=== PATIENT | female | born 1985 | race African-American/Black ===

== ENCOUNTER 2016-05-08 01:37 | Emergency (ER) | payer MEDICAID ==
[~2016-05-08] VITALS: Ht 162.6 cm; Wt 99.8 kg
[~2016-05-08 01:37] MED LIST: HYDR-2652 PO; LABE100T19 PO; LORA1TAB12 PO; NIFE90TA30 PO; OXYC10TA44 PO
[2016-05-08 01:45] VITALS: BP 210/110
[2016-05-08 03:07] LABS: Basophils # (auto) 0 uL; Basophils % (auto) 0.1 % (0.0-2.0); DEFINITIVE VIEW TRANSMISSION; Eosinophils # (auto) 0.1 uL; Eosinophils % (auto) 0.8 % (0.0-7.0); Hematocrit 35.4 % (36.0-46.0); Lymphocytes % (auto) 24.8 % (10.0-50.0); Mean Corpuscular Hgb Conc. 31.1 g/dL (32.0-36.0); Mean Corpuscular Volume 73.8 fL (80.0-100.0); Mean Platelet Volume 9.1 fL (7.4-10.4); Monocytes # (auto) 0.7 uL; Monocytes % (auto) 6.2 % (0.0-12.0); Neutrophils # (auto) 8.1 uL; Neutrophils % (auto) 68.1 % (37.0-80.0); Platelet Count (auto) 363 10^3/uL (140-450); Red Cell Distribution Width 16.8 % (11.6-16.0); White Blood Cell 11.9 10^3/uL (4.4-10.8)
[2016-05-08 03:17] LABS: Reticulocyte Count 2.24 % (0.5-1.5)
[2016-05-08 03:21] LABS: Albumin 3.7 g/dL (3.4-5.0); Calcium 8.8 mg/dL (8.5-10.1); Potassium 3.6 mmol/L (3.5-5.1)
[2016-05-08 03:23] LABS: Bilirubin, Total 0.2 mg/dL (0.2-1.0); Total Protein 7.8 g/dL (6.4-8.2)
== END 2016-05-08 09:38 | disposition left against medical advice (07) ==
LOC: ER 01:45
DX: D57.1 Sickle-cell disease without crisis (principal); Z53.21 Procedure and treatment not carried out due to patient leaving prior to being seen by health care provider
CPT/HCPCS: 36415; 80053; 85025; 85045

== ENCOUNTER 2016-05-19 13:57 | Emergency (ER) | payer MEDICAID ==
[~2016-05-19] VITALS: Ht 162.6 cm; Wt 98.0 kg
[2016-05-19] MEDS ORDERED: HYDROmorphone HCL 2 MG/ML VL IV ONE (14:15)
[2016-05-19] MEDS ORDERED: cloNIDine HCL 0.1 MG TAB PO ONE (14:15)
[2016-05-19] MEDS ORDERED: ONDANSETRON HCL 4 MG/2 ML VIAL IV ONE (14:15)
[2016-05-19 14:34] LABS: Basophils # (auto) 0 uL; DEFINITIVE VIEW TRANSMISSION; Eosinophils # (auto) 0.1 uL; Eosinophils % (auto) 0.8 % (0.0-7.0); Hemoglobin 11.2 g/dL (12.2-16.2); Lymphocytes # (auto) 2.8 uL; Lymphocytes % (auto) 24.5 % (10.0-50.0); Mean Corpuscular Hgb Conc. 31.2 g/dL (32.0-36.0); Mean Corpuscular Volume 73.7 fL (80.0-100.0); Mean Platelet Volume 8.4 fL (7.4-10.4); Monocytes # (auto) 0.7 uL; Monocytes % (auto) 5.8 % (0.0-12.0); Neutrophils # (auto) 7.9 uL; Neutrophils % (auto) 68.9 % (37.0-80.0); Platelet Count (auto) 315 10^3/uL (140-450); Red Cell Distribution Width 16.7 % (11.6-16.0); White Blood Cell 11.5 10^3/uL (4.4-10.8)
[2016-05-19 14:54] LABS: Albumin 3.5 g/dL (3.4-5.0); BUN/Creatinine Ratio 12.5; Calcium 8.9 mg/dL (8.5-10.1); Potassium 4.2 mmol/L (3.5-5.1)
[2016-05-19 14:58] LABS: Bilirubin, Total 0.3 mg/dL (0.2-1.0); Total Protein 7.8 g/dL (6.4-8.2)
[2016-05-19 15:46] VITALS: BP 179/73
== END 2016-05-19 16:20 | disposition home or self-care (01) ==
LOC: EDBD 13:57 → ER 14:04
DX: I16.0 Hypertensive urgency (principal); G89.29 Other chronic pain; I48.91 Unspecified atrial fibrillation; E11.22 Type 2 diabetes mellitus with diabetic chronic kidney disease; I12.9 Hypertensive chronic kidney disease with stage 1 through stage 4 chronic kidney disease, or unspecified chronic kidney disease; N18.9 Chronic kidney disease, unspecified; Z86.73 Personal history of transient ischemic attack (TIA), and cerebral infarction without residual deficits; Z88.6 Allergy status to analgesic agent; Z91.013 Allergy to seafood; Z79.899 Other long term (current) drug therapy
CPT/HCPCS: 36415; 80053; 85025; 85049; 94761; 96374; 96375; 99284; J1170; J2405

== ENCOUNTER 2016-06-05 08:54 | Emergency (ER) | payer MEDICAID ==
[~2016-06-05] VITALS: Ht 162.6 cm; Wt 99.8 kg
[2016-06-05 10:33] LABS: Basophils # (auto) 0 uL; Basophils % (auto) 0.4 % (0.0-2.0); DEFINITIVE VIEW TRANSMISSION; Eosinophils # (auto) 0.1 uL; Eosinophils % (auto) 1.4 % (0.0-7.0); Hematocrit 30.9 % (36.0-46.0); Hemoglobin 9.7 g/dL (12.2-16.2); Lymphocytes # (auto) 3.1 uL; Lymphocytes % (auto) 29.8 % (10.0-50.0); Mean Corpuscular Hemoglobin 22.6 pg (28.0-32.0); Mean Corpuscular Hgb Conc. 31.3 g/dL (32.0-36.0); Mean Corpuscular Volume 72.1 fL (80.0-100.0); Mean Platelet Volume 8.6 fL (7.4-10.4); Monocytes # (auto) 0.7 uL; Monocytes % (auto) 6.8 % (0.0-12.0); Neutrophils # (auto) 6.4 uL; Neutrophils % (auto) 61.6 % (37.0-80.0); Platelet Count (auto) 319 10^3/uL (140-450); Red Cell Distribution Width 17.2 % (11.6-16.0); White Blood Cell 10.4 10^3/uL (4.4-10.8)
[2016-06-05] MEDS ORDERED: SODIUM CHLORIDE 0.9% 1,000 ML IV ONE (10:48)
[2016-06-05 10:54] LABS: Albumin 3.4 g/dL (3.4-5.0); BUN/Creatinine Ratio 15.6; Bilirubin, Total 0.2 mg/dL (0.2-1.0); Calcium 8.8 mg/dL (8.5-10.1); Potassium 3.6 mmol/L (3.5-5.1); Total Protein 7.3 g/dL (6.4-8.2)
[2016-06-05] MEDS ORDERED: LABETALOL HCL 5 MG/ML 4ML SYRINGE IV ONE (11:00)
[2016-06-05 11:19] VITALS: BP 205/123
== END 2016-06-05 14:17 | disposition home or self-care (01) ==
LOC: ER 08:54
DX: E11.65 Type 2 diabetes mellitus with hyperglycemia (principal); E66.01 Morbid (severe) obesity due to excess calories; I10 Essential (primary) hypertension; I48.91 Unspecified atrial fibrillation; R11.2 Nausea with vomiting, unspecified; G89.4 Chronic pain syndrome; D57.1 Sickle-cell disease without crisis; E11.22 Type 2 diabetes mellitus with diabetic chronic kidney disease; I12.9 Hypertensive chronic kidney disease with stage 1 through stage 4 chronic kidney disease, or unspecified chronic kidney disease; N18.9 Chronic kidney disease, unspecified; Z86.73 Personal history of transient ischemic attack (TIA), and cerebral infarction without residual deficits; Z68.37 Body mass index [BMI] 37.0-37.9, adult; Z88.6 Allergy status to analgesic agent; Z91.013 Allergy to seafood; Z79.899 Other long term (current) drug therapy
CPT/HCPCS: 36415; 71010; 80053; 81025; 83735; 84443; 84484; 85025; 85045; 93005; 94761; 96361; 96374; 99285; J3490

== ENCOUNTER 2016-06-10 05:33 | Emergency (ER) | payer MEDICAID ==
[~2016-06-10] VITALS: Ht 162.6 cm; Wt 98.0 kg
[2016-06-10 06:10] VITALS: BP 174/126
[2016-06-10 07:12] LABS: Urine Bilirubin Negative (Negative); Urine Blood TRACE /uL (Negative); Urine Color Yellow (Yellow); Urine Hyaline Cast FEW /lpf (0 - 2); Urine Ketone Negative (Negative); Urine Mucus FEW (None Seen); Urine Nitrite Negative (Negative); Urine RBC 5 /hpf (0 - 4); Urine Squamous Epithelial Cell FEW /hpf (<5); Urine Urobilinogen Normal (Negative); Urine pH 5.5 (5.0-8.0)
[2016-06-10 07:23] LABS: Urine Glucose 2+ mg/dL (Normal)
== END 2016-06-10 08:52 | disposition left against medical advice (07) ==
LOC: ER 05:36
DX: D57.00 Hb-SS disease with crisis, unspecified (principal); Z53.21 Procedure and treatment not carried out due to patient leaving prior to being seen by health care provider
CPT/HCPCS: 81001; 81025; 93005

== ENCOUNTER 2016-06-18 13:30 | Emergency (ER) | payer MEDICAID ==
[~2016-06-18] VITALS: Ht 170.2 cm; Wt 117.9 kg
[2016-06-18 14:35] LABS: Basophils # (auto) 0 uL; Basophils % (auto) 0.1 % (0.0-2.0); DEFINITIVE VIEW TRANSMISSION; Eosinophils # (auto) 0.2 uL; White Blood Cell 8.5 10^3/uL (4.4-10.8)
[2016-06-18 14:39] LABS: Eosinophils % (auto) 1.8 % (0.0-7.0); Hematocrit 35.3 % (36.0-46.0); Hemoglobin 10.7 g/dL (12.2-16.2); Lymphocytes # (auto) 2.7 uL; Lymphocytes % (auto) 31.7 % (10.0-50.0); Mean Corpuscular Hemoglobin 22.2 pg (28.0-32.0); Mean Corpuscular Hgb Conc. 30.4 g/dL (32.0-36.0); Mean Corpuscular Volume 73.1 fL (80.0-100.0); Mean Platelet Volume 8.8 fL (7.4-10.4); Monocytes # (auto) 0.5 uL; Monocytes % (auto) 6.1 % (0.0-12.0); Neutrophils # (auto) 5.1 uL; Neutrophils % (auto) 60.3 % (37.0-80.0); Platelet Count (auto) 366 10^3/uL (140-450); Red Cell Distribution Width 17.6 % (11.6-16.0)
[2016-06-18 14:48] LABS: INR 0.91 (0.9-1.15); Partial Thromboplastin Time 24.7 sec (22.64-33.71); Prothrombin Time 9.4 sec (9.37-12.3)
[2016-06-18 14:54] LABS: Albumin 3.4 g/dL (3.4-5.0); Calcium 8.8 mg/dL (8.5-10.1)
[2016-06-18 14:56] LABS: Bilirubin, Total 0.2 mg/dL (0.2-1.0); Total Protein 7.5 g/dL (6.4-8.2)
[2016-06-18] MEDS ORDERED: NALBUPHINE HCL 10 MG/1ml INJECTION IV ONE (16:30)
[2016-06-18] MEDS ORDERED: SODIUM CHLORIDE 0.9% 1,000 ML IV ONE (16:30)
[2016-06-18] MEDS ORDERED: PROMETHAZINE HCL 25 MG/ML 1ML IV ONE (16:30)
[2016-06-18 16:32] VITALS: BP 221/133
[2016-06-18] MEDS ORDERED: diphenhdrAMINE HCL 50 MG/1 ML VL ONE (17:26)
[2016-06-18 17:29] LABS: Urine Bilirubin Negative (Negative); Urine Color Yellow (Yellow); Urine Ketone Negative (Negative); Urine Nitrite Negative (Negative); Urine RBC 5 /hpf (0 - 4); Urine Squamous Epithelial Cell FEW /hpf (<5); Urine Urobilinogen Normal (Negative); Urine pH 7.5 (5.0-8.0)
[2016-06-18 17:33] LABS: Urine Blood 1+ /uL (Negative); Urine Glucose 3+ mg/dL (Normal)
[2016-06-18] MEDS ORDERED: hydrALAZINE HCL 20 MG/ML VL IV ONE (17:45)
[2016-06-18] MEDS ORDERED: diphenhdrAMINE HCL 50 MG/1 ML VL IV ONE (17:45)
[2016-06-18] MEDS ORDERED: LABETALOL HCL 5 MG/ML 4ML SYRINGE IV ONE (17:45)
== END 2016-06-18 16:26 | disposition left against medical advice (07) ==
LOC: EDBD 13:30 → ER 13:30 → EDUNIT# 13:30 → ER 16:26
DX: D57.1 Sickle-cell disease without crisis (principal); G89.4 Chronic pain syndrome; I48.91 Unspecified atrial fibrillation; I12.9 Hypertensive chronic kidney disease with stage 1 through stage 4 chronic kidney disease, or unspecified chronic kidney disease; N18.9 Chronic kidney disease, unspecified; E11.9 Type 2 diabetes mellitus without complications; Z86.73 Personal history of transient ischemic attack (TIA), and cerebral infarction without residual deficits; Z98.890 Other specified postprocedural states; Z53.29 Procedure and treatment not carried out because of patient's decision for other reasons
CPT/HCPCS: 36415; 80053; 81001; 83735; 84443; 84702; 85025; 85045; 85610; 85730; 93005; 94761; 96361; 96374; 96375; 99285; J0360; J1200; J2300; J2550; J3490; J7030

== ENCOUNTER 2016-08-16 22:10 | Inpatient (IN) | payer MEDICAID ==
[~2016-08-16] VITALS: Ht 162.6 cm; Wt 98.0 kg
[2016-08-16] MEDS ORDERED: SODIUM CHLORIDE 0.9% 1,000 ML IV ONE (23:00)
[2016-08-16 23:11] LABS: Neutrophils % (auto) 62.5 % (37.0-80.0); White Blood Cell 12.4 10^3/uL (4.4-10.8)
[2016-08-16 23:12] LABS: Basophils % (auto) 0.1 % (0.0-2.0); Eosinophils % (auto) 1.2 % (0.0-7.0); Lymphocytes % (auto) 29.4 % (10.0-50.0); Monocytes % (auto) 6.8 % (0.0-12.0); Neutrophils # (auto) 7.8 uL
[2016-08-16 23:13] LABS: Basophils # (auto) 0 uL; Eosinophils # (auto) 0.1 uL; Hematocrit 37.3 % (36.0-46.0); Hemoglobin 11.8 g/dL (12.2-16.2); Lymphocytes # (auto) 3.6 uL; Mean Corpuscular Hemoglobin 23.4 pg (28.0-32.0); Mean Corpuscular Hgb Conc. 31.6 g/dL (32.0-36.0); Monocytes # (auto) 0.83 uL; Platelet Count (auto) 328 10^3/uL (140-450)
[2016-08-16 23:14] LABS: Mean Platelet Volume 8.7 fL (7.4-10.4)
[2016-08-16] MEDS ORDERED: HYDROmorphone HCL 2 MG/ML VL IV ONE ×2 (23:15→23:45)
[2016-08-16] MEDS ORDERED: ONDANSETRON HCL 4 MG/2 ML VIAL IV ONE ×2 (23:15→23:45)
[2016-08-16] MEDS ORDERED: DILTIAZEM HCL 25 MG/5 ML VIAL IV ONE (23:15)
[2016-08-16 23:23] LABS: Albumin 3.5 g/dL (3.4-5.0); BUN/Creatinine Ratio 8.5; Calcium 8.7 mg/dL (8.5-10.1); Potassium 3.6 mmol/L (3.5-5.1)
[2016-08-16 23:26] LABS: Bilirubin, Total 0.2 mg/dL (0.2-1.0); Total Protein 7.5 g/dL (6.4-8.2)
[2016-08-16] MEDS ORDERED: cloNIDine HCL 0.1 MG TAB PO ONE (23:45)
[2016-08-17 00:10] LABS: Urine Bilirubin Negative (Negative); Urine Color Yellow (Yellow); Urine Ketone Negative (Negative); Urine Nitrite Negative (Negative); Urine RBC 13 /hpf (0 - 4); Urine Squamous Epithelial Cell FEW /hpf (<5); Urine Urobilinogen Normal (Negative)
[2016-08-17 00:11] LABS: Urine Blood 1+ /uL (Negative); Urine Glucose 4+ mg/dL (Normal)
[2016-08-17] MEDS ORDERED: diphenhdrAMINE HCL 50 MG/1 ML VL ONE (00:40)
[2016-08-17] MEDS ORDERED: diphenhdrAMINE HCL 50 MG/1 ML VL IV ONE ×4 (00:45→04:30)
[2016-08-17] MEDS ORDERED: NITROGLYCERIN 50MG/250ML 250 ML IV SCH (01:57)
[2016-08-17] MEDS ORDERED: DILTIAZEM HCL 25 MG/5 ML VIAL IV ONE (02:00)
[2016-08-17] MEDS ORDERED: NIFEdipine ER 30 MG TAB PO ONE (02:00)
[2016-08-17] MEDS ORDERED: LABETALOL HCL 5 MG/ML 4ML SYRINGE IV ONE (02:00)
[2016-08-17] MEDS ORDERED: ONDANSETRON HCL 4 MG/2 ML VIAL IV ONE (04:00)
[2016-08-17] MEDS ORDERED: HYDROmorphone HCL 2 MG/ML VL IV ONE (04:00)
[2016-08-17 05:15] VITALS: BP 154/105
[2016-08-17] MEDS ORDERED: MORPHINE SULF INJ 2 MG/ML SYRINGE 1ML IV PRN ×2 (05:30→06:00)
[2016-08-17] MEDS ORDERED: OXYCODONE W/ ACETAMINOPHEN 5/325MG TABLET PO PRN ×2 (05:30→06:00)
[2016-08-17] MEDS ORDERED: NITROGLYCERIN 0.4 MG SL TAB SL PRN ×2 (05:30→06:00)
[2016-08-17] MEDS ORDERED: ACETAMINOPHEN 325 MG TAB PO PRN ×2 (05:30→06:00)
[2016-08-17] MEDS ORDERED: TEMAZEPAM 15 MG CAP PO PRN ×2 (05:30→06:00)
[2016-08-17] MEDS ORDERED: ONDANSETRON HCL 4 MG/2 ML VIAL IV PRN ×2 (05:30→06:00)
[2016-08-17] MEDS ORDERED: hydrALAZINE HCL 25 MG TAB PO PRN ×2 (05:30→06:00)
[2016-08-17] MEDS ORDERED: DEXTROSE (50%) 50ML SYRG IV PRN ×2 (05:30→06:00)
[2016-08-17] MEDS ORDERED: InsuLIN REG 1unit/0.01ml Soln (100units/ml) SC SCH ×2 (06:00→06:15)
[2016-08-17] MEDS ORDERED: ACCU-CHEK COMFORT CURVE STRIP VI SCH ×2 (06:00→06:15)
[2016-08-17] MEDS ORDERED: LABETALOL HCL 200 MG TAB PO SCH ×2 (06:00→06:15)
[2016-08-17] MEDS ORDERED: cefTRIAXone 1GM/50ML D5W 50 ML IV SCH ×2 (09:00)
[2016-08-17] MEDS ORDERED: FAMOTIDINE 20 MG TAB PO SCH ×2 (10:00)
[2016-08-17] MEDS ORDERED: NIFEdipine ER 30 MG TAB PO SCH ×2 (10:00)
== END 2016-08-17 05:51 | disposition left against medical advice (07) | DRG 463 ==
LOC: ER 22:14 → TELE 22:15 → ER 08-17 05:57
PROVIDERS: ADMIT Nurse Practitioner; ATTEND Internal Medicine
DX: N30.01 Acute cystitis with hematuria (principal); E11.22 Type 2 diabetes mellitus with diabetic chronic kidney disease; I16.1 Hypertensive emergency; E11.65 Type 2 diabetes mellitus with hyperglycemia; D57.1 Sickle-cell disease without crisis; I12.9 Hypertensive chronic kidney disease with stage 1 through stage 4 chronic kidney disease, or unspecified chronic kidney disease; I48.91 Unspecified atrial fibrillation; Z53.21 Procedure and treatment not carried out due to patient leaving prior to being seen by health care provider; N18.9 Chronic kidney disease, unspecified; Z82.49 Family history of ischemic heart disease and other diseases of the circulatory system; Z83.3 Family history of diabetes mellitus; Z86.73 Personal history of transient ischemic attack (TIA), and cerebral infarction without residual deficits; Z87.442 Personal history of urinary calculi; Z88.6 Allergy status to analgesic agent; Z91.013 Allergy to seafood; Z79.899 Other long term (current) drug therapy; Z84.89 Family history of other specified conditions; Z80.8 Family history of malignant neoplasm of other organs or systems
CPT/HCPCS: 36415; 74176; 80053; 81001; 83036; 84702; 85025; 87086; 93005; 94761; 96374; 96375; 96376; J2405; J3490

== ENCOUNTER 2016-08-25 02:48 | Inpatient (IN) | payer MEDICAID ==
[~2016-08-25] VITALS: Ht 162.6 cm; Wt 100.0 kg
[2016-08-25] MEDS ORDERED: SODIUM CHLORIDE 0.9% 1,000 ML IV ONE (03:04)
[2016-08-25] MEDS ORDERED: cloNIDine HCL 0.1 MG TAB PO ONE (03:15)
[2016-08-25] MEDS ORDERED: SODIUM CHLORIDE 0.9% 2,000 ML IV ONE (03:15)
[2016-08-25] MEDS ORDERED: ONDANSETRON HCL 4 MG/2 ML VIAL IV ONE ×2 (03:30→06:45)
[2016-08-25 03:44] LABS: Basophils # (auto) 0 uL; Basophils % (auto) 0.1 % (0.0-2.0); DEFINITIVE VIEW TRANSMISSION; Eosinophils # (auto) 0.2 uL; Eosinophils % (auto) 1.7 % (0.0-7.0); Hematocrit 35.3 % (36.0-46.0); Hemoglobin 11.4 g/dL (12.2-16.2); Lymphocytes # (auto) 3.1 uL; Lymphocytes % (auto) 32.3 % (10.0-50.0); Mean Corpuscular Hemoglobin 23.8 pg (28.0-32.0); Mean Corpuscular Hgb Conc. 32.4 g/dL (32.0-36.0); Mean Corpuscular Volume 73.6 fL (80.0-100.0); Mean Platelet Volume 9.3 fL (7.4-10.4); Monocytes # (auto) 0.7 uL; Monocytes % (auto) 7.3 % (0.0-12.0); Neutrophils # (auto) 5.7 uL; Neutrophils % (auto) 58.6 % (37.0-80.0); Platelet Count (auto) 380 10^3/uL (140-450); Red Cell Distribution Width 17.5 % (11.6-16.0); Reticulocyte Count 2.46 % (0.5-1.5); White Blood Cell 9.7 10^3/uL (4.4-10.8)
[2016-08-25 03:45] LABS: Urine Bilirubin Negative (Negative); Urine Blood 2+ /uL (Negative); Urine Color Colorless (Yellow); Urine Glucose 4+ mg/dL (Normal); Urine Ketone Negative (Negative); Urine Nitrite Negative (Negative); Urine RBC 16 /hpf (0 - 4); Urine Squamous Epithelial Cell FEW /hpf (<5); Urine Urobilinogen Normal (Negative)
[2016-08-25 03:52] LABS: Partial Thromboplastin Time 23.2 sec (22.64-33.71); Prothrombin Time 9.4 sec (9.37-12.3)
[2016-08-25 03:54] LABS: Albumin 3.1 g/dL (3.4-5.0); Alkaline Phosphatase 147 U/L (45-117); Anion Gap 9 (5-15); Aspartate Aminotransferase 13 U/L (15-37); BUN/Creatinine Ratio 9.1; Bilirubin, Total 0.1 mg/dL (0.2-1.0); Blood Urea Nitrogen 10 mg/dL (7-18); Calcium 8.5 mg/dL (8.5-10.1); Carbon Dioxide 30 mmol/L (21-32); Chloride 102 mmol/L (98-107); GFR African American 74 mL/min; GFR Non-African American 61 mL/min; Glucose 307 mg/dL (74-106); Potassium 3.5 mmol/L (3.5-5.1); Sodium 141 mmol/L (136-145); Total Protein 7.3 g/dL (6.4-8.2)
[2016-08-25 03:55] LABS: INR 0.87 (0.9-1.15)
[2016-08-25] MEDS ORDERED: hydrALAZINE HCL 20 MG/ML VL IV ONE (04:00)
[2016-08-25 04:13] LABS: B-Type Natriuretic Peptide 67.45 pg/mL (0-100)
[2016-08-25] MEDS ORDERED: HYDROmorphone HCL 2 MG/ML VL IV ONE ×2 (05:00→06:45)
[2016-08-25] MEDS ORDERED: LORazepam 0.5 MG TAB PO PRN ×2 (08:00→09:00)
[2016-08-25] MEDS ORDERED: DEXTROSE (50%) 50ML SYRG IV PRN (08:00)
[2016-08-25] MEDS ORDERED: HYDROcodone-ACET 5/325MG TAB PO PRN (08:00)
[2016-08-25] MEDS ORDERED: TEMAZEPAM 15 MG CAP PO PRN (08:00)
[2016-08-25] MEDS ORDERED: ACETAMINOPHEN 500 MG TAB PO PRN (08:00)
[2016-08-25] MEDS ORDERED: HYDROmorphone HCL 2 MG/ML VL IV PRN (08:00)
[2016-08-25] MEDS ORDERED: NITROGLYCERIN 0.4 MG SL TAB SL PRN (08:00)
[2016-08-25] MEDS: SODIUM CHLORIDE 0.9% 1,000 ML IV SCH ×2 (08:36→18:09)
[2016-08-25] MEDS: InsuLIN REG 1unit/0.01ml Soln (100units/ml) SC SCH ×4 (08:39→20:04)
[2016-08-25] MEDS: ACCU-CHEK COMFORT CURVE STRIP VI SCH ×5 (08:39→23:48)
[2016-08-25] MEDS: PANTOPRAZOLE 40 MG TAB PO SCH (08:44)
[2016-08-25] MEDS ORDERED: LABETALOL HCL 5 MG/ML 4ML SYRINGE IV PRN ×3 (09:00)
[2016-08-25] MEDS ORDERED: hydrALAZINE HCL 25 MG TAB PO ONE (09:00)
[2016-08-25] MEDS ORDERED: hydrALAZINE HCL 20 MG/ML VL IV PRN ×2 (09:00)
[2016-08-25] MEDS ORDERED: LABETALOL HCL 5 MG/ML 4ML SYRINGE IV ONE (09:00)
[2016-08-25] MEDS ORDERED: OXYCODONE W/ ACETAMINOPHEN 5/325MG TABLET PO PRN (09:15)
[2016-08-25] MEDS: NIFEdipine ER 30 MG TAB PO SCH (09:37)
[2016-08-25] MEDS: PROCHLORPERAZINE EDISYLATE 5 MG/ML 2ML VIAL IV PRN ×2 (09:37→19:36)
[2016-08-25] MEDS: HYDROmorphone HCL 2 MG/ML VL IV PRN ×4 (10:58→23:48)
[2016-08-25] MEDS: diphenhdrAMINE HCL 50 MG/1 ML VL IV PRN ×4 (10:58→23:48)
[2016-08-25] MEDS ORDERED: INSLANTI SC (13:18)
[2016-08-25] MEDS ORDERED: DIPH25CA66 IV (13:18)
[2016-08-25] MEDS ORDERED: CLON0.2T PO (13:18)
[2016-08-25] MEDS ORDERED: LABE100T PO (13:18)
[2016-08-25 14:18] VITALS: BP 156/89
[2016-08-25 14:21] LABS: Hematocrit 32.1 % (36.0-46.0); Hemoglobin 10.3 g/dL (12.2-16.2)
[2016-08-25] MEDS: LABETALOL HCL 200 MG TAB PO SCH ×2 (14:41→22:06)
[2016-08-25] MEDS: hydrALAZINE HCL 25 MG TAB PO SCH ×2 (14:41→22:06)
[2016-08-25 15:57] VITALS: BP 182/101
[2016-08-25 19:32] LABS: Hematocrit 33.6 % (36.0-46.0); Hemoglobin 10.7 g/dL (12.2-16.2)
[2016-08-25 20:00] VITALS: BP 152/93
[2016-08-25 20:48] VITALS: BP 152/93
[2016-08-26] MEDS: InsuLIN REG 1unit/0.01ml Soln (100units/ml) SC SCH ×5 (00:26→17:28)
[2016-08-26 01:19] LABS: Hematocrit 30.2 % (36.0-46.0); Hemoglobin 9.6 g/dL (12.2-16.2)
[2016-08-26] MEDS: SODIUM CHLORIDE 0.9% 1,000 ML IV SCH ×2 (04:01→14:09)
[2016-08-26] MEDS: ACCU-CHEK COMFORT CURVE STRIP VI SCH ×4 (04:01→17:28)
[2016-08-26 04:41] VITALS: BP 148/93
[2016-08-26] MEDS: diphenhdrAMINE HCL 50 MG/1 ML VL IV PRN ×3 (06:10→14:24)
[2016-08-26] MEDS: HYDROmorphone HCL 2 MG/ML VL IV PRN ×3 (06:10→14:24)
[2016-08-26] MEDS: hydrALAZINE HCL 25 MG TAB PO SCH ×2 (06:11→14:09)
[2016-08-26] MEDS: LABETALOL HCL 200 MG TAB PO SCH ×2 (06:11→14:10)
[2016-08-26 06:20] LABS: Basophils # (auto) 0 uL; Basophils % (auto) 0.1 % (0.0-2.0); DEFINITIVE VIEW TRANSMISSION; Eosinophils # (auto) 0.2 uL; Eosinophils % (auto) 1.7 % (0.0-7.0); Hematocrit 27.8 % (36.0-46.0); Hemoglobin 9.1 g/dL (12.2-16.2); Lymphocytes # (auto) 4.1 uL; Lymphocytes % (auto) 35.7 % (10.0-50.0); Mean Corpuscular Hemoglobin 24.2 pg (28.0-32.0); Mean Corpuscular Hgb Conc. 32.5 g/dL (32.0-36.0); Mean Corpuscular Volume 74.3 fL (80.0-100.0); Mean Platelet Volume 8.7 fL (7.4-10.4); Monocytes # (auto) 0.8 uL; Monocytes % (auto) 6.9 % (0.0-12.0); Neutrophils # (auto) 6.3 uL; Neutrophils % (auto) 55.6 % (37.0-80.0); Platelet Count (auto) 333 10^3/uL (140-450); Red Cell Distribution Width 17.9 % (11.6-16.0); White Blood Cell 11.4 10^3/uL (4.4-10.8)
[2016-08-26 06:25] LABS: Calcium 8.4 mg/dL (8.5-10.1); Potassium 3.2 mmol/L (3.5-5.1)
[2016-08-26 06:37] LABS: Albumin 2.5 g/dL (3.4-5.0); BUN/Creatinine Ratio 9.3; Bilirubin, Total 0.1 mg/dL (0.2-1.0); Total Protein 5.6 g/dL (6.4-8.2)
[2016-08-26 07:27] VITALS: BP 166/91
[2016-08-26] MEDS: PANTOPRAZOLE 40 MG TAB PO SCH (09:20)
[2016-08-26] MEDS: NIFEdipine ER 30 MG TAB PO SCH (09:20)
[2016-08-26 12:01] VITALS: BP 163/98
[2016-08-26] MEDS ORDERED: PERCOT PO (14:50)
[2016-08-26 16:11] VITALS: BP 198/100
[2016-08-26 16:31] VITALS: BP 198/100
[2016-08-26] MEDS ORDERED: HYDROmorphone HCL 2 MG/ML VL IV ONE (17:00)
== END 2016-08-26 18:00 | disposition home or self-care (01) | DRG 662 ==
LOC: ER 02:49 → TELE 02:50 → TELE-E-ADS 11:38 → TELE-CENTR 13:47
PROVIDERS: ADMIT Internal Medicine; ATTEND Hospitalist
DX: D57.00 Hb-SS disease with crisis, unspecified (principal); Z99.11 Dependence on respirator [ventilator] status; E11.22 Type 2 diabetes mellitus with diabetic chronic kidney disease; E11.65 Type 2 diabetes mellitus with hyperglycemia; G89.4 Chronic pain syndrome; I48.91 Unspecified atrial fibrillation; N18.9 Chronic kidney disease, unspecified; I12.9 Hypertensive chronic kidney disease with stage 1 through stage 4 chronic kidney disease, or unspecified chronic kidney disease; D63.8 Anemia in other chronic diseases classified elsewhere; E66.01 Morbid (severe) obesity due to excess calories; Z82.49 Family history of ischemic heart disease and other diseases of the circulatory system; Z83.3 Family history of diabetes mellitus; Z87.442 Personal history of urinary calculi; Z86.73 Personal history of transient ischemic attack (TIA), and cerebral infarction without residual deficits; Z79.899 Other long term (current) drug therapy; Z68.37 Body mass index [BMI] 37.0-37.9, adult; Z88.6 Allergy status to analgesic agent; Z91.013 Allergy to seafood
CPT/HCPCS: 36415; 71010; 80053; 81001; 82962; 83036; 83880; 84484; 85014; 85018; 85025; 85045; 85610; 85730; 93005; 94761; 96361; 96374; 96375; J1815; J2405; J3490

== ENCOUNTER 2016-09-02 01:07 | Inpatient (IN) | payer MEDICAID ==
[~2016-09-02] VITALS: Ht 162.6 cm; Wt 99.4 kg
[~2016-09-02 01:07] MED LIST changes: +CLON0.2T PO; +INSLANTI SC; +LABE100T PO; -LABE100T19 PO
[2016-09-02] MEDS ORDERED: cloNIDine HCL 0.1 MG TAB PO ONE (01:45)
[2016-09-02 02:06] LABS: Basophils # (auto) 0 uL; Basophils % (auto) 0.1 % (0.0-2.0); DEFINITIVE VIEW TRANSMISSION; Eosinophils # (auto) 0.1 uL; Eosinophils % (auto) 1.2 % (0.0-7.0); Hematocrit 35.9 % (36.0-46.0); Hemoglobin 11.5 g/dL (12.2-16.2); Lymphocytes # (auto) 2.9 uL; Lymphocytes % (auto) 24.3 % (10.0-50.0); Mean Corpuscular Hemoglobin 23.7 pg (28.0-32.0); Mean Corpuscular Hgb Conc. 32.1 g/dL (32.0-36.0); Mean Corpuscular Volume 73.9 fL (80.0-100.0); Mean Platelet Volume 8.8 fL (7.4-10.4); Monocytes # (auto) 0.8 uL; Monocytes % (auto) 6.5 % (0.0-12.0); Neutrophils # (auto) 8.1 uL; Neutrophils % (auto) 67.9 % (37.0-80.0); Platelet Count (auto) 405 10^3/uL (140-450); Red Cell Distribution Width 17.1 % (11.6-16.0); White Blood Cell 11.9 10^3/uL (4.4-10.8)
[2016-09-02 02:24] LABS: Albumin 3.2 g/dL (3.4-5.0); BUN/Creatinine Ratio 8.6; Potassium 3.5 mmol/L (3.5-5.1)
[2016-09-02 02:27] LABS: Bilirubin, Total 0.2 mg/dL (0.2-1.0); Total Protein 7.4 g/dL (6.4-8.2)
[2016-09-02] MEDS ORDERED: InsuLIN REG 1unit/0.01ml Soln (100units/ml) IV ONE (04:00)
[2016-09-02] MEDS ORDERED: HYDROmorphone HCL 2 MG/ML VL IV ONE ×2 (04:00→07:00)
[2016-09-02] MEDS ORDERED: SODIUM CHLORIDE 0.9% 500 ML IV ONE (04:00)
[2016-09-02] MEDS ORDERED: ONDANSETRON HCL 4 MG/2 ML VIAL IV ONE (04:00)
[2016-09-02] MEDS ORDERED: hydrALAZINE HCL 20 MG/ML VL IV ONE (04:00)
[2016-09-02] MEDS ORDERED: LABETALOL HCL 5 MG/ML 4ML SYRINGE IV ONE ×3 (07:00→12:00)
[2016-09-02] MEDS ORDERED: cloNIDine HCL 0.1 MG TAB PO PRN (07:30)
[2016-09-02] MEDS ORDERED: ONDANSETRON HCL 4 MG/2 ML VIAL IV PRN (07:30)
[2016-09-02] MEDS ORDERED: NITROGLYCERIN 0.4 MG SL TAB SL PRN (07:30)
[2016-09-02] MEDS ORDERED: ACETAMINOPHEN 325 MG TAB PO PRN (07:30)
[2016-09-02] MEDS ORDERED: DEXTROSE (50%) 50ML SYRG IV PRN (07:30)
[2016-09-02] MEDS: SODIUM CHLORIDE 0.9% 1,000 ML IV SCH ×2 (09:24→22:20)
[2016-09-02] MEDS: FAMOTIDINE 20 MG TAB PO SCH ×2 (09:37→22:22)
[2016-09-02] MEDS: NIFEdipine ER 30 MG TAB PO SCH (09:38)
[2016-09-02] MEDS: ENOXAPARIN SOD 40 MG/0.4 ML SYRINGE SC SCH (09:38)
[2016-09-02] MEDS ORDERED: LABETALOL HCL 200 MG TAB PO SCH (10:00)
[2016-09-02] MEDS: diphenhdrAMINE HCL 50 MG/1 ML VL IV PRN ×2 (10:35→16:50)
[2016-09-02] MEDS ORDERED: LORazepam 0.5 MG TAB PO ONE (11:15)
[2016-09-02] MEDS: InsuLIN REG 1unit/0.01ml Soln (100units/ml) SC SCH ×2 (11:26→16:59)
[2016-09-02] MEDS: ACCU-CHEK COMFORT CURVE STRIP VI SCH ×2 (11:27→16:58)
[2016-09-02] MEDS: HYDROmorphone HCL 2 MG/ML VL IV PRN ×2 (13:23→19:34)
[2016-09-02] MEDS: hydrALAZINE HCL 25 MG TAB PO SCH ×2 (13:24→22:20)
[2016-09-02 13:32] VITALS: BP 154/100
[2016-09-02 17:00] VITALS: BP 155/97
[2016-09-02] MEDS ORDERED: methylPREDNISolone SOD SUCC 40 MG/ML VL IV ONE (19:00)
[2016-09-02] MEDS ORDERED: methylPREDNISolone SOD SUCC 125 MG/2 ML VL IM ONE (19:00)
[2016-09-02] MEDS ORDERED: diphenhdrAMINE HCL 50 MG/1 ML VL IV ONE (19:00)
[2016-09-02] MEDS ORDERED: methylPREDNISolone SOD SUCC 125 MG/2 ML VL IV ONE (19:15)
[2016-09-02 22:00] VITALS: BP 193/101
[2016-09-02] MEDS: cloNIDine HCL 0.1 MG TAB PO SCH (22:21)
[2016-09-02] MEDS: LABETALOL HCL 200 MG TAB PO SCH (22:22)
[2016-09-02] MEDS: LABETALOL HCL 5 MG/ML 4ML SYRINGE IV PRN (23:23)
[2016-09-03] MEDS ORDERED: methylPREDNISolone SOD SUCC 40 MG/ML VL IV SCH
[2016-09-03] MEDS: ACCU-CHEK COMFORT CURVE STRIP VI SCH ×5 (00:29→23:24)
[2016-09-03] MEDS: methylPREDNISolone SOD SUCC 40 MG/ML VL IV SCH ×3 (00:29→12:00)
[2016-09-03] MEDS: InsuLIN REG 1unit/0.01ml Soln (100units/ml) SC SCH ×5 (00:30→23:24)
[2016-09-03] MEDS ORDERED: hydrALAZINE HCL 20 MG/ML VL IV ONE (01:00)
[2016-09-03] MEDS: diphenhdrAMINE HCL 50 MG/1 ML VL IV PRN ×4 (01:06→21:51)
[2016-09-03] MEDS: HYDROmorphone HCL 2 MG/ML VL IV PRN ×5 (01:35→22:29)
[2016-09-03 05:00] VITALS: BP 195/114
[2016-09-03] MEDS: LABETALOL HCL 5 MG/ML 4ML SYRINGE IV PRN ×2 (05:26→13:32)
[2016-09-03] MEDS: hydrALAZINE HCL 25 MG TAB PO SCH ×3 (06:22→23:24)
[2016-09-03 06:43] LABS: Basophils # (auto) 0 uL; DEFINITIVE VIEW TRANSMISSION; Eosinophils # (auto) 0 uL; Eosinophils % (auto) 0.3 % (0.0-7.0); Hematocrit 33.8 % (36.0-46.0); Hemoglobin 10.8 g/dL (12.2-16.2); Lymphocytes # (auto) 1.3 uL; Lymphocytes % (auto) 9.5 % (10.0-50.0); Mean Corpuscular Hemoglobin 23.5 pg (28.0-32.0); Mean Corpuscular Hgb Conc. 31.8 g/dL (32.0-36.0); Mean Corpuscular Volume 73.8 fL (80.0-100.0); Mean Platelet Volume 8.9 fL (7.4-10.4); Monocytes # (auto) 0 uL; Monocytes % (auto) 0.3 % (0.0-12.0); Neutrophils # (auto) 12.6 uL; Neutrophils % (auto) 89.9 % (37.0-80.0); Platelet Count (auto) 383 10^3/uL (140-450)
[2016-09-03 07:21] LABS: BUN/Creatinine Ratio 11.7; Bilirubin, Total 0.2 mg/dL (0.2-1.0); Calcium 9.3 mg/dL (8.5-10.1); Magnesium 2.1 mg/dL (1.6-2.6); Potassium 3.8 mmol/L (3.5-5.1); Total Protein 7.2 g/dL (6.4-8.2)
[2016-09-03] MEDS ORDERED: ENALAPRILAT 1.25 MG/ML-1ML VIAL IV ONE (08:45)
[2016-09-03 09:00] VITALS: BP 165/97
[2016-09-03] MEDS: FAMOTIDINE 20 MG TAB PO SCH ×2 (11:36→21:54)
[2016-09-03] MEDS: ENOXAPARIN SOD 40 MG/0.4 ML SYRINGE SC SCH (11:36)
[2016-09-03] MEDS: NIFEdipine ER 30 MG TAB PO SCH (11:39)
[2016-09-03] MEDS: cloNIDine HCL 0.1 MG TAB PO SCH ×2 (11:39→21:53)
[2016-09-03] MEDS: LABETALOL HCL 200 MG TAB PO SCH ×2 (11:40→21:53)
[2016-09-03] MEDS: SODIUM CHLORIDE 0.9% 1,000 ML IV SCH (11:53)
[2016-09-03 13:00] VITALS: BP 148/85
[2016-09-03] MEDS ORDERED: LISINOPRIL 20 MG TAB PO ONE (13:00)
[2016-09-03 17:00] VITALS: BP 192/109
[2016-09-03] MEDS: ATORVASTATIN 20 MG TAB PO SCH (21:53)
[2016-09-03 22:09] VITALS: BP 164/99
[2016-09-04] MEDS: HYDROmorphone HCL 2 MG/ML VL IV PRN ×6 (02:20→22:50)
[2016-09-04] MEDS: diphenhdrAMINE HCL 50 MG/1 ML VL IV PRN ×3 (04:20→21:05)
[2016-09-04 05:30] VITALS: BP 161/97
[2016-09-04 06:13] LABS: Calcium 8.5 mg/dL (8.5-10.1); Potassium 3.9 mmol/L (3.5-5.1)
[2016-09-04] MEDS: hydrALAZINE HCL 25 MG TAB PO SCH ×4 (06:30→23:34)
[2016-09-04] MEDS: ACCU-CHEK COMFORT CURVE STRIP VI SCH ×4 (06:30→23:34)
[2016-09-04] MEDS: InsuLIN REG 1unit/0.01ml Soln (100units/ml) SC SCH ×4 (06:55→23:34)
[2016-09-04] MEDS: SODIUM CHLORIDE 0.9% 1,000 ML IV SCH ×2 (07:17→23:34)
[2016-09-04 09:00] VITALS: BP 150/86
[2016-09-04] MEDS: ENOXAPARIN SOD 40 MG/0.4 ML SYRINGE SC SCH (10:00)
[2016-09-04] MEDS: FAMOTIDINE 20 MG TAB PO SCH ×2 (10:32→21:47)
[2016-09-04] MEDS: NIFEdipine ER 30 MG TAB PO SCH (10:33)
[2016-09-04] MEDS: LISINOPRIL 20 MG TAB PO SCH (10:33)
[2016-09-04] MEDS: cloNIDine HCL 0.1 MG TAB PO SCH ×3 (10:34→21:46)
[2016-09-04] MEDS: LABETALOL HCL 200 MG TAB PO SCH ×2 (10:34→21:47)
[2016-09-04 12:51] VITALS: BP 160/102
[2016-09-04] MEDS ORDERED: HYDROXYUREA 500 MG CAP PO ONE (13:45)
[2016-09-04 17:00] VITALS: BP 170/99
[2016-09-04] MEDS: ATORVASTATIN 20 MG TAB PO SCH (21:46)
[2016-09-04 22:00] VITALS: BP 194/117
[2016-09-05] MEDS: LABETALOL HCL 5 MG/ML 4ML SYRINGE IV PRN (00:24)
[2016-09-05] MEDS: HYDROmorphone HCL 2 MG/ML VL IV PRN ×3 (02:53→11:13)
[2016-09-05] MEDS: diphenhdrAMINE HCL 50 MG/1 ML VL IV PRN ×2 (03:15→11:12)
[2016-09-05 05:00] VITALS: BP 170/94
[2016-09-05] MEDS: cloNIDine HCL 0.1 MG TAB PO SCH (06:26)
[2016-09-05] MEDS: hydrALAZINE HCL 25 MG TAB PO SCH ×2 (06:26→11:12)
[2016-09-05] MEDS: ACCU-CHEK COMFORT CURVE STRIP VI SCH ×2 (06:28→11:19)
[2016-09-05] MEDS: InsuLIN REG 1unit/0.01ml Soln (100units/ml) SC SCH ×2 (06:28→11:19)
[2016-09-05 07:21] LABS: Basophils # (auto) 0 uL; DEFINITIVE VIEW TRANSMISSION; Eosinophils # (auto) 0.2 uL; Eosinophils % (auto) 1.7 % (0.0-7.0); Hematocrit 30.8 % (36.0-46.0); Hemoglobin 9.9 g/dL (12.2-16.2); Lymphocytes # (auto) 4.2 uL; Mean Corpuscular Hemoglobin 23.9 pg (28.0-32.0); Mean Corpuscular Hgb Conc. 32.2 g/dL (32.0-36.0); Mean Corpuscular Volume 74.4 fL (80.0-100.0); Mean Platelet Volume 8.7 fL (7.4-10.4); Monocytes # (auto) 1.1 uL; Neutrophils # (auto) 6.5 uL; Neutrophils % (auto) 54.3 % (37.0-80.0); Platelet Count (auto) 360 10^3/uL (140-450); Red Cell Distribution Width 17.4 % (11.6-16.0)
[2016-09-05 07:56] LABS: BUN/Creatinine Ratio 16.2; Calcium 8.8 mg/dL (8.5-10.1)
[2016-09-05 08:00] VITALS: BP 160/92
[2016-09-05 09:00] VITALS: BP 160/92
[2016-09-05] MEDS ORDERED: HYDROXYUREA 500 MG CAP PO SCH (10:00)
[2016-09-05] MEDS: ENOXAPARIN SOD 40 MG/0.4 ML SYRINGE SC SCH (10:00)
[2016-09-05 11:06] LABS: Urine Bilirubin Negative (Negative); Urine Blood Negative /uL (Negative); Urine Color Yellow (Yellow); Urine Glucose Normal (Normal); Urine Ketone Negative (Negative); Urine Nitrite Negative (Negative); Urine RBC <1 /hpf (0 - 4); Urine Squamous Epithelial Cell FEW /hpf (<5); Urine Urobilinogen Normal (Negative); Urine pH 5.5 (5.0-8.0)
[2016-09-05] MEDS: LISINOPRIL 20 MG TAB PO SCH (11:10)
[2016-09-05] MEDS: LABETALOL HCL 200 MG TAB PO SCH (11:11)
[2016-09-05] MEDS: FAMOTIDINE 20 MG TAB PO SCH (11:11)
[2016-09-05] MEDS: NIFEdipine ER 30 MG TAB PO SCH (11:11)
[2016-09-05] MEDS ORDERED: ATOR20TA50 PO (11:42)
[2016-09-05] MEDS ORDERED: CLO01T PO (11:42)
[2016-09-05] MEDS ORDERED: HYD500C PO (11:42)
[2016-09-05] MEDS ORDERED: HYDR-2651 PO (11:42)
[2016-09-05] MEDS ORDERED: HCTZ25T PO (11:47)
[2016-09-05] MEDS ORDERED: LABE300T PO (11:47)
[2016-09-05] MEDS ORDERED: NIC21P TOP (11:53)
[2016-09-05] MEDS ORDERED: NOR5T PO (11:54)
[2016-09-05 12:36] VITALS: BP 188/112
[2016-09-05] MEDS ORDERED: NICOTINE 21MG/24 HR TOPICAL PATCH TD ONE (14:45)
[2016-09-05] MEDS ORDERED: HCTZ 25 MG TAB PO ONE (14:45)
[2016-09-05] MEDS ORDERED: LABETALOL HCL 200 MG TAB PO SCH (22:00)
[2016-09-06] MEDS ORDERED: HCTZ 25 MG TAB PO SCH (10:00)
[2016-09-06] MEDS ORDERED: NICOTINE 21MG/24 HR TOPICAL PATCH TD SCH (10:00)
== END 2016-09-05 13:00 | disposition home or self-care (01) | DRG 662 ==
LOC: ER 01:07 → TELE 01:08 → TELE-CENTR 14:02
PROVIDERS: ADMIT Nurse Practitioner; ATTEND Internal Medicine
DX: D57.00 Hb-SS disease with crisis, unspecified (principal); N17.0 Acute kidney failure with tubular necrosis; E11.65 Type 2 diabetes mellitus with hyperglycemia; F11.20 Opioid dependence, uncomplicated; E11.21 Type 2 diabetes mellitus with diabetic nephropathy; I48.91 Unspecified atrial fibrillation; E66.9 Obesity, unspecified; G89.29 Other chronic pain; E78.5 Hyperlipidemia, unspecified; I12.9 Hypertensive chronic kidney disease with stage 1 through stage 4 chronic kidney disease, or unspecified chronic kidney disease; N18.2 Chronic kidney disease, stage 2 (mild); D63.8 Anemia in other chronic diseases classified elsewhere; F17.200 Nicotine dependence, unspecified, uncomplicated; Z82.49 Family history of ischemic heart disease and other diseases of the circulatory system; Z83.3 Family history of diabetes mellitus; Z86.73 Personal history of transient ischemic attack (TIA), and cerebral infarction without residual deficits; Z87.442 Personal history of urinary calculi; Z80.9 Family history of malignant neoplasm, unspecified; Z88.5 Allergy status to narcotic agent; Z91.013 Allergy to seafood; Z68.37 Body mass index [BMI] 37.0-37.9, adult
CPT/HCPCS: 36415; 71010; 80048; 80053; 80061; 81001; 82962; 83036; 83735; 85025; 85045; 87081; 93005; 94761; 96374; 96375; 96376; J1815; J2405; J3490

== ENCOUNTER 2016-09-14 21:32 | Emergency (ER) | payer MEDICAID ==
[~2016-09-14] VITALS: Ht 162.6 cm; Wt 95.3 kg
[~2016-09-14 21:32] MED LIST changes: +ATOR20TA50 PO; +CLO01T PO; -CLON0.2T PO; +HCTZ25T PO; +HYD500C PO; +HYDR-2651 PO; -HYDR-2652 PO; -LABE100T PO; +LABE300T PO; -LORA1TAB12 PO; +NIC21P TOP; +NOR5T PO; -OXYC10TA44 PO
[2016-09-14 22:24] LABS: Basophils # (auto) 0.1 uL; Basophils % (auto) 0.7 % (0.0-2.0); DEFINITIVE VIEW TRANSMISSION; Eosinophils # (auto) 0.2 uL; Eosinophils % (auto) 1.1 % (0.0-7.0); Hematocrit 34.7 % (36.0-46.0); Hemoglobin 11.3 g/dL (12.2-16.2); Lymphocytes # (auto) 3.4 uL; Lymphocytes % (auto) 23.4 % (10.0-50.0); Mean Corpuscular Hgb Conc. 32.7 g/dL (32.0-36.0); Mean Corpuscular Volume 73.4 fL (80.0-100.0); Mean Platelet Volume 9.4 fL (7.4-10.4); Monocytes % (auto) 6.7 % (0.0-12.0); Neutrophils # (auto) 9.7 uL; Neutrophils % (auto) 68.1 % (37.0-80.0); Platelet Count (auto) 344 10^3/uL (140-450); Red Cell Distribution Width 16.5 % (11.6-16.0); White Blood Cell 14.3 10^3/uL (4.4-10.8)
[2016-09-14 22:43] LABS: Albumin 3.4 g/dL (3.4-5.0); Anion Gap 7 (5-15); Aspartate Aminotransferase 16 U/L (15-37); BUN/Creatinine Ratio 11.9; Blood Urea Nitrogen 16 mg/dL (7-18); Carbon Dioxide 28 mmol/L (21-32); Chloride 103 mmol/L (98-107); GFR African American 58 mL/min; GFR Non-African American 48 mL/min; Glucose 328 mg/dL (74-106); Potassium 3.7 mmol/L (3.5-5.1); Sodium 138 mmol/L (136-145)
[2016-09-14 22:48] LABS: Alkaline Phosphatase 139 U/L (45-117); Bilirubin, Total 0.1 mg/dL (0.2-1.0); Total Protein 7.4 g/dL (6.4-8.2)
[2016-09-15] MEDS ORDERED: hydrALAZINE HCL 20 MG/ML VL IV ONE
[2016-09-15 01:41] LABS: Urine Bilirubin Negative (Negative); Urine Color Yellow (Yellow); Urine Ketone Negative (Negative); Urine Nitrite Negative (Negative); Urine RBC 15 /hpf (0 - 4); Urine Squamous Epithelial Cell FEW /hpf (<5); Urine Urobilinogen Normal (Negative); Urine pH 6.5 (5.0-8.0)
[2016-09-15 01:43] LABS: Urine Blood 2+ /uL (Negative); Urine Glucose 4+ mg/dL (Normal)
[2016-09-15] MEDS ORDERED: cloNIDine HCL 0.1 MG TAB PO ONE (01:45)
[2016-09-15] MEDS ORDERED: cloNIDine HCL 0.1 MG TAB ONE (01:45)
[2016-09-15] MEDS ORDERED: IOHEXOL 300 MG/ML 100ML BOTTLE IJ ONE (01:54)
[2016-09-15] MEDS ORDERED: diphenhdrAMINE HCL 50 MG/1 ML VL ONE (01:57)
[2016-09-15] MEDS ORDERED: SODIUM CHLORIDE 0.9% 2,000 ML IV ONE (02:00)
[2016-09-15] MEDS ORDERED: KETOROLAC TROMETH 30 MG/ML 1ML VIAL IV ONE (02:00)
[2016-09-15] MEDS ORDERED: ONDANSETRON HCL 4 MG/2 ML VIAL IV ONE (02:00)
[2016-09-15] MEDS ORDERED: MORPHINE SULFATE 4 MG/ML SYRG IV ONE (02:00)
[2016-09-15 04:46] VITALS: BP 186/90
== END 2016-09-15 04:47 | disposition left against medical advice (07) ==
LOC: ER 21:32
DX: R10.30 Lower abdominal pain, unspecified (principal); N18.9 Chronic kidney disease, unspecified; E11.22 Type 2 diabetes mellitus with diabetic chronic kidney disease; I12.9 Hypertensive chronic kidney disease with stage 1 through stage 4 chronic kidney disease, or unspecified chronic kidney disease; Z88.6 Allergy status to analgesic agent; Z91.013 Allergy to seafood; I48.91 Unspecified atrial fibrillation; Z79.4 Long term (current) use of insulin; Z87.442 Personal history of urinary calculi; M54.9 Dorsalgia, unspecified; G89.29 Other chronic pain
CPT/HCPCS: 36415; 74176; 80053; 81001; 81025; 83735; 84484; 85025; 93005; 96361; 96374; 96375; 99285; J0360; J1200; J1885; J2270; J2405; J7030

== ENCOUNTER 2016-11-27 15:20 | Emergency (ER) | payer MEDICAID ==
[~2016-11-27 15:20] MED LIST changes: +HYDR-4663 PO; -NOR5T PO
== END 2016-11-27 16:04 | disposition left against medical advice (07) ==
LOC: ER 15:24
DX: D57.219 Sickle-cell/Hb-C disease with crisis, unspecified (principal); Z53.21 Procedure and treatment not carried out due to patient leaving prior to being seen by health care provider

== ENCOUNTER 2016-12-01 07:11 | Inpatient (IN) | payer MEDICAID ==
[~2016-12-01] VITALS: Ht 162.6 cm; Wt 103.0 kg
[2016-12-01] MEDS ORDERED: SODIUM CHLORIDE 0.9% 1,000 ML IV ONE (07:37)
[2016-12-01] MEDS ORDERED: NITROGLYCERIN 50MG/250ML 250 ML IV ONE (07:37)
[2016-12-01] MEDS ORDERED: ONDANSETRON HCL 4 MG/2 ML VIAL IV ONE (07:45)
[2016-12-01] MEDS ORDERED: HYDROmorphone HCL 2 MG/ML VL IV ONE (07:45)
[2016-12-01 08:10] LABS: CONDITION Y; DEFINITIVE SEE PRINTOUT; Eosinophils # (auto) 0.1 uL; Hemoglobin 10.8 g/dL (12.2-16.2); Monocytes # (auto) 0.7 uL; Monocytes % (auto) 7.3 % (0.0-12.0)
[2016-12-01 08:13] LABS: Basophils # (auto) 0.1 uL; Basophils % (auto) 0.6 % (0.0-2.0); Hematocrit 33.1 % (36.0-46.0); Lymphocytes # (auto) 2.9 uL; Lymphocytes % (auto) 30.3 % (10.0-50.0); Mean Corpuscular Hgb Conc. 32.6 g/dL (32.0-36.0); Mean Corpuscular Volume 73.6 fL (80.0-100.0); Mean Platelet Volume 8.9 fL (7.4-10.4); Neutrophils # (auto) 5.8 uL; Neutrophils % (auto) 60.8 % (37.0-80.0); Platelet Count (auto) 367 10^3/uL (140-450); Red Cell Distribution Width 16.7 % (11.6-16.0); White Blood Cell 9.5 10^3/uL (4.4-10.8)
[2016-12-01] MEDS ORDERED: diphenhdrAMINE HCL 50 MG/1 ML VL ONE (08:22)
[2016-12-01 08:24] LABS: INR 0.87 (0.9-1.15); Partial Thromboplastin Time 24.4 sec (22.64-33.71); Prothrombin Time 9.5 sec (9.37-12.3)
[2016-12-01 08:32] LABS: Albumin 3.3 g/dL (3.4-5.0); Anion Gap 8 (5-15); Aspartate Aminotransferase 13 U/L (15-37); BUN/Creatinine Ratio 10.6; Blood Urea Nitrogen 13 mg/dL (7-18); Calcium 8.5 mg/dL (8.5-10.1); Carbon Dioxide 28 mmol/L (21-32); Chloride 106 mmol/L (98-107); GFR African American 65 mL/min; GFR Non-African American 53 mL/min; Glucose 187 mg/dL (74-106); Potassium 3.6 mmol/L (3.5-5.1); Sodium 142 mmol/L (136-145)
[2016-12-01 08:38] LABS: Alkaline Phosphatase 96 U/L (45-117); Bilirubin, Total 0.2 mg/dL (0.2-1.0); Total Protein 7.6 g/dL (6.4-8.2)
[2016-12-01 08:40] LABS: B-Type Natriuretic Peptide 86.05 pg/mL (0-100)
[2016-12-01 08:44] LABS: Temperature: 21.5 C (20.0-25.0)
[2016-12-01] MEDS ORDERED: diphenhdrAMINE HCL 50 MG/1 ML VL IV ONE (08:45)
[2016-12-01] MEDS ORDERED: TEMAZEPAM 15 MG CAP PO PRN (10:00)
[2016-12-01] MEDS ORDERED: LORazepam 0.5 MG TAB PO PRN (10:00)
[2016-12-01] MEDS ORDERED: ACETAMINOPHEN 500 MG TAB PO PRN (10:00)
[2016-12-01] MEDS ORDERED: ONDANSETRON HCL 4 MG/2 ML VIAL IV PRN (10:00)
[2016-12-01] MEDS ORDERED: NITROGLYCERIN 0.4 MG SL TAB SL PRN (10:00)
[2016-12-01] MEDS ORDERED: LABETALOL HCL 5 MG/ML 4ML SYRINGE IV ONE (10:15)
[2016-12-01] MEDS ORDERED: D5W/SOD CHL 0.45% 1,000 ML IV SCH (10:15)
[2016-12-01] MEDS ORDERED: DEXTROSE (50%) 50ML SYRG IV PRN ×2 (10:15→10:45)
[2016-12-01] MEDS ORDERED: LABETALOL HCL 5 MG/ML 4ML SYRINGE IV PRN (10:15)
[2016-12-01] MEDS ORDERED: LABETALOL HCL 200 MG TAB PO ONE (10:15)
[2016-12-01] MEDS ORDERED: SODIUM CHLORIDE 0.9% 1,000 ML IV SCH (10:15)
[2016-12-01] MEDS ORDERED: hydrALAZINE HCL 20 MG/ML VL IV ONE (10:15)
[2016-12-01] MEDS ORDERED: cloNIDine HCL 0.1 MG TAB PO ONE (10:15)
[2016-12-01] MEDS ORDERED: LABETALOL HCL 5 MG/ML ML 20ML VIAL IV ONE (10:15)
[2016-12-01] MEDS: HYDROmorphone HCL 2 MG/ML VL IV PRN ×3 (10:17→18:27)
[2016-12-01] MEDS: NIFEdipine ER 30 MG TAB PO SCH (10:39)
[2016-12-01] MEDS ORDERED: PROMETHAZINE HCL 25 MG/ML 1ML ONE (10:39)
[2016-12-01] MEDS: PROMETHAZINE HCL 25 MG/ML 1ML IV PRN ×2 (10:57→14:39)
[2016-12-01] MEDS: HYDROcodone-ACET 5/325MG TAB PO PRN ×2 (10:57→21:50)
[2016-12-01] MEDS ORDERED: InsuLIN REG 1unit/0.01ml Soln (100units/ml) SC SCH ×2 (11:30→14:00)
[2016-12-01] MEDS ORDERED: ACCU-CHEK COMFORT CURVE STRIP VI SCH ×2 (11:30→12:00)
[2016-12-01] MEDS: hydrALAZINE HCL 25 MG TAB PO SCH ×2 (11:56→18:00)
[2016-12-01] MEDS: InsuLIN REG 1unit/0.01ml Soln (100units/ml) SC SCH ×5 (12:00→21:55)
[2016-12-01] MEDS: cloNIDine HCL 0.1 MG TAB PO SCH ×2 (14:00→21:49)
[2016-12-01] MEDS: SODIUM CHLORIDE 0.9% 1,000 ML IV SCH ×2 (14:29→21:51)
[2016-12-01] MEDS: ACCU-CHEK COMFORT CURVE STRIP VI SCH ×3 (14:40→21:50)
[2016-12-01 20:21] VITALS: BP 141/80
[2016-12-01] MEDS: ATORVASTATIN 20 MG TAB PO SCH (21:49)
[2016-12-01] MEDS: LABETALOL HCL 200 MG TAB PO SCH (21:49)
[2016-12-01] MEDS: diphenhdrAMINE HCL 50 MG/1 ML VL IV PRN (21:50)
[2016-12-01] MEDS ORDERED: LABETALOL HCL 400 MG PO SCH (22:00)
[2016-12-01 23:50] VITALS: BP 141/80
[2016-12-02] MEDS: ACCU-CHEK COMFORT CURVE STRIP VI SCH ×6 (00:49→22:54)
[2016-12-02] MEDS: hydrALAZINE HCL 25 MG TAB PO SCH ×5 (00:49→17:47)
[2016-12-02] MEDS: InsuLIN REG 1unit/0.01ml Soln (100units/ml) SC SCH ×6 (00:51→17:33)
[2016-12-02] MEDS: PROMETHAZINE HCL 25 MG/ML 1ML IV PRN ×4 (01:01→22:44)
[2016-12-02] MEDS: HYDROmorphone HCL 2 MG/ML VL IV PRN ×4 (01:01→14:10)
[2016-12-02 05:00] VITALS: BP 131/76
[2016-12-02] MEDS: diphenhdrAMINE HCL 50 MG/1 ML VL IV PRN ×3 (06:24→18:29)
[2016-12-02] MEDS: cloNIDine HCL 0.1 MG TAB PO SCH ×3 (06:24→22:53)
[2016-12-02 06:47] LABS: Basophils # (auto) 0.1 uL; Basophils % (auto) 0.5 % (0.0-2.0); CONDITION Y; DEFINITIVE SEE PRINTOUT; Eosinophils # (auto) 0.2 uL; Eosinophils % (auto) 1.7 % (0.0-7.0); Hematocrit 28.7 % (36.0-46.0); Hemoglobin 9.4 g/dL (12.2-16.2); Lymphocytes # (auto) 4.4 uL; Lymphocytes % (auto) 41.2 % (10.0-50.0); Mean Corpuscular Hemoglobin 24.2 pg (28.0-32.0); Mean Corpuscular Hgb Conc. 32.6 g/dL (32.0-36.0); Mean Corpuscular Volume 74.3 fL (80.0-100.0); Mean Platelet Volume 9.3 fL (7.4-10.4); Monocytes # (auto) 0.9 uL; Monocytes % (auto) 8.1 % (0.0-12.0); Neutrophils # (auto) 5.1 uL; Neutrophils % (auto) 48.5 % (37.0-80.0); Platelet Count (auto) 317 10^3/uL (140-450); Red Cell Distribution Width 16.8 % (11.6-16.0); White Blood Cell 10.6 10^3/uL (4.4-10.8)
[2016-12-02 07:03] LABS: BUN/Creatinine Ratio 12.7; Calcium 8.6 mg/dL (8.5-10.1); Potassium 3.7 mmol/L (3.5-5.1)
[2016-12-02] MEDS: SODIUM CHLORIDE 0.9% 1,000 ML IV SCH (08:18)
[2016-12-02 09:00] VITALS: BP 135/77
[2016-12-02] MEDS: HYDROXYUREA 500 MG CAP PO SCH (09:29)
[2016-12-02] MEDS: NIFEdipine ER 30 MG TAB PO SCH (09:30)
[2016-12-02] MEDS: LABETALOL HCL 200 MG TAB PO SCH ×2 (09:31→22:52)
[2016-12-02] MEDS ORDERED: PATIENTS OWN MEDICATION (Nifedipine (Nifedipine Er) 1 TAB) PO SCH ×2 (10:00)
[2016-12-02 13:00] VITALS: BP 92/133
[2016-12-02] MEDS ORDERED: HYDROmorphone HCL 2 MG/ML VL IV ONE (15:00)
[2016-12-02] MEDS: SOD CHL 0.45% 1,000 ML IV SCH (15:48)
[2016-12-02] MEDS: LABETALOL HCL 5 MG/ML 4ML SYRINGE IV PRN (16:15)
[2016-12-02 16:30] VITALS: BP 189/114
[2016-12-02] MEDS: HYDROmorphone HCL 2 MG/ML VL IV SCH ×2 (17:47→22:45)
[2016-12-02 22:00] VITALS: BP 201/111
[2016-12-02] MEDS: ATORVASTATIN 20 MG TAB PO SCH (22:53)
[2016-12-03] MEDS: InsuLIN REG 1unit/0.01ml Soln (100units/ml) SC SCH ×6 (00:17→20:22)
[2016-12-03] MEDS: hydrALAZINE HCL 25 MG TAB PO SCH ×4 (00:21→17:56)
[2016-12-03] MEDS: INSULIN DETEMIR(LEVEMIR) 1unit/0.01ml Soln (100units/ml) SC SCH ×3 (00:21→22:00)
[2016-12-03] MEDS: LABETALOL HCL 5 MG/ML 4ML SYRINGE IV PRN (00:25)
[2016-12-03] MEDS: SOD CHL 0.45% 1,000 ML IV SCH ×3 (01:10→22:16)
[2016-12-03] MEDS: HYDROmorphone HCL 2 MG/ML VL IV SCH ×6 (02:55→23:14)
[2016-12-03] MEDS: diphenhdrAMINE HCL 50 MG/1 ML VL IV PRN ×4 (02:55→22:19)
[2016-12-03] MEDS: ACCU-CHEK COMFORT CURVE STRIP VI SCH ×6 (04:28→20:22)
[2016-12-03 05:00] VITALS: BP 158/90
[2016-12-03 06:20] LABS: BUN/Creatinine Ratio 15.1; Calcium 8.1 mg/dL (8.5-10.1); Potassium 4.2 mmol/L (3.5-5.1)
[2016-12-03] MEDS: cloNIDine HCL 0.1 MG TAB PO SCH ×3 (06:40→22:17)
[2016-12-03 08:00] VITALS: BP 158/90
[2016-12-03 08:30] VITALS: BP 101/61
[2016-12-03] MEDS: PROMETHAZINE HCL 25 MG/ML 1ML IV PRN ×3 (08:44→23:13)
[2016-12-03] MEDS: NIFEdipine ER 30 MG TAB PO SCH (10:00)
[2016-12-03] MEDS: HYDROXYUREA 500 MG CAP PO SCH (10:43)
[2016-12-03] MEDS: LABETALOL HCL 200 MG TAB PO SCH ×2 (10:44→22:18)
[2016-12-03] MEDS: Boost Glucose Control 8 Ounces PO SCH ×3 (12:00→22:16)
[2016-12-03 12:30] VITALS: BP 185/103
[2016-12-03 17:14] VITALS: BP 161/112
[2016-12-03] MEDS ORDERED: LABETALOL HCL 5 MG/ML ML 20ML VIAL IV ONE (17:26)
[2016-12-03 22:00] VITALS: BP 191/96
[2016-12-03] MEDS: ATORVASTATIN 20 MG TAB PO SCH (22:18)
[2016-12-04] VITALS (7 sets, daily range): BP systolic 139–193; BP diastolic 77–115
[2016-12-04] MEDS: LABETALOL HCL 5 MG/ML 4ML SYRINGE IV PRN ×2 (00:05→03:26)
[2016-12-04] MEDS: ACCU-CHEK COMFORT CURVE STRIP VI SCH ×6 (00:14→20:14)
[2016-12-04] MEDS: hydrALAZINE HCL 25 MG TAB PO SCH ×4 (00:15→18:06)
[2016-12-04] MEDS: InsuLIN REG 1unit/0.01ml Soln (100units/ml) SC SCH ×6 (00:15→20:25)
[2016-12-04] MEDS: PROMETHAZINE HCL 25 MG/ML 1ML IV PRN ×4 (02:53→20:13)
[2016-12-04] MEDS: HYDROmorphone HCL 2 MG/ML VL IV SCH ×5 (02:53→20:14)
[2016-12-04] MEDS: cloNIDine HCL 0.1 MG TAB PO SCH ×3 (05:23→21:59)
[2016-12-04 05:31] LABS: Basophils # (auto) 0.1 uL; Basophils % (auto) 0.7 % (0.0-2.0); CONDITION Y; DEFINITIVE SEE PRINTOUT; Eosinophils # (auto) 0.3 uL; Eosinophils % (auto) 2.9 % (0.0-7.0); Hematocrit 27.9 % (36.0-46.0); Hemoglobin 9.1 g/dL (12.2-16.2); Lymphocytes # (auto) 3.5 uL; Mean Corpuscular Hemoglobin 24.3 pg (28.0-32.0); Mean Corpuscular Hgb Conc. 32.8 g/dL (32.0-36.0); Mean Corpuscular Volume 74.2 fL (80.0-100.0); Mean Platelet Volume 8.6 fL (7.4-10.4); Monocytes # (auto) 0.9 uL; Monocytes % (auto) 9.7 % (0.0-12.0); Neutrophils # (auto) 4.2 uL; Neutrophils % (auto) 47.7 % (37.0-80.0); Platelet Count (auto) 342 10^3/uL (140-450); Red Cell Distribution Width 17.2 % (11.6-16.0); White Blood Cell 8.9 10^3/uL (4.4-10.8)
[2016-12-04 05:47] LABS: Albumin 2.8 g/dL (3.4-5.0); BUN/Creatinine Ratio 17.6; Calcium 8.7 mg/dL (8.5-10.1); Potassium 4.2 mmol/L (3.5-5.1)
[2016-12-04 05:50] LABS: Bilirubin, Total 0.1 mg/dL (0.2-1.0); Total Protein 6.6 g/dL (6.4-8.2)
[2016-12-04] MEDS: Boost Glucose Control 8 Ounces PO SCH ×4 (06:00→22:34)
[2016-12-04] MEDS: INSULIN DETEMIR(LEVEMIR) 1unit/0.01ml Soln (100units/ml) SC SCH ×2 (07:25→22:32)
[2016-12-04] MEDS: SOD CHL 0.45% 1,000 ML IV SCH ×3 (07:28→20:25)
[2016-12-04] MEDS: NIFEdipine ER 30 MG TAB PO SCH (09:19)
[2016-12-04] MEDS: HYDROXYUREA 500 MG CAP PO SCH (09:19)
[2016-12-04] MEDS: LABETALOL HCL 200 MG TAB PO SCH ×2 (09:19→22:00)
[2016-12-04] MEDS: diphenhdrAMINE HCL 50 MG/1 ML VL IV PRN ×2 (16:14→22:14)
[2016-12-04] MEDS: ATORVASTATIN 20 MG TAB PO SCH (21:59)
[2016-12-05] MEDS: ACCU-CHEK COMFORT CURVE STRIP VI SCH ×4 (00:14→12:00)
[2016-12-05] MEDS: hydrALAZINE HCL 25 MG TAB PO SCH ×3 (00:16→12:31)
[2016-12-05] MEDS: HYDROmorphone HCL 2 MG/ML VL IV SCH ×4 (00:17→10:45)
[2016-12-05] MEDS: PROMETHAZINE HCL 25 MG/ML 1ML IV PRN ×3 (00:31→10:09)
[2016-12-05] MEDS: InsuLIN REG 1unit/0.01ml Soln (100units/ml) SC SCH ×4 (00:32→12:00)
[2016-12-05] MEDS: diphenhdrAMINE HCL 50 MG/1 ML VL IV PRN ×2 (04:40→12:31)
[2016-12-05 05:28] VITALS: BP 153/94
[2016-12-05 06:22] LABS: Basophils # (auto) 0 uL; Basophils % (auto) 0.4 % (0.0-2.0); CONDITION Y; DEFINITIVE SEE PRINTOUT; Eosinophils # (auto) 0.4 uL; Eosinophils % (auto) 3.2 % (0.0-7.0); Hematocrit 27.4 % (36.0-46.0); Hemoglobin 8.9 g/dL (12.2-16.2); Lymphocytes # (auto) 4.2 uL; Lymphocytes % (auto) 38.6 % (10.0-50.0); Mean Corpuscular Hgb Conc. 32.5 g/dL (32.0-36.0); Mean Corpuscular Volume 73.9 fL (80.0-100.0); Mean Platelet Volume 8.7 fL (7.4-10.4); Monocytes % (auto) 9.4 % (0.0-12.0); Neutrophils # (auto) 5.2 uL; Neutrophils % (auto) 48.4 % (37.0-80.0); Platelet Count (auto) 321 10^3/uL (140-450); Red Cell Distribution Width 16.8 % (11.6-16.0); White Blood Cell 10.8 10^3/uL (4.4-10.8)
[2016-12-05] MEDS: cloNIDine HCL 0.1 MG TAB PO SCH (06:35)
[2016-12-05] MEDS: Boost Glucose Control 8 Ounces PO SCH ×2 (06:35→12:00)
[2016-12-05 06:38] LABS: Calcium 8.7 mg/dL (8.5-10.1); Potassium 3.8 mmol/L (3.5-5.1)
[2016-12-05 06:41] LABS: BUN/Creatinine Ratio 20.6
[2016-12-05] MEDS: INSULIN DETEMIR(LEVEMIR) 1unit/0.01ml Soln (100units/ml) SC SCH (06:43)
[2016-12-05 09:00] VITALS: BP 160/100
[2016-12-05] MEDS: HYDROXYUREA 500 MG CAP PO SCH (10:09)
[2016-12-05] MEDS: NIFEdipine ER 30 MG TAB PO SCH (10:09)
[2016-12-05] MEDS: LABETALOL HCL 200 MG TAB PO SCH (10:10)
[2016-12-05 11:31] VITALS: BP 160/100
[2016-12-05 13:00] VITALS: BP 168/102
[2016-12-05] MEDS ORDERED: FERROUS SULFATE 325 MG TAB PO SCH (18:00)
== END 2016-12-05 14:50 | disposition home or self-care (01) | DRG 662 ==
LOC: ER 07:11 → TELE 07:12 → TELE-CENTR 23:28
PROVIDERS: ADMIT Nurse Practitioner Family; ATTEND Internal Medicine Pulmonary Disease
DX: D57.00 Hb-SS disease with crisis, unspecified (principal); N17.9 Acute kidney failure, unspecified; E44.0 Moderate protein-calorie malnutrition; E10.40 Type 1 diabetes mellitus with diabetic neuropathy, unspecified; E10.21 Type 1 diabetes mellitus with diabetic nephropathy; I16.1 Hypertensive emergency; I48.91 Unspecified atrial fibrillation; E66.9 Obesity, unspecified; I12.9 Hypertensive chronic kidney disease with stage 1 through stage 4 chronic kidney disease, or unspecified chronic kidney disease; N18.2 Chronic kidney disease, stage 2 (mild); D50.9 Iron deficiency anemia, unspecified; E10.22 Type 1 diabetes mellitus with diabetic chronic kidney disease; E10.65 Type 1 diabetes mellitus with hyperglycemia; I16.0 Hypertensive urgency; I70.0 Atherosclerosis of aorta; N20.0 Calculus of kidney; Z80.0 Family history of malignant neoplasm of digestive organs; Z87.442 Personal history of urinary calculi; Z86.73 Personal history of transient ischemic attack (TIA), and cerebral infarction without residual deficits; Z79.4 Long term (current) use of insulin; Z83.2 Family history of diseases of the blood and blood-forming organs and certain disorders involving the immune mechanism; Z82.49 Family history of ischemic heart disease and other diseases of the circulatory system; Z83.3 Family history of diabetes mellitus; Z91.041 Radiographic dye allergy status; Z88.5 Allergy status to narcotic agent; Z91.013 Allergy to seafood
CPT/HCPCS: 36415; 71010; 80048; 80053; 82962; 83036; 83880; 84484; 85025; 85610; 85730; 87081; 96361; 96365; 96375; J1815; J2405; J3490

== ENCOUNTER 2016-12-10 22:43 | Emergency (ER) | payer MEDICAID ==
[~2016-12-10] VITALS: Ht 162.6 cm; Wt 93.0 kg
[~2016-12-10 22:43] MED LIST changes: -HCTZ25T PO; -HYDR-4663 PO; -NIC21P TOP
[2016-12-10 23:33] VITALS: BP 227/151
[2016-12-10] MEDS ORDERED: ONDANSETRON HCL 4 MG/2 ML VIAL IV ONE (23:45)
[2016-12-10] MEDS ORDERED: SODIUM CHLORIDE 0.9% 1,000 ML IV ONE (23:45)
[2016-12-10] MEDS ORDERED: HYDROmorphone HCL 2 MG/ML VL IV ONE (23:45)
[2016-12-11 00:12] LABS: Basophils # (auto) 0.1 uL; Basophils % (auto) 0.7 % (0.0-2.0); DEFINITIVE SEE PRINTOUT; Eosinophils # (auto) 0.2 uL; Eosinophils % (auto) 1.4 % (0.0-7.0); Hematocrit 31.8 % (36.0-46.0); Hemoglobin 10.4 g/dL (12.2-16.2); Lymphocytes # (auto) 5.1 uL; Lymphocytes % (auto) 38.3 % (10.0-50.0); Mean Corpuscular Hemoglobin 24.1 pg (28.0-32.0); Mean Corpuscular Hgb Conc. 32.8 g/dL (32.0-36.0); Mean Corpuscular Volume 73.4 fL (80.0-100.0); Mean Platelet Volume 9.1 fL (7.4-10.4); Monocytes # (auto) 1.2 uL; Monocytes % (auto) 9.3 % (0.0-12.0); Neutrophils # (auto) 6.7 uL; Neutrophils % (auto) 50.3 % (37.0-80.0); Platelet Count (auto) 384 10^3/uL (140-450); Red Cell Distribution Width 15.1 % (11.6-16.0); SUSPECT SEE PRINTOUT; White Blood Cell 13.3 10^3/uL (4.4-10.8)
[2016-12-11 00:32] LABS: Calcium 8.2 mg/dL (8.5-10.1); Potassium 3.9 mmol/L (3.5-5.1)
[2016-12-11 00:35] LABS: Albumin 3.2 g/dL (3.4-5.0); BUN/Creatinine Ratio 10.7
[2016-12-11 00:38] LABS: Bilirubin, Total 0.1 mg/dL (0.2-1.0); Total Protein 7.5 g/dL (6.4-8.2)
[2016-12-11 01:09] LABS: Reticulocyte Count 1.92 % (0.5-1.5)
== END 2016-12-11 01:12 | disposition left against medical advice (07) ==
LOC: ER 22:44
DX: D57.1 Sickle-cell disease without crisis (principal); Z76.0 Encounter for issue of repeat prescription; I48.91 Unspecified atrial fibrillation; N18.9 Chronic kidney disease, unspecified; E11.22 Type 2 diabetes mellitus with diabetic chronic kidney disease; I12.9 Hypertensive chronic kidney disease with stage 1 through stage 4 chronic kidney disease, or unspecified chronic kidney disease; Z87.891 Personal history of nicotine dependence; Z88.6 Allergy status to analgesic agent; Z91.013 Allergy to seafood; Z91.041 Radiographic dye allergy status; Z79.4 Long term (current) use of insulin
CPT/HCPCS: 36415; 80053; 85025; 85045; 96361; 96374; 96375; 99284; J1170; J2405; J7030

== ENCOUNTER 2016-12-29 18:35 | Emergency (ER) | payer MEDICAID ==
[~2016-12-29] VITALS: Ht 162.6 cm; Wt 93.9 kg
[2016-12-29] MEDS ORDERED: hydrALAZINE HCL 10 MG TAB PO ONE (19:15)
[2016-12-29 19:51] LABS: Basophils # (auto) 0 uL; Basophils % (auto) 0.1 % (0.0-2.0); CONDITION Y; DEFINITIVE SEE PRINTOUT; Eosinophils # (auto) 0.1 uL; Eosinophils % (auto) 1.1 % (0.0-7.0); Hematocrit 38.6 % (36.0-46.0); Hemoglobin 12.5 g/dL (12.2-16.2); Lymphocytes # (auto) 3.5 uL; Lymphocytes % (auto) 31.8 % (10.0-50.0); Mean Corpuscular Hemoglobin 23.8 pg (28.0-32.0); Mean Corpuscular Hgb Conc. 32.4 g/dL (32.0-36.0); Mean Corpuscular Volume 73.5 fL (80.0-100.0); Mean Platelet Volume 9.3 fL (7.4-10.4); Monocytes # (auto) 0.7 uL; Monocytes % (auto) 6.1 % (0.0-12.0); Neutrophils # (auto) 6.6 uL; Neutrophils % (auto) 60.9 % (37.0-80.0); Platelet Count (auto) 405 10^3/uL (140-450); Red Cell Distribution Width 16.9 % (11.6-16.0); White Blood Cell 10.9 10^3/uL (4.4-10.8)
[2016-12-29 20:10] LABS: Albumin 3.7 g/dL (3.4-5.0); BUN/Creatinine Ratio 12.5; Calcium 9.7 mg/dL (8.5-10.1); Potassium 3.8 mmol/L (3.5-5.1)
[2016-12-29 20:13] LABS: Bilirubin, Total 0.2 mg/dL (0.2-1.0); Total Protein 8.7 g/dL (6.4-8.2)
[2016-12-29] MEDS ORDERED: SODIUM CHLORIDE 0.9% 1,000 ML IV ONE (20:35)
[2016-12-29] MEDS: SODIUM CHLORIDE 0.9% 1,000 ML IVB ONE ×2 (20:35→20:58)
[2016-12-29] MEDS ORDERED: MORPHINE SULFATE 4 MG/ML SYRG IV ONE (20:45)
[2016-12-29] MEDS ORDERED: ONDANSETRON HCL 4 MG/2 ML VIAL IV ONE (20:45)
[2016-12-29] MEDS ORDERED: HYDROmorphone HCL 2 MG/ML VL IV ONE (21:15)
[2016-12-29 21:34] LABS: Magnesium 2.7 mg/dL (1.6-2.6)
[2016-12-29 21:39] LABS: INR 0.86 (0.9-1.15); Partial Thromboplastin Time 22.9 sec (22.64-33.71); Prothrombin Time 9.4 sec (9.37-12.3)
[2016-12-29] MEDS ORDERED: HYDROmorphone HCL 2 MG/ML VL IM ONE (22:00)
[2016-12-29] MEDS ORDERED: LABETALOL HCL 5 MG/ML ML 20ML VIAL IV ONE (22:30)
[2016-12-29] MEDS ORDERED: diphenhdrAMINE HCL 25 MG CAP PO ONE (22:30)
[2016-12-29] MEDS ORDERED: hydrALAZINE HCL 20 MG/ML VL IV ONE (22:30)
[2016-12-30 00:06] LABS: Urine Bilirubin Negative (Negative); Urine Blood 2+ /uL (Negative); Urine Color Yellow (Yellow); Urine Glucose 4+ mg/dL (Normal); Urine Hyaline Cast FEW /lpf (0 - 2); Urine Ketone Negative (Negative); Urine Nitrite Negative (Negative); Urine RBC 15 /hpf (0 - 4); Urine Squamous Epithelial Cell FEW /hpf (<5); Urine Urobilinogen Normal (Negative)
[2016-12-30 01:22] VITALS: BP 191/101
== END 2016-12-30 01:08 | disposition left against medical advice (07) ==
LOC: ER 18:40
DX: R10.9 Unspecified abdominal pain (principal); I12.9 Hypertensive chronic kidney disease with stage 1 through stage 4 chronic kidney disease, or unspecified chronic kidney disease; I48.91 Unspecified atrial fibrillation; E11.22 Type 2 diabetes mellitus with diabetic chronic kidney disease; N18.9 Chronic kidney disease, unspecified; Z79.4 Long term (current) use of insulin; Z88.6 Allergy status to analgesic agent; Z91.013 Allergy to seafood; Z91.041 Radiographic dye allergy status; Z87.442 Personal history of urinary calculi; Z91.018 Allergy to other foods; Z53.29 Procedure and treatment not carried out because of patient's decision for other reasons
CPT/HCPCS: 36415; 71010; 74176; 80053; 81001; 81025; 82150; 82962; 83605; 83690; 83735; 84484; 84702; 85025; 85610; 85730; 87040; 93005; 96372; 96374; 96375; 99285; J0360; J1170; J2405

== ENCOUNTER 2017-01-02 21:41 | Emergency (ER) | payer MEDICAID ==
[~2017-01-02] VITALS: Ht 162.6 cm; Wt 93.0 kg
[2017-01-02 23:00] LABS: Basophils # (auto) 0 uL; Basophils % (auto) 0.4 % (0.0-2.0); CONDITION Y; DEFINITIVE SEE PRINTOUT; Eosinophils # (auto) 0.2 uL; Eosinophils % (auto) 1.9 % (0.0-7.0); Hematocrit 30.2 % (36.0-46.0); Hemoglobin 9.7 g/dL (12.2-16.2); Lymphocytes # (auto) 3.8 uL; Lymphocytes % (auto) 31.5 % (10.0-50.0); Mean Corpuscular Hemoglobin 23.9 pg (28.0-32.0); Mean Corpuscular Volume 74.6 fL (80.0-100.0); Mean Platelet Volume 8.6 fL (7.4-10.4); Monocytes # (auto) 0.8 uL; Neutrophils # (auto) 7.1 uL; Neutrophils % (auto) 59.2 % (37.0-80.0); Platelet Count (auto) 379 10^3/uL (140-450); Red Cell Distribution Width 17.4 % (11.6-16.0)
[2017-01-02 23:03] LABS: INR 0.87 (0.9-1.15); Partial Thromboplastin Time 23.9 sec (22.64-33.71); Prothrombin Time 9.5 sec (9.37-12.3)
[2017-01-02 23:18] LABS: Albumin 3.1 g/dL (3.4-5.0); BUN/Creatinine Ratio 11.4; Calcium 9.2 mg/dL (8.5-10.1)
[2017-01-02 23:21] LABS: Bilirubin, Total 0.2 mg/dL (0.2-1.0); Total Protein 7.2 g/dL (6.4-8.2)
[2017-01-03 04:06] LABS: Urine Bilirubin Negative (Negative); Urine Blood TRACE /uL (Negative); Urine Color Yellow (Yellow); Urine Glucose 3+ mg/dL (Normal); Urine Ketone Negative (Negative); Urine Nitrite Negative (Negative); Urine RBC <1 /hpf (0 - 4); Urine Squamous Epithelial Cell FEW /hpf (<5); Urine Urobilinogen Normal (Negative); Urine pH 5.5 (5.0-8.0)
[2017-01-03] MEDS ORDERED: LABETALOL HCL 5 MG/ML ML 20ML VIAL IV ONE (07:15)
[2017-01-03] MEDS ORDERED: KETOROLAC TROMETH 30 MG/ML 1ML VIAL IV ONE (07:15)
[2017-01-03] MEDS ORDERED: SODIUM CHLORIDE 0.9% 1,000 ML IV ONE (07:15)
[2017-01-03] MEDS ORDERED: diphenhdrAMINE HCL 50 MG/1 ML VL IV ONE (07:45)
[2017-01-03] MEDS ORDERED: HYDROmorphone HCL 2 MG/ML VL IV ONE (08:00)
[2017-01-03] MEDS ORDERED: ONDANSETRON HCL 4 MG/2 ML VIAL IV ONE (08:00)
[2017-01-03] MEDS ORDERED: hydrALAZINE HCL 20 MG/ML VL IV ONE (08:00)
[2017-01-03 08:57] VITALS: BP 150/89
== END 2017-01-03 08:31 | disposition home or self-care (01) ==
LOC: ER 21:46
DX: I10 Essential (primary) hypertension (principal); I48.91 Unspecified atrial fibrillation; I12.9 Hypertensive chronic kidney disease with stage 1 through stage 4 chronic kidney disease, or unspecified chronic kidney disease; E11.22 Type 2 diabetes mellitus with diabetic chronic kidney disease; Z79.01 Long term (current) use of anticoagulants; Z68.35 Body mass index [BMI] 35.0-35.9, adult; Z88.6 Allergy status to analgesic agent; Z91.013 Allergy to seafood; Z91.018 Allergy to other foods; N18.9 Chronic kidney disease, unspecified; Z79.4 Long term (current) use of insulin; Z87.442 Personal history of urinary calculi; Z86.73 Personal history of transient ischemic attack (TIA), and cerebral infarction without residual deficits
CPT/HCPCS: 36415; 80053; 81001; 82150; 83690; 85025; 85610; 85730; 96361; 96374; 96375; 99284; J0360; J1170; J1200; J1885; J2405; J7030

== ENCOUNTER 2017-01-04 18:44 | Inpatient (IN) | payer MEDICAID ==
[~2017-01-04] VITALS: Ht 162.6 cm; Wt 102.2 kg
[2017-01-04] MEDS ORDERED: cloNIDine HCL 0.1 MG TAB PO ONE (19:15)
[2017-01-04 20:33] LABS: Urine Bilirubin Negative (Negative); Urine Blood TRACE /uL (Negative); Urine Color Yellow (Yellow); Urine Glucose 2+ mg/dL (Normal); Urine Ketone Negative (Negative); Urine Mucus FEW (None Seen); Urine Nitrite Negative (Negative); Urine RBC 5 /hpf (0 - 4); Urine Squamous Epithelial Cell FEW /hpf (<5); Urine Urobilinogen Normal (Negative); Urine pH 5.5 (5.0-8.0)
[2017-01-04] MEDS ORDERED: FOLIC ACID 1 MG TAB PO ONE (20:45)
[2017-01-04] MEDS ORDERED: LABETALOL HCL 200 MG TAB PO ONE (20:45)
[2017-01-04] MEDS ORDERED: SOD CHL 0.45% 1,000 ML IV ONE (20:45)
[2017-01-04] MEDS ORDERED: PROMETHAZINE HCL 25 MG/ML 1ML IV ONE (20:45)
[2017-01-04] MEDS ORDERED: HYDROmorphone HCL 2 MG/ML VL IV ONE (20:45)
[2017-01-04 21:33] LABS: Basophils # (auto) 0 uL; Basophils % (auto) 0.4 % (0.0-2.0); CONDITION Y; DEFINITIVE SEE PRINTOUT; Eosinophils # (auto) 0.2 uL; Eosinophils % (auto) 2.3 % (0.0-7.0); Hematocrit 29.1 % (36.0-46.0); Hemoglobin 9.6 g/dL (12.2-16.2); Lymphocytes # (auto) 3.9 uL; Mean Corpuscular Hemoglobin 24.2 pg (28.0-32.0); Mean Corpuscular Hgb Conc. 32.8 g/dL (32.0-36.0); Mean Corpuscular Volume 73.8 fL (80.0-100.0); Monocytes # (auto) 0.9 uL; Monocytes % (auto) 8.8 % (0.0-12.0); Neutrophils # (auto) 5.5 uL; Neutrophils % (auto) 51.5 % (37.0-80.0); Platelet Count (auto) 360 10^3/uL (140-450); Red Cell Distribution Width 16.8 % (11.6-16.0); White Blood Cell 10.6 10^3/uL (4.4-10.8)
[2017-01-04 21:51] LABS: Albumin 3.2 g/dL (3.4-5.0); BUN/Creatinine Ratio 13.8; Calcium 8.7 mg/dL (8.5-10.1)
[2017-01-04 21:54] LABS: Bilirubin, Total 0.1 mg/dL (0.2-1.0); Total Protein 6.8 g/dL (6.4-8.2)
[2017-01-04] MEDS ORDERED: diphenhdrAMINE HCL 50 MG/1 ML VL ONE (22:02)
[2017-01-04] MEDS ORDERED: diphenhdrAMINE HCL 50 MG/1 ML VL IV ONE (22:15)
[2017-01-05] VITALS (34 sets, daily range): BP systolic 138–191; BP diastolic 79–109
[2017-01-05] MEDS ORDERED: HYDROcodone-ACET 10/325MG TAB PO ONE (00:30)
[2017-01-05] MEDS: NICARDIPINE 25MG/250ML BAG KIT 250 ML IV SCH ×5 (00:51→20:35)
[2017-01-05] MEDS ORDERED: HYDROmorphone HCL 2 MG/ML VL IM ONE (03:15)
[2017-01-05] MEDS ORDERED: DEXTROSE (50%) 50ML SYRG IV PRN (07:00)
[2017-01-05] MEDS ORDERED: ONDANSETRON HCL 4 MG/2 ML VIAL IV PRN (07:00)
[2017-01-05] MEDS ORDERED: MORPHINE SULF INJ 2 MG/ML SYRINGE 1ML IV PRN (07:00)
[2017-01-05] MEDS ORDERED: NITROGLYCERIN 0.4 MG SL TAB SL PRN (07:00)
[2017-01-05] MEDS ORDERED: LACTULOSE 20Gm/30ML SOLN PO PRN (07:00)
[2017-01-05] MEDS ORDERED: SOD CHL 0.45% 1,000 ML IV ONE (07:15)
[2017-01-05] MEDS ORDERED: PROMETHAZINE HCL 25 MG/ML 1ML ONE (08:00)
[2017-01-05] MEDS: FAMOTIDINE (10MG/ML) 2ML VL IV SCH ×2 (08:13→18:21)
[2017-01-05] MEDS ORDERED: diphenhdrAMINE HCL 50 MG/1 ML VL ONE (08:18)
[2017-01-05] MEDS ORDERED: diphenhdrAMINE HCL 50 MG/1 ML VL IV ONE (09:15)
[2017-01-05] MEDS ORDERED: PROMETHAZINE HCL 25 MG/ML 1ML IV ONE (09:15)
[2017-01-05] MEDS ORDERED: LABETALOL HCL 200 MG TAB PO SCH (10:00)
[2017-01-05] MEDS: HYDROXYUREA 500 MG CAP PO SCH (10:06)
[2017-01-05] MEDS: PANTOPRAZOLE 40 MG/10 ML VIAL IV SCH (10:07)
[2017-01-05] MEDS: HYDROmorphone HCL 2 MG/ML VL IV PRN ×3 (11:20→21:10)
[2017-01-05] MEDS ORDERED: HYD2I IM (11:41)
[2017-01-05] MEDS ORDERED: ZOLP10TA PO (11:41)
[2017-01-05] MEDS ORDERED: hydrALAZINE HCL 25 MG TAB PO PRN ×2 (12:00→15:30)
[2017-01-05] MEDS: InsuLIN REG 1unit/0.01ml Soln (100units/ml) SC SCH ×2 (12:17→18:21)
[2017-01-05] MEDS: ACCU-CHEK COMFORT CURVE STRIP VI SCH ×2 (12:17→18:21)
[2017-01-05] MEDS: cloNIDine HCL 0.1 MG TAB PO SCH ×2 (14:45→22:03)
[2017-01-05] MEDS: PROMETHAZINE HCL 25 MG/ML 1ML IV PRN ×2 (15:00→21:23)
[2017-01-05] MEDS ORDERED: diphenhdrAMINE HCL 50 MG/1 ML VL IV PRN (15:30)
[2017-01-05] MEDS ORDERED: ATORVASTATIN 20 MG TAB PO SCH (22:00)
[2017-01-05] MEDS: LABETALOL HCL 200 MG TAB PO SCH (22:03)
[2017-01-05] MEDS: INSULIN DETEMIR(LEVEMIR) 1unit/0.01ml Soln (100units/ml) SC SCH (22:08)
[2017-01-06] VITALS (8 sets, daily range): BP systolic 153–176; BP diastolic 68–100
[2017-01-06] MEDS: InsuLIN REG 1unit/0.01ml Soln (100units/ml) SC SCH ×3 (00:25→12:00)
[2017-01-06] MEDS: HYDROmorphone HCL 2 MG/ML VL IV PRN ×4 (00:27→09:20)
[2017-01-06] MEDS: NICARDIPINE 25MG/250ML BAG KIT 250 ML IV SCH ×2 (01:35→06:35)
[2017-01-06] MEDS: PROMETHAZINE HCL 25 MG/ML 1ML IV PRN (03:20)
[2017-01-06] MEDS: ACCU-CHEK COMFORT CURVE STRIP VI SCH ×3 (05:53→12:00)
[2017-01-06] MEDS: FAMOTIDINE (10MG/ML) 2ML VL IV SCH (06:02)
[2017-01-06] MEDS: INSULIN DETEMIR(LEVEMIR) 1unit/0.01ml Soln (100units/ml) SC SCH (06:03)
[2017-01-06] MEDS: cloNIDine HCL 0.1 MG TAB PO SCH (06:11)
[2017-01-06 08:14] LABS: Albumin 2.6 g/dL (3.4-5.0); Anion Gap 8 (5-15); BUN/Creatinine Ratio 13.6; Blood Urea Nitrogen 15 mg/dL (7-18); Calcium 8.3 mg/dL (8.5-10.1); Carbon Dioxide 24 mmol/L (21-32); Chloride 107 mmol/L (98-107); GFR African American 74 mL/min; GFR Non-African American 61 mL/min; Glucose 209 mg/dL (74-106); Sodium 139 mmol/L (136-145)
[2017-01-06 08:22] LABS: Alkaline Phosphatase 100 U/L (45-117); Aspartate Aminotransferase 11 U/L (15-37); Bilirubin, Total < 0.1 mg/dL (0.2-1.0); Total Protein 6.3 g/dL (6.4-8.2)
[2017-01-06 08:29] LABS: Basophils # (auto) 0 uL; Basophils % (auto) 0.2 % (0.0-2.0); CONDITION Y; DEFINITIVE SEE PRINTOUT; Eosinophils # (auto) 0.4 uL; Eosinophils % (auto) 3.2 % (0.0-7.0); Hemoglobin 9.5 g/dL (12.2-16.2); Lymphocytes # (auto) 3.5 uL; Lymphocytes % (auto) 31.4 % (10.0-50.0); Mean Corpuscular Hemoglobin 24.4 pg (28.0-32.0); Mean Corpuscular Hgb Conc. 32.7 g/dL (32.0-36.0); Mean Corpuscular Volume 74.5 fL (80.0-100.0); Mean Platelet Volume 8.9 fL (7.4-10.4); Monocytes # (auto) 1.1 uL; Monocytes % (auto) 9.6 % (0.0-12.0); Neutrophils # (auto) 6.1 uL; Neutrophils % (auto) 55.6 % (37.0-80.0); Platelet Count (auto) 336 10^3/uL (140-450); Red Cell Distribution Width 16.7 % (11.6-16.0)
[2017-01-06] MEDS: LABETALOL HCL 200 MG TAB PO SCH (09:09)
[2017-01-06] MEDS: PANTOPRAZOLE 40 MG/10 ML VIAL IV SCH (09:10)
[2017-01-06] MEDS: HYDROXYUREA 500 MG CAP PO SCH (09:10)
[2017-01-06] MEDS ORDERED: NIFEdipine ER 30 MG TAB PO SCH (10:00)
== END 2017-01-06 14:34 | disposition home or self-care (01) | DRG 470 ==
LOC: ER 18:47 → TELE 18:48 → ICU WEST 01-05 10:45
PROVIDERS: ADMIT Family Medicine; ATTEND Family Medicine
DX: I12.9 Hypertensive chronic kidney disease with stage 1 through stage 4 chronic kidney disease, or unspecified chronic kidney disease (principal); D57.00 Hb-SS disease with crisis, unspecified; E11.21 Type 2 diabetes mellitus with diabetic nephropathy; E11.65 Type 2 diabetes mellitus with hyperglycemia; E11.22 Type 2 diabetes mellitus with diabetic chronic kidney disease; F11.20 Opioid dependence, uncomplicated; R10.9 Unspecified abdominal pain; N18.3 Chronic kidney disease, stage 3 (moderate); D63.8 Anemia in other chronic diseases classified elsewhere; E66.01 Morbid (severe) obesity due to excess calories; E78.5 Hyperlipidemia, unspecified; F17.200 Nicotine dependence, unspecified, uncomplicated; G89.29 Other chronic pain; I48.91 Unspecified atrial fibrillation; Z91.041 Radiographic dye allergy status; Z91.013 Allergy to seafood; Z88.8 Allergy status to other drugs, medicaments and biological substances; Z91.018 Allergy to other foods; Z71.6 Tobacco abuse counseling; Z87.442 Personal history of urinary calculi; Z82.49 Family history of ischemic heart disease and other diseases of the circulatory system; Z83.3 Family history of diabetes mellitus; Z86.73 Personal history of transient ischemic attack (TIA), and cerebral infarction without residual deficits; Z68.38 Body mass index [BMI] 38.0-38.9, adult
CPT/HCPCS: 36415; 80053; 81001; 82962; 83036; 83735; 85025; 85045; 85652; 87081; 93005; 96361; 96374; 96375; C9113; J1815; J3490

== ENCOUNTER 2017-01-10 19:11 | Emergency (ER) | payer MEDICAID ==
[~2017-01-10] VITALS: Ht 162.6 cm; Wt 95.3 kg
[~2017-01-10 19:11] MED LIST changes: +HYD2I IM; +ZOLP10TA PO
[2017-01-10 19:20] VITALS: BP 174/104
== END 2017-01-11 00:07 | disposition left against medical advice (07) ==
LOC: ER 19:15
DX: D57.1 Sickle-cell disease without crisis (principal); R11.2 Nausea with vomiting, unspecified; R05 Cough; Z53.21 Procedure and treatment not carried out due to patient leaving prior to being seen by health care provider

== ENCOUNTER 2017-01-12 18:23 | Emergency (ER) | payer MEDICAID ==
[~2017-01-12] VITALS: Ht 162.6 cm; Wt 99.8 kg
[2017-01-12 18:36] VITALS: BP 187/107
== END 2017-01-12 23:04 | disposition left against medical advice (07) ==
LOC: ER 18:23
DX: M54.9 Dorsalgia, unspecified (principal); R11.2 Nausea with vomiting, unspecified; Z53.21 Procedure and treatment not carried out due to patient leaving prior to being seen by health care provider

== ENCOUNTER 2017-01-17 08:35 | Emergency (ER) | payer MEDICAID ==
[~2017-01-17] VITALS: Ht 162.6 cm; Wt 95.3 kg
[2017-01-17 08:56] VITALS: BP 168/92
[2017-01-17] MEDS ORDERED: HYDROmorphone HCL 2 MG/ML VL IM ONE (09:00)
[2017-01-17] MEDS ORDERED: diphenhdrAMINE HCL 50 MG/1 ML VL IM ONE (09:15)
[2017-01-21] MEDS ORDERED: PERCOT PO (10:53)
== END 2017-01-17 10:41 | disposition home or self-care (01) ==
LOC: ER 08:35
DX: G89.4 Chronic pain syndrome (principal); I48.91 Unspecified atrial fibrillation; I10 Essential (primary) hypertension; E11.9 Type 2 diabetes mellitus without complications; R11.2 Nausea with vomiting, unspecified; Z79.4 Long term (current) use of insulin; Z91.013 Allergy to seafood; Z87.442 Personal history of urinary calculi; Z86.73 Personal history of transient ischemic attack (TIA), and cerebral infarction without residual deficits; Z88.6 Allergy status to analgesic agent; Z91.041 Radiographic dye allergy status
CPT/HCPCS: 96372; 99284; J1170; J1200

== ENCOUNTER 2017-02-02 09:12 | Inpatient (IN) | payer MEDICAID ==
[~2017-02-02] VITALS: Ht 162.6 cm; Wt 95.3 kg
[~2017-02-02 09:12] MED LIST changes: +PERCOT PO
[2017-02-02] MEDS ORDERED: SODIUM CHLORIDE 0.9% 1,000 ML IV ONE (09:47)
[2017-02-02] MEDS ORDERED: ONDANSETRON HCL 4 MG/2 ML VIAL IV ONE (10:00)
[2017-02-02] MEDS ORDERED: hydrALAZINE HCL 20 MG/ML VL IV ONE (10:00)
[2017-02-02] MEDS ORDERED: HYDROmorphone HCL 2 MG/ML VL IV ONE (10:00)
[2017-02-02 10:09] LABS: Basophils # (auto) 0.1 uL; Basophils % (auto) 0.7 % (0.0-2.0); Eosinophils # (auto) 0.2 uL; Hemoglobin 10.1 g/dL (12.2-16.2); Lymphocytes # (auto) 3.3 uL; Lymphocytes % (auto) 28.6 % (10.0-50.0); Mean Corpuscular Hemoglobin 23.2 pg (28.0-32.0); Mean Corpuscular Hgb Conc. 31.6 g/dL (32.0-36.0); Mean Corpuscular Volume 73.2 fL (80.0-100.0); Mean Platelet Volume 8.3 fL (6.9-10.8); Monocytes # (auto) 0.8 uL; Neutrophils # (auto) 7.1 uL; Neutrophils % (auto) 61.7 % (37.0-80.0); Platelet Count (auto) 367 10^3/uL (140-450); Red Cell Distribution Width 16.3 % (11.8-14.3); White Blood Cell 11.4 10^3/uL (4.4-10.8)
[2017-02-02 10:16] LABS: Platelet Estimate Adequate
[2017-02-02 10:17] LABS: Anisocytosis Slight; Hypochromia Moderate; Microcytosis Moderate
[2017-02-02 10:41] LABS: Albumin 3.4 g/dL (3.4-5.0); Alkaline Phosphatase 123 U/L (45-117); Anion Gap 6 (5-15); Aspartate Aminotransferase 12 U/L (15-37); Bilirubin, Total 0.3 mg/dL (0.2-1.0); Blood Urea Nitrogen 13 mg/dL (7-18); Calcium 8.8 mg/dL (8.5-10.1); Carbon Dioxide 27 mmol/L (21-32); Chloride 102 mmol/L (98-107); GFR African American 68 mL/min; GFR Non-African American 56 mL/min; Glucose 231 mg/dL (74-106); Magnesium 2.4 mg/dL (1.6-2.6); Sodium 135 mmol/L (136-145); Total Protein 7.6 g/dL (6.4-8.2)
[2017-02-02] MEDS ORDERED: PROMETHAZINE HCL 25 MG/ML 1ML IV PRN (10:45)
[2017-02-02] MEDS ORDERED: ACETAMINOPHEN 500 MG TAB PO PRN (10:45)
[2017-02-02] MEDS ORDERED: NITROGLYCERIN 0.4 MG SL TAB SL PRN (10:45)
[2017-02-02] MEDS ORDERED: LACTULOSE 20Gm/30ML SOLN PO PRN (10:45)
[2017-02-02] MEDS ORDERED: D5W/SOD CHL 0.45% 1,000 ML IV ONE (10:45)
[2017-02-02] MEDS ORDERED: MORPHINE SULF INJ 2 MG/ML SYRINGE 1ML IV PRN (10:45)
[2017-02-02] MEDS ORDERED: TEMAZEPAM 15 MG CAP PO PRN (10:45)
[2017-02-02] MEDS ORDERED: LABETALOL HCL 5 MG/ML 4ML SYRINGE IV ONE (10:45)
[2017-02-02] MEDS ORDERED: LABETALOL HCL 5 MG/ML 4ML SYRINGE IV PRN ×2 (10:45)
[2017-02-02] MEDS ORDERED: LORazepam 0.5 MG TAB PO PRN (10:45)
[2017-02-02] MEDS ORDERED: HYDROmorphone HCL 2 MG/ML VL IV PRN (10:45)
[2017-02-02] MEDS ORDERED: DEXTROSE (50%) 50ML SYRG IV PRN (10:45)
[2017-02-02] MEDS ORDERED: HYDROmorphone HCL 2 MG/ML VL IM PRN (10:45)
[2017-02-02] MEDS ORDERED: cloNIDine HCL 0.1 MG TAB PO ONE (10:45)
[2017-02-02] MEDS ORDERED: LABETALOL HCL 5 MG/ML ML 20ML VIAL IV PRN (10:45)
[2017-02-02] MEDS ORDERED: ZOLPIDEM TARTRATE 5 MG TAB PO PRN (11:00)
[2017-02-02] MEDS ORDERED: HYDROXYUREA 500 MG CAP PO ONE (11:00)
[2017-02-02] MEDS ORDERED: LABETALOL HCL 200 MG TAB PO ONE (11:00)
[2017-02-02] MEDS ORDERED: NIFEdipine ER 30 MG TAB PO ONE (11:00)
[2017-02-02] MEDS ORDERED: INSULIN DETEMIR(LEVEMIR) 1unit/0.01ml Soln (100units/ml) SC ONE (11:00)
[2017-02-02 11:17] LABS: INR 0.86 (0.9-1.15); Partial Thromboplastin Time 22.2 sec (22.64-33.71); Prothrombin Time 9.4 sec (9.37-12.3)
[2017-02-02] MEDS ORDERED: ACCU-CHEK COMFORT CURVE STRIP VI SCH (11:30)
[2017-02-02] MEDS ORDERED: InsuLIN REG 1unit/0.01ml Soln (100units/ml) SC SCH (11:30)
[2017-02-02] MEDS ORDERED: diphenhdrAMINE HCL 50 MG/1 ML VL IV PRN (12:00)
[2017-02-02] MEDS ORDERED: hydrALAZINE HCL 25 MG TAB PO SCH (12:00)
[2017-02-02 12:04] VITALS: BP 177/103
[2017-02-02 12:11] LABS: Temperature: 23.7 C (20.0-25.0)
[2017-02-02] MEDS ORDERED: cloNIDine HCL 0.1 MG TAB PO SCH (14:00)
[2017-02-02] MEDS ORDERED: PATIENTS OWN MEDICATION (Zolpidem Tartrate (Ambien) 1 TAB) PO SCH ×2 (18:00)
[2017-02-02] MEDS ORDERED: ATORVASTATIN 20 MG TAB PO SCH (22:00)
[2017-02-02] MEDS ORDERED: LABETALOL HCL 200 MG TAB PO SCH (22:00)
[2017-02-02] MEDS ORDERED: INSULIN DETEMIR(LEVEMIR) 1unit/0.01ml Soln (100units/ml) SC SCH (22:00)
[2017-02-02] MEDS ORDERED: LABETALOL HCL 400 MG PO SCH (22:00)
[2017-02-02] MEDS ORDERED: INSULIN GLARGINE 45 UNIT SC SCH (22:00)
[2017-02-03] MEDS ORDERED: PATIENTS OWN MEDICATION (Nifedipine (Nifedipine Er) 1 TAB) PO SCH ×2 (10:00)
[2017-02-03] MEDS ORDERED: ENOXAPARIN SOD 40 MG/0.4 ML SYRINGE SC SCH (10:00)
[2017-02-03] MEDS ORDERED: PANTOPRAZOLE 40 MG TAB PO SCH (10:00)
[2017-02-03] MEDS ORDERED: HYDROXYUREA 500 MG CAP PO SCH (10:00)
[2017-02-03] MEDS ORDERED: NIFEdipine ER 30 MG TAB PO SCH (10:00)
[2017-02-08] MEDS ORDERED: CLO01T PO (10:47)
== END 2017-02-02 14:12 | disposition left against medical advice (07) | DRG 662 ==
LOC: ER 09:12 → TELE 09:13
PROVIDERS: ADMIT Internal Medicine; ATTEND Internal Medicine
DX: D57.00 Hb-SS disease with crisis, unspecified (principal); E11.22 Type 2 diabetes mellitus with diabetic chronic kidney disease; G45.9 Transient cerebral ischemic attack, unspecified; F11.20 Opioid dependence, uncomplicated; I48.91 Unspecified atrial fibrillation; I16.9 Hypertensive crisis, unspecified; E66.9 Obesity, unspecified; I12.9 Hypertensive chronic kidney disease with stage 1 through stage 4 chronic kidney disease, or unspecified chronic kidney disease; N18.9 Chronic kidney disease, unspecified; Z53.21 Procedure and treatment not carried out due to patient leaving prior to being seen by health care provider; K59.00 Constipation, unspecified; F41.9 Anxiety disorder, unspecified; G47.00 Insomnia, unspecified; Z88.8 Allergy status to other drugs, medicaments and biological substances; Z88.6 Allergy status to analgesic agent; Z82.49 Family history of ischemic heart disease and other diseases of the circulatory system; Z83.3 Family history of diabetes mellitus; Z87.442 Personal history of urinary calculi; Z88.1 Allergy status to other antibiotic agents; Z91.041 Radiographic dye allergy status; Z68.36 Body mass index [BMI] 36.0-36.9, adult; Z80.0 Family history of malignant neoplasm of digestive organs; Z88.5 Allergy status to narcotic agent; Z91.013 Allergy to seafood; Z79.899 Other long term (current) drug therapy; Z79.4 Long term (current) use of insulin
CPT/HCPCS: 36415; 70450; 80053; 82150; 82550; 82607; 82746; 82962; 83036; 83690; 83735; 84443; 84484; 85025; 85045; 85610; 85652; 85730; 86141; 93005; 94761; 96361; 96365; 96372; 96375; J1815; J2405; J3490

== ENCOUNTER 2017-02-10 15:59 | Emergency (ER) | payer MEDICAID ==
[~2017-02-10] VITALS: Ht 162.6 cm; Wt 95.3 kg
[~2017-02-10 15:59] MED LIST changes: -HYDR-2651 PO; -LABE300T PO
[2017-02-10 20:28] LABS: Albumin 3.2 g/dL (3.4-5.0); BUN/Creatinine Ratio 13.2; Bilirubin, Total 0.1 mg/dL (0.2-1.0); Calcium 9.2 mg/dL (8.5-10.1); Potassium 4.1 mmol/L (3.5-5.1); Total Protein 7.8 g/dL (6.4-8.2)
[2017-02-10 21:11] LABS: Basophils # (auto) 0.1 uL; Basophils % (auto) 0.5 % (0.0-2.0); Eosinophils # (auto) 0.3 uL; Eosinophils % (auto) 2.1 % (0.0-7.0); Hemoglobin 10.4 g/dL (12.2-16.2); Lymphocytes # (auto) 3.5 uL; Lymphocytes % (auto) 28.3 % (10.0-50.0); Mean Corpuscular Hemoglobin 23.6 pg (28.0-32.0); Mean Corpuscular Hgb Conc. 31.4 g/dL (32.0-36.0); Mean Corpuscular Volume 75.3 fL (80.0-100.0); Mean Platelet Volume 8.5 fL (6.9-10.8); Monocytes % (auto) 8.4 % (0.0-12.0); Neutrophils # (auto) 7.6 uL; Neutrophils % (auto) 60.7 % (37.0-80.0); Nucleated Red Blood Cells % 0.1 %; Platelet Count (auto) 322 10^3/uL (140-450); Red Cell Distribution Width 16.4 % (11.8-14.3); White Blood Cell 12.6 10^3/uL (4.4-10.8)
[2017-02-10 22:37] LABS: Platelet Estimate Adequate
[2017-02-10 22:38] LABS: Hypochromia Moderate; Microcytosis Slight
[2017-02-11] MEDS ORDERED: ONDANSETRON HCL 4 MG/2 ML VIAL IV ONE (00:15)
[2017-02-11] MEDS ORDERED: MORPHINE SULF INJ 2 MG/ML SYRINGE 1ML IV ONE (00:15)
[2017-02-11] MEDS ORDERED: SODIUM CHLORIDE 0.9% 1,000 ML IV ONE (02:00)
[2017-02-11] MEDS ORDERED: diphenhdrAMINE HCL 50 MG/1 ML VL IV ONE (02:15)
[2017-02-11 02:30] VITALS: BP 200/102
== END 2017-02-11 04:15 | disposition home or self-care (01) ==
LOC: ER 16:03
DX: D57.00 Hb-SS disease with crisis, unspecified (principal); D57.1 Sickle-cell disease without crisis; I48.91 Unspecified atrial fibrillation; N18.9 Chronic kidney disease, unspecified; E11.22 Type 2 diabetes mellitus with diabetic chronic kidney disease; I12.9 Hypertensive chronic kidney disease with stage 1 through stage 4 chronic kidney disease, or unspecified chronic kidney disease; E11.65 Type 2 diabetes mellitus with hyperglycemia; Z87.442 Personal history of urinary calculi
CPT/HCPCS: 36415; 80053; 85025; 85045; 93005; 96361; 96374; 96375; 99285; J1200; J2270; J2405; J7030

== ENCOUNTER 2017-02-11 09:46 | Observation (INO) | payer MEDICAID ==
[~2017-02-11] VITALS: Ht 162.6 cm; Wt 93.4 kg
[2017-02-11] MEDS ORDERED: cloNIDine HCL 0.1 MG TAB PO ONE ×2 (10:15→17:15)
[2017-02-11 10:49] LABS: Basophils # (auto) 0.1 uL; Eosinophils # (auto) 0.2 uL; Eosinophils % (auto) 1.5 % (0.0-7.0); Hemoglobin 10.5 g/dL (12.2-16.2); Monocytes # (auto) 0.9 uL
[2017-02-11 10:51] LABS: Basophils % (auto) 0.6 % (0.0-2.0); Hematocrit 33.1 % (36.0-46.0); Lymphocytes # (auto) 3.3 uL; Lymphocytes % (auto) 24.9 % (10.0-50.0); Mean Corpuscular Hgb Conc. 31.8 g/dL (32.0-36.0); Mean Corpuscular Volume 72.3 fL (80.0-100.0); Mean Platelet Volume 8.1 fL (6.9-10.8); Monocytes % (auto) 6.8 % (0.0-12.0); Neutrophils # (auto) 8.7 uL; Neutrophils % (auto) 66.2 % (37.0-80.0); Nucleated Red Blood Cells % 0.2 %; Platelet Count (auto) 358 10^3/uL (140-450); Red Cell Distribution Width 16.3 % (11.8-14.3); White Blood Cell 13.1 10^3/uL (4.4-10.8)
[2017-02-11 11:16] LABS: Albumin 3.5 g/dL (3.4-5.0); Bilirubin, Total 0.1 mg/dL (0.2-1.0); Calcium 8.8 mg/dL (8.5-10.1); Potassium 4.2 mmol/L (3.5-5.1); Total Protein 7.8 g/dL (6.4-8.2)
[2017-02-11] MEDS ORDERED: SODIUM CHLORIDE 0.9% 1,000 ML IVB ONE (13:47)
[2017-02-11] MEDS ORDERED: ONDANSETRON HCL 4 MG/2 ML VIAL IV ONE (14:00)
[2017-02-11 14:17] LABS: Magnesium 2.1 mg/dL (1.6-2.6)
[2017-02-11 14:21] LABS: INR 0.9 (0.9-1.15); Partial Thromboplastin Time 21.8 sec (22.64-33.71); Prothrombin Time 9.8 sec (9.37-12.3)
[2017-02-11] MEDS ORDERED: hydrALAZINE HCL 20 MG/ML VL IV ONE (15:15)
[2017-02-11] MEDS ORDERED: diphenhdrAMINE HCL 50 MG/1 ML VL IM ONE (16:00)
[2017-02-11] MEDS ORDERED: PROMETHAZINE HCL 25 MG/ML 1ML IM ONE ×2 (16:00→21:00)
[2017-02-11] MEDS ORDERED: HYDROmorphone HCL 2 MG/ML VL IM ONE ×2 (16:00→21:00)
[2017-02-11] MEDS ORDERED: hydrALAZINE HCL 10 MG TAB PO ONE (18:30)
[2017-02-11 20:05] LABS: Urine Bilirubin Negative (Negative); Urine Blood TRACE /uL (Negative); Urine Color Yellow (Yellow); Urine Glucose 3+ mg/dL (Normal); Urine Ketone Negative (Negative); Urine Nitrite Negative (Negative); Urine RBC 2 /hpf (0 - 4); Urine Squamous Epithelial Cell FEW /hpf (<5); Urine Urobilinogen Normal (Negative)
[2017-02-11 20:58] VITALS: BP 201/127
== END 2017-02-11 21:46 | disposition home or self-care (01) | DRG 249 ==
LOC: ER 09:46 → OVERFLOW 13:52 → ER 21:46
PROVIDERS: ADMIT Family Medicine; ATTEND Family Medicine
DX: R11.2 Nausea with vomiting, unspecified (principal); I10 Essential (primary) hypertension; D57.1 Sickle-cell disease without crisis; D50.8 Other iron deficiency anemias; E11.9 Type 2 diabetes mellitus without complications; F32.9 Major depressive disorder, single episode, unspecified; F17.200 Nicotine dependence, unspecified, uncomplicated; M25.50 Pain in unspecified joint; F41.9 Anxiety disorder, unspecified; Z86.73 Personal history of transient ischemic attack (TIA), and cerebral infarction without residual deficits; Z87.442 Personal history of urinary calculi; Z82.49 Family history of ischemic heart disease and other diseases of the circulatory system; Z83.3 Family history of diabetes mellitus
CPT/HCPCS: 36415; 80053; 81001; 82150; 82962; 83690; 83735; 85025; 85610; 85730; 96372; 99285; G0378; J1170; J1200; J2550

== ENCOUNTER 2017-02-15 13:17 | Emergency (ER) | payer MEDICAID ==
[~2017-02-15] VITALS: Ht 162.6 cm; Wt 95.3 kg
[2017-02-15 13:30] VITALS: BP 219/145
== END 2017-02-15 15:35 | disposition left against medical advice (07) ==
LOC: ER 13:17
DX: R07.89 Other chest pain (principal); R00.2 Palpitations; Z53.21 Procedure and treatment not carried out due to patient leaving prior to being seen by health care provider
CPT/HCPCS: 93005

== ENCOUNTER 2017-02-23 01:06 | Emergency (ER) | payer MEDICAID ==
[~2017-02-23] VITALS: Ht 162.6 cm; Wt 93.4 kg
[2017-02-23 01:24] VITALS: BP 240/152
[2017-02-23 01:50] LABS: Hematocrit 29.2 % (36.0-46.0); Nucleated Red Blood Cells % 0.1 %
[2017-02-23 01:51] LABS: Basophils # (auto) 0 uL; Basophils % (auto) 0.3 % (0.0-2.0); Eosinophils # (auto) 0.6 uL; Eosinophils % (auto) 4.2 % (0.0-7.0); Hemoglobin 9.4 g/dL (12.2-16.2); Lymphocytes # (auto) 4.7 uL; Lymphocytes % (auto) 33.7 % (10.0-50.0); Mean Corpuscular Hemoglobin 23.2 pg (28.0-32.0); Mean Corpuscular Hgb Conc. 32.2 g/dL (32.0-36.0); Mean Corpuscular Volume 72.1 fL (80.0-100.0); Monocytes # (auto) 1.1 uL; Monocytes % (auto) 7.8 % (0.0-12.0); Neutrophils # (auto) 7.5 uL; Platelet Count (auto) 390 10^3/uL (140-450); Red Cell Distribution Width 16.3 % (11.8-14.3); White Blood Cell 13.9 10^3/uL (4.4-10.8)
[2017-02-23] MEDS ORDERED: cloNIDine HCL 0.1 MG TAB ONE (01:54)
[2017-02-23 02:05] LABS: Albumin 3.1 g/dL (3.4-5.0); Anion Gap 10 (5-15); Aspartate Aminotransferase 18 U/L (15-37); BUN/Creatinine Ratio 9.2; Blood Urea Nitrogen 12 mg/dL (7-18); Calcium 8.3 mg/dL (8.5-10.1); Carbon Dioxide 26 mmol/L (21-32); Chloride 105 mmol/L (98-107); GFR African American 60 mL/min; GFR Non-African American 50 mL/min; Glucose 172 mg/dL (74-106); INR 0.86 (0.9-1.15); Partial Thromboplastin Time 24.7 sec (22.64-33.71); Potassium 3.5 mmol/L (3.5-5.1); Prothrombin Time 9.4 sec (9.37-12.3); Sodium 141 mmol/L (136-145)
[2017-02-23] MEDS ORDERED: cloNIDine HCL 0.1 MG TAB PO ONE (02:15)
[2017-02-23 02:25] LABS: Alkaline Phosphatase 106 U/L (45-117); Bilirubin, Total < 0.1 mg/dL (0.2-1.0); Total Protein 7.4 g/dL (6.4-8.2)
[2017-02-23 02:36] LABS: Reticulocyte Count 1.97 % (0.5-1.5)
== END 2017-02-23 03:00 | disposition left against medical advice (07) ==
LOC: ER 01:07
DX: M79.605 Pain in left leg (principal); M79.604 Pain in right leg; R11.2 Nausea with vomiting, unspecified; Z53.21 Procedure and treatment not carried out due to patient leaving prior to being seen by health care provider
CPT/HCPCS: 36415; 80053; 84484; 84702; 85025; 85045; 85610; 85730

== ENCOUNTER 2017-02-24 09:05 | Emergency (ER) | payer MEDICAID ==
[~2017-02-24] VITALS: Ht 162.6 cm; Wt 99.3 kg
[2017-02-24] MEDS ORDERED: SODIUM CHLORIDE 0.9% 1,000 ML IV ONE (10:11)
[2017-02-24 10:15] LABS: Basophils # (auto) 0.1 uL; Basophils % (auto) 0.9 % (0.0-2.0); Eosinophils # (auto) 0.4 uL; Eosinophils % (auto) 3.7 % (0.0-7.0); Hematocrit 27.1 % (36.0-46.0); Hemoglobin 8.7 g/dL (12.2-16.2); Lymphocytes # (auto) 2.7 uL; Lymphocytes % (auto) 25.4 % (10.0-50.0); Mean Corpuscular Hemoglobin 22.9 pg (28.0-32.0); Mean Corpuscular Hgb Conc. 32.1 g/dL (32.0-36.0); Mean Corpuscular Volume 71.3 fL (80.0-100.0); Mean Platelet Volume 8.5 fL (6.9-10.8); Monocytes # (auto) 0.8 uL; Monocytes % (auto) 7.1 % (0.0-12.0); Neutrophils # (auto) 6.7 uL; Neutrophils % (auto) 62.9 % (37.0-80.0); Nucleated Red Blood Cells % 0.1 %; Platelet Count (auto) 370 10^3/uL (140-450); Red Cell Distribution Width 16.4 % (11.8-14.3); White Blood Cell 10.6 10^3/uL (4.4-10.8)
[2017-02-24] MEDS ORDERED: HYDROmorphone HCL 2 MG/ML VL IV ONE (10:15)
[2017-02-24 10:23] LABS: Albumin 2.8 g/dL (3.4-5.0); Alkaline Phosphatase 138 U/L (45-117); Anion Gap 6 (5-15); Aspartate Aminotransferase 12 U/L (15-37); BUN/Creatinine Ratio 11.1; Bilirubin, Total < 0.1 mg/dL (0.2-1.0); Blood Urea Nitrogen 15 mg/dL (7-18); Carbon Dioxide 25 mmol/L (21-32); Chloride 107 mmol/L (98-107); GFR African American 58 mL/min; GFR Non-African American 48 mL/min; Glucose 326 mg/dL (74-106); Potassium 4.2 mmol/L (3.5-5.1); Sodium 138 mmol/L (136-145); Total Protein 6.9 g/dL (6.4-8.2)
[2017-02-24] MEDS ORDERED: diphenhdrAMINE HCL 50 MG/1 ML VL IV ONE (11:00)
[2017-02-24] MEDS ORDERED: cloNIDine HCL 0.1 MG TAB PO ONE (11:00)
[2017-02-24] MEDS ORDERED: ONDANSETRON HCL 4 MG/2 ML VIAL IV ONE (11:00)
[2017-02-24] MEDS ORDERED: NICARDIPINE 25MG/250ML BAG KIT 250 ML IV SCH (12:30)
[2017-02-24 13:13] VITALS: BP 152/88
== END 2017-02-24 13:14 | disposition home or self-care (01) ==
LOC: ER 09:05
DX: R52 Pain, unspecified (principal); N18.9 Chronic kidney disease, unspecified; E11.22 Type 2 diabetes mellitus with diabetic chronic kidney disease; I12.9 Hypertensive chronic kidney disease with stage 1 through stage 4 chronic kidney disease, or unspecified chronic kidney disease; Z87.442 Personal history of urinary calculi; D57.1 Sickle-cell disease without crisis
CPT/HCPCS: 36415; 80053; 85025; 93005; 94761; 96361; 96365; 96375; 99285; J1170; J1200; J2405; J7030

== ENCOUNTER 2017-02-27 10:11 | Emergency (ER) | payer MEDICAID ==
[~2017-02-27] VITALS: Ht 157.5 cm; Wt 96.6 kg
[2017-02-27 10:22] VITALS: BP 189/105
== END 2017-02-27 13:17 | disposition home or self-care (01) ==
LOC: ER 10:11
DX: R11.2 Nausea with vomiting, unspecified (principal); Z53.21 Procedure and treatment not carried out due to patient leaving prior to being seen by health care provider
CPT/HCPCS: 93005

== ENCOUNTER 2017-03-03 18:59 | Emergency (ER) | payer MEDICAID ==
[~2017-03-03] VITALS: Ht 162.6 cm; Wt 95.3 kg
[2017-03-03] MEDS ORDERED: DILTIAZEM HCL 25 MG/5 ML VIAL IV ONE ×2 (19:24→19:30)
[2017-03-03] MEDS ORDERED: cloNIDine HCL 0.1 MG TAB ONE (19:24)
[2017-03-03 19:30] LABS: Basophils # (auto) 0 uL; Basophils % (auto) 0.4 % (0.0-2.0); Eosinophils # (auto) 0.3 uL; Eosinophils % (auto) 2.2 % (0.0-7.0); Hematocrit 32.2 % (36.0-46.0); Hemoglobin 10.2 g/dL (12.2-16.2); Lymphocytes # (auto) 4.3 uL; Lymphocytes % (auto) 33.3 % (10.0-50.0); Mean Corpuscular Hemoglobin 22.5 pg (28.0-32.0); Mean Corpuscular Hgb Conc. 31.6 g/dL (32.0-36.0); Mean Corpuscular Volume 71.3 fL (80.0-100.0); Mean Platelet Volume 8.3 fL (6.9-10.8); Monocytes # (auto) 0.9 uL; Monocytes % (auto) 7.1 % (0.0-12.0); Neutrophils # (auto) 7.4 uL; Nucleated Red Blood Cells % 0.1 %; Platelet Count (auto) 424 10^3/uL (140-450); Red Cell Distribution Width 16.3 % (11.8-14.3)
[2017-03-03] MEDS ORDERED: cloNIDine HCL 0.1 MG TAB PO ONE (19:30)
[2017-03-03 19:43] LABS: INR 0.89 (0.9-1.15); Partial Thromboplastin Time 24.4 sec (22.64-33.71); Prothrombin Time 9.7 sec (9.37-12.3)
[2017-03-03 19:46] VITALS: BP 200/135
[2017-03-03 19:46] LABS: Albumin 3.2 g/dL (3.4-5.0); Anion Gap 12 (5-15); Aspartate Aminotransferase 10 U/L (15-37); BUN/Creatinine Ratio 10.1; Blood Urea Nitrogen 19 mg/dL (7-18); Calcium 8.7 mg/dL (8.5-10.1); Carbon Dioxide 24 mmol/L (21-32); Chloride 101 mmol/L (98-107); GFR African American 39 mL/min; GFR Non-African American 33 mL/min; Glucose 321 mg/dL (74-106); Potassium 3.4 mmol/L (3.5-5.1); Sodium 137 mmol/L (136-145)
[2017-03-03 19:51] LABS: Alkaline Phosphatase 132 U/L (45-117); Bilirubin, Total 0.2 mg/dL (0.2-1.0); Total Protein 7.4 g/dL (6.4-8.2)
[2017-03-03 20:06] LABS: B-Type Natriuretic Peptide 124.18 pg/mL (0-100)
[2017-03-03 20:25] LABS: Temperature: 23.1 C (20.0-25.0)
== END 2017-03-03 22:32 | disposition home or self-care (01) ==
LOC: ER 19:05
DX: I12.9 Hypertensive chronic kidney disease with stage 1 through stage 4 chronic kidney disease, or unspecified chronic kidney disease (principal); E11.22 Type 2 diabetes mellitus with diabetic chronic kidney disease; N18.3 Chronic kidney disease, stage 3 (moderate); R11.0 Nausea; G89.4 Chronic pain syndrome; Z76.5 Malingerer [conscious simulation]; Z87.442 Personal history of urinary calculi; Z88.6 Allergy status to analgesic agent
CPT/HCPCS: 36415; 71010; 80053; 83735; 83880; 84484; 85025; 85610; 85730; 93005; 96374

== ENCOUNTER 2017-03-09 08:43 | Emergency (ER) | payer MEDICAID ==
[~2017-03-09] VITALS: Ht 162.6 cm; Wt 95.3 kg
[2017-03-09 09:36] VITALS: BP 227/141
[2017-03-09] MEDS ORDERED: cloNIDine HCL 0.1 MG TAB PO ONE (10:15)
[2017-03-09] MEDS ORDERED: HYDROcodone-ACET 10/325MG TAB PO ONE (10:15)
== END 2017-03-09 11:01 | disposition left against medical advice (07) ==
LOC: ER 08:43
DX: G89.29 Other chronic pain (principal); M79.604 Pain in right leg; M79.605 Pain in left leg; I10 Essential (primary) hypertension; D57.1 Sickle-cell disease without crisis; I12.9 Hypertensive chronic kidney disease with stage 1 through stage 4 chronic kidney disease, or unspecified chronic kidney disease; E11.22 Type 2 diabetes mellitus with diabetic chronic kidney disease; N18.9 Chronic kidney disease, unspecified; Z79.4 Long term (current) use of insulin; Z88.6 Allergy status to analgesic agent; Z88.1 Allergy status to other antibiotic agents; Z91.041 Radiographic dye allergy status; Z91.013 Allergy to seafood; Z91.09 Other allergy status, other than to drugs and biological substances
CPT/HCPCS: 71020; 93005; 94761

== ENCOUNTER 2017-04-15 00:43 | Emergency (ER) | payer MEDICAID ==
[~2017-04-15] VITALS: Ht 162.6 cm; Wt 95.3 kg
[2017-04-15 00:56] VITALS: BP 168/99
== END 2017-04-15 07:53 | disposition left against medical advice (07) ==
LOC: ER 00:43
DX: D57.00 Hb-SS disease with crisis, unspecified (principal); Z53.21 Procedure and treatment not carried out due to patient leaving prior to being seen by health care provider

== ENCOUNTER 2018-09-26 11:26 | Emergency (ER) | payer MEDICAID, OTHER ==
[~2018-09-26] VITALS: Ht 162.6 cm; Wt 88.9 kg
[2018-09-26] MEDS: cloNIDine HCL 0.1 MG TAB PO ONE (12:02)
[2018-09-26 12:13] LABS: Basophils # (auto) 0 uL; Basophils % (auto) 0.1 % (0.0-2.0); Hemoglobin 8.5 g/dL (12.2-16.2); Lymphocytes # (auto) 2.1 uL; Red Blood Cells 3.69 10^6/uL (4.0-5.20); Red Cell Distribution Width 17.6 % (11.8-14.3); White Blood Cell 7.7 10^3/uL (4.4-10.8)
[2018-09-26 12:15] LABS: Eosinophils # (auto) 0.3 uL; Eosinophils % (auto) 3.3 % (0.0-7.0); Hematocrit 26.1 % (36.0-46.0); Lymphocytes % (auto) 27.7 % (10.0-50.0); Mean Corpuscular Hemoglobin 23.1 pg (28.0-32.0); Mean Corpuscular Hgb Conc. 32.7 g/dL (32.0-36.0); Mean Corpuscular Volume 70.6 fL (80.0-100.0); Monocytes # (auto) 0.5 uL; Monocytes % (auto) 6.6 % (0.0-12.0); Neutrophils # (auto) 4.8 uL; Neutrophils % (auto) 62.3 % (37.0-80.0); Platelet Count (auto) 318 10^3/uL (140-450)
[2018-09-26 12:45] LABS: Alanine Aminotransferase 15 U/L (13-56); Albumin 2.9 g/dL (3.4-5.0); Anion Gap 6 (5-15); Aspartate Aminotransferase 16 U/L (15-37); BUN/Creatinine Ratio 9.1; Blood Urea Nitrogen 17 mg/dL (7-18); Calcium 8.9 mg/dL (8.5-10.1); Carbon Dioxide 25 mmol/L (21-32); Chloride 109 mmol/L (98-107); GFR African American 39 mL/min; GFR Non-African American 33 mL/min; Glucose 110 mg/dL (74-106); Potassium 3.9 mmol/L (3.5-5.1); Sodium 140 mmol/L (136-145)
[2018-09-26 12:50] LABS: Alkaline Phosphatase 80 U/L (45-117); Bilirubin, Total 0.2 mg/dL (0.2-1.0); Total Protein 7.6 g/dL (6.4-8.2)
[2018-09-26 13:45] LABS: Urine Bacteria FEW /hpf (None Seen); Urine Blood TRACE /uL (Negative); Urine Specific Gravity 1.007 (1.001-1.035); Urine WBC 1 /hpf (0 - 5)
[2018-09-26 15:01] LABS: INR 0.88 (0.9-1.15); Partial Thromboplastin Time 25.9 sec (23.64-32.05); Prothrombin Time 9.6 sec (9.06-12.60)
[2018-09-26] MEDS: HYDROmorphone HCL 2 MG/ML VL IV ONE ×2 (15:28→16:30)
[2018-09-26] MEDS: SODIUM CHLORIDE 0.9% 1,000 ML IV ONE (15:28)
[2018-09-26] MEDS: PROMETHAZINE HCL 25 MG/ML 1ML IV ONE (15:29)
[2018-09-26] MEDS: ONDANSETRON HCL 4 MG/2 ML VIAL IV ONE (16:30)
[2018-09-26] MEDS: hydrALAZINE HCL 20 MG/ML VL IV ONE (16:30)
[2018-09-26] MEDS: diphenhdrAMINE HCL 50 MG/1 ML VL IV ONE (17:06)
[2018-09-26 17:17] VITALS: BP 166/83
== END 2018-09-26 17:48 | disposition left against medical advice (07) ==
LOC: ER 11:27
DX: D57.00 Hb-SS disease with crisis, unspecified (principal); I10 Essential (primary) hypertension; E11.22 Type 2 diabetes mellitus with diabetic chronic kidney disease; I13.0 Hypertensive heart and chronic kidney disease with heart failure and stage 1 through stage 4 chronic kidney disease, or unspecified chronic kidney disease; N18.9 Chronic kidney disease, unspecified; I50.43 Acute on chronic combined systolic (congestive) and diastolic (congestive) heart failure; D63.1 Anemia in chronic kidney disease; Z79.4 Long term (current) use of insulin; R06.02 Shortness of breath
CPT/HCPCS: 36415; 71046; 80053; 81001; 83880; 84484; 85025; 85610; 85730; 93005; 94761; 96374; 96375; 96376; 99284; J0360; J1170; J1200; J2405; J2550; J7030

== ENCOUNTER 2018-10-02 13:52 | Inpatient (IN) | payer OTHER ==
[~2018-10-02] VITALS: Ht 162.6 cm; Wt 105.9 kg
[2018-10-02] MEDS ORDERED: SODIUM CHLORIDE 0.9% 1,000 ML IV ONE ×3 (14:56→15:00)
[2018-10-02] MEDS ORDERED: ONDANSETRON HCL 4 MG/2 ML VIAL IV ONE (15:00)
[2018-10-02] MEDS ORDERED: MORPHINE SULFATE 4 MG/ML SYR/VIAL IV ONE (15:00)
[2018-10-02] MEDS ORDERED: cloNIDine HCL 0.1 MG TAB PO ONE (15:00)
[2018-10-02 15:44] LABS: Basophils # (auto) 0.1 uL; Eosinophils # (auto) 0.3 uL; Eosinophils % (auto) 3.1 % (0.0-7.0); Mean Corpuscular Hemoglobin 23.2 pg (28.0-32.0); Monocytes # (auto) 0.7 uL; Neutrophils # (auto) 5.5 uL
[2018-10-02] MEDS ORDERED: LABETALOL HCL 5 MG/ML ML 20ML VIAL IV ONE (15:45)
[2018-10-02 15:46] LABS: Basophils % (auto) 0.8 % (0.0-2.0); Hematocrit 30.2 % (36.0-46.0); Hemoglobin 9.5 g/dL (12.2-16.2); Lymphocytes # (auto) 2.2 uL; Lymphocytes % (auto) 25.6 % (10.0-50.0); Mean Corpuscular Hgb Conc. 31.4 g/dL (32.0-36.0); Mean Corpuscular Volume 73.9 fL (80.0-100.0); Monocytes % (auto) 7.8 % (0.0-12.0); Neutrophils % (auto) 62.7 % (37.0-80.0); Platelet Count (auto) 431 10^3/uL (140-450); Red Blood Cells 4.09 10^6/uL (4.0-5.20); Red Cell Distribution Width 19.5 % (11.8-14.3); White Blood Cell 8.8 10^3/uL (4.4-10.8)
[2018-10-02 15:53] LABS: Albumin 3.3 g/dL (3.4-5.0); Calcium 8.8 mg/dL (8.5-10.1); Potassium 4.3 mmol/L (3.5-5.1)
[2018-10-02 15:56] LABS: BUN/Creatinine Ratio 10.5; Bilirubin, Total 0.2 mg/dL (0.2-1.0); Total Protein 7.7 g/dL (6.4-8.2)
[2018-10-02] MEDS ORDERED: MORPHINE SULF INJ 2 MG/ML SYRINGE 1ML IV PRN (16:15)
[2018-10-02] MEDS ORDERED: LABETALOL HCL 5 MG/ML ML 20ML VIAL IV PRN (16:15)
[2018-10-02] MEDS ORDERED: DEXTROSE (50%) 50ML SYRG IV PRN (16:15)
[2018-10-02] MEDS ORDERED: SODIUM CHLORIDE 0.9% 1,000 ML IV SCH (16:15)
[2018-10-02] MEDS ORDERED: NITROGLYCERIN 0.4 MG SL TAB SL PRN (16:15)
[2018-10-02] MEDS: HYDROmorphone HCL 2 MG/ML VL IV PRN ×3 (17:00→23:38)
[2018-10-02] MEDS: InsuLIN REG 1unit/0.01ml Soln (100units/ml) SC SCH ×2 (18:11→22:00)
[2018-10-02] MEDS: ACCU-CHEK COMFORT CURVE STRIP VI SCH ×2 (18:11→23:24)
[2018-10-02] MEDS: hydrALAZINE HCL 25 MG TAB PO SCH (18:27)
[2018-10-02] MEDS: cloNIDine HCL 0.1 MG TAB PO PRN (20:08)
--- NOTE | 2018-10-02 22:30 | NUR ---
Telemetry admit from ER KEYONA KOCH admitted to Telemetry unit. Patient oriented to Zuri CuevasRN primary RN, unit, room 289-B and unit policies regarding patient care and visiting hours. Patient now on continuous telemetry monitoring, tele box #21 and telemetry reading on arrival to unit is Sinus Rhythm heart rate 87. Patient on room air, ambulatory, no s/s of SOB. Patient reported a generalized body pain level of 9, will administer pain medication as ordered. Patient has an IV to the right AC 20g SL. Weighed by bed scale and encouraged to call if they need something. All questions and concerns addressed, patient verbalized understanding. Bed in lowest locked position, side rails up x 2, call light within reach. Will continue to monitor Q1hr and PRN. Note:
[2018-10-02] MEDS: cloNIDine HCL 0.1 MG TAB PO SCH (22:56)
[2018-10-02] MEDS: ATORVASTATIN 20 MG TAB PO SCH (22:57)
[2018-10-02] MEDS: ZOLPIDEM TARTRATE 5 MG TAB PO SCH (22:57)
[2018-10-03] VITALS (7 sets, daily range): BP systolic 132–176; BP diastolic 55–99
[2018-10-03] MEDS: hydrALAZINE HCL 25 MG TAB PO SCH ×5 (00:21→22:56)
--- NOTE | 2018-10-03 02:00 | NUR ---
Paged HIGH SCHOOL COORDINATOR Dao RE: Diet and IV fluids Awaiting call back, will continue care
--- NOTE | 2018-10-03 02:15 | NUR ---
Received call back from JD Dc Updated on patient status, informed JD Dc patients Cl level of 110. New order received to discontinue IV fluids and new order received for Consistent Carb Diet. Read back and verified. Will carry out orders and continue care.
[2018-10-03] MEDS: HYDROmorphone HCL 2 MG/ML VL IV PRN ×6 (02:40→21:24)
[2018-10-03] MEDS: ACCU-CHEK COMFORT CURVE STRIP VI SCH ×4 (06:46→22:41)
[2018-10-03] MEDS: InsuLIN REG 1unit/0.01ml Soln (100units/ml) SC SCH ×4 (06:46→22:42)
--- NOTE | 2018-10-03 07:10 | NUR ---
Closing note Patient resting in bed, no acute s/s of distress or SOB. Bed in lowest locked position, side rails up x 2, call light within reach. Endorsed care to dayshift RN.
--- NOTE | 2018-10-03 07:30 | NUR ---
Opening Shift Note Assuming care of patient at this time. Patient is awake, alert, and oriented. Patient has pain 10/10 at this time. Will medicate per doctor's orders. Patient shows no signs or symptoms of distress or shortness of breath. Instructed patient on the plan of care for today and to call for assistance as needed. Call light within reach. Will continue to round hourly and as needed.
--- NOTE | 2018-10-03 07:30 | NUR ---
Opening Shift Note Assumed care of patient, awake, alert and oriented x 4 and ambulatory. Patient on 2L oxygen via nasal canula. No S/S of acute distress/SOB. Instructed on POC and to call for assist PRN, bed in lowest locked position, side rails up x 2, call light within reach, will continue to monitor for changes Q1hr and PRN. Addendum: 10/03/18 at 1792 by Zuri Cuevas RN RN Time: 1929
[2018-10-03] MEDS: CLOPIDOGREL BISULFATE 75 MG TAB PO SCH (09:48)
[2018-10-03] MEDS: ASPirin-EC 81 mg tab PO SCH (09:48)
[2018-10-03] MEDS: FOLIC ACID 1 MG TAB PO SCH (09:48)
[2018-10-03] MEDS: NIFEdipine ER 30 MG TAB PO SCH (09:49)
[2018-10-03] MEDS: cloNIDine HCL 0.1 MG TAB PO SCH ×3 (09:50→21:25)
[2018-10-03] MEDS ORDERED: HYDROXYUREA 500 MG CAP PO SCH (10:00)
--- NOTE | 2018-10-03 10:00 | NUR ---
IV removal IV DC'd with sterile technique, catheter fully intact. Pressure dressing applied to site. Patient tolerated procedure well.
[2018-10-03 10:26] LABS: Albumin 2.5 g/dL (3.4-5.0); BUN/Creatinine Ratio 10.1; Calcium 8.2 mg/dL (8.5-10.1); Potassium 4.8 mmol/L (3.5-5.1)
[2018-10-03 10:31] LABS: Bilirubin, Total 0.2 mg/dL (0.2-1.0); Total Protein 6.3 g/dL (6.4-8.2)
--- NOTE | 2018-10-03 12:00 | NUR ---
IV insertion IV access obtained, via clean sterile technique by inserting 22 gauge catheter at left breast after multiple attempts. IV secured properly. No trauma to site. Patient tolerated well.
[2018-10-03] MEDS: HYDROXYUREA 500 MG CAP PO SCH (17:44)
--- NOTE | 2018-10-03 18:26 | NUR ---
Re: Urine Sample Urine sample collected and sent to lab at this time.
--- NOTE | 2018-10-03 18:30 | NUR ---
Patient complaining of shortness of breath Patient is complaining of shortness of breath at this time. Respiratory paged at this time. Oxygen saturation is 98% on 2L nasal cannula.
--- NOTE | 2018-10-03 19:05 | NUR ---
Closing Shift Note Patient is resting in bed. Patient shows no signs or symptoms of distress or shortness of breath. Will endorse care to the night filler RN.
[2018-10-03 19:06] LABS: Urine Bacteria FEW /hpf (None Seen); Urine Blood 2+ /uL (Negative); Urine Specific Gravity 1.009 (1.001-1.035); Urine WBC 3 /hpf (0 - 5)
[2018-10-03] MEDS: ATORVASTATIN 20 MG TAB PO SCH (21:25)
[2018-10-03] MEDS: ZOLPIDEM TARTRATE 5 MG TAB PO SCH (22:56)
[2018-10-04] MEDS: HYDROXYUREA 500 MG CAP PO SCH ×3 (02:14→18:00)
[2018-10-04] MEDS: HYDROmorphone HCL 2 MG/ML VL IV PRN ×6 (02:14→23:48)
[2018-10-04 05:00] VITALS: BP 178/95
[2018-10-04] MEDS: cloNIDine HCL 0.1 MG TAB PO SCH ×3 (05:30→22:08)
[2018-10-04] MEDS: hydrALAZINE HCL 25 MG TAB PO SCH ×4 (05:30→23:49)
[2018-10-04] MEDS: ACCU-CHEK COMFORT CURVE STRIP VI SCH ×4 (06:50→22:10)
[2018-10-04] MEDS: InsuLIN REG 1unit/0.01ml Soln (100units/ml) SC SCH ×4 (06:50→22:17)
[2018-10-04] MEDS: cloNIDine HCL 0.1 MG TAB PO PRN ×2 (06:54→12:02)
--- NOTE | 2018-10-04 07:07 | NUR ---
Closing shift note Patient is resting in bed, on room air, ambulatory. No acute s/s of distress or SOB. Bed in lowest locked position, side rails up x 2. Call light within reach. Endorsed care to dayshift RN.
--- NOTE | 2018-10-04 07:30 | NUR ---
Report received. Patient is lying in bed, alert and oriented. No complaints at this time. No S/S distress. Call light in reach. Will continue to monitor.
[2018-10-04 08:19] LABS: Basophils # (auto) 0 uL; Hematocrit 24.4 % (36.0-46.0); Monocytes # (auto) 0.6 uL
[2018-10-04 08:20] LABS: Basophils % (auto) 0.5 % (0.0-2.0); Eosinophils # (auto) 0.2 uL; Eosinophils % (auto) 3.3 % (0.0-7.0); Lymphocytes # (auto) 1.9 uL; Lymphocytes % (auto) 27.8 % (10.0-50.0); Mean Corpuscular Hemoglobin 23.7 pg (28.0-32.0); Mean Corpuscular Hgb Conc. 32.7 g/dL (32.0-36.0); Mean Corpuscular Volume 72.5 fL (80.0-100.0); Monocytes % (auto) 8.9 % (0.0-12.0); Neutrophils # (auto) 4.1 uL; Neutrophils % (auto) 59.5 % (37.0-80.0); Platelet Count (auto) 344 10^3/uL (140-450); Red Blood Cells 3.37 10^6/uL (4.0-5.20); Red Cell Distribution Width 19.3 % (11.8-14.3); White Blood Cell 6.9 10^3/uL (4.4-10.8)
[2018-10-04 08:35] LABS: Calcium 8.3 mg/dL (8.5-10.1); Potassium 4.2 mmol/L (3.5-5.1)
[2018-10-04 08:36] LABS: BUN/Creatinine Ratio 10.9
[2018-10-04 08:52] VITALS: BP 159/94
[2018-10-04] MEDS: ASPirin-EC 81 mg tab PO SCH (09:21)
[2018-10-04] MEDS: CLOPIDOGREL BISULFATE 75 MG TAB PO SCH (09:21)
[2018-10-04] MEDS: NIFEdipine ER 30 MG TAB PO SCH (09:22)
[2018-10-04] MEDS: FOLIC ACID 1 MG TAB PO SCH (09:23)
--- NOTE | 2018-10-04 10:03 | NUR ---
Dr. Ricardo in to see patient as hospitalist.
[2018-10-04] MEDS: METOPROLOL TARTRATE 25 MG TAB PO SCH ×2 (10:56→22:09)
[2018-10-04] MEDS: ONDANSETRON HCL 4 MG/2 ML VIAL IV PRN (10:56)
[2018-10-04] MEDS ORDERED: HYDROmorphone HCL 2 MG/ML VL IV PRN (11:15)
[2018-10-04] MEDS ORDERED: HYDROmorphone HCL 2 MG/ML VL IV ONE (11:15)
[2018-10-04 12:00] VITALS: BP 187/110
[2018-10-04] MEDS: Glucerna Carbsteady SHAKE Vanilla 8oz PO SCH ×2 (12:00→18:00)
[2018-10-04 16:42] VITALS: BP 132/77
--- NOTE | 2018-10-04 19:16 | NUR ---
Opening Shift Note Assumed care of patient, awake and alert. Patient verbalizes pain at a level 9/10 as generalized. Will assess, medicate and reassess pain and relief and directed and PRN. Instructed on POC and to call for assist PRN, will continue to monitor for changes PRN.
[2018-10-04 20:00] VITALS: BP 138/80
[2018-10-04 22:08] VITALS: BP 138/80
[2018-10-04] MEDS: ZOLPIDEM TARTRATE 5 MG TAB PO SCH (22:09)
[2018-10-04] MEDS: ATORVASTATIN 20 MG TAB PO SCH (22:10)
[2018-10-05] MEDS: ONDANSETRON HCL 4 MG/2 ML VIAL IV PRN ×3 (00:23→18:12)
[2018-10-05] MEDS: HYDROXYUREA 500 MG CAP PO SCH ×3 (02:26→18:16)
[2018-10-05] MEDS: HYDROmorphone HCL 2 MG/ML VL IV PRN ×6 (04:40→21:39)
[2018-10-05 04:59] VITALS: BP 131/74
[2018-10-05] MEDS: hydrALAZINE HCL 25 MG TAB PO SCH ×4 (05:53→23:05)
[2018-10-05] MEDS: cloNIDine HCL 0.1 MG TAB PO SCH ×3 (05:53→21:43)
--- NOTE | 2018-10-05 06:27 | NUR ---
ROUNDS PATIENT AWAKE AND ALERT, OUT OF BED, NO S/S OF DISTRESS, PATIENT REPORTS PAIN LEVEL AT 8/10 WITH NON ALLEVIATING FACTORS AT THE MOMENT. PROVIDED NON PHARM MEASURES TO DECREASE PATIENT DISCOMFORT AND IMPROVE RELAXATION TECHNIQUES. WILL CONTINUE TO MONITOR AND MEDICATED PER ORDER.
[2018-10-05] MEDS: ACCU-CHEK COMFORT CURVE STRIP VI SCH ×4 (07:00→21:46)
[2018-10-05] MEDS: InsuLIN REG 1unit/0.01ml Soln (100units/ml) SC SCH ×4 (07:00→21:53)
--- NOTE | 2018-10-05 08:18 | NUR ---
Patient stated her pain level at 9/10 at this time. Dilaudid IVP given for severe pain as ordered.
[2018-10-05] MEDS: Glucerna Carbsteady SHAKE Vanilla 8oz PO SCH ×3 (08:19→18:18)
[2018-10-05 09:40] VITALS: BP 131/74
[2018-10-05] MEDS: CLOPIDOGREL BISULFATE 75 MG TAB PO SCH (10:00)
--- NOTE | 2018-10-05 11:06 | NUR ---
Hgb = 8.0. Plavix held.
[2018-10-05] MEDS: FOLIC ACID 1 MG TAB PO SCH (11:07)
[2018-10-05] MEDS: METOPROLOL TARTRATE 25 MG TAB PO SCH ×2 (11:08→21:44)
[2018-10-05] MEDS: ASPirin-EC 81 mg tab PO SCH (11:08)
[2018-10-05] MEDS: NIFEdipine ER 30 MG TAB PO SCH (11:09)
--- NOTE | 2018-10-05 11:19 | NUR ---
Dilaudid IVP given for severe pain as ordered.
[2018-10-05 13:07] VITALS: BP 141/90
--- NOTE | 2018-10-05 13:45 | NUR ---
Duloxetine delayed release (3 capsules) returned to Pharmacy via bullet.
--- NOTE | 2018-10-05 15:45 | NUR ---
Patient walking on the hallway, steady gait noted. Patient stated the bathroom in her room is getting cleaned by the health officer so she has to use another bathroom.
--- NOTE | 2018-10-05 16:08 | NUR ---
Patient back to room. Patient stated she went downstairs. Explained to patient the AMA to get off unit/smoke downstairs. Patient said it's hot in her room, she needs to get downstairs. Patient signed the AMA form. Paged the Engineering.
--- NOTE | 2018-10-05 16:08 | NUR ---
Informed patient she cannot be off unit/downstairs beyond 30 minutes. Patient verbalized understanding.
--- NOTE | 2018-10-05 16:25 | NUR ---
Patient off unit. Signed AMA form placed in the patient's chart.
[2018-10-05 17:05] VITALS: BP 126/69
--- NOTE | 2018-10-05 18:12 | NUR ---
Patient stated she's in pain, nauseous. Dilaudid IVP given for pain, Zofran IVP given for nausea.
--- NOTE | 2018-10-05 19:25 | NUR ---
Opening Shift Note Assumed care of patient, pt resting t. No S/S of distress/SOB or pain. Insructed on POC and to call for assist PRN, will continue to monitor for changes Q1hr and PRN. Bed locked and in lowest position call light within reach
--- NOTE | 2018-10-05 20:05 | NUR ---
PT Rounds Pt complaining of icthiness, feels throat tight, assess skin no redness noted, assess tongue no noted swelling. PT breathing regular no shallow breathing noted. pt responding to questions. Patient placed on oxygen V/S T 98.3, HR 72, SPO2 97% BP 119/70 inform patient will inform RT and Page hospitalist will continue to monitor pt
--- NOTE | 2018-10-05 20:07 | NUR ---
PAGED RESPIRATORY PT states difficult to breath, placed pt back on oxygen still feels a little hard to breath, informed pt needs to keep oxygen on
--- NOTE | 2018-10-05 20:10 | NUR ---
[facility] HOSPITALIST Patient feels itchy, feels like may have an allergic reaction to something she ate. she said allergic to peppers and thinks rice may have had peppers. Addendum: 10/05/18 at 2013 by KELLI VARGHESE RN RN V/S T 98.3 , HR 72, SPO2 97%, RR 16 BP 119/70
--- NOTE | 2018-10-05 20:34 | NUR ---
PT ROUNDS Reassess Pt, pt resting, but still feels itchy, notified pt that paged hospitalist and awaiting contact and service clerks supervisor back. Will continue to monitor pt.
--- NOTE | 2018-10-05 20:45 | NUR ---
PAGED RT Pt requesting RT
[2018-10-05] MEDS ORDERED: diphenhdrAMINE HCL 50 MG/1 ML VL IV ONE (21:00)
[2018-10-05] MEDS ORDERED: methylPREDNISolone SOD SUCC 125 MG/2 ML VL IV ONE (21:00)
--- NOTE | 2018-10-05 21:00 | NUR ---
HOSPITALIST CALL BACK TELEPHONE ORDER Benadryl IV 25 MG IV ONCE 125 Mg IV Methylprednisone
--- NOTE | 2018-10-05 21:09 | NUR ---
HOSPITALIST PAGED Clarification needed on meds received
[2018-10-05] MEDS: ATORVASTATIN 20 MG TAB PO SCH (21:46)
--- NOTE | 2018-10-05 21:52 | NUR ---
HOSPITALIST CLARIFIED ORDER PEPCID 20 Mg IV ONCE will carry out order
[2018-10-05 22:00] VITALS: BP 119/70
[2018-10-05] MEDS ORDERED: FAMOTIDINE (10MG/ML) 2ML VL IV ONE (22:00)
[2018-10-05] MEDS: ZOLPIDEM TARTRATE 5 MG TAB PO SCH (22:57)
[2018-10-06] MEDS: HYDROXYUREA 500 MG CAP PO SCH ×2 (01:41→09:24)
[2018-10-06] MEDS: HYDROmorphone HCL 2 MG/ML VL IV PRN ×2 (01:43→05:24)
[2018-10-06 05:00] VITALS: BP 139/79
[2018-10-06] MEDS: cloNIDine HCL 0.1 MG TAB PO SCH (06:27)
[2018-10-06] MEDS: hydrALAZINE HCL 25 MG TAB PO SCH (06:27)
[2018-10-06] MEDS: ACCU-CHEK COMFORT CURVE STRIP VI SCH (06:30)
[2018-10-06] MEDS: InsuLIN REG 1unit/0.01ml Soln (100units/ml) SC SCH (06:34)
[2018-10-06 06:59] LABS: Hematocrit 29.5 % (36.0-46.0); Hemoglobin 9.2 g/dL (12.2-16.2)
[2018-10-06 07:24] LABS: BUN/Creatinine Ratio 14.5; Calcium 8.5 mg/dL (8.5-10.1); Potassium 5.1 mmol/L (3.5-5.1)
--- NOTE | 2018-10-06 07:29 | NUR ---
CLOSING NOTE Report endorsed to day RN. , Pt awake no s/sx's of distress noted pt on 3 L Nc
[2018-10-06 08:00] VITALS: BP 139/79
[2018-10-06] MEDS ORDERED: CLO01T PO (08:13)
[2018-10-06] MEDS ORDERED: FOLI1TAB6 PO (08:13)
[2018-10-06] MEDS ORDERED: MET25T PO (08:13)
[2018-10-06] MEDS ORDERED: ASP81EC PO (08:13)
[2018-10-06] MEDS ORDERED: HYDR-4296 PO (08:13)
[2018-10-06] MEDS ORDERED: OXYCODONE W/ ACETAMINOPHEN 5/325MG TABLET PO ONE (08:30)
[2018-10-06] MEDS: FOLIC ACID 1 MG TAB PO SCH (08:31)
[2018-10-06] MEDS: METOPROLOL TARTRATE 25 MG TAB PO SCH (08:31)
[2018-10-06] MEDS: CLOPIDOGREL BISULFATE 75 MG TAB PO SCH (08:31)
[2018-10-06] MEDS: ASPirin-EC 81 mg tab PO SCH (08:32)
[2018-10-06] MEDS: NIFEdipine ER 30 MG TAB PO SCH (08:32)
[2018-10-06 09:00] VITALS: BP 154/95
[2018-10-06 09:21] VITALS: BP 154/95
--- NOTE | 2018-10-06 09:28 | NUR ---
Refusing Prescribed analgesic Provided patient with Percocet analgesic as prescribed after she requested. After unwrapping pill, patient handed it back, verbalized she doesn't want it. Requests to see MD. Informed patient that MD ordered to regino/any lowery. Called and informed charge nurse.
--- NOTE | 2018-10-06 09:45 | NUR ---
Charge nurse at bedside, informed patient that MD has ordered for her discharge. Patient was provided with one time dose of Percocet, and verbalized understanding.
== END 2018-10-06 10:00 | disposition home or self-care (01) | DRG 662 ==
LOC: ER 14:02 → TELE 16:11 → TELE-WESTW 22:13
PROVIDERS: ADMIT Nurse Practitioner Acute Care; ATTEND Internal Medicine
DX: D57.00 Hb-SS disease with crisis, unspecified (principal); N17.0 Acute kidney failure with tubular necrosis; E43 Unspecified severe protein-calorie malnutrition; E11.22 Type 2 diabetes mellitus with diabetic chronic kidney disease; I13.0 Hypertensive heart and chronic kidney disease with heart failure and stage 1 through stage 4 chronic kidney disease, or unspecified chronic kidney disease; I50.9 Heart failure, unspecified; E86.0 Dehydration; N18.3 Chronic kidney disease, stage 3 (moderate); I16.1 Hypertensive emergency; E66.9 Obesity, unspecified; D63.8 Anemia in other chronic diseases classified elsewhere; E78.5 Hyperlipidemia, unspecified; I25.10 Atherosclerotic heart disease of native coronary artery without angina pectoris; I25.2 Old myocardial infarction; Z79.891 Long term (current) use of opiate analgesic; Z79.4 Long term (current) use of insulin; Z80.0 Family history of malignant neoplasm of digestive organs; Z82.49 Family history of ischemic heart disease and other diseases of the circulatory system; Z83.2 Family history of diseases of the blood and blood-forming organs and certain disorders involving the immune mechanism; Z83.3 Family history of diabetes mellitus; Z87.442 Personal history of urinary calculi; Z95.5 Presence of coronary angioplasty implant and graft; Z79.899 Other long term (current) drug therapy; Z68.41 Body mass index [BMI] 40.0-44.9, adult
CPT/HCPCS: 36415; 71045; 80048; 80053; 80061; 81001; 82962; 83036; 83880; 85014; 85018; 85025; 85045; 87081; G0378; J1815; J2405; J3490

== ENCOUNTER 2018-10-14 00:30 | Emergency (ER) | payer OTHER ==
[~2018-10-14] VITALS: Ht 162.6 cm; Wt 87.1 kg
[~2018-10-14 00:30] MED LIST changes: +ASP81EC PO; +FOLI1TAB6 PO; +HYDR-4296 PO; +MET25T PO
[2018-10-14] MEDS ORDERED: HYDROcodone-ACET 10/325MG TAB PO ONE (01:00)
[2018-10-14] MEDS ORDERED: SODIUM CHLORIDE 0.9% 500 ML IV ONE (01:00)
[2018-10-14 01:33] LABS: Basophils # (auto) 0 uL; Hemoglobin 8.7 g/dL (12.2-16.2)
[2018-10-14 01:35] LABS: Basophils % (auto) 0.3 % (0.0-2.0); Nucleated Red Blood Cells % 0.1 %
[2018-10-14 01:43] LABS: Eosinophils # (auto) 0.2 uL; Eosinophils % (auto) 1.7 % (0.0-7.0); Hematocrit 27.1 % (36.0-46.0); Lymphocytes # (auto) 3.3 uL; Lymphocytes % (auto) 34.5 % (10.0-50.0); Mean Corpuscular Hemoglobin 23.4 pg (28.0-32.0); Mean Corpuscular Hgb Conc. 32.3 g/dL (32.0-36.0); Mean Corpuscular Volume 72.4 fL (80.0-100.0); Monocytes # (auto) 1.1 uL; Neutrophils # (auto) 5.1 uL; Neutrophils % (auto) 52.5 % (37.0-80.0); Platelet Count (auto) 290 10^3/uL (140-450); Red Blood Cells 3.74 10^6/uL (4.0-5.20); Red Cell Distribution Width 19.8 % (11.8-14.3); White Blood Cell 9.7 10^3/uL (4.4-10.8)
[2018-10-14] MEDS ORDERED: NALBUPHINE HCL 10 MG/1ml INJECTION IV ONE (01:45)
[2018-10-14] MEDS ORDERED: cloNIDine HCL 0.1 MG TAB PO ONE (01:45)
[2018-10-14] MEDS ORDERED: hydrALAZINE HCL 20 MG/ML VL IV ONE (01:45)
[2018-10-14 01:46] LABS: Albumin 3.4 g/dL (3.4-5.0); Calcium 8.2 mg/dL (8.5-10.1); Magnesium 2.5 mg/dL (1.6-2.6); Potassium 3.7 mmol/L (3.5-5.1)
[2018-10-14 01:51] LABS: BUN/Creatinine Ratio 10.8; Bilirubin, Total 0.3 mg/dL (0.2-1.0); Total Protein 6.8 g/dL (6.4-8.2)
[2018-10-14] MEDS ORDERED: diphenhdrAMINE HCL 50 MG/1 ML VL ONE (01:53)
[2018-10-14] MEDS ORDERED: diphenhdrAMINE HCL 50 MG/1 ML VL IV ONE (02:00)
[2018-10-14 02:13] VITALS: BP 161/93
== END 2018-10-14 03:05 | disposition home or self-care (01) ==
LOC: ER 00:30
DX: R52 Pain, unspecified (principal); E11.65 Type 2 diabetes mellitus with hyperglycemia; E11.22 Type 2 diabetes mellitus with diabetic chronic kidney disease; I13.2 Hypertensive heart and chronic kidney disease with heart failure and with stage 5 chronic kidney disease, or end stage renal disease; I50.9 Heart failure, unspecified; N18.6 End stage renal disease
CPT/HCPCS: 36415; 80053; 83735; 83880; 84484; 85025; 85045; 93005; 94761; 96361; 96374; 96375; 99284; J0360; J1200; J2300; J7040

== ENCOUNTER 2019-12-25 11:25 | Inpatient (IN) | payer MEDICARE, MEDICAID ==
[~2019-12-25] VITALS: Ht 165.1 cm; Wt 103.8 kg
[~2019-12-25 11:25] MED LIST changes: -ASP81EC PO; +ASPI-394 PO; -HYD2I IM; -NIFE90TA30 PO; +NIFE90TA49 PO
[2019-12-25] MEDS ORDERED: cloNIDine HCL 0.1 MG TAB PO ONE ×2 (12:00→20:45)
[2019-12-25 13:50] LABS: Basophils # (auto) 0 10 ^3/uL (0-0.2); Basophils % (auto) 0.5 % (0.0-2.0); Eosinophils # (auto) 0.3 10 ^3/uL (0-0.8); Eosinophils % (auto) 3.9 % (0.0-7.0); Hematocrit 29.2 % (36.0-46.0); Hemoglobin 9.1 g/dL (12.2-16.2); Lymphocytes # (auto) 2.1 10 ^3/uL (0.4-5.4); Lymphocytes % (auto) 26.2 % (10.0-50.0); Mean Corpuscular Hemoglobin 24.7 pg (28.0-32.0); Mean Corpuscular Hgb Conc. 31.3 g/dL (32.0-36.0); Mean Corpuscular Volume 78.8 fL (80.0-100.0); Monocytes # (auto) 0.5 10 ^3/uL (0-1.3); Monocytes % (auto) 6.5 % (0.0-12.0); Neutrophils % (auto) 62.9 % (37.0-80.0); Platelet Count (auto) 268 10^3/uL (140-450); Red Cell Distribution Width 16.3 % (11.8-14.3)
[2019-12-25] MEDS ORDERED: SODIUM CHLORIDE 0.9% 1,000 ML IVB ONE (13:57)
[2019-12-25 14:04] LABS: Calcium 8.2 mg/dL (8.5-10.1); Potassium 4.2 mmol/L (3.5-5.1)
[2019-12-25 14:07] LABS: BUN/Creatinine Ratio 5.5; Bilirubin, Total 0.3 mg/dL (0.2-1.0); Total Protein 6.9 g/dL (6.4-8.2)
[2019-12-25] MEDS ORDERED: ONDANSETRON HCL 4 MG/2 ML VIAL IV ONE ×2 (14:15→16:45)
[2019-12-25] MEDS ORDERED: HYDROmorphone HCL 2 MG/ML VL IV ONE ×2 (14:15→16:45)
[2019-12-25] MEDS ORDERED: diphenhdrAMINE HCL 50 MG/1 ML VL IV ONE (14:15)
[2019-12-25 15:53] LABS: INR 0.94 (0.9-1.15); Partial Thromboplastin Time 26.3 sec (23.0-31.2)
[2019-12-25] MEDS ORDERED: hydrALAZINE HCL 20 MG/ML VL IV ONE ×2 (17:00→20:15)
[2019-12-25] MEDS ORDERED: NITROGLYCERIN 0.4 MG SL TAB SL PRN (21:15)
[2019-12-25] MEDS ORDERED: DEXTROSE (50%) 50ML SYRG IV PRN (21:15)
[2019-12-25] MEDS ORDERED: ONDANSETRON HCL 4 MG/2 ML VIAL IV PRN (21:15)
[2019-12-25] MEDS ORDERED: ACETAMINOPHEN 325 MG TAB PO PRN (21:15)
[2019-12-25] MEDS ORDERED: MORPHINE SULF INJ 2 MG/ML SYRINGE 1ML IV PRN (21:15)
[2019-12-25] MEDS ORDERED: TEMAZEPAM 15 MG CAP PO PRN (21:15)
[2019-12-25] MEDS ORDERED: HYDROcodone-ACET 5/325MG TAB PO PRN (21:15)
[2019-12-25 21:18] LABS: Urine Bacteria FEW /hpf (None Seen); Urine Blood TRACE /uL (Negative); Urine Mucus FEW (None Seen); Urine Specific Gravity 1.015 (1.001-1.035); Urine WBC 3 /hpf (0 - 5)
[2019-12-25] MEDS: InsuLIN REG 1unit/0.01ml Soln (100units/ml) SC SCH (22:00)
[2019-12-25] MEDS: SODIUM CHLORIDE 0.9% 1,000 ML IV SCH (22:26)
[2019-12-25] MEDS: ATORVASTATIN 20 MG TAB PO SCH (22:26)
[2019-12-25] MEDS: METOPROLOL TARTRATE 25 MG TAB PO SCH (22:27)
[2019-12-25] MEDS ORDERED: diphenhdrAMINE HCL 25 MG CAP PO ONE (22:30)
[2019-12-25] MEDS: ACCU-CHEK COMFORT CURVE STRIP VI SCH (22:41)
[2019-12-26] VITALS (8 sets, daily range): BP systolic 156–200; BP diastolic 89–120
--- NOTE | 2019-12-26 00:15 | NUR ---
Telemetry admit from ER Patient admitted to Telemetry unit and oriented to primary RN, unit, room, bed, and unit policies regarding patient care and visiting hours. Patient now on continuous telemetry monitoring, tele box # 69 and telemetry reading on arrival to unit is sinus rhythm. Patient weighed by bedscale and encouraged to call if they need something. All questions and concerns addressed, patient verbalized understanding. Bed is in lowest position and locked. Call light within reach. Board updated.
[2019-12-26] MEDS: HYDROmorphone HCL 2 MG/ML VL IV PRN ×5 (00:25→20:18)
[2019-12-26] MEDS: hydrALAZINE HCL 25 MG TAB PO PRN ×2 (00:26→06:40)
--- NOTE | 2019-12-26 01:33 | NUR ---
BP reassessment: 156/96 with HR of 79 after Hydralazine administration. Will continue to assess.
[2019-12-26] MEDS ORDERED: POM (01:37)
[2019-12-26] MEDS ORDERED: HYDR-4298 PO (01:37)
--- NOTE | 2019-12-26 05:02 | NUR ---
Paging to notify of continued elevated BP and patient request for pain medication increase r/t sickle cell crisis pain. Patient's BP is no 176/97. Giving clonidine now. Patient states she is in severe pain and that the Dilaudid 0.4 mg IV q 6 hrs and [place] 5/325 mg PO q 4 hrs PRN are not touching her pain. At home, she states she takes Dilaudid 2 mg IM q 4 hrs PRN breakthough sickle cell crisis pain and takes Percocet 10/325 mg PO q 4 hrs PRN for moderate pain.
[2019-12-26] MEDS: cloNIDine HCL 0.1 MG TAB PO SCH ×3 (05:09→21:18)
[2019-12-26] MEDS: InsuLIN REG 1unit/0.01ml Soln (100units/ml) SC SCH ×4 (06:23→22:00)
[2019-12-26] MEDS: ACCU-CHEK COMFORT CURVE STRIP VI SCH ×4 (06:23→22:20)
--- NOTE | 2019-12-26 06:23 | NUR ---
Spoke to JD Leon and notified him that patient's BP is now 175/105 with pulse of 71. I also asked if patient could have stronger pain medication. Order received: Hydralazine 10 mg IV Once.
[2019-12-26] MEDS ORDERED: hydrALAZINE HCL 20 MG/ML VL IV ONE (06:30)
[2019-12-26 06:57] LABS: Basophils # (auto) 0 10 ^3/uL (0-0.2); Basophils % (auto) 0.3 % (0.0-2.0); Eosinophils # (auto) 0.5 10 ^3/uL (0-0.8); Hemoglobin 8.2 g/dL (12.2-16.2); Mean Corpuscular Volume 78.6 fL (80.0-100.0); Monocytes # (auto) 0.6 10 ^3/uL (0-1.3); White Blood Cell 7.2 10^3/uL (4.4-10.8)
[2019-12-26 06:59] LABS: Eosinophils % (auto) 7.1 % (0.0-7.0); Lymphocytes # (auto) 2.1 10 ^3/uL (0.4-5.4); Mean Corpuscular Hemoglobin 25.8 pg (28.0-32.0); Mean Corpuscular Hgb Conc. 32.8 g/dL (32.0-36.0); Monocytes % (auto) 8.6 % (0.0-12.0); Platelet Count (auto) 235 10^3/uL (140-450); Red Blood Cells 3.18 10^6/uL (4.0-5.20); Red Cell Distribution Width 16.1 % (11.8-14.3)
[2019-12-26 07:23] LABS: Calcium 7.5 mg/dL (8.5-10.1); Potassium 4.2 mmol/L (3.5-5.1)
[2019-12-26] MEDS ORDERED: FOLIC ACID 1 MG TAB PO SCH (10:00)
[2019-12-26] MEDS: ASPirin 81 mg TAB PO SCH (10:18)
[2019-12-26] MEDS: METOPROLOL TARTRATE 25 MG TAB PO SCH ×2 (10:19→21:16)
[2019-12-26] MEDS: PANTOPRAZOLE 40 MG TAB PO SCH (10:19)
[2019-12-26] MEDS: SODIUM CHLORIDE 0.9% 1,000 ML IV SCH ×2 (10:21→22:38)
[2019-12-26] MEDS ORDERED: OXYCODONE W/ ACETAMINOPHEN 5/325MG TABLET PO PRN ×2 (11:30→11:45)
[2019-12-26] MEDS ORDERED: NIFEdipine ER 30 MG TAB PO ONE (13:45)
[2019-12-26] MEDS: PROMETHAZINE HCL 25 MG/ML 1ML IM PRN (17:41)
--- NOTE | 2019-12-26 19:00 | NUR ---
Opening Shift Note Assumed care of patient, awake and alert. No S/S of distress/SOB or pain. Instructed on POC and to call for assist PRN, will continue to monitor for changes Q1hr and PRN.
[2019-12-26] MEDS: ATORVASTATIN 20 MG TAB PO SCH (21:16)
[2019-12-26] MEDS: hydroxyUREA 500 MG CAP PO SCH (21:16)
[2019-12-27] MEDS: HYDROmorphone HCL 2 MG/ML VL IV PRN ×3 (00:12→08:12)
--- NOTE | 2019-12-27 00:37 | NUR ---
HEAT PACK PATIENT REQUESTED A HEAT PACK FOR HER LEFT SIDE. I GAVE HER ONE. PATIENT IS NOW TRYING TO REST.
[2019-12-27] MEDS: PROMETHAZINE HCL 25 MG/ML 1ML IM PRN (00:55)
[2019-12-27 05:00] VITALS: BP 150/87
--- NOTE | 2019-12-27 06:00 | NUR ---
HOSPITALIST (LO) PAGED PT WANTS MEDICATION FOR HER ITCHING.
[2019-12-27] MEDS: ACCU-CHEK COMFORT CURVE STRIP VI SCH ×2 (06:16→12:17)
[2019-12-27] MEDS: cloNIDine HCL 0.1 MG TAB PO SCH (06:16)
[2019-12-27] MEDS: InsuLIN REG 1unit/0.01ml Soln (100units/ml) SC SCH ×2 (06:18→11:30)
[2019-12-27 06:28] LABS: Basophils # (auto) 0 10 ^3/uL (0-0.2); Eosinophils # (auto) 0.6 10 ^3/uL (0-0.8); Hemoglobin 8.2 g/dL (12.2-16.2); Lymphocytes # (auto) 2.8 10 ^3/uL (0.4-5.4); Monocytes # (auto) 0.7 10 ^3/uL (0-1.3)
[2019-12-27 06:32] LABS: Basophils % (auto) 0.2 % (0.0-2.0); Eosinophils % (auto) 7.8 % (0.0-7.0); Hematocrit 25.2 % (36.0-46.0); Lymphocytes % (auto) 36.7 % (10.0-50.0); Mean Corpuscular Hemoglobin 25.5 pg (28.0-32.0); Mean Corpuscular Hgb Conc. 32.3 g/dL (32.0-36.0); Mean Corpuscular Volume 78.8 fL (80.0-100.0); Neutrophils # (auto) 3.5 10 ^3/uL (1.6-8.6); Neutrophils % (auto) 46.3 % (37.0-80.0); Platelet Count (auto) 234 10^3/uL (140-450); Red Cell Distribution Width 16.2 % (11.8-14.3); White Blood Cell 7.6 10^3/uL (4.4-10.8)
--- NOTE | 2019-12-27 06:45 | NUR ---
HOSPITALIST RETURNED CALL HOSPITALIST ORDERED BENADRYL 25MG P.O. ONE TIME DOSE.
[2019-12-27 06:46] LABS: Calcium 7.6 mg/dL (8.5-10.1)
[2019-12-27 06:48] LABS: BUN/Creatinine Ratio 6.2
[2019-12-27] MEDS ORDERED: diphenhdrAMINE HCL 25 MG CAP PO ONE (07:00)
[2019-12-27] MEDS ORDERED: NIFE90TA49 PO (09:17)
[2019-12-27 09:28] VITALS: BP 146/90
[2019-12-27] MEDS: ASPirin 81 mg TAB PO SCH (09:48)
[2019-12-27] MEDS: hydroxyUREA 500 MG CAP PO SCH (09:49)
[2019-12-27] MEDS: PANTOPRAZOLE 40 MG TAB PO SCH (09:50)
[2019-12-27] MEDS: METOPROLOL TARTRATE 25 MG TAB PO SCH (09:50)
[2019-12-27] MEDS ORDERED: NIFEdipine ER 30 MG TAB PO SCH (10:00)
[2019-12-27] MEDS ORDERED: FOLIC ACID 1 MG TAB PO SCH (10:00)
[2019-12-27 11:06] LABS: Band Neutrophils % (manual) 0; Basophils % (manual) 0 (0.0-2.0); Blast Cells 0; Metamyelocytes % 0; Myelocytes % 0; Promyelocytes % 0; Reactive Lymphocytes 0
[2019-12-27 12:00] LABS: Eosinophils % (manual) 5 (0-7); Lymphocytes % (manual) 29 (10.0-50.0); Monocytes % (manual) 8 (0-12)
[2019-12-27 12:03] LABS: Platelet Count (auto) 235 10^3/uL (140-450)
[2019-12-27 12:47] VITALS: BP 133/80
[2019-12-27] MEDS: SODIUM CHLORIDE 0.9% 1,000 ML IV SCH (12:59)
--- NOTE | 2019-12-27 13:59 | NUR ---
Discharge instructions given as ordered. Encourage to follow up with Primary Care Provider as instructed. All questions and concerns addressed. Patient verbalized understanding. Medication reconciliation form completed and copy given to patient. IV removed with catheter intact, pressure dressing applied. Telemetry unit returned to ICU. Patient taken to taxi vehicle via wheelchair with all personal belongings, accompanied by staff and family member. No distress noted at time of departure.
== END 2019-12-27 14:00 | disposition home or self-care (01) | DRG 812 ==
LOC: ER 11:25 → TELE 11:26 → TELE-WESTW 23:24
PROVIDERS: ADMIT Nurse Practitioner; ATTEND Internal Medicine
DX: D57.00 Hb-SS disease with crisis, unspecified (principal); I16.9 Hypertensive crisis, unspecified; N17.9 Acute kidney failure, unspecified; F11.20 Opioid dependence, uncomplicated; E44.1 Mild protein-calorie malnutrition; N18.4 Chronic kidney disease, stage 4 (severe); I13.0 Hypertensive heart and chronic kidney disease with heart failure and stage 1 through stage 4 chronic kidney disease, or unspecified chronic kidney disease; E86.0 Dehydration; G89.4 Chronic pain syndrome; I25.5 Ischemic cardiomyopathy; E66.01 Morbid (severe) obesity due to excess calories; I50.9 Heart failure, unspecified; I25.10 Atherosclerotic heart disease of native coronary artery without angina pectoris; E11.22 Type 2 diabetes mellitus with diabetic chronic kidney disease; E11.40 Type 2 diabetes mellitus with diabetic neuropathy, unspecified; D63.8 Anemia in other chronic diseases classified elsewhere; Z68.38 Body mass index [BMI] 38.0-38.9, adult; Z88.8 Allergy status to other drugs, medicaments and biological substances; Z88.1 Allergy status to other antibiotic agents; Z87.442 Personal history of urinary calculi; Z91.041 Radiographic dye allergy status; Z88.5 Allergy status to narcotic agent; Z91.013 Allergy to seafood; Z80.0 Family history of malignant neoplasm of digestive organs; Z82.49 Family history of ischemic heart disease and other diseases of the circulatory system; Z83.2 Family history of diseases of the blood and blood-forming organs and certain disorders involving the immune mechanism; Z83.3 Family history of diabetes mellitus; Z90.81 Acquired absence of spleen
CPT/HCPCS: 36415; 71045; 74176; 80048; 80053; 81001; 81025; 82962; 83735; 84484; 84702; 85025; 85045; 85610; 85730; 86850; 86900; 86901; 93005; 96374; 96375; 96376; G0378; J1815; J2405

== ENCOUNTER 2021-06-16 11:44 | Inpatient (IN) | payer MEDICARE, MEDICAID ==
[~2021-06-16] VITALS: Ht 162.6 cm; Wt 81.6 kg
[~2021-06-16 11:44] MED LIST changes: -ATOR20TA50 PO; -HYDR-4296 PO; +HYDR-4298 PO; -INSLANTI SC; -PERCOT PO; +POM
[2021-06-16] MEDS ORDERED: SODIUM CHLORIDE 0.9% 1,000 ML IVB ONE (12:30)
[2021-06-16] MEDS ORDERED: HYDROmorphone HCL 2 MG/ML VL IV ONE ×2 (12:30→17:30)
[2021-06-16] MEDS ORDERED: PROMETHAZINE HCL 25 MG/ML 1ML IV ONE (12:30)
[2021-06-16 12:47] LABS: Basophils # (auto) 0.1 10 ^3/uL (0-0.2); Basophils % (auto) 0.8 % (0.0-2.0); Eosinophils # (auto) 0.2 10 ^3/uL (0-0.8); Eosinophils % (auto) 1.5 % (0.0-7.0); Hematocrit 39.2 % (36.0-46.0); Hemoglobin 12.8 g/dL (12.2-16.2); Lymphocytes # (auto) 2.4 10 ^3/uL (0.4-5.4); Lymphocytes % (auto) 21.3 % (10.0-50.0); Mean Corpuscular Hemoglobin 26.1 pg (28.0-32.0); Mean Corpuscular Hgb Conc. 32.6 g/dL (32.0-36.0); Mean Corpuscular Volume 80.1 fL (80.0-100.0); Monocytes # (auto) 0.6 10 ^3/uL (0-1.3); Monocytes % (auto) 5.7 % (0.0-12.0); Neutrophils # (auto) 7.9 10 ^3/uL (1.6-8.6); Neutrophils % (auto) 70.7 % (37.0-80.0); Nucleated Red Blood Cells % 0.1 %; Red Cell Distribution Width 17.4 % (11.8-14.3); White Blood Cell 11.2 10^3/uL (4.4-10.8)
[2021-06-16 12:59] LABS: INR 0.97 (0.9-1.15); Partial Thromboplastin Time 26.6 sec (23.6-33.0)
[2021-06-16] MEDS ORDERED: hydrALAZINE HCL 20 MG/ML VL IV ONE (13:00)
[2021-06-16] MEDS ORDERED: LABETALOL HCL 5 MG/ML 4ML SYRINGE IV ONE (13:00)
[2021-06-16 13:13] LABS: Albumin 3.9 g/dL (3.4-5.0); Calcium 8.8 mg/dL (8.5-10.1); Potassium 3.8 mmol/L (3.5-5.1)
[2021-06-16] MEDS ORDERED: LABETALOL HCL 5 MG/ML ML 20ML VIAL IV ONE (13:15)
[2021-06-16 13:19] LABS: BUN/Creatinine Ratio 4.4; Bilirubin, Total 0.3 mg/dL (0.2-1.0); Total Protein 8.5 g/dL (6.4-8.2)
[2021-06-16] MEDS ORDERED: diphenhdrAMINE HCL 50 MG/1 ML VL IV ONE ×2 (14:30→20:15)
[2021-06-16] MEDS ORDERED: NITROGLYCERIN 0.4 MG SL TAB SL PRN (17:45)
[2021-06-16] MEDS ORDERED: MORPHINE SULFATE INJECTION 2 MG/ML SYRG IV PRN (17:45)
[2021-06-16] MEDS ORDERED: ONDANSETRON HCL 4 MG/2 ML VIAL IV PRN (17:45)
[2021-06-16] MEDS: SODIUM CHLORIDE 0.9% 1,000 ML IV SCH ×2 (17:45→20:59)
[2021-06-16] MEDS: HYDROmorphone HCL 2 MG/ML VL IV PRN (21:00)
[2021-06-16] MEDS ORDERED: CARVEDILOL 12.5 MG TAB PO SCH (22:00)
[2021-06-16] MEDS ORDERED: NIFEdipine ER 30 MG TAB PO SCH (22:00)
[2021-06-17] MEDS: HYDROmorphone HCL 2 MG/ML VL IV PRN ×2 (01:05→05:04)
[2021-06-17 06:30] VITALS: BP 173/76
[2021-06-17] MEDS ORDERED: CLOPIDOGREL BISULFATE 75 MG TAB PO ONE (09:00)
[2021-06-17] MEDS ORDERED: ENOXAPARIN SOD 40 MG/0.4 ML SYRINGE SC SCH (10:00)
== END 2021-06-17 07:05 | disposition left against medical advice (07) | DRG 811 ==
LOC: ER 11:44 → EDUNIT# 17:43 → TELE 17:43
PROVIDERS: ADMIT Internal Medicine; ATTEND Internal Medicine Nephrology
DX: D57.00 Hb-SS disease with crisis, unspecified (principal); N18.6 End stage renal disease; E87.1 Hypo-osmolality and hyponatremia; I13.2 Hypertensive heart and chronic kidney disease with heart failure and with stage 5 chronic kidney disease, or end stage renal disease; I16.1 Hypertensive emergency; I50.9 Heart failure, unspecified; Z53.29 Procedure and treatment not carried out because of patient's decision for other reasons; Z20.822 Contact with and (suspected) exposure to COVID-19; Z88.1 Allergy status to other antibiotic agents; Z99.2 Dependence on renal dialysis; Z79.899 Other long term (current) drug therapy; Z91.041 Radiographic dye allergy status; Z88.5 Allergy status to narcotic agent; Z91.013 Allergy to seafood; Z88.8 Allergy status to other drugs, medicaments and biological substances; Z91.09 Other allergy status, other than to drugs and biological substances
CPT/HCPCS: 36415; 71046; 80053; 83735; 84443; 85025; 85045; 85610; 85730; 87426; 93005; 96361; 96374; 96375; G0378; J2405

== ENCOUNTER 2021-11-24 13:27 | Emergency (ER) | payer MEDICARE, MEDICAID ==
[~2021-11-24] VITALS: Ht 170.2 cm; Wt 220.0 kg
[~2021-11-24 13:27] MED LIST changes: +ASPI-325 PO; +CLON0.3T PO; +CLOP75TA70 PO; +FURO80TA3 PO; +HYDR2INJ IJ; +HYDR500C PO; +HYDR50TA15 PO; +MINO2.5T2 PO; +OXYC-963
[2021-11-24 13:29] VITALS: BP 159/113
== END 2021-11-24 15:08 | disposition home or self-care (01) ==
LOC: ER 13:27 → EDBD 13:27 → ER 15:08
DX: I25.10 Atherosclerotic heart disease of native coronary artery without angina pectoris (principal); I13.2 Hypertensive heart and chronic kidney disease with heart failure and with stage 5 chronic kidney disease, or end stage renal disease; N18.6 End stage renal disease; I50.9 Heart failure, unspecified; I25.2 Old myocardial infarction; Z99.2 Dependence on renal dialysis; Z86.2 Personal history of diseases of the blood and blood-forming organs and certain disorders involving the immune mechanism; Z79.01 Long term (current) use of anticoagulants; Z79.82 Long term (current) use of aspirin; Z79.899 Other long term (current) drug therapy; Z88.8 Allergy status to other drugs, medicaments and biological substances; Z88.5 Allergy status to narcotic agent; Z91.013 Allergy to seafood
CPT/HCPCS: 93005; 99291

== ENCOUNTER 2022-03-23 13:18 | Inpatient (IN) | payer MEDICARE, MEDICAID ==
[~2022-03-23] VITALS: Ht 162.6 cm; Wt 91.0 kg
[2022-03-23] MEDS ORDERED: dilTIAZem 25 MG/5 ML VIAL IV ONE (13:30)
[2022-03-23 14:09] LABS: Basophils # (auto) 0.1 10 ^3/uL (0-0.2); Basophils % (auto) 0.6 % (0.0-2.0); Eosinophils # (auto) 0 10 ^3/uL (0-0.8); Eosinophils % (auto) 0.4 % (0.0-7.0); Hematocrit 48.3 % (36.0-46.0); Hemoglobin 15.2 g/dL (12.2-16.2); Lymphocytes # (auto) 1.9 10 ^3/uL (0.4-5.4); Lymphocytes % (auto) 16.2 % (10.0-50.0); Mean Corpuscular Hemoglobin 27.8 pg (28.0-32.0); Mean Corpuscular Hgb Conc. 31.5 g/dL (32.0-36.0); Mean Corpuscular Volume 88.3 fL (80.0-100.0); Monocytes # (auto) 0.6 10 ^3/uL (0-1.3); Monocytes % (auto) 4.8 % (0.0-12.0); Neutrophils # (auto) 9.1 10 ^3/uL (1.6-8.6); Nucleated Red Blood Cells % 0.1 %; Red Blood Cells 5.47 10^6/uL (4.0-5.20); Red Cell Distribution Width 18.5 % (11.8-14.3); White Blood Cell 11.7 10^3/uL (4.4-10.8)
[2022-03-23 14:19] LABS: Albumin 4.4 g/dL (3.4-5.0); BUN/Creatinine Ratio 5.9; Calcium 9.5 mg/dL (8.5-10.1); Potassium 4.7 mmol/L (3.5-5.1)
[2022-03-23 14:22] LABS: Bilirubin, Total 0.6 mg/dL (0.2-1.0); Total Protein 8.6 g/dL (6.4-8.2)
[2022-03-23 14:23] LABS: INR 0.99 (0.9-1.15); Partial Thromboplastin Time 28.2 sec (24.6-33.4)
[2022-03-23] MEDS ORDERED: HYDROmorphone HCL 2 MG/ML VL/or syr IV ONE (14:30)
[2022-03-23] MEDS ORDERED: diphenhdrAMINE HCL 50 MG/1 ML VL IV ONE (14:30)
[2022-03-23] MEDS ORDERED: cloNIDine HCL 0.1 MG TAB PO ONE (15:45)
[2022-03-23] MEDS ORDERED: dilTIAZem 125mg/125ml BAG KIT 125 ML IV ONE (17:15)
[2022-03-23] MEDS ORDERED: LABETALOL HCL 5 MG/ML 4ML SYRINGE IV ONE (17:15)
[2022-03-23] MEDS ORDERED: ACETAMINOPHEN 325 MG TAB PO PRN (17:45)
[2022-03-23] MEDS ORDERED: MORPHINE SULFATE INJ 2 MG/ml SYRG IV PRN (17:45)
[2022-03-23] MEDS ORDERED: NITROGLYCERIN 0.4 MG SL TAB SL PRN ×2 (17:45)
[2022-03-23] MEDS ORDERED: HYDROmorphone HCL 2 MG/ML VL/or syr IV PRN (18:00)
[2022-03-23 18:55] LABS: INR 1.22 (0.9-1.15)
[2022-03-23] MEDS: HYDROmorphone HCL 2 MG/ML VL/or syr IV PRN ×2 (19:06→23:03)
[2022-03-23] MEDS ORDERED: HEPARIN DRIP/D5W 100UNITS/ML 250 ML IV SCH (21:00)
[2022-03-23] MEDS ORDERED: HEPARIN SODIUM (PORCINE) 5000 UNITS/ML 1ML VIAL IV ONE (21:00)
[2022-03-23] MEDS: FUROSEMIDE 40 MG TAB PO SCH (22:00)
[2022-03-23 22:26] LABS: Basophils # (auto) 0 10 ^3/uL (0-0.2); Basophils % (auto) 0.6 % (0.0-2.0); Eosinophils # (auto) 0.2 10 ^3/uL (0-0.8); Eosinophils % (auto) 2.2 % (0.0-7.0); Hematocrit 40.9 % (36.0-46.0); Hemoglobin 12.9 g/dL (12.2-16.2); Lymphocytes # (auto) 1.8 10 ^3/uL (0.4-5.4); Lymphocytes % (auto) 21.8 % (10.0-50.0); Mean Corpuscular Hemoglobin 28.3 pg (28.0-32.0); Mean Corpuscular Hgb Conc. 31.6 g/dL (32.0-36.0); Mean Corpuscular Volume 89.5 fL (80.0-100.0); Monocytes # (auto) 0.6 10 ^3/uL (0-1.3); Monocytes % (auto) 6.9 % (0.0-12.0); Neutrophils # (auto) 5.8 10 ^3/uL (1.6-8.6); Neutrophils % (auto) 68.5 % (37.0-80.0); Nucleated Red Blood Cells % 0.1 %; Red Blood Cells 4.57 10^6/uL (4.0-5.20); Red Cell Distribution Width 18.2 % (11.8-14.3); White Blood Cell 8.5 10^3/uL (4.4-10.8)
[2022-03-23] MEDS: cloNIDine HCL 0.1 MG TAB PO SCH (22:56)
[2022-03-23] MEDS: hydrALAZINE HCL 25 MG TAB PO SCH (22:56)
[2022-03-23] MEDS: MINOXIDIL 2.5 MG TAB PO SCH (23:01)
[2022-03-24] MEDS: diphenhdrAMINE HCL 25 MG CAP PO ONE ×2 (01:47→01:50)
[2022-03-24] MEDS ORDERED: HEPARIN SODIUM (PORCINE) 5000 UNITS/ML 1ML VIAL ONE (02:48)
[2022-03-24] MEDS: cloNIDine HCL 0.1 MG TAB PO SCH ×3 (06:07→22:33)
[2022-03-24] MEDS: hydrALAZINE HCL 25 MG TAB PO SCH ×3 (06:07→22:33)
[2022-03-24] MEDS: HYDROmorphone HCL 2 MG/ML VL/or syr IV PRN ×8 (06:08→23:59)
[2022-03-24 06:33] LABS: Basophils # (auto) 0 10 ^3/uL (0-0.2); Basophils % (auto) 0.2 % (0.0-2.0); Eosinophils # (auto) 0.2 10 ^3/uL (0-0.8); Eosinophils % (auto) 2.6 % (0.0-7.0); Hematocrit 38.5 % (36.0-46.0); Hemoglobin 12.7 g/dL (12.2-16.2); Lymphocytes # (auto) 2.8 10 ^3/uL (0.4-5.4); Lymphocytes % (auto) 29.6 % (10.0-50.0); Mean Corpuscular Hemoglobin 29.3 pg (28.0-32.0); Mean Corpuscular Hgb Conc. 32.9 g/dL (32.0-36.0); Monocytes # (auto) 0.6 10 ^3/uL (0-1.3); Monocytes % (auto) 6.5 % (0.0-12.0); Neutrophils # (auto) 5.8 10 ^3/uL (1.6-8.6); Neutrophils % (auto) 61.1 % (37.0-80.0); Red Blood Cells 4.32 10^6/uL (4.0-5.20); Red Cell Distribution Width 18.4 % (11.8-14.3); White Blood Cell 9.4 10^3/uL (4.4-10.8)
[2022-03-24 07:49] LABS: BUN/Creatinine Ratio 6.4; Potassium 4.2 mmol/L (3.5-5.1)
[2022-03-24 07:50] LABS: Albumin 3.3 g/dL (3.4-5.0); Bilirubin, Total 0.4 mg/dL (0.2-1.0); Magnesium 2.4 mg/dL (1.6-2.6)
[2022-03-24] MEDS ORDERED: diphenhdrAMINE HCL 50 MG/1 ML VL ONE (08:05)
[2022-03-24] MEDS: FOLIC ACID 1 MG TAB PO SCH (08:13)
[2022-03-24] MEDS: ASPirin-EC 81 mg tab PO SCH (08:13)
[2022-03-24] MEDS: NIFEdipine ER 30 MG TAB PO SCH (08:14)
[2022-03-24] MEDS: DOCUSATE SOD 100 MG CAP PO SCH (08:15)
[2022-03-24] MEDS: MINOXIDIL 2.5 MG TAB PO SCH ×2 (08:15→22:34)
[2022-03-24] MEDS: hydroxyUREA 500 MG CAP PO SCH (09:24)
[2022-03-24] MEDS: FUROSEMIDE 40 MG TAB PO SCH ×2 (09:25→22:33)
[2022-03-24] MEDS: ONDANSETRON HCL 4 MG/2 ML VIAL IV PRN (10:55)
[2022-03-24 11:43] LABS: INR 1.03 (0.9-1.15)
[2022-03-24 11:46] LABS: Partial Thromboplastin Time 97.5 sec (24.6-33.4)
[2022-03-24] MEDS: diphenhdrAMINE HCL 50 MG/1 ML VL IV PRN ×3 (12:24→21:03)
[2022-03-24 15:25] VITALS: BP 126/42
[2022-03-24] MEDS ORDERED: PANT40T PO (15:45)
[2022-03-24] MEDS ORDERED: SUCR1TAB PO (15:45)
[2022-03-24] MEDS ORDERED: PROM25TA5 PO (15:45)
[2022-03-24 17:00] VITALS: BP 140/68
[2022-03-24] MEDS: HEPARIN SODIUM (PORCINE) 5000 UNITS/ML 1ML VIAL SC SCH (22:47)
[2022-03-25] VITALS (7 sets, daily range): BP systolic 103–152; BP diastolic 37–84
[2022-03-25] MEDS: diphenhdrAMINE HCL 50 MG/1 ML VL IV PRN ×5 (01:41→22:24)
[2022-03-25] MEDS: HYDROmorphone HCL 2 MG/ML VL/or syr IV PRN ×6 (03:56→22:27)
[2022-03-25 05:23] LABS: Urine Bacteria MOD /hpf (None Seen); Urine Blood 2+ /uL (Negative); Urine Specific Gravity 1.015 (1.001-1.035); Urine WBC 4076 /hpf (0 - 5); Urine WBC Clumps PRESENT /hpf (None Seen)
[2022-03-25] MEDS: hydrALAZINE HCL 25 MG TAB PO SCH ×3 (05:32→23:26)
[2022-03-25] MEDS: cloNIDine HCL 0.1 MG TAB PO SCH ×3 (05:33→23:25)
[2022-03-25 06:37] LABS: INR 0.97 (0.9-1.15); Partial Thromboplastin Time 27.2 sec (24.6-33.4)
[2022-03-25] MEDS: FOLIC ACID 1 MG TAB PO SCH (09:14)
[2022-03-25] MEDS: DOCUSATE SOD 100 MG CAP PO SCH (09:15)
[2022-03-25] MEDS: MINOXIDIL 2.5 MG TAB PO SCH ×2 (09:16→23:26)
[2022-03-25] MEDS: FUROSEMIDE 40 MG TAB PO SCH ×2 (09:17→23:25)
[2022-03-25] MEDS: NIFEdipine ER 30 MG TAB PO SCH (09:18)
[2022-03-25] MEDS: HEPARIN SODIUM (PORCINE) 5000 UNITS/ML 1ML VIAL SC SCH ×2 (09:22→23:26)
[2022-03-25] MEDS: ASPirin-EC 81 mg tab PO SCH (09:30)
[2022-03-25] MEDS: hydroxyUREA 500 MG CAP PO SCH (10:00)
[2022-03-26] VITALS (8 sets, daily range): BP systolic 139–174; BP diastolic 68–93
[2022-03-26] MEDS: diphenhdrAMINE HCL 50 MG/1 ML VL IV PRN ×6 (02:55→21:36)
[2022-03-26] MEDS: HYDROmorphone HCL 2 MG/ML VL/or syr IV PRN ×7 (02:55→21:36)
[2022-03-26] MEDS: ONDANSETRON HCL 4 MG/2 ML VIAL IV PRN ×2 (04:15→15:33)
[2022-03-26] MEDS: hydrALAZINE HCL 25 MG TAB PO SCH ×3 (05:39→21:15)
[2022-03-26] MEDS: cloNIDine HCL 0.1 MG TAB PO SCH ×3 (05:42→21:15)
[2022-03-26] MEDS: FUROSEMIDE 40 MG TAB PO SCH ×2 (10:00→21:16)
[2022-03-26] MEDS: MINOXIDIL 2.5 MG TAB PO SCH ×2 (10:00→21:16)
[2022-03-26] MEDS: ASPirin-EC 81 mg tab PO SCH (10:00)
[2022-03-26] MEDS: NIFEdipine ER 30 MG TAB PO SCH (10:00)
[2022-03-26] MEDS: DOCUSATE SOD 100 MG CAP PO SCH (12:13)
[2022-03-26] MEDS: FOLIC ACID 1 MG TAB PO SCH (12:13)
[2022-03-26] MEDS: hydroxyUREA 500 MG CAP PO SCH (12:15)
[2022-03-26] MEDS: HEPARIN SODIUM (PORCINE) 5000 UNITS/ML 1ML VIAL SC SCH ×2 (12:23→21:23)
[2022-03-26] MEDS ORDERED: LORazepam 2MG/ML-1ML VIAL ONE (20:21)
[2022-03-26] MEDS ORDERED: dilTIAZem 25 MG/5 ML VIAL IV ONE ×2 (20:22→20:30)
[2022-03-26] MEDS ORDERED: HYDROmorphone HCL 2 MG/ML VL/or syr ONE (20:23)
[2022-03-26] MEDS ORDERED: ONDANSETRON HCL 4 MG/2 ML VIAL ONE (20:23)
[2022-03-26] MEDS ORDERED: HYDROmorphone HCL 2 MG/ML VL/or syr IV ONE (20:30)
[2022-03-26] MEDS ORDERED: ONDANSETRON HCL 4 MG/2 ML VIAL IV ONE (20:30)
[2022-03-26] MEDS ORDERED: LORazepam 2MG/ML-1ML VIAL IV ONE (20:30)
[2022-03-26] MEDS ORDERED: dilTIAZem 125mg/125ml BAG KIT 100 ML IV SCH (21:00)
[2022-03-27] VITALS (11 sets, daily range): BP systolic 123–159; BP diastolic 35–101
[2022-03-27 00:26] LABS: Basophils # (auto) 0 10 ^3/uL (0-0.2); Basophils % (auto) 0.4 % (0.0-2.0); Eosinophils # (auto) 0.2 10 ^3/uL (0-0.8); Eosinophils % (auto) 2.5 % (0.0-7.0); Hematocrit 38.7 % (36.0-46.0); Hemoglobin 12.6 g/dL (12.2-16.2); Lymphocytes # (auto) 1.9 10 ^3/uL (0.4-5.4); Lymphocytes % (auto) 27.6 % (10.0-50.0); Mean Corpuscular Hemoglobin 29.3 pg (28.0-32.0); Mean Corpuscular Hgb Conc. 32.7 g/dL (32.0-36.0); Mean Corpuscular Volume 89.7 fL (80.0-100.0); Monocytes # (auto) 0.6 10 ^3/uL (0-1.3); Monocytes % (auto) 8.5 % (0.0-12.0); Neutrophils # (auto) 4.2 10 ^3/uL (1.6-8.6); Red Blood Cells 4.32 10^6/uL (4.0-5.20); Red Cell Distribution Width 18.2 % (11.8-14.3); White Blood Cell 6.9 10^3/uL (4.4-10.8)
[2022-03-27 00:40] LABS: Albumin 3.6 g/dL (3.4-5.0); Calcium 7.8 mg/dL (8.5-10.1)
[2022-03-27 00:42] LABS: BUN/Creatinine Ratio 6.2
[2022-03-27 00:44] LABS: Bilirubin, Total 0.5 mg/dL (0.2-1.0); Total Protein 7.2 g/dL (6.4-8.2)
[2022-03-27] MEDS: HYDROmorphone HCL 2 MG/ML VL/or syr IV PRN ×4 (01:01→13:22)
[2022-03-27] MEDS: diphenhdrAMINE HCL 50 MG/1 ML VL IV PRN ×4 (01:03→13:17)
[2022-03-27] MEDS: hydrALAZINE HCL 25 MG TAB PO SCH ×2 (06:02→13:23)
[2022-03-27] MEDS: cloNIDine HCL 0.1 MG TAB PO SCH ×2 (06:02→13:24)
[2022-03-27] MEDS: FUROSEMIDE 40 MG TAB PO SCH (08:59)
[2022-03-27] MEDS: ASPirin-EC 81 mg tab PO SCH (08:59)
[2022-03-27] MEDS: hydroxyUREA 500 MG CAP PO SCH (08:59)
[2022-03-27] MEDS: FOLIC ACID 1 MG TAB PO SCH (08:59)
[2022-03-27] MEDS: DOCUSATE SOD 100 MG CAP PO SCH (08:59)
[2022-03-27] MEDS: MINOXIDIL 2.5 MG TAB PO SCH (09:00)
[2022-03-27] MEDS: HEPARIN SODIUM (PORCINE) 5000 UNITS/ML 1ML VIAL SC SCH (09:00)
[2022-03-27] MEDS: NIFEdipine ER 30 MG TAB PO SCH (09:00)
== END 2022-03-27 14:35 | disposition home or self-care (01) | DRG 308 ==
LOC: EDBD 13:18 → ER 13:18 → TELE 17:54 → TELE-CENTR 03-24 14:54 → DOU IN ICU 03-26 21:29
PROVIDERS: ADMIT Nurse Practitioner Family; ATTEND Family Medicine
PROC: 5A1D70Z Performance of Urinary Filtration, Intermittent, Less than 6 Hours Per Day (ICD-10-PCS; principal; 2022-03-24)
PROC: 05H933Z Insertion of Infusion Device into Right Brachial Vein, Percutaneous Approach (ICD-10-PCS; 2022-03-24)
PROC: B54MZZA Ultrasonography of Right Upper Extremity Veins, Guidance (ICD-10-PCS; 2022-03-24)
DX: I47.1 Supraventricular tachycardia (principal); D57.00 Hb-SS disease with crisis, unspecified; N18.6 End stage renal disease; I13.2 Hypertensive heart and chronic kidney disease with heart failure and with stage 5 chronic kidney disease, or end stage renal disease; J98.11 Atelectasis; N39.0 Urinary tract infection, site not specified; I50.9 Heart failure, unspecified; Z20.822 Contact with and (suspected) exposure to COVID-19; Z91.018 Allergy to other foods; D63.8 Anemia in other chronic diseases classified elsewhere; D72.829 Elevated white blood cell count, unspecified; Z87.442 Personal history of urinary calculi; Z99.2 Dependence on renal dialysis; I25.2 Old myocardial infarction; Z80.0 Family history of malignant neoplasm of digestive organs; Z98.61 Coronary angioplasty status; Z82.49 Family history of ischemic heart disease and other diseases of the circulatory system; Z83.2 Family history of diseases of the blood and blood-forming organs and certain disorders involving the immune mechanism; Z83.3 Family history of diabetes mellitus; Z88.1 Allergy status to other antibiotic agents; Z91.041 Radiographic dye allergy status; Z88.5 Allergy status to narcotic agent; Z91.013 Allergy to seafood; Z88.8 Allergy status to other drugs, medicaments and biological substances
CPT/HCPCS: 36415; 71045; 80053; 80061; 81001; 82962; 83735; 83880; 84100; 84484; 85025; 85045; 85610; 85730; 87081; 87086; 87088; 87186; 87340; 87426; 90935; 93005; 93306; 96365; 96366; 96375; 96376; 99291; G0378; J2405; J3490

== ENCOUNTER 2022-05-04 16:07 | Inpatient (IN) | payer MEDICARE, MEDICAID ==
[~2022-05-04] VITALS: Ht 172.7 cm; Wt 80.0 kg
[~2022-05-04 16:07] MED LIST changes: +PANT40T PO; +PROM25TA5 PO; +SUCR1TAB PO
[2022-05-04] MEDS ORDERED: hydrALAZINE HCL 20 MG/ML VL IV ONE (16:15)
[2022-05-04] MEDS ORDERED: ADENOSINE 6 MG/2 ML INJ IV ONE (16:30)
[2022-05-04 16:37] LABS: Basophils # (auto) 0 10 ^3/uL (0-0.2); Basophils % (auto) 0.3 % (0.0-2.0); Eosinophils # (auto) 0.3 10 ^3/uL (0-0.8); Eosinophils % (auto) 2.7 % (0.0-7.0); Hemoglobin 13.1 g/dL (12.2-16.2); Lymphocytes # (auto) 2.4 10 ^3/uL (0.4-5.4); Lymphocytes % (auto) 25.8 % (10.0-50.0); Mean Corpuscular Hemoglobin 28.9 pg (28.0-32.0); Mean Corpuscular Hgb Conc. 33.7 g/dL (32.0-36.0); Mean Corpuscular Volume 85.8 fL (80.0-100.0); Monocytes # (auto) 0.6 10 ^3/uL (0-1.3); Monocytes % (auto) 6.6 % (0.0-12.0); Neutrophils # (auto) 6.1 10 ^3/uL (1.6-8.6); Neutrophils % (auto) 64.6 % (37.0-80.0); Red Blood Cells 4.54 10^6/uL (4.0-5.20); Red Cell Distribution Width 16.6 % (11.8-14.3); White Blood Cell 9.4 10^3/uL (4.4-10.8)
[2022-05-04] MEDS ORDERED: HYDROmorphone HCL 2 MG/ML VL/or syr IV ONE (16:45)
[2022-05-04] MEDS ORDERED: ONDANSETRON HCL 4 MG/2 ML VIAL IV ONE (16:45)
[2022-05-04 16:52] LABS: INR 0.96 (0.9-1.15); Partial Thromboplastin Time 27.9 sec (24.6-33.4)
[2022-05-04 16:54] LABS: Alanine Aminotransferase 14 U/L (13-56); Albumin 4.1 g/dL (3.4-5.0); Anion Gap 12 (5-15); Aspartate Aminotransferase 15 U/L (15-37); BUN/Creatinine Ratio 3.9; Blood Urea Nitrogen 20 mg/dL (7-18); Calcium 8.9 mg/dL (8.5-10.1); Carbon Dioxide 29 mmol/L (21-32); Chloride 94 mmol/L (98-107); GFR African American 12 mL/min; GFR Non-African American 10 mL/min; Glucose 102 mg/dL (74-106); Potassium 3.7 mmol/L (3.5-5.1); Sodium 135 mmol/L (136-145)
[2022-05-04 16:57] LABS: Alkaline Phosphatase 90 U/L (45-117); Bilirubin, Total 0.5 mg/dL (0.2-1.0); Total Protein 8.3 g/dL (6.4-8.2)
[2022-05-04] MEDS ORDERED: hydrALAZINE HCL 20 MG/ML VL IV PRN (18:30)
[2022-05-04] MEDS ORDERED: NITROGLYCERIN 0.4 MG SL TAB SL PRN (18:30)
[2022-05-04] MEDS ORDERED: MORPHINE SULFATE INJ 2 MG/ml SYRG IV PRN (18:30)
[2022-05-04 20:07] LABS: Cholesterol 212 mg/dL (< 200)
[2022-05-04 20:10] LABS: HDL Cholesterol 79 mg/dL (40-59); LDL Cholesterol 104 mg/dL (< 100); Triglycerides 121 mg/dL (< 150)
[2022-05-04] MEDS: diphenhdrAMINE HCL 50 MG/1 ML VL IV PRN (21:33)
[2022-05-04] MEDS: MORPHINE SULFATE INJ 2 MG/ml SYRG IV PRN (21:34)
[2022-05-04] MEDS: SODIUM CHLOR 0.9% PF (SALINE LOCK) 10ML VIAL/SYR IV SCH (22:53)
[2022-05-04] MEDS: HEPARIN SODIUM (PORCINE) 5000 UNITS/ML 1ML VIAL SC SCH (22:54)
[2022-05-05] MEDS: diphenhdrAMINE HCL 50 MG/1 ML VL IV PRN ×5 (03:21→21:55)
[2022-05-05] MEDS: MORPHINE SULFATE INJ 2 MG/ml SYRG IV PRN ×3 (03:22→13:06)
[2022-05-05] MEDS: SODIUM CHLOR 0.9% PF (SALINE LOCK) 10ML VIAL/SYR IV SCH ×3 (06:00→21:47)
[2022-05-05 07:48] LABS: Basophils # (auto) 0 10 ^3/uL (0-0.2); Basophils % (auto) 0.3 % (0.0-2.0); Eosinophils # (auto) 0.2 10 ^3/uL (0-0.8); Eosinophils % (auto) 3.2 % (0.0-7.0); Hematocrit 36.8 % (36.0-46.0); Hemoglobin 12.1 g/dL (12.2-16.2); Lymphocytes # (auto) 2.3 10 ^3/uL (0.4-5.4); Lymphocytes % (auto) 32.4 % (10.0-50.0); Mean Corpuscular Hemoglobin 28.6 pg (28.0-32.0); Mean Corpuscular Volume 86.7 fL (80.0-100.0); Monocytes # (auto) 0.6 10 ^3/uL (0-1.3); Neutrophils # (auto) 3.9 10 ^3/uL (1.6-8.6); Neutrophils % (auto) 55.1 % (37.0-80.0); Nucleated Red Blood Cells % 0.1 %; Red Blood Cells 4.24 10^6/uL (4.0-5.20); Red Cell Distribution Width 17.1 % (11.8-14.3); White Blood Cell 7.1 10^3/uL (4.4-10.8)
[2022-05-05 07:49] LABS: Potassium 4.5 mmol/L (3.5-5.1)
[2022-05-05 07:53] LABS: Albumin 3.7 g/dL (3.4-5.0); BUN/Creatinine Ratio 4.2; Calcium 8.6 mg/dL (8.5-10.1)
[2022-05-05 07:55] LABS: Bilirubin, Total 0.4 mg/dL (0.2-1.0); Total Protein 7.3 g/dL (6.4-8.2)
[2022-05-05] MEDS: HEPARIN SODIUM (PORCINE) 5000 UNITS/ML 1ML VIAL SC SCH (09:52)
[2022-05-05] MEDS: ISOSORBIDE MONONITRATE ER 60 MG TAB PO SCH (14:11)
[2022-05-05] MEDS: HYDROmorphone HCL 2 MG/ML VL/or syr IV PRN ×2 (16:46→21:46)
[2022-05-05 20:12] VITALS: BP 163/63
[2022-05-05] MEDS: OXYCODONE W/ ACETAMINOPHEN 5/325MG TABLET PO PRN (20:33)
[2022-05-05] MEDS: CARVEDILOL 3.125 MG TAB PO SCH (21:45)
[2022-05-05] MEDS: PANTOPRAZOLE 40 MG/10 ML VIAL INJ IV SCH (21:45)
[2022-05-05 22:00] VITALS: BP 163/103
[2022-05-06] MEDS: HYDROmorphone HCL 2 MG/ML VL/or syr IV PRN ×3 (01:49→10:21)
[2022-05-06] MEDS: diphenhdrAMINE HCL 50 MG/1 ML VL IV PRN ×3 (02:03→10:19)
[2022-05-06 05:00] VITALS: BP_SYST 115; BP_SYST 166; BP_DIAS 64; BP_DIAS 85
[2022-05-06] MEDS: SODIUM CHLOR 0.9% PF (SALINE LOCK) 10ML VIAL/SYR IV SCH (06:05)
[2022-05-06 07:32] LABS: BUN/Creatinine Ratio 4.9; Calcium 7.9 mg/dL (8.5-10.1); Potassium 4.8 mmol/L (3.5-5.1)
[2022-05-06 07:57] LABS: Basophils # (auto) 0 10 ^3/uL (0-0.2); Basophils % (auto) 0.4 % (0.0-2.0); Eosinophils # (auto) 0.3 10 ^3/uL (0-0.8); Eosinophils % (auto) 3.6 % (0.0-7.0); Hemoglobin 11.1 g/dL (12.2-16.2); Lymphocytes % (auto) 32.5 % (10.0-50.0); Mean Corpuscular Hgb Conc. 31.8 g/dL (32.0-36.0); Mean Corpuscular Volume 87.9 fL (80.0-100.0); Monocytes # (auto) 0.8 10 ^3/uL (0-1.3); Monocytes % (auto) 8.1 % (0.0-12.0); Neutrophils # (auto) 5.1 10 ^3/uL (1.6-8.6); Neutrophils % (auto) 55.4 % (37.0-80.0); Nucleated Red Blood Cells % 0.1 %; Red Blood Cells 3.98 10^6/uL (4.0-5.20); Red Cell Distribution Width 17.2 % (11.8-14.3); White Blood Cell 9.3 10^3/uL (4.4-10.8)
[2022-05-06 08:20] VITALS: BP 156/84
[2022-05-06] MEDS: OXYCODONE W/ ACETAMINOPHEN 5/325MG TABLET PO PRN (08:37)
[2022-05-06] MEDS ORDERED: hydroxyUREA 500 MG CAP PO SCH (10:00)
[2022-05-06] MEDS: PANTOPRAZOLE 40 MG/10 ML VIAL INJ IV SCH (10:18)
[2022-05-06] MEDS: ISOSORBIDE MONONITRATE ER 60 MG TAB PO SCH (10:19)
[2022-05-06] MEDS: CARVEDILOL 3.125 MG TAB PO SCH (10:20)
[2022-05-06 11:57] VITALS: BP 156/84
== END 2022-05-06 13:00 | disposition home or self-care (01) | DRG 308 ==
LOC: EDBD 16:07 → ER 16:07 → TELE 18:21 → TELE-WESTW 05-05 19:40
PROVIDERS: ADMIT Nurse Practitioner Family; ATTEND Nurse Practitioner Acute Care
DX: I47.1 Supraventricular tachycardia (principal); D57.00 Hb-SS disease with crisis, unspecified; N18.6 End stage renal disease; I13.2 Hypertensive heart and chronic kidney disease with heart failure and with stage 5 chronic kidney disease, or end stage renal disease; K92.0 Hematemesis; I50.9 Heart failure, unspecified; D64.9 Anemia, unspecified; Z20.822 Contact with and (suspected) exposure to COVID-19; E78.5 Hyperlipidemia, unspecified; Z80.0 Family history of malignant neoplasm of digestive organs; I25.2 Old myocardial infarction; Z99.2 Dependence on renal dialysis; Z82.49 Family history of ischemic heart disease and other diseases of the circulatory system; Z88.1 Allergy status to other antibiotic agents; Z88.8 Allergy status to other drugs, medicaments and biological substances; Z83.2 Family history of diseases of the blood and blood-forming organs and certain disorders involving the immune mechanism; Z83.3 Family history of diabetes mellitus; Z87.442 Personal history of urinary calculi; Z91.013 Allergy to seafood; Z98.61 Coronary angioplasty status; Z86.73 Personal history of transient ischemic attack (TIA), and cerebral infarction without residual deficits; Z88.6 Allergy status to analgesic agent
CPT/HCPCS: 36415; 71045; 80048; 80053; 80061; 83735; 83880; 84443; 84484; 85025; 85610; 85730; 87426; 93005; 96372; 96374; 96375; 96376; 99291; C9113; G0378; J0153; J2405

== ENCOUNTER 2022-05-16 17:31 | Emergency (ER) | payer MEDICARE, MEDICAID ==
[~2022-05-16] VITALS: Ht 162.6 cm; Wt 74.0 kg
[2022-05-16 17:39] VITALS: BP 98/50
== END 2022-05-16 18:48 | disposition left against medical advice (07) ==
LOC: ER 17:31 → EDBD 17:31 → ER 18:48
DX: R55 Syncope and collapse (principal); I50.9 Heart failure, unspecified; I11.0 Hypertensive heart disease with heart failure; I12.0 Hypertensive chronic kidney disease with stage 5 chronic kidney disease or end stage renal disease; E11.22 Type 2 diabetes mellitus with diabetic chronic kidney disease; N18.6 End stage renal disease; Z91.018 Allergy to other foods; Z88.5 Allergy status to narcotic agent; Z91.040 Latex allergy status; Z88.8 Allergy status to other drugs, medicaments and biological substances; Z79.899 Other long term (current) drug therapy; Z87.442 Personal history of urinary calculi

== ENCOUNTER 2022-06-06 13:34 | Inpatient (IN) | payer MEDICARE, MEDICAID ==
[~2022-06-06] VITALS: Ht 162.6 cm; Wt 79.5 kg
[2022-06-06] MEDS ORDERED: LABETALOL HCL 5 MG/ML 4ML SYRINGE IV ONE (13:45)
[2022-06-06] MEDS ORDERED: ONDANSETRON HCL 4 MG/2 ML VIAL IV ONE (15:00)
[2022-06-06] MEDS ORDERED: HYDROmorphone HCL 2 MG/ML VL/or syr IV ONE ×2 (15:00→20:00)
[2022-06-06 15:17] LABS: Basophils # (auto) 0 10 ^3/uL (0-0.2); Basophils % (auto) 0.1 % (0.0-2.0); Eosinophils # (auto) 0.2 10 ^3/uL (0-0.8); Eosinophils % (auto) 2.4 % (0.0-7.0); Hematocrit 34.6 % (36.0-46.0); Hemoglobin 11.2 g/dL (12.2-16.2); Lymphocytes # (auto) 1.4 10 ^3/uL (0.4-5.4); Lymphocytes % (auto) 18.3 % (10.0-50.0); Mean Corpuscular Hemoglobin 29.4 pg (28.0-32.0); Mean Corpuscular Hgb Conc. 32.5 g/dL (32.0-36.0); Mean Corpuscular Volume 90.5 fL (80.0-100.0); Monocytes # (auto) 0.5 10 ^3/uL (0-1.3); Monocytes % (auto) 6.7 % (0.0-12.0); Neutrophils # (auto) 5.7 10 ^3/uL (1.6-8.6); Neutrophils % (auto) 72.5 % (37.0-80.0); Nucleated Red Blood Cells % 0.1 %; Red Blood Cells 3.82 10^6/uL (4.0-5.20); Red Cell Distribution Width 19.6 % (11.8-14.3); White Blood Cell 7.9 10^3/uL (4.4-10.8)
[2022-06-06 15:19] LABS: Albumin 3.6 g/dL (3.4-5.0); BUN/Creatinine Ratio 6.1; Calcium 7.9 mg/dL (8.5-10.1); Magnesium 2.5 mg/dL (1.6-2.6)
[2022-06-06 15:22] LABS: Bilirubin, Total 0.4 mg/dL (0.2-1.0); Total Protein 6.9 g/dL (6.4-8.2)
[2022-06-06 15:25] LABS: INR 0.97 (0.9-1.15); Partial Thromboplastin Time 26.5 sec (24.6-33.4)
[2022-06-06 15:41] LABS: Potassium 5.9 mmol/L (3.5-5.1)
[2022-06-06] MEDS ORDERED: diphenhdrAMINE HCL 50 MG/1 ML VL IV ONE (16:00)
[2022-06-06] MEDS ORDERED: HYDROcodone-ACET 5/325MG TAB PO PRN (17:15)
[2022-06-06] MEDS ORDERED: MORPHINE SULFATE INJ 2 MG/ml SYRG IV PRN (17:15)
[2022-06-06] MEDS ORDERED: METOCLOPRAMIDE HCL 5MG/ml INJ 2ml VIAL IV PRN (17:15)
[2022-06-06] MEDS ORDERED: ACETAMINOPHEN 325 MG TAB PO PRN (17:15)
[2022-06-06] MEDS ORDERED: NITROGLYCERIN 0.4 MG SL TAB SL PRN (17:15)
[2022-06-06] MEDS ORDERED: DOCUSATE SOD 100 MG CAP PO PRN (17:15)
[2022-06-06] MEDS ORDERED: DEXTROSE (50%) 50ML SYRG IV PRN (17:15)
[2022-06-06] MEDS ORDERED: SODIUM BICARBONATE 8.4 % INJ 50ML VIAL IV ONE (17:30)
[2022-06-06] MEDS ORDERED: CALCIUM GLUC 1,000mg/50ml-NS 50 ML IV ONE ×2 (17:30→21:15)
[2022-06-06] MEDS: SODIUM CHLORIDE 0.9% 1,000 ML IV SCH (18:14)
[2022-06-06] MEDS ORDERED: SODIUM ZIRCONIUM CYCL 10 GM PAK PO ONE (21:15)
[2022-06-06] MEDS ORDERED: ZOLPIDEM TARTRATE 5 MG TAB PO SCH (22:00)
[2022-06-06] MEDS ORDERED: InsuLIN REG 1unit/0.01ml Soln (100units/ml) SC SCH (22:00)
[2022-06-06] MEDS: cloNIDine HCL 0.1 MG TAB PO SCH (23:00)
[2022-06-06] MEDS: ACCU-CHEK COMFORT CURVE STRIP VI SCH (23:03)
[2022-06-07] MEDS ORDERED: diphenhdrAMINE HCL 25 MG CAP PO ONE (06:15)
[2022-06-07] MEDS ORDERED: diphenhdrAMINE HCL 50 MG/1 ML VL IV ONE (06:30)
[2022-06-07] MEDS ORDERED: SODIUM CHL 0.9% 1000 ML BAG XX ONE (06:30)
[2022-06-07] MEDS ORDERED: diphenhdrAMINE HCL 50 MG/1 ML VL ONE (06:43)
[2022-06-07] MEDS ORDERED: SUCRALFATE 1 GM TAB PO SCH (07:00)
[2022-06-07] MEDS ORDERED: InsuLIN REG 1unit/0.01ml Soln (100units/ml) SC SCH (07:00)
[2022-06-07] MEDS: ACCU-CHEK COMFORT CURVE STRIP VI SCH (07:00)
[2022-06-07 08:10] LABS: Basophils # (auto) 0 10 ^3/uL (0-0.2); Basophils % (auto) 0.3 % (0.0-2.0); Eosinophils # (auto) 0.3 10 ^3/uL (0-0.8); Eosinophils % (auto) 4.3 % (0.0-7.0); Hemoglobin 11.2 g/dL (12.2-16.2); Lymphocytes # (auto) 1.7 10 ^3/uL (0.4-5.4); Lymphocytes % (auto) 24.1 % (10.0-50.0); Mean Corpuscular Volume 90.7 fL (80.0-100.0); Monocytes # (auto) 0.5 10 ^3/uL (0-1.3); Monocytes % (auto) 6.4 % (0.0-12.0); Neutrophils # (auto) 4.7 10 ^3/uL (1.6-8.6); Neutrophils % (auto) 64.9 % (37.0-80.0); Nucleated Red Blood Cells % 0.1 %; Red Blood Cells 3.75 10^6/uL (4.0-5.20); Red Cell Distribution Width 19.1 % (11.8-14.3); White Blood Cell 7.2 10^3/uL (4.4-10.8)
[2022-06-07 08:22] LABS: Albumin 3.7 g/dL (3.4-5.0); Calcium 7.8 mg/dL (8.5-10.1); Potassium 3.9 mmol/L (3.5-5.1)
[2022-06-07 08:26] LABS: BUN/Creatinine Ratio 6.6; Bilirubin, Total 0.4 mg/dL (0.2-1.0); Total Protein 7.3 g/dL (6.4-8.2)
[2022-06-07] MEDS ORDERED: hydrALAZINE HCL 20 MG/ML VL IV PRN (09:00)
[2022-06-07] MEDS: cloNIDine HCL 0.1 MG TAB PO SCH (09:44)
[2022-06-07] MEDS: SODIUM CHLORIDE 0.9% 1,000 ML IV SCH (09:55)
[2022-06-07 10:00] VITALS: BP 164/90
[2022-06-07] MEDS ORDERED: ASPirin-EC 81 mg tab PO SCH (10:00)
[2022-06-07] MEDS ORDERED: NIFEdipine ER 30 MG TAB PO SCH (10:00)
[2022-06-07] MEDS ORDERED: CARVEDILOL 12.5 MG TAB PO SCH (10:00)
[2022-06-07] MEDS ORDERED: PANTOPRAZOLE 40 MG/10 ML VIAL INJ IV SCH (10:00)
[2022-06-07] MEDS ORDERED: ASPirin 81 mg TAB PO SCH (10:00)
[2022-06-07] MEDS ORDERED: AMIODARONE HCL 200 MG TAB PO SCH (10:00)
== END 2022-06-07 11:27 | disposition left against medical advice (07) | DRG 308 ==
LOC: ER 13:34 → EDBD 13:34 → TELE 17:12
PROVIDERS: ADMIT Nurse Practitioner Family; ATTEND Nurse Practitioner Acute Care
PROC: 5A1D70Z Performance of Urinary Filtration, Intermittent, Less than 6 Hours Per Day (ICD-10-PCS; principal; 2022-06-07)
DX: I47.1 Supraventricular tachycardia (principal); N18.6 End stage renal disease; I13.2 Hypertensive heart and chronic kidney disease with heart failure and with stage 5 chronic kidney disease, or end stage renal disease; D57.1 Sickle-cell disease without crisis; D63.8 Anemia in other chronic diseases classified elsewhere; E11.22 Type 2 diabetes mellitus with diabetic chronic kidney disease; G89.4 Chronic pain syndrome; E87.5 Hyperkalemia; E66.9 Obesity, unspecified; I25.10 Atherosclerotic heart disease of native coronary artery without angina pectoris; I48.91 Unspecified atrial fibrillation; I50.9 Heart failure, unspecified; Z53.29 Procedure and treatment not carried out because of patient's decision for other reasons; Z80.0 Family history of malignant neoplasm of digestive organs; I25.2 Old myocardial infarction; Z82.49 Family history of ischemic heart disease and other diseases of the circulatory system; Z68.30 Body mass index [BMI] 30.0-30.9, adult; Z83.2 Family history of diseases of the blood and blood-forming organs and certain disorders involving the immune mechanism; Z83.3 Family history of diabetes mellitus; Z86.73 Personal history of transient ischemic attack (TIA), and cerebral infarction without residual deficits; Z87.442 Personal history of urinary calculi; Z90.81 Acquired absence of spleen; Z98.61 Coronary angioplasty status; Z99.2 Dependence on renal dialysis; Z79.899 Other long term (current) drug therapy; Z91.041 Radiographic dye allergy status; Z88.5 Allergy status to narcotic agent; Z91.013 Allergy to seafood; Z88.8 Allergy status to other drugs, medicaments and biological substances; Z91.018 Allergy to other foods
CPT/HCPCS: 36415; 71045; 80053; 82962; 83735; 83880; 84484; 85025; 85610; 85730; 87426; 90935; 93005; 93306; 96365; 96375; 99291; C9113; G0378; J2405

== ENCOUNTER 2022-07-15 17:13 | Inpatient (IN) | payer MEDICARE, MEDICAID ==
[~2022-07-15] VITALS: Ht 162.6 cm; Wt 84.4 kg
[~2022-07-15 17:13] MED LIST changes: -ASPI-325 PO; -CLO01T PO; -MET25T PO
[2022-07-15 18:43] LABS: Basophils # (auto) 0 10 ^3/uL (0-0.2); Basophils % (auto) 0.4 % (0.0-2.0); Eosinophils # (auto) 0.2 10 ^3/uL (0-0.8); Eosinophils % (auto) 2.4 % (0.0-7.0); Hematocrit 41.6 % (36.0-46.0); Hemoglobin 14.2 g/dL (12.2-16.2); Lymphocytes % (auto) 27.1 % (10.0-50.0); Mean Corpuscular Hemoglobin 30.8 pg (28.0-32.0); Mean Corpuscular Hgb Conc. 34.1 g/dL (32.0-36.0); Mean Corpuscular Volume 90.3 fL (80.0-100.0); Monocytes # (auto) 0.7 10 ^3/uL (0-1.3); Monocytes % (auto) 9.3 % (0.0-12.0); Neutrophils # (auto) 4.5 10 ^3/uL (1.6-8.6); Neutrophils % (auto) 60.8 % (37.0-80.0); Nucleated Red Blood Cells % 0.1 %; Red Blood Cells 4.61 10^6/uL (4.0-5.20); Red Cell Distribution Width 17.2 % (11.8-14.3); White Blood Cell 7.3 10^3/uL (4.4-10.8)
[2022-07-15 19:05] LABS: Albumin 4.3 g/dL (3.4-5.0); Calcium 8.6 mg/dL (8.5-10.1); Magnesium 2.5 mg/dL (1.6-2.6); Potassium 4.1 mmol/L (3.5-5.1)
[2022-07-15 19:09] LABS: BUN/Creatinine Ratio 5.6; Bilirubin, Total 0.5 mg/dL (0.2-1.0); Total Protein 8.8 g/dL (6.4-8.2)
[2022-07-15] MEDS ORDERED: HYDROmorphone HCL 2 MG/ML VL/or syr IM ONE (19:30)
[2022-07-15] MEDS ORDERED: HYDROmorphone HCL 2 MG/ML VL/or syr IV ONE (20:00)
[2022-07-15] MEDS ORDERED: diphenhdrAMINE HCL 50 MG/1 ML VL IV ONE (20:15)
[2022-07-15] MEDS ORDERED: DEXTROSE (50%) 50ML SYRG IV PRN (21:45)
[2022-07-15] MEDS ORDERED: ACETAMINOPHEN 325 MG TAB PO PRN (21:45)
[2022-07-15] MEDS ORDERED: DOCUSATE SOD 100 MG CAP PO PRN (21:45)
[2022-07-15] MEDS ORDERED: FAMOTIDINE (10MG/ML) 2ML VL IV SCH (22:00)
[2022-07-15] MEDS: SODIUM CHLOR 0.9% PF (SALINE LOCK) 10ML VIAL/SYR IV SCH (22:14)
[2022-07-15] MEDS: ACCU-CHEK COMFORT CURVE STRIP VI SCH (22:14)
[2022-07-15] MEDS: CARVEDILOL 12.5 MG TAB PO SCH (22:23)
[2022-07-15] MEDS: HEPARIN SODIUM (PORCINE) 5000 UNITS/ML 1ML VIAL SC SCH (22:24)
[2022-07-15] MEDS: InsuLIN REG 1unit/0.01ml Soln (100units/ml) SC SCH (22:24)
[2022-07-15] MEDS ORDERED: NITROGLYCERIN 0.4 MG SL TAB SL PRN (23:15)
[2022-07-15] MEDS: diphenhdrAMINE HCL 50 MG/1 ML VL IV PRN (23:37)
[2022-07-15] MEDS: HYDROmorphone HCL 2 MG/ML VL/or syr IV PRN (23:42)
[2022-07-16] MEDS: HYDROmorphone HCL 2 MG/ML VL/or syr IV PRN ×5 (04:25→23:35)
[2022-07-16] MEDS: SODIUM CHLOR 0.9% PF (SALINE LOCK) 10ML VIAL/SYR IV SCH ×3 (05:01→22:41)
[2022-07-16] MEDS: diphenhdrAMINE HCL 50 MG/1 ML VL IV PRN ×3 (05:36→18:29)
[2022-07-16] MEDS: InsuLIN REG 1unit/0.01ml Soln (100units/ml) SC SCH ×4 (06:09→22:00)
[2022-07-16] MEDS: ACCU-CHEK COMFORT CURVE STRIP VI SCH ×4 (06:09→22:42)
[2022-07-16 06:14] LABS: Basophils # (auto) 0 10 ^3/uL (0-0.2); Basophils % (auto) 0.3 % (0.0-2.0); Eosinophils # (auto) 0.2 10 ^3/uL (0-0.8); Eosinophils % (auto) 2.6 % (0.0-7.0); Hematocrit 38.2 % (36.0-46.0); Hemoglobin 12.8 g/dL (12.2-16.2); Lymphocytes # (auto) 1.8 10 ^3/uL (0.4-5.4); Lymphocytes % (auto) 22.1 % (10.0-50.0); Mean Corpuscular Hemoglobin 30.5 pg (28.0-32.0); Mean Corpuscular Hgb Conc. 33.6 g/dL (32.0-36.0); Mean Corpuscular Volume 90.8 fL (80.0-100.0); Monocytes # (auto) 0.8 10 ^3/uL (0-1.3); Monocytes % (auto) 9.8 % (0.0-12.0); Neutrophils # (auto) 5.4 10 ^3/uL (1.6-8.6); Neutrophils % (auto) 65.2 % (37.0-80.0); Nucleated Red Blood Cells % 0.1 %; Red Blood Cells 4.21 10^6/uL (4.0-5.20); Red Cell Distribution Width 17.3 % (11.8-14.3); White Blood Cell 8.2 10^3/uL (4.4-10.8)
[2022-07-16 06:22] LABS: Albumin 3.8 g/dL (3.4-5.0); Calcium 8.3 mg/dL (8.5-10.1); Potassium 3.9 mmol/L (3.5-5.1)
[2022-07-16 06:23] LABS: BUN/Creatinine Ratio 6.6
[2022-07-16 06:26] LABS: Bilirubin, Total 0.5 mg/dL (0.2-1.0); Total Protein 7.9 g/dL (6.4-8.2)
[2022-07-16] MEDS: ONDANSETRON HCL 4 MG/2 ML VIAL IV PRN ×3 (09:04→18:29)
[2022-07-16] MEDS: SEVELAMER 800 MG TAB PO SCH ×3 (09:04→18:29)
[2022-07-16] MEDS: B-COMPLEX W/ C & FOLIC ACID(NEPHROVITE TAB) PO SCH (10:45)
[2022-07-16] MEDS: CARVEDILOL 12.5 MG TAB PO SCH ×2 (10:45→22:29)
[2022-07-16] MEDS: ASPirin 81 mg TAB PO SCH (10:45)
[2022-07-16] MEDS: HYDROcodone-ACET 5/325MG TAB PO PRN ×2 (10:46→16:18)
[2022-07-16] MEDS: amLODIPine BESYLATE 5 MG TAB PO SCH (10:46)
[2022-07-16] MEDS: HEPARIN SODIUM (PORCINE) 5000 UNITS/ML 1ML VIAL SC SCH ×2 (10:47→22:42)
[2022-07-16 15:00] VITALS: BP 163/51
[2022-07-16] MEDS: hydrALAZINE HCL 20 MG/ML VL IV PRN (16:17)
[2022-07-16 22:04] VITALS: BP 151/55
[2022-07-17] MEDS: diphenhdrAMINE HCL 50 MG/1 ML VL IV PRN ×2 (01:03→09:07)
[2022-07-17] MEDS: HYDROmorphone HCL 2 MG/ML VL/or syr IV PRN ×3 (04:23→13:41)
[2022-07-17] MEDS: ACCU-CHEK COMFORT CURVE STRIP VI SCH ×3 (04:57→17:00)
[2022-07-17] MEDS: InsuLIN REG 1unit/0.01ml Soln (100units/ml) SC SCH ×3 (04:57→17:00)
[2022-07-17 05:00] VITALS: BP 169/57
[2022-07-17] MEDS: SODIUM CHLOR 0.9% PF (SALINE LOCK) 10ML VIAL/SYR IV SCH ×2 (05:01→14:06)
[2022-07-17] MEDS: hydrALAZINE HCL 20 MG/ML VL IV PRN (06:06)
[2022-07-17 08:00] VITALS: BP 148/67
[2022-07-17] MEDS: SEVELAMER 800 MG TAB PO SCH ×3 (08:00→18:00)
[2022-07-17] MEDS ORDERED: CLON0.2T PO (08:39)
[2022-07-17] MEDS ORDERED: HYDR50TA15 PO (08:39)
[2022-07-17] MEDS ORDERED: NIFE90TA49 PO (08:39)
[2022-07-17] MEDS: amLODIPine BESYLATE 5 MG TAB PO SCH (09:04)
[2022-07-17] MEDS: ASPirin 81 mg TAB PO SCH (09:05)
[2022-07-17] MEDS: B-COMPLEX W/ C & FOLIC ACID(NEPHROVITE TAB) PO SCH (09:05)
[2022-07-17] MEDS: CARVEDILOL 12.5 MG TAB PO SCH (09:05)
[2022-07-17] MEDS: HEPARIN SODIUM (PORCINE) 5000 UNITS/ML 1ML VIAL SC SCH (09:15)
[2022-07-17 13:12] VITALS: BP 153/66
[2022-07-17 16:32] VITALS: BP 130/100
== END 2022-07-17 17:50 | disposition home or self-care (01) | DRG 313 ==
LOC: EDBD 17:13 → EDUNIT# 17:13 → ER 17:39 → TELE 23:14 → TELE-CENTR 07-16 14:25
PROVIDERS: ADMIT Nurse Practitioner Family; ATTEND Family Medicine
PROC: 05HB33Z Insertion of Infusion Device into Right Basilic Vein, Percutaneous Approach (ICD-10-PCS; principal; 2022-07-16)
PROC: B54MZZA Ultrasonography of Right Upper Extremity Veins, Guidance (ICD-10-PCS; 2022-07-16)
DX: R07.9 Chest pain, unspecified (principal); D57.00 Hb-SS disease with crisis, unspecified; N18.6 End stage renal disease; E87.1 Hypo-osmolality and hyponatremia; I13.2 Hypertensive heart and chronic kidney disease with heart failure and with stage 5 chronic kidney disease, or end stage renal disease; E11.22 Type 2 diabetes mellitus with diabetic chronic kidney disease; E86.0 Dehydration; I25.5 Ischemic cardiomyopathy; I50.9 Heart failure, unspecified; G89.4 Chronic pain syndrome; Z20.822 Contact with and (suspected) exposure to COVID-19; Z79.4 Long term (current) use of insulin; Z80.0 Family history of malignant neoplasm of digestive organs; Z82.49 Family history of ischemic heart disease and other diseases of the circulatory system; Z83.2 Family history of diseases of the blood and blood-forming organs and certain disorders involving the immune mechanism; Z83.3 Family history of diabetes mellitus; Z87.442 Personal history of urinary calculi; Z88.1 Allergy status to other antibiotic agents; Z91.013 Allergy to seafood; Z91.199 Patient's noncompliance with other medical treatment and regimen due to unspecified reason; Z95.5 Presence of coronary angioplasty implant and graft; Z99.2 Dependence on renal dialysis; Z88.5 Allergy status to narcotic agent; Z88.8 Allergy status to other drugs, medicaments and biological substances
CPT/HCPCS: 36415; 36600; 71045; 80053; 82805; 82962; 83735; 84484; 85025; 85045; 87426; 93005; 96374; 96375; G0378; J1815; J2405; J3490

== ENCOUNTER 2023-01-21 15:37 | Emergency (ER) | payer MEDICARE, MEDICAID ==
[~2023-01-21] VITALS: Ht 162.6 cm; Wt 90.9 kg
[~2023-01-21 15:37] MED LIST changes: +ASPI1TAB20 PO; +CARV25TA PO; +CLOP75TA28 PO; +FOLI-119 PO; -FOLI1TAB6 PO; +HYDR-4297 PO; -HYDR500C PO; +HYDR500C3 PO; -HYDR50TA15 PO; -NIFE90TA49 PO; +NIFE90TA75 PO; +PROM25TA10 PO; -PROM25TA5 PO
[2023-01-21] MEDS ORDERED: NITROGLYCERIN 0.4 MG SL TAB SL ONE (16:00)
[2023-01-21] MEDS ORDERED: ASPirin 325 MG TAB PO ONE (16:00)
[2023-01-21] MEDS ORDERED: HYDROmorphone HCL 2 MG/ML VL/or syr IV ONE (16:30)
[2023-01-21] MEDS ORDERED: dilTIAZem 25 MG/5 ML VIAL IV ONE (16:30)
[2023-01-21 16:31] VITALS: PULSE 148; RESP 16; O2SAT 98
[2023-01-21 16:31] LABS: Basophils # (auto) 0 10 ^3/uL (0-0.2); Basophils % (auto) 0.3 % (0.0-2.0); Eosinophils # (auto) 0.3 10 ^3/uL (0-0.8); Hematocrit 32.6 % (36.0-46.0); Hemoglobin 10.8 g/dL (12.2-16.2); Lymphocytes # (auto) 2.1 10 ^3/uL (0.4-5.4); Lymphocytes % (auto) 28.5 % (10.0-50.0); Mean Corpuscular Hemoglobin 30.3 pg (28.0-32.0); Mean Corpuscular Hgb Conc. 33.1 g/dL (32.0-36.0); Mean Corpuscular Volume 91.7 fL (80.0-100.0); Monocytes # (auto) 0.6 10 ^3/uL (0-1.3); Monocytes % (auto) 7.4 % (0.0-12.0); Neutrophils # (auto) 4.4 10 ^3/uL (1.6-8.6); Neutrophils % (auto) 59.8 % (37.0-80.0); Nucleated Red Blood Cells % 0.1 %; Red Blood Cells 3.56 10^6/uL (4.0-5.20); Red Cell Distribution Width 17.3 % (11.8-14.3); White Blood Cell 7.4 10^3/uL (4.4-10.8)
[2023-01-21 16:54] LABS: Albumin 4.2 g/dL (3.2-4.8); Alkaline Phosphatase 124 U/L (46-116); Anion Gap 7 (5-15); Aspartate Aminotransferase < 8 U/L (13-40); BUN/Creatinine Ratio 4.3 (10.0-20.0); Bilirubin, Total 0.2 mg/dL (0.2-1.0); Blood Urea Nitrogen 22 mg/dL (9-23); Calcium 8.5 mg/dL (8.5-10.1); Carbon Dioxide 30 mmol/L (20-30); Chloride 98 mmol/L (98-107); Glucose 172 mg/dL (74-106); Potassium 3.9 mmol/L (3.5-5.1); Sodium 135 mmol/L (136-145)
[2023-01-21 16:55] LABS: Total Protein 7.3 g/dL (5.7-8.2)
[2023-01-21 17:00] LABS: Alanine Aminotransferase < 9 U/L (7-40)
[2023-01-21] MEDS ORDERED: ENOXAPARIN SOD 100 MG/1 ML SYRINGE SC ONE (17:00)
[2023-01-21 17:16] VITALS: O2SAT 97
[2023-01-21 17:17] VITALS: BP 150/80; PULSE 72; RESP 16
== END 2023-01-21 17:16 | disposition left against medical advice (07) ==
LOC: EDBD 15:37 → ER 15:37
DX: I24.9 Acute ischemic heart disease, unspecified (principal); R10.2 Pelvic and perineal pain; I13.2 Hypertensive heart and chronic kidney disease with heart failure and with stage 5 chronic kidney disease, or end stage renal disease; E11.22 Type 2 diabetes mellitus with diabetic chronic kidney disease; I50.89 Other heart failure; N18.6 End stage renal disease; Z87.442 Personal history of urinary calculi; Z98.890 Other specified postprocedural states; Z88.8 Allergy status to other drugs, medicaments and biological substances; Z91.040 Latex allergy status; Z79.899 Other long term (current) drug therapy; Z79.82 Long term (current) use of aspirin; Z79.84 Long term (current) use of oral hypoglycemic drugs
CPT/HCPCS: 36415; 71045; 80053; 83880; 84484; 84702; 85025; 85379; 93005; 96374; 96375; 99285; J1170; 96372

== ENCOUNTER 2023-03-17 12:23 | Inpatient (IN) | payer MEDICARE, MEDICAID ==
[~2023-03-17] VITALS: Ht 167.6 cm; Wt 88.0 kg
[2023-03-17 12:52] VITALS: PULSE 109; RESP 20; O2SAT 96
[2023-03-17] MEDS: METOPROLOL TARTRATE 1MG/1ML-5ML VIAL IV SCH ×3 (13:05→17:26)
[2023-03-17] MEDS ORDERED: ONDANSETRON HCL 4 MG/2 ML VIAL IV ONE ×2 (13:15→17:45)
[2023-03-17] MEDS ORDERED: MORPHINE SULFATE INJ 2 MG/ml SYRG IV ONE (13:15)
[2023-03-17 13:23] LABS: Basophils # (auto) 0 10 ^3/uL (0-0.2); Basophils % (auto) 0.1 % (0.0-2.0); Eosinophils # (auto) 0 10 ^3/uL (0-0.8); Eosinophils % (auto) 0.3 % (0.0-7.0); Hematocrit 29.7 % (36.0-46.0); Hemoglobin 9.5 g/dL (12.2-16.2); Lymphocytes % (auto) 8.1 % (10.0-50.0); Mean Corpuscular Hemoglobin 29.2 pg (28.0-32.0); Mean Corpuscular Volume 91.2 fL (80.0-100.0); Monocytes # (auto) 0.7 10 ^3/uL (0-1.3); Monocytes % (auto) 5.4 % (0.0-12.0); Neutrophils # (auto) 11.1 10 ^3/uL (1.6-8.6); Neutrophils % (auto) 86.1 % (37.0-80.0); Red Blood Cells 3.25 10^6/uL (4.0-5.20); Red Cell Distribution Width 15.4 % (11.8-14.3); White Blood Cell 12.8 10^3/uL (4.4-10.8)
[2023-03-17 13:41] LABS: Alanine Aminotransferase 12 U/L (7-40); Albumin 4.5 g/dL (3.2-4.8); Alkaline Phosphatase 164 U/L (46-116); Anion Gap 13 (5-15); Aspartate Aminotransferase 16 U/L (13-40); BUN/Creatinine Ratio 6.1 (10.0-20.0); Bilirubin, Total 0.2 mg/dL (0.2-1.0); Blood Urea Nitrogen 57 mg/dL (9-23); Calcium 8.3 mg/dL (8.7-10.4); Carbon Dioxide 26 mmol/L (20-30); Chloride 98 mmol/L (98-107); Glucose 153 mg/dL (74-106); Magnesium 1.9 mg/dL (1.6-2.6); Potassium 4.4 mmol/L (3.5-5.1); Sodium 137 mmol/L (136-145)
[2023-03-17 13:42] LABS: Total Protein 7.3 g/dL (5.7-8.2)
[2023-03-17] MEDS ORDERED: MORPHINE SULFATE 4 MG/ML SYR/VIAL IV PRN (17:45)
[2023-03-17] MEDS ORDERED: NITROGLYCERIN 0.4 MG SL TAB SL PRN (17:45)
[2023-03-17] MEDS ORDERED: HYDROmorphone HCL 2 MG/ML VL/or syr IV ONE (17:45)
[2023-03-17] MEDS ORDERED: ACETAMINOPHEN 325 MG TAB PO PRN (17:45)
[2023-03-17] MEDS ORDERED: diphenhdrAMINE HCL 50 MG/1 ML VL IV ONE (17:45)
[2023-03-17 18:51] LABS: INR 1.02 (0.9-1.15); Prothrombin Time 10.7 sec (9.3-11.8)
[2023-03-17 19:30] VITALS: PULSE 82; RESP 12; O2SAT 98
[2023-03-17] MEDS: ONDANSETRON HCL 4 MG/2 ML VIAL IV PRN (20:28)
[2023-03-17] MEDS: diphenhdrAMINE HCL 50 MG/1 ML VL IV PRN (21:56)
[2023-03-17] MEDS: MINOXIDIL 2.5 MG TAB PO SCH (22:49)
[2023-03-17] MEDS: SUCRALFATE 1 GM TAB PO SCH (22:50)
[2023-03-17] MEDS: CARVEDILOL 12.5 MG TAB PO SCH (22:50)
[2023-03-17] MEDS: hydrALAZINE HCL 25 MG TAB PO SCH (22:51)
[2023-03-17] MEDS: FUROSEMIDE 40 MG TAB PO SCH (22:51)
[2023-03-17] MEDS: cloNIDine HCL 0.1 MG TAB PO SCH (22:52)
[2023-03-18] MEDS: ONDANSETRON HCL 4 MG/2 ML VIAL IV PRN (03:15)
[2023-03-18] MEDS: HYDROmorphone HCL 2 MG/ML VL/or syr IV PRN ×5 (03:16→22:38)
[2023-03-18] MEDS: diphenhdrAMINE HCL 50 MG/1 ML VL IV PRN ×5 (04:10→22:39)
[2023-03-18 05:55] LABS: Basophils # (auto) 0 10 ^3/uL (0-0.2); Eosinophils # (auto) 0.2 10 ^3/uL (0-0.8); Lymphocytes # (auto) 1.9 10 ^3/uL (0.4-5.4); Monocytes # (auto) 0.6 10 ^3/uL (0-1.3)
[2023-03-18 05:57] LABS: Basophils % (auto) 0.3 % (0.0-2.0); Eosinophils % (auto) 3.2 % (0.0-7.0); Hematocrit 24.8 % (36.0-46.0); Hemoglobin 8.3 g/dL (12.2-16.2); Lymphocytes % (auto) 25.3 % (10.0-50.0); Mean Corpuscular Hgb Conc. 33.7 g/dL (32.0-36.0); Mean Corpuscular Volume 91.9 fL (80.0-100.0); Monocytes % (auto) 7.4 % (0.0-12.0); Neutrophils # (auto) 4.9 10 ^3/uL (1.6-8.6); Neutrophils % (auto) 63.8 % (37.0-80.0); Red Blood Cells 2.69 10^6/uL (4.0-5.20); Red Cell Distribution Width 15.4 % (11.8-14.3); White Blood Cell 7.6 10^3/uL (4.4-10.8)
[2023-03-18] MEDS: hydrALAZINE HCL 25 MG TAB PO SCH ×3 (06:14→22:00)
[2023-03-18] MEDS: SUCRALFATE 1 GM TAB PO SCH ×3 (06:14→22:44)
[2023-03-18] MEDS: cloNIDine HCL 0.1 MG TAB PO SCH ×3 (06:15→22:43)
[2023-03-18 06:16] LABS: Albumin 3.7 g/dL (3.2-4.8); Alkaline Phosphatase 127 U/L (46-116); Anion Gap 10 (5-15); Aspartate Aminotransferase 21 U/L (13-40); BUN/Creatinine Ratio 5.2 (10.0-20.0); Bilirubin, Total < 0.2 mg/dL (0.2-1.0); Blood Urea Nitrogen 55 mg/dL (9-23); Calcium 7.7 mg/dL (8.7-10.4); Carbon Dioxide 27 mmol/L (20-30); Chloride 98 mmol/L (98-107); Glucose 97 mg/dL (74-106); Potassium 5.3 mmol/L (3.5-5.1); Sodium 135 mmol/L (136-145)
[2023-03-18 06:17] LABS: Total Protein 6.3 g/dL (5.7-8.2)
[2023-03-18 06:28] LABS: Alanine Aminotransferase < 9 U/L (7-40)
[2023-03-18 07:25] VITALS: PULSE 68; RESP 17; O2SAT 99
[2023-03-18] MEDS ORDERED: cefTRIAXone 1GM/50ML D5W 50 ML IV SCH (09:00)
[2023-03-18 09:07] LABS: Magnesium 2.1 mg/dL (1.6-2.6)
[2023-03-18] MEDS ORDERED: PATIENTS OWN MEDICATION (Nifedipine (Nifedipine Er) 1 TAB) PO SCH (10:00)
[2023-03-18] MEDS: FUROSEMIDE 40 MG TAB PO SCH ×2 (10:00→22:44)
[2023-03-18 10:07] VITALS: PULSE 83; RESP 18; O2SAT 98
[2023-03-18] MEDS: PANTOPRAZOLE 40 MG TAB PO SCH (10:27)
[2023-03-18] MEDS: CLOPIDOGREL BISULFATE 75 MG TAB PO SCH (10:28)
[2023-03-18] MEDS: dilTIAZem 120MG ER CAP PO SCH (10:28)
[2023-03-18] MEDS: ASPirin-EC 81 mg tab PO SCH (10:28)
[2023-03-18] MEDS: DOCUSATE SOD 100 MG CAP PO SCH (10:28)
[2023-03-18] MEDS: CARVEDILOL 12.5 MG TAB PO SCH ×2 (10:29→22:00)
[2023-03-18] MEDS: FOLIC ACID 1 MG TAB PO SCH (10:29)
[2023-03-18] MEDS: MINOXIDIL 2.5 MG TAB PO SCH ×2 (11:17→22:00)
[2023-03-18] MEDS: hydroxyUREA 500 MG CAP PO SCH (11:18)
[2023-03-18] MEDS ORDERED: CALCIUM GLUC 1,000mg/50ml-NS 50 ML IV ONE (16:45)
[2023-03-18 17:00] VITALS: BP 109/64; PULSE 80; RESP 17; TEMP 98.9; O2SAT 94
[2023-03-18] MEDS ORDERED: SODIUM ZIRCONIUM CYCL 10 GM PAK PO ONE (17:15)
[2023-03-18 20:00] VITALS: PULSE 74; PULSE 80; RESP 20; O2SAT 92
[2023-03-18 21:28] LABS: Chloride 93 mmol/L (98-107); Potassium 4.8 mmol/L (3.5-5.1); Sodium 131 mmol/L (136-145)
[2023-03-18 21:29] LABS: Anion Gap 10 (5-15); Calcium 7.8 mg/dL (8.7-10.4); Carbon Dioxide 28 mmol/L (20-30)
[2023-03-18 21:34] LABS: Blood Urea Nitrogen 58 mg/dL (9-23); Glucose 108 mg/dL (74-106)
[2023-03-18 21:35] LABS: Magnesium 2.1 mg/dL (1.6-2.6)
[2023-03-18 21:38] LABS: BUN/Creatinine Ratio 5.2 (10.0-20.0)
[2023-03-18 22:00] VITALS: TEMP 98.8; O2SAT 92
[2023-03-18] MEDS: ATORVASTATIN 20 MG TAB PO SCH (22:41)
[2023-03-19] VITALS (7 sets, daily range): BP systolic 111–163; BP diastolic 64–87; PULSE 60–85; RESP 16–20; TEMP 98.1–98.9; O2SAT 93–100
[2023-03-19] MEDS: HYDROmorphone HCL 2 MG/ML VL/or syr IV PRN ×5 (02:53→21:05)
[2023-03-19] MEDS: diphenhdrAMINE HCL 50 MG/1 ML VL IV PRN ×4 (02:53→22:37)
[2023-03-19] MEDS: hydrALAZINE HCL 25 MG TAB PO SCH ×3 (06:00→22:31)
[2023-03-19] MEDS: cloNIDine HCL 0.1 MG TAB PO SCH ×3 (06:00→21:07)
[2023-03-19] MEDS: SUCRALFATE 1 GM TAB PO SCH ×3 (06:00→21:05)
[2023-03-19 07:29] LABS: Basophils # (auto) 0 10 ^3/uL (0-0.2); Basophils % (auto) 0.2 % (0.0-2.0); Eosinophils # (auto) 0.4 10 ^3/uL (0-0.8); Hematocrit 23.7 % (36.0-46.0); Hemoglobin 7.7 g/dL (12.2-16.2); Lymphocytes # (auto) 2.8 10 ^3/uL (0.4-5.4); Lymphocytes % (auto) 40.2 % (10.0-50.0); Mean Corpuscular Hemoglobin 29.4 pg (28.0-32.0); Mean Corpuscular Hgb Conc. 32.5 g/dL (32.0-36.0); Mean Corpuscular Volume 90.5 fL (80.0-100.0); Monocytes # (auto) 0.6 10 ^3/uL (0-1.3); Monocytes % (auto) 9.2 % (0.0-12.0); Neutrophils # (auto) 3.2 10 ^3/uL (1.6-8.6); Neutrophils % (auto) 45.4 % (37.0-80.0); Red Blood Cells 2.62 10^6/uL (4.0-5.20)
[2023-03-19 07:51] LABS: Chloride 95 mmol/L (98-107); Potassium 5.3 mmol/L (3.5-5.1); Sodium 131 mmol/L (136-145)
[2023-03-19 07:52] LABS: Anion Gap 10 (5-15); Carbon Dioxide 26 mmol/L (20-30)
[2023-03-19 07:53] LABS: Calcium 7.4 mg/dL (8.5-10.1)
[2023-03-19 07:57] LABS: Glucose 106 mg/dL (74-106)
[2023-03-19 07:58] LABS: BUN/Creatinine Ratio 5.4 (10.0-20.0); Blood Urea Nitrogen 62 mg/dL (9-23)
[2023-03-19 08:39] LABS: Magnesium 2.1 mg/dL (1.6-2.6)
[2023-03-19] MEDS: MINOXIDIL 2.5 MG TAB PO SCH ×2 (10:00→22:32)
[2023-03-19] MEDS: FOLIC ACID 1 MG TAB PO SCH (10:00)
[2023-03-19] MEDS: ASPirin-EC 81 mg tab PO SCH (10:00)
[2023-03-19] MEDS: CLOPIDOGREL BISULFATE 75 MG TAB PO SCH (10:00)
[2023-03-19] MEDS: PANTOPRAZOLE 40 MG TAB PO SCH (10:00)
[2023-03-19] MEDS: FUROSEMIDE 40 MG TAB PO SCH ×2 (10:00→21:08)
[2023-03-19] MEDS: CARVEDILOL 12.5 MG TAB PO SCH ×2 (10:00→22:31)
[2023-03-19] MEDS: hydroxyUREA 500 MG CAP PO SCH (10:00)
[2023-03-19] MEDS: DOCUSATE SOD 100 MG CAP PO SCH (10:00)
[2023-03-19] MEDS: dilTIAZem 120MG ER CAP PO SCH (11:08)
[2023-03-19] MEDS ORDERED: SODIUM CHL 0.9% 1000 ML BAG XX ONE (12:30)
[2023-03-19 13:04] LABS: Hepatitis B Surface Antibody Positive (Negative)
[2023-03-19 13:37] LABS: Hepatitis B Core Total AB Negative (Negative)
[2023-03-19 13:57] LABS: Hepatitis A Total Antibody Positive (Negative); Hepatitis B Surface Antigen Negative (Negative); Hepatitis C Antibody Negative (Negative)
[2023-03-19] MEDS: ATORVASTATIN 20 MG TAB PO SCH (21:08)
[2023-03-20] MEDS: HYDROmorphone HCL 2 MG/ML VL/or syr IV PRN ×4 (00:15→11:41)
[2023-03-20] MEDS: diphenhdrAMINE HCL 50 MG/1 ML VL IV PRN ×3 (02:52→11:40)
[2023-03-20 05:06] VITALS: BP 141/73; PULSE 82; RESP 18; TEMP 98.5; O2SAT 96
[2023-03-20] MEDS: cloNIDine HCL 0.1 MG TAB PO SCH ×2 (05:47→15:10)
[2023-03-20] MEDS: SUCRALFATE 1 GM TAB PO SCH ×2 (05:48→15:10)
[2023-03-20] MEDS: hydrALAZINE HCL 25 MG TAB PO SCH ×2 (05:48→15:09)
[2023-03-20 08:00] VITALS: BP 142/82; PULSE 74; PULSE 75; RESP 17; TEMP 98.5; O2SAT 93
[2023-03-20 09:00] VITALS: BP 142/82; PULSE 75; RESP 17; TEMP 98.5; O2SAT 98
[2023-03-20] MEDS: hydroxyUREA 500 MG CAP PO SCH (10:00)
[2023-03-20] MEDS: MINOXIDIL 2.5 MG TAB PO SCH (10:00)
[2023-03-20 10:28] LABS: Alkaline Phosphatase 136 U/L (46-116); Anion Gap 9 (5-15); Aspartate Aminotransferase 14 U/L (13-40); BUN/Creatinine Ratio 5.6 (10.0-20.0); Blood Urea Nitrogen 64 mg/dL (9-23); Calcium 7.9 mg/dL (8.5-10.1); Carbon Dioxide 29 mmol/L (20-30); Chloride 98 mmol/L (98-107); Glucose 78 mg/dL (74-106); Potassium 5.1 mmol/L (3.5-5.1); Sodium 136 mmol/L (136-145)
[2023-03-20 10:29] LABS: Alanine Aminotransferase < 9 U/L (7-40); Bilirubin, Total < 0.2 mg/dL (0.2-1.0); Total Protein 6.6 g/dL (5.7-8.2)
[2023-03-20] MEDS: ASPirin-EC 81 mg tab PO SCH (10:53)
[2023-03-20] MEDS: dilTIAZem 120MG ER CAP PO SCH (10:54)
[2023-03-20] MEDS: FUROSEMIDE 40 MG TAB PO SCH (10:55)
[2023-03-20] MEDS: CARVEDILOL 12.5 MG TAB PO SCH (10:55)
[2023-03-20] MEDS: CLOPIDOGREL BISULFATE 75 MG TAB PO SCH (10:55)
[2023-03-20] MEDS: DOCUSATE SOD 100 MG CAP PO SCH (10:55)
[2023-03-20] MEDS: FOLIC ACID 1 MG TAB PO SCH (10:55)
[2023-03-20] MEDS: PANTOPRAZOLE 40 MG TAB PO SCH (10:55)
[2023-03-20 12:19] LABS: Magnesium 2.1 mg/dL (1.6-2.6)
[2023-03-20 13:38] VITALS: BP 156/78; PULSE 82; RESP 18; TEMP 98.2; O2SAT 96
[2023-03-20 14:32] VITALS: BP 156/78; PULSE 82; RESP 18; TEMP 98.9; O2SAT 96
== END 2023-03-20 15:55 | disposition home or self-care (01) | DRG 280 ==
LOC: EDBD 12:23 → ER 12:23 → TELE 17:43 → TELE-EAST 03-18 08:53
PROVIDERS: ADMIT Internal Medicine Pulmonary Disease; ATTEND Student in an Organized Health Care Education/Training Program
DX: I21.4 Non-ST elevation (NSTEMI) myocardial infarction (principal); J96.01 Acute respiratory failure with hypoxia; N18.6 End stage renal disease; I47.19 Other supraventricular tachycardia; I13.2 Hypertensive heart and chronic kidney disease with heart failure and with stage 5 chronic kidney disease, or end stage renal disease; I47.10 Supraventricular tachycardia, unspecified; I50.32 Chronic diastolic (congestive) heart failure; D57.1 Sickle-cell disease without crisis; E87.5 Hyperkalemia; D50.0 Iron deficiency anemia secondary to blood loss (chronic); D72.829 Elevated white blood cell count, unspecified; E66.9 Obesity, unspecified; E78.5 Hyperlipidemia, unspecified; I25.10 Atherosclerotic heart disease of native coronary artery without angina pectoris; Z68.30 Body mass index [BMI] 30.0-30.9, adult; Z80.0 Family history of malignant neoplasm of digestive organs; Z82.49 Family history of ischemic heart disease and other diseases of the circulatory system; Z83.2 Family history of diseases of the blood and blood-forming organs and certain disorders involving the immune mechanism; Z83.3 Family history of diabetes mellitus; Z87.442 Personal history of urinary calculi; Z88.1 Allergy status to other antibiotic agents; Z91.013 Allergy to seafood; Z95.5 Presence of coronary angioplasty implant and graft; Z99.2 Dependence on renal dialysis; Z87.891 Personal history of nicotine dependence; Z91.041 Radiographic dye allergy status; Z88.5 Allergy status to narcotic agent
CPT/HCPCS: 36415; 71045; 80048; 80053; 80061; 83036; 83735; 83880; 84100; 84443; 84484; 85025; 85045; 85610; 86704; 86706; 86708; 86803; 87081; 87340; 90935; 93005; 93306; 96374; 96375; G0378; J1642; J2405

== ENCOUNTER 2024-09-06 16:46 | Emergency (ER) | payer MEDICARE, MEDICAID ==
[~2024-09-06] VITALS: Ht 162.6 cm; Wt 86.0 kg
[~2024-09-06 16:46] MED LIST changes: +CARV-217 PO; -CARV25TA PO; -HYDR-4297 PO; -HYDR-4298 PO; +HYDR100T10 PO; +HYDR50TA47 PO
[2024-09-06] MEDS ORDERED: ADENOSINE 6 MG/2 ML INJ IV ONE (16:53)
[2024-09-06 17:00] VITALS: PULSE 118; RESP 29; O2SAT 100
--- NOTE | 2024-09-06 17:02 | ED.PDOC ---
HPI Comments 39-year-old female brought in by EMS presents with a chief complaint of SVT. Per EMS, patient was found to be in SVT and refused to be cardioverted until they got to the hospital. Patient mentions that she was in SVT this morning, but states that she converted on its own. Patient had just finished dialysis when the second episode of SVT began today. Patient is compliant with her medication, Diltiazem 250mg once daily and Dilaudid every four hours. Patient states that "Adenosine never works for me". Initial BP was 154/76 per EMS. PMHx: CHF, CAD, DM, ESRD, HTN, Renal Stones, OR, SVT with Ablation, Chronic Pain Syndrome, Sickle Cell Anemia PSHx: , Coronary Stents HPI: Poor Historian. REVIEW OF SYSTEMS: CONSTITUTIONAL: Denies acute: fever, diaphoresis, chills, HEAD: Denies acute: headache, photophobia Eyes: Denies acute: Double vision, vision loss, eye pain, eye discharge. EARS: Denies acute: tinnitus, hearing loss, ear discharge, ear pain, THROAT: Denies acute: sore throat, swelling, difficulty swallowing , pain with swallowing, change in voice. NECK: Denies acute: neck pain, neck swelling, stiff neck. HEART: Denies acute : chest pain, LUNGS: Denies acute: SOB, wheezing, cough, hemoptysis ABDOMEN: Denies acute: abdominal pain, Nausea, Vomiting, diarrhea, melena , hematemesis, hematochezia SKIN: Denies acute: rash, redness, lesions, itchiness. EXTREMITIES: Denies acute: calf pain, numbness, tingling, weakness, denies pain in extremity. Denies acute: Low back pain. Neuro: Denies acute: focal neurological deficit, motor or sensory focal neurological deficit, tremors, seizure like activity, confusion, dizziness, change in mental status, loss of bowel or bladder function, cauda equina like symptoms. : Denies acute: dysuria, hematuria, flank pain, increase in urinary frequency. PSYCH: Denies acute: hallucination, suicidal ideation, homicidal ideation. FEMALE: Denies acute: abnormal vaginal bleeding, foul odor, unusual discharge. PHYSICAL EXAM: General: ----[id number]----acute distress, awake and alert. Head: normocephalic, atraumatic. Neck: supple, trachea is midline, no swelling. Throat: Normal phonation. Eyes:, no erythema, no purulent discharge, no proptosis, no icterus. Heart: Heart rate in the 170s consistent with SVT on EKG no significant murmur appreciated. Lungs: no apparent respiratory distress, Able to speak in full sentences. No wheezing, no rhonchi, no crackles. No stridors Clear to auscultation bilaterally. Abdomen: non tender to palpation, non distended, soft, no guarding, no rebound, + bowel sounds. Neuro: Awake, Alert, oriented to name, self, situation, follows commands GCS=15. Speech is normal. Skin: no petechia, no purpura, no cyanosis, non-pale, not jaundice. Lower extremities: --no - Pitting edema no deformity, no focal swelling, no calf TTP. Makes eye contact. moves all four extremities. Face: no apparent facial droop. No nuchal rigidity, Kernig's sign, Brudzinski's sign, no meningeal signs. ED COURSE: Time Seen by MD: 16:50 Primary Care Provider: Julee FERRARO Reviewed Notes: Nurses Notes, Medications, Allergies Allergies: Coded Allergies: Tramadol (Verified Allergy, Severe, 08/29/22) patient reports swelling of the airway Ketorolac Tromethamine (Verified Allergy, Intermediate, 08/29/22) [place] Oil (Verified Allergy, Unknown, 08/29/22) Ceftriaxone (Verified Allergy, Unknown, 08/29/22) NEW PER VERGE REPORT 01-27-17 Cephalexin (Verified Allergy, Unknown, 08/29/22) NEW ENTERED 01-27-17 Fentanyl (Verified Allergy, Unknown, 08/29/22) Iodine (Verified Allergy, Unknown, 08/29/22) Lisinopril (Verified Allergy, Unknown, 08/29/22) Shellfish Allergy (Verified Allergy, Unknown, 08/29/22) Uncoded Allergies: [place] (Allergy, Mild, 12/02/16) leon pepper (Allergy, Unknown, 11/19/18) pepper (Allergy, Unknown, 10/05/18) itchy, hives Home Meds Active Scripts Clopidogrel Bisulfate (Plavix) 75 Mg Tab, 1 TAB PO DAILY, #30 TAB 5 Refills Prov:MARTY SHI MD 08/30/22 Aspirin (Aspir-81) 81 Mg Tab, 1 TAB PO DAILY, #30 TAB 5 Refills Prov:MARTY SHI MD 08/30/22 Carvedilol (Coreg) 25 Mg Tab, 1 TAB PO BID, #60 TAB 5 Refills Prov:MARTY SHI MD 08/30/22 Hydralazine Hcl (Hydralazine Hcl) 50 Mg Tab, 100 MG PO BID, #120 TAB Prov:MARCELLO GÓMEZ MD 07/17/22 Nifedipine (Nifedipine Er) 90 Mg Tab, 1 TAB PO DAILY, #90 TAB 3 Refills Prov:MARCELLO GÓMEZ MD 07/17/22 Minoxidil (Minoxidil) 2.5 Mg Tab, 2.5 MG PO BID for 30 Days, #60 TAB Prov:PATRICIA SMIHT MD 08/19/21 Aspirin (Aspir-Low Ec) 81 Mg Tb, 81 MG PO DAILY for 30 Days Prov:CASEY DE ANDA MD 10/06/18 Folic Acid (Folic Acid) 1 Mg Tab, 1 MG PO DAILY, #30 TAB Prov:CASEY DE ANDA MD 10/06/18 Hydroxyurea (HYDREA CAPSULE) 500 Mg Cp, 500 MG PO DAILY, #30 CP Prov:THALIA MADERA MD 09/05/16 Reported Medications Pantoprazole Sodium Sesquihydr (Pantoprazole Sodium) 40 Mg Tab, 1 TAB PO D AILYPRN 03/24/22 Promethazine Hcl (Promethazine Hcl) 25 Mg Tab, 1 TAB PO BIDPRN 03/24/22 Sucralfate (Sucralfate) 1 Gm Tab, 1 TAB PO TID 03/24/22 Furosemide (Furosemide) 80 Mg Tab, 1 TAB PO BID 08/16/21 Hydromorphone Hcl (HYDROMORPHONE HCL) 2 Mg/Ml Inj, 2 MG IJ, INJ 04/20/21 Hydroxyurea (Hydroxyurea) 500 Mg Cap, 500 MG PO DAILY, MG 04/20/21 Hydralazine Hcl (Hydralazine Hcl) 50 Mg Tab, 100 MG PO TID for 30 Days, MG 04/20/21 Oxycodone W/ Acetaminophen (Oxycodone/Acetaminophen 10-300 mg) 1 Tab Tab 04/20/21 Clonidine Hydrochloride (Clonidine Hcl) 0.3 Mg Tab, 1 TAB PO TID 04/20/21 Clopidogrel Bisulfate (CLOPIDOGREL) 75 Mg Tab, 1 TAB PO DAILYPRN 04/20/21 Patients Own Medication (PATIENTS OWN MEDICATION) . PTS OWN MED-OBTAIN FROM PT AND SEND TO RX DRUG: FREQ: RX# EXP: DATE DISP: TECH: RPH: 12/26/19 Hydralazine Hcl (Hydralazine Hcl) 100 Mg Tab, 100 MG PO BID, TAB 12/26/19 Zolpidem Tartrate (Ambien) 10 Mg Tab, 1 TAB PO QPM, #30 TAB 5 Refills 01/05/17 Nifedipine (Nifedipine Er) 90 Mg Tab, 1 TAB PO DAILY, #30 TAB 5 Refills 01/14/16 Past Medical History PAST MEDICAL HISTORY: Anemia, CAD, CHF, DM, ESRD, HTN, Kidney Stones, OR Surgical History: , PTCA PATCH DRILLER History: Denies all PATCH DRILLER Hx Family History Family History: Family hx of heart joaquina Family History (Other): Sickle cell anemia Social History Smoker: Non-Smoker Alcohol: Denies ETOH Use Drugs: Denies Drug Use Lives In: Home Was a procedure done? Was a procedure done?: No CP Differential Dx Differential Diagnosis: A-fib, A-Flutter, Anxiety / Panic Attack, Digoxin Toxicity, Electrolyte Disorder, Heart Failure, Hyperthyroidism, Hyperventilation, Hypoxia, MAT, OR, PAC's, Pacemaker Malfunction, PSVT, Pulmonary Embolus, PVC's, Sinus Tachycardia, Torsades De Pointes, Ventricular Dysrhythmia, V-Fib, V-Tach, WPW X-Ray, Labs, Meds, VS Vital Signs Date Time Temp Pulse Resp B/P (MAP) Pulse Ox O2 Delivery O2 Flow Rate FiO2 09/06/24 20:37 89 09/06/24 20:30 147/62 09/06/24 20:00 158/60 09/06/24 19:30 98.0 99 17 155/62 (93) 99 98.0 09/06/24 19:30 99 12 99 Room Air* 0 21 09/06/24 19:30 99 17 155/62 09/06/24 19:30 155/62 09/06/24 19:00 104 13 163/75 (104) 94 09/06/24 18:48 122 20 179/93 09/06/24 18:45 164/73 09/06/24 18:30 122 18 179/93 (121) 100 09/06/24 18:17 125 17 182/64 09/06/24 18:15 182/64 09/06/24 17:50 130 09/06/24 17:40 136 20 193/51 09/06/24 17:38 193/51 09/06/24 17:12 111 09/06/24 17:10 117 09/06/24 17:00 172 09/06/24 17:00 98.0 118 29 156/63 (94) 100 98.0 09/06/24 17:00 118 29 100 Nasal Cannula* 2 28 09/06/24 16:59 98.0 178 20 220/80 (126) 97 98.0 09/06/24 16:49 173 Lab Test 09/06/24 18:06 09/06/24 17:02 Range/Units Troponin I High Sensitivity 92 *H 125 *H </=34 ng/L White Blood Count 9.8 4.4-10.8 10^3/uL Red Blood Count 3.91 L 4.0-5.20 10^6/uL Hemoglobin 11.5 L 12.2-16.2 g/dL Hematocrit 34.6 L 36.0-46.0 % Mean Corpuscular Volume 88.5 80.0-100.0 fL Mean Corpuscular Hemoglobin 29.3 28.0-32.0 pg Mean Corpuscular Hemoglobin Concent 33.1 32.0-36.0 g/dL Red Cell Distribution Width 14.3 11.8-14.3 % Platelet Count 222 140-450 10^3/uL Mean Platelet Volume 8.3 6.9-10.8 fL Neutrophils (%) (Auto) 87.0 H 37.0-80.0 % Lymphocytes (%) (Auto) 10.2 10.0-50.0 % Monocytes (%) (Auto) 2.3 0.0-12.0 % Eosinophils (%) (Auto) 0.1 0.0-7.0 % Basophils (%) (Auto) 0.4 0.0-2.0 % Neutrophils # (Auto) 8.6 1.6-8.6 10 ^3/uL Lymphocytes # (Auto) 1.0 0.4-5.4 10 ^3/uL Monocytes # (Auto) 0.2 0-1.3 10 ^3/uL Eosinophils # (Auto) 0 0-0.8 10 ^3/uL Basophils # (Auto) 0 0-0.2 10 ^3/uL Nucleated Red Blood Cells 0.3 % Reticulocyte Count (auto) 1.61 H 0.5-1.5 % Sodium Level 136 136-145 mmol/L Potassium Level 3.9 3.5-5.1 mmol/L Chloride Level 93 L 98-107 mmol/L Carbon Dioxide Level 27 20-31 mmol/L Anion Gap 16 H 5-15 Blood Urea Nitrogen 13 9-23 mg/dL Creatinine 3.55 H 0.550-1.02 mg/dL Glomerular Filtration Rate Calc 16 >90 mL/min BUN/Creatinine Ratio 3.7 L 10.0-20.0 Serum Glucose 138 H 74-106 mg/dL Lactic Acid Level 1.3 0.4-2.0 mmol/L Calcium Level 10.4 8.7-10.4 mg/dL Total Bilirubin 0.5 0.2-1.0 mg/dL Aspartate Amino Transferase (AST) 22 13-40 U/L Alanine Aminotransferase (ALT) 13 7-40 U/L Alkaline Phosphatase 182 H 46-116 U/L Total Protein 9.3 H 5.7-8.2 g/dL Albumin 5.9 H 3.2-4.8 g/dL PATIENT: KEYONA KOCHACCT: [id number]: [id number] : 1985 LOC: ER ROOM / BED: / AGE / SEX: 39 / F ADM STATUS: REG ER SERVICE [id number] ORDERING PHYSICIAN: SOLITARIO SLOAN DO PROCEDURE(s): CXRP - CHEST PORTABLE REASON: SVT ORDER NUMBER(s): [id number], ACCESSION NUMBER(s): [id number] EXAM: XY CHEST PORTABLE CLINICAL HISTORY: SVT TECHNIQUE: Single AP view of the chest WID: COMPARISON: XY CHEST XRAY 1 VIEW on DOS: 03/17/23 FINDINGS: Lines and tubes: Defibrillator pad projects over the right upper chest. Chest: Mild cardiomegaly with mild pulmonary vascular congestion. No pleural effusion, pneumothorax, or consolidation. The osseous structures are grossly intact. IMPRESSION: Mild cardiomegaly with mild pulmonary vascular congestion. ATED BY: LC PERLA MD DICTATED DATE/TIME: 09/06/241820 SIGNED BY: LC PERLA MD SIGNED DATE/TIME: 09/06/241820 Time of 1ST Reevaluation: 17:20 Reevaluation 1ST: Unchanged Time of 2ND Reevaluation: 17:22 (Patient Valsalva at herself during the blood pressure cuff that caused her pain in her right lower extremity with the cuff was. Patient's heart rate improved to 111 sinus tachycardia. Patient was not given any adenosine or diltiazem at this time. We will continue to monitor. Patient does not make any urine.) Patient Education/Counseling: Diagnosis, Treatment Family Education/Counseling: No Family Present Comments Patient presented with the above HPI.--SVT--workup was initiated. patient was found with the above mentioned diagnosis. the following medications were ordered: please refer to order lists of meds and tests obtained by myself Dr. Sloan. Patient ED course and VS have been stabilized. Patient has been reassessed in the ED and remained in a stable condition. Pertinent incidental findings were discussed with the patient and/or family. Patient/family voices understanding and is agreeable with plan. Patient has been observed in the ED adequate length of time to insure improvement/stability. Escalation of care considered: Consideration of escalation to observation or admission Patient converted out of SVT with a Valsalva and with diltiazem drip. Patient was ADMITTED to the medicine team for further evaluation and treatment of their presentation. However later patient left against medical advice. All the reports of any imaging studies that were ordered by myself were reviewed by myself. Departure 1 Departure Time of Disposition: 17:21 Impression: Primary Impression: SVT (supraventricular tachycardia) Additional Impressions: Left against medical advice Elevated troponin Chronic pain syndrome Disposition: ADMITTED INPATIENT Admit to: [facility] Condition: Guarded Additional Instructions: Patient left against medical advice Discharged With: Self Critical Care Note Critical Care Time?: Yes (1 hr-critical care time only) Heart Score Heart Score: Heart Score Response (Comments) Value History Moderate Suspicious 1 EKG Repolarization Disturb 1 Age <45 0 Risk Factors >3 or Hx ASHD 2 Troponin 1-2 x's Normal limit 1 Total 5 I personally scribed for SOLITARIO SLOAN DO ([email or web address]) on 09/06/24 at 17:02. Electronically submitted by Daljit Skinner ([email or web address]). I personally scribed for SOLITARIO SLOAN J DO ([email or web address]) on 09/06/24 at 17:28. Electronically submitted by Daljit Skinner ([email or web address]). I personally scribed for SOLITARIO SLOAN J DO ([email or web address]) on 09/06/24 at 18:37. Electronically submitted by Daljit Skinner ([email or web address]). I personally scribed for SOLITARIO SLOAN DO ([email or web address]) on 09/06/24 at 19:09. Electronically submitted by Daljit Skinner ([email or web address]). SOLITARIO SLOAN DO September 06, 2024 17:02
[2024-09-06 17:38] LABS: Alanine Aminotransferase 13 U/L (7-40); Anion Gap 16 (5-15); Aspartate Aminotransferase 22 U/L (13-40); BUN/Creatinine Ratio 3.7 (10.0-20.0); Bilirubin, Total 0.5 mg/dL (0.2-1.0); Blood Urea Nitrogen 13 mg/dL (9-23); Calcium 10.4 mg/dL (8.7-10.4); Carbon Dioxide 27 mmol/L (20-31); Potassium 3.9 mmol/L (3.5-5.1); Sodium 136 mmol/L (136-145)
[2024-09-06] MEDS: dilTIAZem 125mg/125ml BAG KIT 125 ML IV ONE (17:38)
[2024-09-06] MEDS: ADENOSINE 6 MG/2 ML INJ IV ONE (17:39)
[2024-09-06] MEDS: HYDROmorphone HCL 2 MG/ML VL/or syr IV ONE ×2 (17:40→18:48)
[2024-09-06 17:58] LABS: Albumin 5.9 g/dL (3.2-4.8); Alkaline Phosphatase 182 U/L (46-116); Chloride 93 mmol/L (98-107); Glucose 138 mg/dL (74-106); Total Protein 9.3 g/dL (5.7-8.2)
[2024-09-06 18:03] LABS: Basophils # (auto) 0 10 ^3/uL (0-0.2); Basophils % (auto) 0.4 % (0.0-2.0); Eosinophils # (auto) 0 10 ^3/uL (0-0.8); Eosinophils % (auto) 0.1 % (0.0-7.0); Hematocrit 34.6 % (36.0-46.0); Hemoglobin 11.5 g/dL (12.2-16.2); Lymphocytes % (auto) 10.2 % (10.0-50.0); Mean Corpuscular Hemoglobin 29.3 pg (28.0-32.0); Mean Corpuscular Hgb Conc. 33.1 g/dL (32.0-36.0); Mean Corpuscular Volume 88.5 fL (80.0-100.0); Monocytes # (auto) 0.2 10 ^3/uL (0-1.3); Monocytes % (auto) 2.3 % (0.0-12.0); Neutrophils # (auto) 8.6 10 ^3/uL (1.6-8.6); Nucleated Red Blood Cells % 0.3 %; Platelet Count (auto) 222 10^3/uL (140-450); Red Blood Cells 3.91 10^6/uL (4.0-5.20); Red Cell Distribution Width 14.3 % (11.8-14.3); White Blood Cell 9.8 10^3/uL (4.4-10.8)
--- NOTE | 2024-09-06 18:24 | DVH ---
EXAM: XY CHEST PORTABLE CLINICAL HISTORY: SVT TECHNIQUE: Single AP view of the chest WID: COMPARISON: XY CHEST XRAY 1 VIEW on DOS: 03/17/23 FINDINGS: Lines and tubes: Defibrillator pad projects over the right upper chest. Chest: Mild cardiomegaly with mild pulmonary vascular congestion. No pleural effusion, pneumothorax, or consolidation. The osseous structures are grossly intact. IMPRESSION: Mild cardiomegaly with mild pulmonary vascular congestion.
--- NOTE | 2024-09-06 19:07 | ECG ---
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
[2024-09-06 19:30] VITALS: PULSE 99; RESP 12; TEMP 98; O2SAT 99
[2024-09-06 20:30] VITALS: BP 147/62
[2024-09-06 20:37] VITALS: PULSE 89
--- NOTE | 2024-09-08 03:11 | ECG ---
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
--- NOTE | 2024-09-10 12:20 | ECG ---
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
== END 2024-09-06 20:45 | disposition left against medical advice (07) ==
LOC: EDBD 16:46 → ER 16:46
DX: I47.10 Supraventricular tachycardia, unspecified (principal); G89.4 Chronic pain syndrome; R79.89 Other specified abnormal findings of blood chemistry; I13.2 Hypertensive heart and chronic kidney disease with heart failure and with stage 5 chronic kidney disease, or end stage renal disease; E11.22 Type 2 diabetes mellitus with diabetic chronic kidney disease; N18.6 End stage renal disease; I50.9 Heart failure, unspecified; I25.10 Atherosclerotic heart disease of native coronary artery without angina pectoris; I25.2 Old myocardial infarction; Z53.29 Procedure and treatment not carried out because of patient's decision for other reasons; Z86.2 Personal history of diseases of the blood and blood-forming organs and certain disorders involving the immune mechanism; Z95.5 Presence of coronary angioplasty implant and graft; Z98.890 Other specified postprocedural states; Z88.8 Allergy status to other drugs, medicaments and biological substances; Z91.041 Radiographic dye allergy status; Z88.1 Allergy status to other antibiotic agents; Z88.5 Allergy status to narcotic agent; Z91.013 Allergy to seafood; Z79.02 Long term (current) use of antithrombotics/antiplatelets; Z79.64 Long term (current) use of myelosuppressive agent; Z79.82 Long term (current) use of aspirin; Z79.899 Other long term (current) drug therapy
CPT/HCPCS: 36415; 71045; 80053; 83605; 84484; 85025; 85045; 93005; 96374; 96376; 99285; J0153; J1171

== ENCOUNTER 2024-09-25 15:17 | Emergency (ER) | payer MEDICARE, MEDICAID ==
[~2024-09-25] VITALS: Ht 175.3 cm; Wt 86.3 kg
[2024-09-25 16:00] VITALS: RESP 16; O2SAT 99
--- NOTE | 2024-09-25 16:10 | DVH ---
EXAM: XR Chest, 1 View CLINICAL INDICATION: chest pain TECHNIQUE: Frontal view of the chest. COMPARISON: XY CHEST PORTABLE on DOS: 09/06/24, XY CHEST XRAY 1 VIEW on DOS: 03/17/23, XY CHEST CALLIE BLE on DOS: 01/21/23, XY CHEST PORTABLE on DOS: 08/29/22, XY CHEST PORTABLE on DOS: 07/15/22 FINDINGS: LUNGS AND PLEURAL SPACES: See below. HEART: Cardiomegaly with mild congestion. MEDIASTINUM: Unremarkable. Normal mediastinal contour. BONES/JOINTS: Unremarkable. No acute fracture. OTHER FINDINGS: . . . IMPRESSION: Cardiomegaly with mild congestion.
[2024-09-25] MEDS: METOPROLOL TARTRATE 1MG/1ML-5ML VIAL IV ONE (16:13)
[2024-09-25 16:14] VITALS: O2SAT 99
--- NOTE | 2024-09-25 16:25 | ED.PDOC ---
Sickle cell HPI Comments 39 year old female EVELIN presents to the ED with chief complaint of chest pain and sickle cell crisis. Patient reports that while at dialysis today, she started to experience chest pain with associated full body pain, attributing it to a sickle cell crisis. Patient relays that she is compliant with all her medication. EMS states patient was noted to be in A-Fib with RVR on their 12 lead, noting a heart rate if 180-160 bpm, but BP was stable all throughout. Patient denies any SOB, dizziness, headache, N/V/D, abdominal pain, numbness, weakness, or tingling of extremities. Chief Complaint: Chest Pain Time Seen by MD: 16:22 Primary Care Provider: UNKNOWN Reviewed Notes: Nurses Notes, Floor Person Notes, Medications, Allergies Information Source: Patient, Emergency Med Personnel Mode of Arrival: EMS Severity: Moderate Timing: Days Duration: Since onset Prehospital treatment: None Onset: Spontaneous Location of pain: Chest, Back, Extremity, Hands, Feet History of: Pain Associated signs and symptoms: None Past Medical History PAST MEDICAL HISTORY: Anemia, CAD, CHF, DM, ESRD, HTN, Kidney Stones, [place] Past Medical History (Other): Sickle Cell Anemia Surgical History: , [employer]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 Family History Family History: Family hx of heart joaquina Family History (Other): Sickle cell anemia Social History Smoker: Non-Smoker Alcohol: Denies ETOH Use Drugs: Denies Drug Use Lives In: Home Constitutional: reports: others (Full body pain); denies: chills, diaphoresis, fatigue, fever, malaise, sweats, weakness EENTM: denies: blurred vision, double vision, ear bleeding, ear discharge, ear drainage, ear pain, ear ringing, eye pain, eye redness, hearing loss, mouth pain, mouth swelling, nasal discharge, nose bleeding, nose congestion, nose pain, photophobia, tearing, throat pain, throat swelling, voice changes, others Respiratory: denies: cough, hemoptysis, orthopnea, SOB at rest, shortness of breath, SOB with excertion, stridor, wheezing, others Cardiovascular: reports: chest pain; denies: dizzy spells, diaphoresis, Dyspnea on exertion, edema, irregular heart beat, left arm pain, lightheadedness, palpitations, PND, syncope, others Gastrointestinal: denies: abdomen distended, abdominal pain, blood streaked bowels, constipated, diarrhea, dysphagia, difficulty swallowing, hematemesis, melena, nausea, poor appetite, poor fluid intake, rectal bleeding, rectal pain, vomiting, others Genitourinary: denies: abnormal vagina bleeding, burning, dyspareunia, dysuria, flank pain, frequency, hematuria, incontinence, pain, , vagina discharge, urgency, others Neurological: denies: dizziness, fainting, headache, left sided numbness, left sided weakness, numbness, paresthesia, pre-existing deficit, right sided numbness, right sided weakness, seizure, speech problems, tingling, tremors, weakness, others Musculoskeletal: denies: back pain, gout, joint pain, joint swelling, muscle pain, muscle stiffness, neck pain, others Integumetry: denies: bruises, change in color, change in hair/nails, dryness, laceration, lesions, lumps, rash, wounds, others Allergic/Immunocompromised: denies: Difficulty Healing, Frequent Infections, Hives, Itching, others Hematologic/Lymphatic: denies: anemia, blood clots, easy bleeding, easy bruising, swollen glands, others Endocrine: denies: excessive hunger, excessive sweating, excessive thirst, excessive urination, flushing, intolerance to cold, intolerance to heat, unexplained weight gain, unexplained weight loss, others Psychiatric: denies: anxiety, bipolar disorder, depression, hopeless, panic disorder, schizophrenia, sleepless, suicidal, others Physical Exam General Appearance: No Apparent Distress, Normal HEENT: Normal ENT Inspection, Pharynx Normal, TMs Normal Neck: Full Range of Motion, Non-Tender, Normal, Normal Inspection Respiratory: Chest Non-Tender, Lungs Clear, No Accessory Muscle Use, No Respiratory Distress, Other (Tachypneic) Cardiovascular: No Edema, No JVD, No Murmur, No Gallop, Normal Peripheral Pulses, Tachycardia Breast Exam: Deferred Gastrointestinal: No Organomegaly, Non Tender, No Pulsatile Mass, Normal Bowel Sounds, Soft Genitalia: Deferred Pelvic: Deferred Rectal: Deferred Extremities: No calf tenderness, Normal capillary refill, Normal inspection, Normal range of motion, Non-tender, No pedal edema, Other (Left AV Fistula) Musculoskeletal : Apperance: Normal Neurologic: Alert, reducer II-XII nml as Tested, No Motor Deficits, Normal Affect, Normal Mood, No Sensory Deficits Cerebellar Function: Normal Reflexes: Normal Skin: Dry, Normal Color, Warm Lymphatic: No Adenopathy Was a procedure done? Was a procedure done?: No Sickle cell Differential Dx Differential Diagnosis: Acute Chest Syndrome, Aplastic Crisis, Splenic Sequestration, Pneumonia X-Ray, Labs, Meds, VS Vital Signs Date Time Temp Pulse Resp B/P (MAP) Pulse Ox O2 Delivery O2 Flow Rate FiO2 09/25/24 17:00 146 17 148/59 09/25/24 17:00 146 148/59 09/25/24 16:18 125 09/25/24 16:14 133 13 159/44 (82) 99 09/25/24 16:13 165 138/72 09/25/24 16:00 16 99 Room Air* 0 21 09/25/24 15:40 165 15 138/72 (94) 09/25/24 15:31 170 18 186/100 (128) 99 09/25/24 15:20 172 Lab Test 09/25/24 17:32 09/25/24 16:32 Range/Units Troponin I High Sensitivity 17 21 </=34 ng/L White Blood Count 5.4 4.4-10.8 10^3/uL Red Blood Count 2.99 L 4.0-5.20 10^6/uL Hemoglobin 8.9 L 12.2-16.2 g/dL Hematocrit 26.7 L 36.0-46.0 % Mean Corpuscular Volume 89.4 80.0-100.0 fL Mean Corpuscular Hemoglobin 29.7 28.0-32.0 pg Mean Corpuscular Hemoglobin Concent 33.2 32.0-36.0 g/dL Red Cell Distribution Width 15.2 H 11.8-14.3 % Platelet Count 241 140-450 10^3/uL Mean Platelet Volume 7.2 6.9-10.8 fL Neutrophils (%) (Auto) 77.6 37.0-80.0 % Lymphocytes (%) (Auto) 14.7 10.0-50.0 % Monocytes (%) (Auto) 5.5 0.0-12.0 % Eosinophils (%) (Auto) 1.8 0.0-7.0 % Basophils (%) (Auto) 0.4 0.0-2.0 % Neutrophils # (Auto) 4.2 1.6-8.6 10 ^3/uL Lymphocytes # (Auto) 0.8 0.4-5.4 10 ^3/uL Monocytes # (Auto) 0.3 0-1.3 10 ^3/uL Eosinophils # (Auto) 0.1 0-0.8 10 ^3/uL Basophils # (Auto) 0 0-0.2 10 ^3/uL Nucleated Red Blood Cells 0.0 % Sodium Level 139 136-145 mmol/L Potassium Level 2.8 L 3.5-5.1 mmol/L Chloride Level 100 98-107 mmol/L Carbon Dioxide Level 25 20-31 mmol/L Anion Gap 14 5-15 Blood Urea Nitrogen 20 9-23 mg/dL Creatinine 5.48 H 0.550-1.02 mg/dL Glomerular Filtration Rate Calc 9 >90 mL/min BUN/Creatinine Ratio 3.6 L 10.0-20.0 Serum Glucose 92 74-106 mg/dL Calcium Level 7.8 L 8.7-10.4 mg/dL B-Type Natriuretic Peptide 216.52 0-100 pg/mL Current Medications Medications (Trade) Dose Ordered Sig/Reinaldo Route Start Time Stop Time Status Last Admin Metoprolol Tartrate (Lopressor) 5 mg ONCE ONCE IV 09/25/24 15:30 09/25/24 15:31 DC 09/25/24 16:13 Metoclopramide HCl (Reglan Injection) 10 mg ONCE ONCE IV 09/25/24 16:45 09/25/24 17:05 DC 09/25/24 17:00 Morphine Sulfate 4 mg ONCE ONCE IV 09/25/24 16:45 09/25/24 17:05 DC 09/25/24 17:00 PATIENT: KEYONA KOCH ACCT: [id number] UNIT: [id number] : 1985 LOC: ER ROOM / BED: / AGE / SEX: 39 / F ADM STATUS: REG ER SERVICE 1525 ORDERING PHYSICIAN: QUANG DAVIS MD PROCEDURE(s): CXRP - CHEST PORTABLE REASON: chest pain ORDER NUMBER(s): [id number], ACCESSION NUMBER(s): [id number] EXAM: XR Chest, 1 View CLINICAL INDICATION: chest pain TECHNIQUE: Frontal view of the chest. COMPARISON: XY CHEST PORTABLE on DOS: 09/06/24, XY CHEST XRAY 1 VIEW on DOS: 03/17/23, XY CHEST PORTABLE on DOS: 01/21/23, XY CHEST PORTABLE on DOS: 08/29/22, XY CHEST PORTABLE on DOS: 07/15/22 FINDINGS: LUNGS AND PLEURAL SPACES: See below. HEART: Cardiomegaly with mild congestion. MEDIASTINUM: Unremarkable. Normal mediastinal contour. BONES/JOINTS: Unremarkable. No acute fracture. OTHER FINDINGS: . . . IMPRESSION: Cardiomegaly with mild congestion. Time of 1ST Reevaluation: 17:22 Reevaluation 1ST: Improved Patient Education/Counseling: Diagnosis, Treatment Family Education/Counseling: No Family Present Additional Information Reviewed patient's previous visit(s): 09/06/24 for SVT The following tests were ordered, and results were reviewed by me: CXR, Troponin, CBC, CMP, BNP Additional information was gathered from interviewing the following independent historian: EMS I reviewed and agreed with the following test results read by other provider: CXR I discussed treatments and results with medical personnel and: PATIENT Comprehensive systems review obtained and negative except for what is stated in the HPI. Critical Care Note Critical Care Time?: No Stability Stability form required: No Heart Score Heart Score: Heart Score Response (Comments) Value History Highly Suspicious 2 EKG Repolarization Disturb 1 Age <45 0 Risk Factors 1 or 2 risk factors 1 Troponin Normal limit 0 Total 4 I personally scribed for QUANG DAVIS MD ([email or web address]) on 09/25/24 at 16:25. Electronically submitted by Jere Zhang ([email or web address]). I personally scribed for QUANG DAVIS MD ([email or web address]) on 09/25/24 at 18:14. Electronically submitted by William Romero ([email or web address]). QUANG DAVIS MD September 25, 2024 16:25
[2024-09-25 17:00] VITALS: BP 148/59; PULSE 146; RESP 17
[2024-09-25] MEDS: MORPHINE SULFATE 4 MG/ML SYR/VIAL IV ONE (17:00)
[2024-09-25] MEDS: METOCLOPRAMIDE HCL 5MG/ml INJ 2ml VIAL IV ONE (17:00)
[2024-09-25 17:17] LABS: Basophils # (auto) 0 10 ^3/uL (0-0.2); Basophils % (auto) 0.4 % (0.0-2.0); Eosinophils # (auto) 0.1 10 ^3/uL (0-0.8); Eosinophils % (auto) 1.8 % (0.0-7.0); Hematocrit 26.7 % (36.0-46.0); Hemoglobin 8.9 g/dL (12.2-16.2); Lymphocytes # (auto) 0.8 10 ^3/uL (0.4-5.4); Lymphocytes % (auto) 14.7 % (10.0-50.0); Mean Corpuscular Hemoglobin 29.7 pg (28.0-32.0); Mean Corpuscular Hgb Conc. 33.2 g/dL (32.0-36.0); Mean Corpuscular Volume 89.4 fL (80.0-100.0); Monocytes # (auto) 0.3 10 ^3/uL (0-1.3); Monocytes % (auto) 5.5 % (0.0-12.0); Neutrophils # (auto) 4.2 10 ^3/uL (1.6-8.6); Neutrophils % (auto) 77.6 % (37.0-80.0); Platelet Count (auto) 241 10^3/uL (140-450); Red Blood Cells 2.99 10^6/uL (4.0-5.20); Red Cell Distribution Width 15.2 % (11.8-14.3); White Blood Cell 5.4 10^3/uL (4.4-10.8)
[2024-09-25 17:24] LABS: Chloride 100 mmol/L (98-107); Sodium 139 mmol/L (136-145)
[2024-09-25 17:25] LABS: Anion Gap 14 (5-15); Carbon Dioxide 25 mmol/L (20-31)
[2024-09-25 17:28] LABS: Calcium 7.8 mg/dL (8.7-10.4); Potassium 2.8 mmol/L (3.5-5.1)
[2024-09-25 17:31] LABS: BUN/Creatinine Ratio 3.6 (10.0-20.0); Blood Urea Nitrogen 20 mg/dL (9-23); Glucose 92 mg/dL (74-106)
--- NOTE | 2024-09-25 19:47 | ECG ---
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
--- NOTE | 2024-09-25 19:47 | ECG ---
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
== END 2024-09-25 17:25 | disposition left against medical advice (07) ==
LOC: EDUNIT# 15:17 → EDBD 15:17 → ER 15:23
DX: R07.89 Other chest pain (principal); D57.00 Hb-SS disease with crisis, unspecified; I25.10 Atherosclerotic heart disease of native coronary artery without angina pectoris; I13.2 Hypertensive heart and chronic kidney disease with heart failure and with stage 5 chronic kidney disease, or end stage renal disease; I50.9 Heart failure, unspecified; E11.22 Type 2 diabetes mellitus with diabetic chronic kidney disease; N18.6 End stage renal disease
CPT/HCPCS: 36415; 71045; 80048; 83880; 84484; 85025; 93005; 96374; 96375; 99285; J2270; J2765

== ENCOUNTER 2024-10-11 14:13 | Inpatient (IN) | payer MEDICARE, MEDICAID ==
[~2024-10-11] VITALS: Ht 162.6 cm; Wt 94.8 kg
[2024-10-11 14:15] VITALS: PULSE 184; RESP 22; O2SAT 96
--- NOTE | 2024-10-11 14:30 | ED.PDOC ---
HPI Comments This is a 39 year old female EVELIN presenting to the ED with chief complaint of tachycardia. EMS reports that the patient was at dialysis today, but prior to starting, the patient was noted to have a high heart rate in the 180-190s. EMS relays that the patient was noted to be in SVT, so they provided 6mg of Adenosine with no relief and then 12mg of Adenosine with no relief as well. Patient states that she has been experiencing chest pain with associated SOB, nausea, and lightheadedness since yesterday, but thought her medication and dialysis would resolve it. Patient denies any syncope, vomiting, abdominal pain, dizziness, headache, or fever. Chief Complaint: Palpitations Time Seen by MD: 14:27 Primary Care Provider: UNKNOWN Reviewed Notes: Nurses Notes, Ux Developer Notes, Medications, Allergies Allergies: Coded Allergies: Tramadol (Verified Allergy, Severe, 08/29/22) patient reports swelling of the airway Ketorolac Tromethamine (Verified Allergy, Intermediate, 08/29/22) Ondansetron (Verified Allergy, Intermediate, 09/25/24) [place] Oil (Verified Allergy, Unknown, 08/29/22) Ceftriaxone (Verified Allergy, Unknown, 08/29/22) NEW PER VERGE REPORT 01-27-17 Cephalexin (Verified Allergy, Unknown, 08/29/22) NEW ENTERED 01-27-17 Fentanyl (Verified Allergy, Unknown, 08/29/22) Iodine (Verified Allergy, Unknown, 08/29/22) Lisinopril (Verified Allergy, Unknown, 08/29/22) Shellfish Allergy (Verified Allergy, Unknown, 08/29/22) Uncoded Allergies: [place]IC[place]KE (Allergy, Mild, 12/02/16) leon pepper (Allergy, Unknown, 11/19/18) pepper (Allergy, Unknown, 10/05/18) itchy, hives Home Meds Active Scripts Clopidogrel Bisulfate (Plavix) 75 Mg Tab, 1 TAB PO DAILY, #30 TAB 5 Refills Prov:MARTY SHI MD 08/30/22 Aspirin (Aspir-81) 81 Mg Tab, 1 TAB PO DAILY, #30 TAB 5 Refills Prov:MARTY SHI MD 08/30/22 Carvedilol (Coreg) 25 Mg Tab, 1 TAB PO BID, #60 TAB 5 Refills Prov:MARTY SHI MD 08/30/22 Hydralazine Hcl (Hydralazine Hcl) 50 Mg Tab, 100 MG PO BID, #120 TAB Prov:MARCELLO GÓMEZ MD 07/17/22 Nifedipine (Nifedipine Er) 90 Mg Tab, 1 TAB PO DAILY, #90 TAB 3 Refills Prov:MARCELLO GÓMEZ MD 07/17/22 Minoxidil (Minoxidil) 2.5 Mg Tab, 2.5 MG PO BID for 30 Days, #60 TAB Prov:PATRICIA SMITH MD 08/19/21 Aspirin (Aspir-Low Ec) 81 Mg Tb, 81 MG PO DAILY for 30 Days Prov:CASEY DE ANDA MD 10/06/18 Folic Acid (Folic Acid) 1 Mg Tab, 1 MG PO DAILY, #30 TAB Prov:CASEY DE ANDA MD 10/06/18 Hydroxyurea (HYDREA CAPSULE) 500 Mg Cp, 500 MG PO DAILY, #30 CP Prov:THALIA MADERA MD 09/05/16 Reported Medications Pantoprazole Sodium Sesquihydr (Pantoprazole Sodium) 40 Mg Tab, 1 TAB PO DAILYPRN 03/24/22 Promethazine Hcl (Promethazine Hcl) 25 Mg Tab, 1 TAB PO BIDPRN 03/24/22 Sucralfate (Sucralfate) 1 Gm Tab, 1 TAB PO TID 03/24/22 Furosemide (Furosemide) 80 Mg Tab, 1 TAB PO BID 08/16/21 Hydromorphone Hcl (HYDROMORPHONE HCL) 2 Mg/Ml Inj, 2 MG IJ, INJ 04/20/21 Hydroxyurea (Hydroxyurea) 500 Mg Cap, 500 MG PO DAILY, MG 04/20/21 Hydralazine Hcl (Hydralazine Hcl) 50 Mg Tab, 100 MG PO TID for 30 Days, MG 04/20/21 Oxycodone W/ Acetaminophen (Oxycodone/Acetaminophen 10-300 mg) 1 Tab Tab 04/20/21 Clonidine Hydrochloride (Clonidine Hcl) 0.3 Mg Tab, 1 TAB PO TID 04/20/21 Clopidogrel Bisulfate (CLOPIDOGREL) 75 Mg Tab, 1 TAB PO DAILYPRN 04/20/21 Patients Own Medication (PATIENTS OWN MEDICATION) . PTS OWN MED-OBTAIN FROM PT AND SEND TO RX DRUG: FREQ: RX# EXP: DATE DISP: TECH: [facility]: 12/26/19 Hydralazine Hcl (Hydralazine Hcl) 100 Mg Tab, 100 MG PO BID, TAB 12/26/19 Zolpidem Tartrate (Ambien) 10 Mg Tab, 1 TAB PO QPM, #30 TAB 5 Refills 01/05/17 Nifedipine (Nifedipine Er) 90 Mg Tab, 1 TAB PO DAILY, #30 TAB 5 Refills 01/14/16 Information Source: Patient, Emergency Med Personnel Mode of Arrival: EMS Severity: Moderate Timing: Days Duration: Since onset Prehospital treatment: 12 Lead EKG, Other (Adenosine) Location: Chest (L) Radiation: No Radiation Quality: Pressure Onset: At Rest Cardiac Risk Factors: HTN, Diabetes PE Risk Factors: None History of: CO Associated Signs and Symptoms: SOB Past Medical History PAST MEDICAL HISTORY: Anemia, CAD, CHF, DM, ESRD, HTN, Kidney Stones, CO Past Medical History (Other): Sickle Cell Surgical History: , PTCA Surgical History (Other): Spleen surgery, Left ovarian cyst removal, Left AV Fistula WEDGER History: Denies all WEDGER Hx Family History Family History: Reviewed,noncontributory to illness, Family hx of heart joaquina Family History (Other): Sickle cell anemia Social History Smoker: Non-Smoker Alcohol: Denies ETOH Use Drugs: Denies Drug Use Lives In: Home Constitutional: denies: chills, diaphoresis, fatigue, fever, malaise, sweats, weakness, others EENTM: denies: blurred vision, double vision, ear bleeding, ear discharge, ear drainage, ear pain, ear ringing, eye pain, eye redness, hearing loss, mouth pain, mouth swelling, nasal discharge, nose bleeding, nose congestion, nose pain, photophobia, tearing, throat pain, throat swelling, voice changes, others Respiratory: reports: shortness of breath; denies: cough, hemoptysis, orthopnea, SOB at rest, SOB with excertion, stridor, wheezing, others Cardiovascular: reports: chest pain, lightheadedness; denies: dizzy spells, diaphoresis, Dyspnea on exertion, edema, irregular heart beat, left arm pain, palpitations, PND, syncope, others Gastrointestinal: reports: nausea; denies: abdomen distended, abdominal pain, blood streaked bowels, constipated, diarrhea, dysphagia, difficulty swallowing, hematemesis, melena, poor appetite, poor fluid intake, rectal bleeding, rectal pain, vomiting, others Genitourinary: denies: abnormal vagina bleeding, burning, dyspareunia, dysuria, flank pain, frequency, hematuria, incontinence, pain, , vagina discharge, urgency, others Neurological: denies: dizziness, fainting, headache, left sided numbness, left sided weakness, numbness, paresthesia, pre-existing deficit, right sided numbness, right sided weakness, seizure, speech problems, tingling, tremors, weakness, others Musculoskeletal: denies: back pain, gout, joint pain, joint swelling, muscle pain, muscle stiffness, neck pain, others Integumetry: denies: bruises, change in color, change in hair/nails, dryness, laceration, lesions, lumps, rash, wounds, others Allergic/Immunocompromised: denies: Difficulty Healing, Frequent Infections, Hives, Itching, others Hematologic/Lymphatic: denies: anemia, blood clots, easy bleeding, easy bruising, swollen glands, others Endocrine: denies: excessive hunger, excessive sweating, excessive thirst, excessive urination, flushing, intolerance to cold, intolerance to heat, u nexplained weight gain, unexplained weight loss, others Psychiatric: denies: anxiety, bipolar disorder, depression, hopeless, panic disorder, schizophrenia, sleepless, suicidal, others All Other Systems: Reviewed and Negative Physical Exam General Appearance: Moderate Distress HEENT: Normal ENT Inspection, Pharynx Normal, TMs Normal Neck: Full Range of Motion, Non-Tender, Normal, Normal Inspection Respiratory: Chest Non-Tender, Lungs Clear, No Accessory Muscle Use, No Respiratory Distress, Normal Breath Sounds Cardiovascular: No Edema, No JVD, No Murmur, No Gallop, Tachycardia Breast Exam: Deferred Gastrointestinal: No Organomegaly, Non Tender, No Pulsatile Mass, Normal Bowel Sounds, Soft Genitalia: Deferred Pelvic: Deferred Rectal: Deferred Extremities: No calf tenderness, Normal capillary refill, Pedal edema, Other (Left upper extremity with a fistula for dialysis) Musculoskeletal : Apperance: Normal Neurologic: Alert, [facility] II-XII nml as Tested, Motor Weakness, Normal Affect, Normal Mood, No Sensory Deficits Cerebellar Function: Normal Reflexes: Normal Skin: Dry, Pallor, Warm Lymphatic: No Adenopathy EKG EKG : Pulse Rate (adult): 185 [place]: Normal Cardiac Rhythm: Afib Block: None ST: Nonsp Was a procedure done? Was a procedure done?: No CP Differential Dx Differential Diagnosis: Angina, CO, Pulmonary Embolus Differential Diagnosis: CHF, Other (Atrial fibrillation with rapid response, sickle cell crisis) Differential Diagnosis: Pericarditis X-Ray, Labs, Meds, VS Vital Signs Date Time Temp Pulse Resp B/P (MAP) Pulse Ox O2 Delivery O2 Flow Rate FiO2 10/11/24 18:00 98.5 70 13 118/68 (85) 100 98.5 10/11/24 18:00 70 13 118/68 10/11/24 18:00 118/68 10/11/24 17:30 128/78 10/11/24 17:25 73 16 137/80 10/11/24 17:00 129/77 10/11/24 17:00 75 14 129/77 (94) 99 10/11/24 16:23 79 10/11/24 16:00 98.7 93 22 143/97 (112) 97 98.7 10/11/24 16:00 143/92 10/11/24 15:45 142 17 135/93 10/11/24 15:45 135/93 10/11/24 15:12 127/86 10/11/24 15:11 148 17 127/86 10/11/24 15:00 145 24 127/86 (100) 96 10/11/24 14:38 139/92 10/11/24 14:17 181 10/11/24 14:15 98.4 184 22 139/92 (108) 96 98.4 10/11/24 14:15 98.1 180 20 158/91 (113) 100 98.1 10/11/24 14:15 184 22 96 Room Air* 0 21 Lab Test 10/11/24 17:20 10/11/24 14:50 Range/Units Troponin I High Sensitivity 36 *H 24 </=34 ng/L White Blood Count 8.4 4.4-10.8 10^3/uL Red Blood Count 3.46 L 4.0-5.20 10^6/uL Hemoglobin 10.2 L 12.2-16.2 g/dL Hematocrit 30.7 L 36.0-46.0 % Mean Corpuscular Volume 88.8 80.0-100.0 fL Mean Corpuscular Hemoglobin 29.6 28.0-32.0 pg Mean Corpuscular Hemoglobin Concent 33.3 32.0-36.0 g/dL Red Cell Distribution Width 15.1 H 11.8-14.3 % Platelet Count 246 140-450 10^3/uL Mean Platelet Volume 7.3 6.9-10.8 fL Neutrophils (%) (Auto) 72.3 37.0-80.0 % Lymphocytes (%) (Auto) 19.6 10.0-50.0 % Monocytes (%) (Auto) 7.1 0.0-12.0 % Eosinophils (%) (Auto) 0.8 0.0-7.0 % Basophils (%) (Auto) 0.2 0.0-2.0 % Neutrophils # (Auto) 6.1 1.6-8.6 10 ^3/uL Lymphocytes # (Auto) 1.7 0.4-5.4 10 ^3/uL Monocytes # (Auto) 0.6 0-1.3 10 ^3/uL Eosinophils # (Auto) 0.1 0-0.8 10 ^3/uL Basophils # (Auto) 0 0-0.2 10 ^3/uL Nucleated Red Blood Cells 0.0 % Sodium Level 139 136-145 mmol/L Potassium Level 4.8 3.5-5.1 mmol/L Chloride Level 103 98-107 mmol/L Carbon Dioxide Level 25 20-31 mmol/L Anion Gap 11 5-15 Blood Urea Nitrogen 46 H 9-23 mg/dL Creatinine 7.73 H 0.550-1.02 mg/dL Glomerular Filtration Rate Calc 6 >90 mL/min BUN/Creatinine Ratio 6.0 L 10.0-20.0 Serum Glucose 157 H 74-106 mg/dL Calcium Level 8.8 8.7-10.4 mg/dL Magnesium Level 2.0 1.6-2.6 mg/dL B-Type Natriuretic Peptide 352.38 0-100 pg/mL Current Medications Medications (Trade) Dose Ordered Sig/Reinaldo Route Start Time Stop Time Status Last Admin Diltiazem HCl (Cardizem Injection) 10 mg ONCE ONCE IV 10/11/24 14:30 10/11/24 14:31 DC 10/11/24 14:37 Diltiazem HCl 125 ml @ 5 mls/hr Q24H ONCE IV 10/11/24 14:30 10/12/24 14:29 10/11/24 14:38 Ondansetron HCl (Zofran) 4 mg ONCE ONCE IV 10/11/24 15:15 10/11/24 15:16 DC 10/11/24 15:10 Hydromorphone HCl (Dilaudid Injection) 1 mg ONCE ONCE IV 10/11/24 15:15 10/11/24 15:16 DC 10/11/24 15:11 Diphenhydramine HCl (Benadryl Injection) 25 mg ONCE ONCE IV 10/11/24 16:00 10/11/24 16:01 DC 10/11/24 15:54 Hydromorphone HCl (Dilaudid Injection) 1 mg ONCE ONCE IV 10/11/24 17:30 10/11/24 17:31 DC 10/11/24 17:25 IV Hep-Lock was established The patient was given diltiazem 10 mg IV push initially The patient was then started on a diltiazem drip secondary to atrial fibrillation with rapid response The patient was complaining of some pain as well as nausea so was given Zofran 4 mg IV push and Dilaudid 1 mg IV push The patient then had some itching so had somewhat of an allergic reaction to the Dilaudid so was given Benadryl 25 mg IV push The BNP is within normal limits The BUN is 46 and the creatinine is 7.73 indicating chronic renal failure The patient is anemic with a hemoglobin of 10.2 The patient's 1st troponin level was negative but the 2nd one has increased to 36 After being on the Cardizem drip, the patient has a heart rate that then converted to an EKG of 74 NSR with LAE and LVH Images Reviewed?: Images reviewed and evaluated by me Time of 1ST Reevaluation: 18:29 Reevaluation 1ST: Unchanged Patient Education/Counseling: Diagnosis, Treatment, Prognosis Family Education/Counseling: No Family Present Additional Information Reviewed patient's previous visit(s): 09/25/24 for A-Fib RVR The following tests were ordered, and results were reviewed by me: Additional information was gathered from interviewing the following independent historian: EMS I reviewed and agreed with the following test results read by other provider: N ONE I discussed treatments and results with medical personnel and: Patient Comprehensive systems review obtained and negative except for what is stated in the HPI. Departure 1 Departure Time of Disposition: 18:28 Impression: Primary Impression: Sickle cell crisis Additional Impressions: CKD (chronic kidney disease) Qualified Codes: N18.6 - End stage renal disease; Z99.2 - Dependence on renal dialysis Supraventricular tachycardia Disposition: ADMITTED INPATIENT Admit to: ICU Condition: Critical Critical Care Note Critical Care Time?: Yes (1 hr-critical care time only) Stability Stability form required: Yes Unstable for transfer: ICU, CCU, PCU, LULA (Intensive VS monitoring), ED Physician Assesment (Clinical assesment) Heart Score Heart Score: Heart Score Response (Comments) Value History Highly Suspicious 2 EKG Repolarization Disturb 1 Age <45 0 Risk Factors >3 or Hx ASHD 2 Troponin Normal limit 0 Total 5 I personally scribed for AURELIO BARNES MD ([email or web address]) on 10/11/24 at 14:30. Electronically submitted by Jere Zhang ([email or web address]). AURELIO BRANES MD Oct 11, 2024 14:30
[2024-10-11] MEDS: dilTIAZem 25 MG/5 ML VIAL IV ONE (14:37)
[2024-10-11] MEDS: dilTIAZem 125mg/125ml BAG KIT 125 ML IV ONE (14:38)
--- NOTE | 2024-10-11 14:56 | DVH ---
XY CHEST PORTABLE, HISTORY: Palpitations COMPARISON: XY CHEST PORTABLE on DOS: 09/25/24, XY CHEST PORTABLE on DOS: 09/06/24, XY CHEST XRAY 1 VIEW on DOS: 03/17/23 XY CHEST PORTABLE on DOS: 09/25/24, XY CHEST PORTABLE on DOS: 09/06/24, XY CHEST XRAY 1 VIEW on DOS: 02/27 TECHNICAL DATA: 1 view of the chest was obtained. FINDINGS: Lines and tubes: None Cardiomediastinal silhouette: enlarged Pulmonary vasculature: prominent Lung expansion: normal Lung airspace: normal Lung interstitium: normal Pleura: normal Pneumothorax: no Bones: Unremarkable Other: no IMPRESSION: Cardiomegaly with pulmonary vascular congestion.
[2024-10-11 15:09] LABS: Basophils # (auto) 0 10 ^3/uL (0-0.2); Basophils % (auto) 0.2 % (0.0-2.0); Eosinophils # (auto) 0.1 10 ^3/uL (0-0.8); Eosinophils % (auto) 0.8 % (0.0-7.0); Hematocrit 30.7 % (36.0-46.0); Hemoglobin 10.2 g/dL (12.2-16.2); Lymphocytes # (auto) 1.7 10 ^3/uL (0.4-5.4); Lymphocytes % (auto) 19.6 % (10.0-50.0); Mean Corpuscular Hemoglobin 29.6 pg (28.0-32.0); Mean Corpuscular Hgb Conc. 33.3 g/dL (32.0-36.0); Mean Corpuscular Volume 88.8 fL (80.0-100.0); Monocytes # (auto) 0.6 10 ^3/uL (0-1.3); Monocytes % (auto) 7.1 % (0.0-12.0); Neutrophils # (auto) 6.1 10 ^3/uL (1.6-8.6); Neutrophils % (auto) 72.3 % (37.0-80.0); Platelet Count (auto) 246 10^3/uL (140-450); Red Blood Cells 3.46 10^6/uL (4.0-5.20); Red Cell Distribution Width 15.1 % (11.8-14.3); White Blood Cell 8.4 10^3/uL (4.4-10.8)
[2024-10-11] MEDS: ONDANSETRON HCL 4 MG/2 ML VIAL IV ONE (15:10)
[2024-10-11] MEDS: HYDROmorphone HCL 2 MG/ML VL/or syr IV ONE ×3 (15:11→20:43)
[2024-10-11 15:19] LABS: Chloride 103 mmol/L (98-107); Potassium 4.8 mmol/L (3.5-5.1); Sodium 139 mmol/L (136-145)
[2024-10-11 15:20] LABS: Anion Gap 11 (5-15); Carbon Dioxide 25 mmol/L (20-31)
[2024-10-11 15:21] LABS: Calcium 8.8 mg/dL (8.7-10.4)
[2024-10-11 15:32] LABS: Glucose 157 mg/dL (74-106)
[2024-10-11 15:33] LABS: Blood Urea Nitrogen 46 mg/dL (9-23)
[2024-10-11] MEDS: diphenhdrAMINE HCL 50 MG/1 ML VL IV ONE ×2 (15:54→19:42)
--- NOTE | 2024-10-11 19:03 | ECG ---
[facility] Heart Test Date: 2024-10-11 Test Time: 19:01:42 Pat Name: KEYONA KOCH Department: ED Room: 0287T Gender: F [employer]ing [employer] Operator: radha : 1985 Requested By: AURELIO BARNES Order Number: [id number] Reading MD: Jaden Bhatti Measurements Intervals [place] Rate: 70 P: 33 NE: 175 QRS: -40 QRSD: 105 T: 81 QT: 470 QTc: 508 Interpretive Statements Sinus rhythm Left anterior fascicular block Anteroseptal infarct, old Electronically Signed On 10-16-2024 20:43:49 PDT by Jaden Bhatti Please click the below link to view image of tracing.
[2024-10-11 19:25] VITALS: PULSE 73; RESP 18; O2SAT 96
[2024-10-11] MEDS ORDERED: DOCUSATE SOD 100 MG CAP PO PRN (20:15)
[2024-10-11] MEDS ORDERED: ACETAMINOPHEN 325 MG TAB PO PRN (20:15)
[2024-10-11] MEDS ORDERED: DEXTROSE (50%) 50ML SYRG IV PRN (20:15)
[2024-10-11] MEDS: InsuLIN REG 1unit/0.01ml Soln (100units/ml) SC SCH (22:00)
[2024-10-11] MEDS: CARVEDILOL 12.5 MG TAB PO SCH (22:11)
[2024-10-11] MEDS: FAMOTIDINE (10MG/ML) 2ML VL IV SCH (22:11)
[2024-10-11] MEDS: SODIUM CHLOR 0.9% PF (SALINE LOCK) 10ML VIAL/SYR IV SCH (22:11)
[2024-10-11] MEDS: ACCU-CHEK COMFORT CURVE STRIP VI SCH (22:12)
--- NOTE | 2024-10-11 22:19 | DVHHP2 ---
History of Present Illness Reason for Visit: Supraventricular tachycardia History of Present Illness The patient is a 39-year-old female with multiple past medical history including end-stage renal disease on hemodialysis, CHF, DM, and anemia who presented to [facility] ED with complaint of palpitations associated with chest pain, shortness of breath, nausea, and lightheadedness. As reported, patient was at dialysis today when she started experiencing elevated heart rate in the 190s, so EMS were called. When EMS arrived on the scene, patient was noted to be in SVT, so they provided 6 mg of adenosine with no relief and then 12 mg of adenosine with a relief, heart rate in the 70s EN route to our facility ED. patient was seen and evaluated in the ED, laboratory data shows WBC 8.4, hemoglobin 10.2, hematocrit 30.7, platelets 246, sodium 139, potassium 4.8, BUN 46, creatinine 7.73, glucose 157, troponin 55, BNP 352.38, blood pressure 129/77, heart rate 180 trending down to 74, temperature 98.7 F, O2 saturation 99% on oxygen. Chest x-ray revealing cardiomegaly with pulmonary vascular congestion. On my assessment, patient denies chest pain, no headache, no dizziness, no syncope, no lightheadedness, currently on oxygen, no nausea, no vomiting, no fever, no chills. Patient was admitted for further evaluation and medical management. Past Medical History Anemia, CAD, CHF, DM, ESRD, HTN, Kidney Stones, [place], Sickle Cell Past Surgical History , PTCA, Spleen surgery, Left ovarian cyst removal, Left AV Fistula Family History Reviewed, noncontributory to the management of this case. Past Social History The patient lives at home, denies smoking, alcohol or illicit drugs abuse. Review of Systems Constitutional: Yes: Weakness; No: Fever, Chills, Sweats, Malaise, Other Eyes: No: Pain, Vision change, Conjunctivae inflammation, Eyelid inflammation, Other, Redness ENT: No: Ear pain, Ear discharge, Nose pain, Nose discharge, Nose congestion, Mouth pain, Mouth swelling, Throat pain, Throat swelling, Other Respiratory: Shortness of breath; No: Cough, Dry, SOB with excertion, Wheezing, Hemoptysis, Pleuritic Pain, Sputum, Wheezing, Other Cardiovascular: Chest Pain, Lt Headedness; No: Palpitations, Orthopnea, Paroxysmal Noc. Dyspnea, Edema, Other Gastrointestinal: No: Nausea, Vomiting, Abdominal Pain, Diarrhea, Constipation, Melena, Hematochezia, Other Genitourinary: No Dysuria, No Frequency, No Incontinence, No Hematuria, No Retention; Other (Left AV fistula for hemodialysis) Musculoskeletal: No: other, neck pain, shoulder pain, arm pain, back pain, hand pain, leg pain, foot pain Skin: No: Rash, Lesions, Jaundice, Bruising, Other Neurological: No: Weakness, Numbness, Incoordination, Change in speech, Confusion, Seizures, Other Allergies: Coded Allergies: Tramadol (Verified Allergy, Severe, 08/29/22) patient reports swelling of the airway Ketorolac Tromethamine (Verified Allergy, Intermediate, 08/29/22) Ondansetron (Verified Allergy, Intermediate, 09/25/24) [place] Oil (Verified Allergy, Unknown, 08/29/22) Ceftriaxone (Verified Allergy, Unknown, 08/29/22) NEW PER VERGE REPORT 01-27-17 Cephalexin (Verified Allergy, Unknown, 08/29/22) NEW ENTERED 01-27-17 Fentanyl (Verified Allergy, Unknown, 08/29/22) Iodine (Verified Allergy, Unknown, 08/29/22) Lisinopril (Verified Allergy, Unknown, 08/29/22) Shellfish Allergy (Verified Allergy, Unknown, 08/29/22) Uncoded Allergies: ARTICHOKE (Allergy, Mild, 12/02/16) leon pepper (Allergy, Unknown, 11/19/18) pepper (Allergy, Unknown, 10/05/18) itchy, hives Medications Current Medications Medications Dose Ordered Sig/Reinaldo Route Start Time Stop Time Status Last Admin Dose Admin Carvedilol 12.5 mg Q12HR PO 10/11/24 22:00 10/11/24 22:11 12.5 MG Aspirin 81 mg DAILY PO 10/12/24 10:00 Sevelamer HCl 800 mg TIDWM PO 10/12/24 08:00 Multivit/Ca Carb/ B Cmplx/FA/Prenat 1 tab DAILY PO 10/12/24 10:00 Hydroxyurea 500 mg DAILY PO 10/12/24 10:00 Famotidine 20 mg Q2D IV 10/11/24 22:00 10/11/24 22:11 20 MG Hydralazine HCl 10 mg Q6HP PRN IV 10/11/24 20:15 Diagnostic Test (Pha) 1 strip ACHS 10/11/24 22:00 10/11/24 22:12 1 STRIP Insulin Human Regular ACHS SC 10/11/24 22:00 Dextrose 50 ml UD PRN IV 10/11/24 20:15 Sodium Chloride 10 ml Q8HR IV 10/11/24 22:00 10/11/24 22:11 10 ML Acetaminophen/ Hydrocodone Bitart 1 tab Q4HP PRN PO 10/11/24 20:15 Docusate Sodium 100 mg BIDPRN PRN PO 10/11/24 20:15 Acetaminophen 650 mg Q6HP PRN PO 10/11/24 20:15 Prochlorperazine Edisylate 5 mg Q4HPRN PRN IV 10/11/24 20:15 Exam Vital Signs Vital Signs Date Time Temp Pulse Resp B/P (MAP) Pulse Ox O2 Delivery O2 Flow Rate FiO2 10/11/24 22:11 69 137/66 10/11/24 21:13 12 10/11/24 19:25 97.8 100 97.8 10/11/24 19:25 Room Air* 0 21 General Appearance: Alert, Oriented X3, Cooperative, No acute distress HEENT: Atraumatic, PERRLA, EOMI, Mucous membr. moist/pink Respiratory: Normal air movement, Other (Diminished breath sounds) Cardiovascular: Regular rate, Normal S1, Normal S2, No murmurs Abdominal: Normal bowel sounds, Soft, No tenderness, No hepatospenomegaly, No masses Extremities: No clubbing, No cyanosis, No edema, Normal pulses, No tenderness/swelling Skin: No rashes, No breakdown, No significant lesion Neuro: Normal speech, Normal tone, Sensation intact, Cranial nerves 3-12 NL, Reflexes 2+, Other (Generalized weakness) Psych/Mental Status: Mental status NL, Mood NL Labs/Xrays Labs Test 10/11/24 19:16 10/11/24 14:50 Range/Units Troponin I High Sensitivity 55 *H </=34 ng/L White Blood Count 8.4 4.4-10.8 10^3/uL Red Blood Count 3.46 L 4.0-5.20 10^6/uL Hemoglobin 10.2 L 12.2-16.2 g/dL Hematocrit 30.7 L 36.0-46.0 % Mean Corpuscular Volume 88.8 80.0-100.0 fL Mean Corpuscular Hemoglobin 29.6 28.0-32.0 pg Mean Corpuscular Hemoglobin Concent 33.3 32.0-36.0 g/dL Red Cell Distribution Width 15.1 H 11.8-14.3 % Platelet Count 246 140-450 10^3/uL Mean Platelet Volume 7.3 6.9-10.8 fL Neutrophils (%) (Auto) 72.3 37.0-80.0 % Lymphocytes (%) (Auto) 19.6 10.0-50.0 % Monocytes (%) (Auto) 7.1 0.0-12.0 % Eosinophils (%) (Auto) 0.8 0.0-7.0 % Basophils (%) (Auto) 0.2 0.0-2.0 % Neutrophils # (Auto) 6.1 1.6-8.6 10 ^3/uL Lymphocytes # (Auto) 1.7 0.4-5.4 10 ^3/uL Monocytes # (Auto) 0.6 0-1.3 10 ^3/uL Eosinophils # (Auto) 0.1 0-0.8 10 ^3/uL Basophils # (Auto) 0 0-0.2 10 ^3/uL Nucleated Red Blood Cells 0.0 % Sodium Level 139 136-145 mmol/L Potassium Level 4.8 3.5-5.1 mmol/L Chloride Level 103 98-107 mmol/L Carbon Dioxide Level 25 20-31 mmol/L Anion Gap 11 5-15 Blood Urea Nitrogen 46 H 9-23 mg/dL Creatinine 7.73 H 0.550-1.02 mg/dL Glomerular Filtration Rate Calc 6 >90 mL/min BUN/Creatinine Ratio 6.0 L 10.0-20.0 Serum Glucose 157 H 74-106 mg/dL Calcium Level 8.8 8.7-10.4 mg/dL Magnesium Level 2.0 1.6-2.6 mg/dL B-Type Natriuretic Peptide 352.38 0-100 pg/mL PATIENT: KEYONA KOCH ACCT: [id number] UNIT: [id number] : 1985 LOC: ER ROOM / BED: / AGE / SEX: 39 / F ADM STATUS: REG ER SERVICE 1427 ORDERING PHYSICIAN: AURELIO BARNES MD PROCEDURE(s): CXRP - CHEST PORTABLE REASON: Palpitations ORDER NUMBER(s): [id number], ACCESSION NUMBER(s): [id number] XY CHEST PORTABLE, HISTORY: Palpitations COMPARISON: XY CHEST PORTABLE on DOS: 09/25/24, XY CHEST PORTABLE on DOS: 09/06/24, XY CHEST XRAY 1 VIEW on DOS: 03/17/23 XY CHEST PORTABLE on DOS: 09/25/24, XY CHEST PORTABLE on DOS: 09/06/24, XY CHEST XRAY 1 VIEW on DOS: 03/17/23 TECHNICAL DATA: 1 view of the chest was obtained. FINDINGS: Lines and tubes: None Cardiomediastinal silhouette: enlarged Pulmonary vasculature: prominent Lung expansion: normal Lung airspace: normal Lung interstitium: normal Pleura: normal Pneumothorax: no Bones: Unremarkable Other: no IMPRESSION: Cardiomegaly with pulmonary vascular congestion. Assessment/Plan Assessment/Plan End stage renal disease Sickle cell crisis Dependence on renal dialysis Supraventricular tachycardia Generalized weakness Plan 1. Admit to telemetry unit 2. Breathing treatment 3. Pain control management 4. Management of fluids and electrolytes 5. Consultation for Nephrology 6. Diagnostic tests chest x-ray 7. DVT prophylaxis on aspirin 8. Repeat labs CBC, CMP in a.m. 9. Continue with current medical management 10. Treatment plan discussed with patient and RN. Patient verbalized understanding. Plan discussed with: Patient, Other (RN) My Orders Orders - NURIS REN DNP Procedure Category Date Status Time Carvedilol Tablet PHA 10/11/24 In Process (Coreg Tablet) 22:00 Aspirin Tablet PHA 10/12/24 In Process 10:00 *[facility] CONS 10/11/24 Transmitted -[place] 20:09 Consistent DIET 10/12/24 Transmitted Carb(Ccho)Diabetes Breakfast Sevelamer (Renagel) PHA 10/12/24 In Process 08:00 B-Complex W/ C & PHA 10/12/24 In Process Folic Tablet 10:00 Hydroxyurea Capsule PHA 10/12/24 In Process (Hydrea Capsule) 10:00 Famotidine Injection PHA 10/11/24 In Process (Pepcid Injection) 22:00 Hydralazine Injection PHA 10/11/24 In Process (Apresoline Inject 20:15 Glucose Blood PHA 10/11/24 In Process (Accu-Chek Comfort 22:00 Insulin R (Human) PHA 10/11/24 In Process (Insulin R) 22:00 Dextrose 50% Syringe PHA 10/11/24 In Process 20:15 Allergies JORGE 10/11/24 In Process 20:09 Code Status CODE 10/11/24 Transmitted 20:09 Renal DIET 10/12/24 Transmitted Standard(2gna,3gk,Lopho) Breakfast Sodium Chloride Lock PHA 10/11/24 In Process (Saline Lock Ns) 22:00 Oxygen Per Hour RT 10/11/24 Transmitted 20:09 Hydrocodone-Acet PHA 10/11/24 In Process 5/325mg Tab ([place] 20:15 Docusate Sodium PHA 10/11/24 In Process Capsule (Colace 20:15 Complete Blood Count LAB 10/12/24 Verified 04:00 Comprehensive LAB 10/12/24 Verified Metabolic Panel 04:00 Echo 2d Mode Cardiac US 10/11/24 Logged DOP 20:09 Condition: Serious JORGE 10/11/24 In Process 20:09 Acetaminophen Tablet PHA 10/11/24 In Process (Tylenol Tablet) 20:15 Bedrest With Bathroom JORGE 10/11/24 In Process Privileg 20:09 Sequential JORGE 10/11/24 In Process Compression Device Prochlorperazine Inj PHA 10/11/24 In Process (Compazine Inj) 20:15 Problem List: (1) End stage renal disease (2) Sickle cell crisis (3) Supraventricular tachycardia (4) Dependence on renal dialysis (5) Generalized weakness Date of Service: Oct 11, 2024 Billing Provider: NURIS REN DNP Common Visit Codes: [id number] INP/OBS CARE (HIGH) NURIS REN DNP Oct 11, 2024 22:19
[2024-10-11] MEDS ORDERED: NITROGLYCERIN 0.4 MG SL TAB SL PRN (22:30)
[2024-10-11] MEDS ORDERED: MORPHINE SULFATE INJ 2 MG/ml SYRG IV PRN (22:30)
[2024-10-12] VITALS (7 sets, daily range): BP systolic 131–185; BP diastolic 54–97; PULSE 69–91; RESP 15–19; TEMP 97.6–98.9; O2SAT 97–100
[2024-10-12] MEDS: HYDROcodone-ACET 5/325MG TAB PO PRN (01:59)
[2024-10-12] MEDS: diphenhdrAMINE HCL 50 MG/1 ML VL IV PRN ×2 (05:00→17:18)
[2024-10-12 06:15] LABS: Basophils # (auto) 0 10 ^3/uL (0-0.2); Basophils % (auto) 0.2 % (0.0-2.0); Eosinophils # (auto) 0.2 10 ^3/uL (0-0.8); Hematocrit 25.3 % (36.0-46.0); Hemoglobin 8.4 g/dL (12.2-16.2); Monocytes # (auto) 0.7 10 ^3/uL (0-1.3); White Blood Cell 7.2 10^3/uL (4.4-10.8)
[2024-10-12 06:17] LABS: Eosinophils % (auto) 2.4 % (0.0-7.0); Lymphocytes % (auto) 27.7 % (10.0-50.0); Mean Corpuscular Hemoglobin 29.4 pg (28.0-32.0); Mean Corpuscular Hgb Conc. 33.1 g/dL (32.0-36.0); Mean Corpuscular Volume 88.7 fL (80.0-100.0); Monocytes % (auto) 10.1 % (0.0-12.0); Neutrophils # (auto) 4.3 10 ^3/uL (1.6-8.6); Neutrophils % (auto) 59.6 % (37.0-80.0); Platelet Count (auto) 206 10^3/uL (140-450); Red Blood Cells 2.86 10^6/uL (4.0-5.20)
[2024-10-12 06:43] LABS: Albumin 3.9 g/dL (3.2-4.8); Anion Gap 10 (5-15); BUN/Creatinine Ratio 5.8 (10.0-20.0); Carbon Dioxide 24 mmol/L (20-31); Chloride 104 mmol/L (98-107); Glucose 75 mg/dL (74-106); Potassium 4.9 mmol/L (3.5-5.1); Sodium 138 mmol/L (136-145); Total Protein 6.3 g/dL (5.7-8.2)
[2024-10-12 06:44] LABS: Alanine Aminotransferase < 9 U/L (7-40); Alkaline Phosphatase 134 U/L (46-116); Aspartate Aminotransferase < 8 U/L (13-40); Blood Urea Nitrogen 52 mg/dL (9-23); Calcium 8.3 mg/dL (8.7-10.4)
[2024-10-12 06:49] LABS: Bilirubin, Total 0.2 mg/dL (0.2-1.0)
[2024-10-12] MEDS: SEVELAMER 800 MG TAB PO SCH (10:42)
[2024-10-12] MEDS: ASPirin 81 mg TAB PO SCH (10:42)
[2024-10-12] MEDS: B-COMPLEX W/ C & FOLIC ACID(NEPHROVITE TAB) PO SCH (10:42)
[2024-10-12] MEDS: hydroxyUREA 500 MG CAP PO SCH (12:28)
[2024-10-12] MEDS: HYDROmorphone HCL 2 MG/ML VL/or syr IV PRN ×2 (14:18→17:18)
[2024-10-12] MEDS: hydrALAZINE HCL 20 MG/ML VL IV PRN (14:21)
--- NOTE | 2024-10-12 16:00 | DVHINCON2 ---
Date of service: Oct 12, 2024 Referring Physician Carlos Alberto Villegas NP Reason for Consultation ESRD History of Present Illness Vicky ly is a 39-year-old female with known history of ESRD on maintenance hemodialysis who presented for further evaluation and management of tachy dysrhythmia that initiated when she was started on dialysis. She states that she has a prior history of SVT. She is currently seen in the emergency depa rtment awake alert conversant and in no acute distress. She denies recent fevers, chills, nausea, vomiting. Hemodialysis on a Monday schedule, access is left upper extremity AV fistula. Past Medical History ESRD Hypertension Prior history of SVT Anemia Chronic systolic and diastolic heart failure Sickle cell disease. Past Surgical History , PTCA, Spleen surgery, Left ovarian cyst removal, Left AV Fistula Allergies: Coded Allergies: Tramadol (Verified Allergy, Severe, 08/29/22) patient reports swelling of the airway Ketorolac Tromethamine (Verified Allergy, Intermediate, 08/29/22) Ondansetron (Verified Allergy, Intermediate, 09/25/24) [place] Oil (Verified Allergy, Unknown, 08/29/22) Ceftriaxone (Verified Allergy, Unknown, 08/29/22) NEW PER VERGE REPORT 01-27-17 Cephalexin (Verified Allergy, Unknown, 08/29/22) NEW ENTERED 01-27-17 Fentanyl (Verified Allergy, Unknown, 08/29/22) Iodine (Verified Allergy, Unknown, 08/29/22) Lisinopril (Verified Allergy, Unknown, 08/29/22) Shellfish Allergy (Verified Allergy, Unknown, 08/29/22) Uncoded Allergies: ARTICHOKE (Allergy, Mild, 12/02/16) leon pepper (Allergy, Unknown, 11/19/18) pepper (Allergy, Unknown, 10/05/18) itchy, hives Home Meds Active Scripts Clopidogrel Bisulfate (Plavix) 75 Mg Tab, 1 TAB PO DAILY, #30 TAB 5 Refills Prov:MARTY SHI MD 08/30/22 Aspirin (Aspir-81) 81 Mg Tab, 1 TAB PO DAILY, #30 TAB 5 Refills Prov:MARTY SHI MD 08/30/22 Carvedilol (Coreg) 25 Mg Tab, 1 TAB PO BID, #60 TAB 5 Refills Prov:MARTY SHI MD 08/30/22 Hydralazine Hcl (Hydralazine Hcl) 50 Mg Tab, 100 MG PO BID, #120 TAB Prov:MARCELLO GÓMEZ MD 07/17/22 Nifedipine (Nifedipine Er) 90 Mg Tab, 1 TAB PO DAILY, #90 TAB 3 Refills Prov:MARCELLO GÓMEZ MD 07/17/22 Minoxidil (Minoxidil) 2.5 Mg Tab, 2.5 MG PO BID for 30 Days, #60 TAB Prov:PATRICIA SMITH MD 08/19/21 Aspirin (Aspir-Low Ec) 81 Mg Tb, 81 MG PO DAILY for 30 Days Prov:CASEY DE ANDA MD 10/06/18 Folic Acid (Folic Acid) 1 Mg Tab, 1 MG PO DAILY, #30 TAB Prov:CASEY DE ANDA MD 10/06/18 Hydroxyurea (HYDREA CAPSULE) 500 Mg Cp, 500 MG PO DAILY, #30 CP Prov:THALIA MADERA MD 09/05/16 Reported Medications Pantoprazole Sodium Sesquihydr (Pantoprazole Sodium) 40 Mg Tab, 1 TAB PO DAILYPRN 03/24/22 Promethazine Hcl (Promethazine Hcl) 25 Mg Tab, 1 TAB PO BIDPRN 03/24/22 Sucralfate (Sucralfate) 1 Gm Tab, 1 TAB PO TID 03/24/22 Furosemide (Furosemide) 80 Mg Tab, 1 TAB PO BID 08/16/21 Hydromorphone Hcl (HYDROMORPHONE HCL) 2 Mg/Ml Inj, 2 MG IJ, INJ 04/20/21 Hydroxyurea (Hydroxyurea) 500 Mg Cap, 500 MG PO DAILY, MG 04/20/21 Hydralazine Hcl (Hydralazine Hcl) 50 Mg Tab, 100 MG PO TID for 30 Days, MG 04/20/21 Oxycodone W/ Acetaminophen (Oxycodone/Acetaminophen 10-300 mg) 1 Tab Tab 04/20/21 Clonidine Hydrochloride (Clonidine Hcl) 0.3 Mg Tab, 1 TAB PO TID 04/20/21 Clopidogrel Bisulfate (CLOPIDOGREL) 75 Mg Tab, 1 TAB PO DAILYPRN 04/20/21 Patients Own Medication (PATIENTS OWN MEDICATION) . PTS OWN MED-OBTAIN FROM PT AND SEND TO RX DRUG: FREQ: RX# EXP: DATE DISP: TECH: [facility]: 12/26/19 Hydralazine Hcl (Hydralazine Hcl) 100 Mg Tab, 100 MG PO BID, TAB 12/26/19 Zolpidem Tartrate (Ambien) 10 Mg Tab, 1 TAB PO QPM, #30 TAB 5 Refills 01/05/17 Nifedipine (Nifedipine Er) 90 Mg Tab, 1 TAB PO DAILY, #30 TAB 5 Refills 01/14/16 Current Medications Current Medications Medications (Trade) Dose Ordered Sig/Reinaldo Route PRN Reason Start Time Stop Time Status Last Admin Carvedilol (Coreg Tablet) 12.5 mg Q12HR PO 10/11/24 22:00 10/12/24 10:45 Aspirin 81 mg DAILY PO 10/12/24 10:00 10/12/24 10:42 Sevelamer HCl (Renagel) 800 mg TIDWM PO 10/12/24 08:00 10/12/24 12:28 Multivit/Ca Carb/ B Cmplx/FA/Prenat (Nephro-Ervin Tablet) 1 tab DAILY PO 10/12/24 10:00 10/12/24 10:42 Hydroxyurea (Hydrea Capsule) 500 mg DAILY PO 10/12/24 10:00 10/12/24 12:28 Famotidine (Pepcid Injection) 20 mg Q2D IV 10/11/24 22:00 10/11/24 22:11 Hydralazine HCl (Apresoline Injection) 10 mg Q6HP PRN IV SBP>150 10/11/24 20:15 10/12/24 14:21 Diagnostic Test (Pha) (Accu-Chek Comfort Curve T) 1 strip ACHS 10/11/24 22:00 10/12/24 13:08 DC 10/11/24 22:12 Insulin Human Regular (InsuLIN R) ACHS SC 10/11/24 22:00 10/12/24 13:08 DC Dextrose 50 ml UD PRN IV Blood Sugar LESS THAN 60 10/11/24 20:15 10/12/24 13:08 DC Sodium Chloride (Saline Lock Ns) 10 ml Q8HR IV 10/11/24 22:00 10/12/24 14:10 Acetaminophen/ Hydrocodone Bitart ([place] 5/325MG Tab) 1 tab Q4HP PRN PO MODERATE PAIN (4-6 PAIN SCALE) 10/11/24 20:15 10/12/24 06:36 Docusate Sodium (Colace Capsule) 100 mg BIDPRN PRN PO FOR CONSTIPATION 10/11/24 20:15 Acetaminophen (Tylenol Tablet) 650 mg Q6HP PRN PO PAIN SCALE 1-3 OR TEMP>100.4 10/11/24 20:15 Prochlorperazine Edisylate (Compazine Inj) 5 mg Q4HPRN PRN IV NAUSEA / VOMITING 10/11/24 20:15 Nitroglycerin (Ntrostat Sublingual) 0.4 mg Q5MINP PRN SL FOR CHEST PAIN 10/11/24 22:30 Morphine Sulfate 2 mg Q30M PRN IV FOR CHEST PAIN 10/11/24 22:30 Diphenhydramine HCl (Benadryl Injection) 25 mg Q6HP PRN IV FOR ITCHING 10/12/24 05:00 10/12/24 15:40 DC 10/12/24 11:06 Hydromorphone HCl (Dilaudid Injection) 1 mg PRN PRN IV PAIN SCALE 7 THRU 10 10/12/24 13:15 10/12/24 15:42 DC 10/12/24 14:18 Diphenhydramine HCl (Benadryl Injection) 50 mg Q6HP PRN IV FOR ITCHING 10/12/24 15:45 Hydromorphone HCl (Dilaudid Injection) 1 mg Q4HR PRN IV PAIN SCALE 7 THRU 10 10/12/24 15:45 Family History: Cancer G8 MOTHER G8 FATHER Colon cancer G8 MOTHER Diabetes during G8 MOTHER, Onset:Unknown FH: sickle cell anemia G8 MOTHER G8 FATHER G8 SISTER FH: sickle cell anemia G8 MOTHER G8 FATHER G8 SISTER Family history: Cardiovascular disease G8 FATHER Family history: Diabetes mellitus G8 MOTHER Family history: Hypertension G8 MOTHER G8 FATHER Review of Systems Denies gross hematuria, dysuria, tea or Coca-Cola colored urine Denies excessive use of recent NSAIDs, foamy urine, recent IV contrast studies Denies recent chest pain, dyspnea, PND, orthopnea Denies fever, chills, nausea, vomiting, diarrhea Denies unintentional weight loss, night sweats Denies focal weakness, numbness H&P Exam Vital Signs/I&O Vital Sign Date Time Temp Pulse Resp B/P (MAP) Pulse Ox O2 Delivery O2 Flow Rate FiO2 10/12/24 14:48 82 20 178/88 10/12/24 12:00 97.9 98 97.9 10/12/24 02:12 Room Air* 0 21 Physical Exam Gen: nad heent: nc/at, mmm lungs: cta anteriorly cvs: no rub abd: soft, bowel sounds audible ext: no edema, left upper extremity AV fistula is patent skin: no rash neuro: alert and oriented Labs/Diagnostic Data Labs/Diagnostic Data Laboratory Tests Test 10/12/24 05:44 10/11/24 19:16 10/11/24 17:20 10/11/24 14:50 Range/Units White Blood Count 7.2 8.4 4.4-10.8 10^3/uL Red Blood Count 2.86 L 3.46 L 4.0-5.20 10^6/uL Hemoglobin 8.4 #L 10.2 L 12.2-16.2 g/dL Hematocrit 25.3 #L 30.7 L 36.0-46.0 % Mean Corpuscular Volume 88.7 88.8 80.0-100.0 fL Mean Corpuscular Hemoglobin 29.4 29.6 28.0-32.0 pg Mean Corpuscular Hemoglobin Concent 33.1 33.3 32.0-36.0 g/dL Red Cell Distribution Width 15.0 H 15.1 H 11.8-14.3 % Platelet Count 206 246 140-450 10^3/uL Mean Platelet Volume 7.4 7.3 6.9-10.8 fL Neutrophils (%) (Auto) 59.6 72.3 37.0-80.0 % Lymphocytes (%) (Auto) 27.7 19.6 10.0-50.0 % Monocytes (%) (Auto) 10.1 7.1 0.0-12.0 % Eosinophils (%) (Auto) 2.4 0.8 0.0-7.0 % Basophils (%) (Auto) 0.2 0.2 0.0-2.0 % Neutrophils # (Auto) 4.3 6.1 1.6-8.6 10 ^3/uL Lymphocytes # (Auto) 2.0 1.7 0.4-5.4 10 ^3/uL Monocytes # (Auto) 0.7 0.6 0-1.3 10 ^3/uL Eosinophils # (Auto) 0.2 0.1 0-0.8 10 ^3/uL Basophils # (Auto) 0 0 0-0.2 10 ^3/uL Nucleated Red Blood Cells 0.0 0.0 % Sodium Level 138 139 136-145 mmol/L Potassium Level 4.9 4.8 3.5-5.1 mmol/L Chloride Level 104 103 98-107 mmol/L Carbon Dioxide Level 24 25 20-31 mmol/L Anion Gap 10 11 5-15 Blood Urea Nitrogen 52 H 46 H 9-23 mg/dL Creatinine 8.91 H 7.73 H 0.550-1.02 mg/dL Glomerular Filtration Rate Calc 5 6 >90 mL/min BUN/Creatinine Ratio 5.8 L 6.0 L 10.0-20.0 Serum Glucose 75 157 H 74-106 mg/dL Calcium Level 8.3 L 8.8 8.7-10.4 mg/dL Total Bilirubin 0.2 0.2-1.0 mg/dL Aspartate Amino Transferase (AST) < 8 L 13-40 U/L Alanine Aminotransferase (ALT) < 9 7-40 U/L Alkaline Phosphatase 134 H 46-116 U/L Total Protein 6.3 5.7-8.2 g/dL Albumin 3.9 3.2-4.8 g/dL Troponin I High Sensitivity 55 *H 36 *H 24 </=34 ng/L Magnesium Level 2.0 1.6-2.6 mg/dL B-Type Natriuretic Peptide 352.38 0-100 pg/mL Assessment IMP: 1) ESRD on dialysis 2) SVT 3) hypertension 4) anemia REC: - hemodialysis tentatively October 13 - ultrafiltration as hemodynamics permit - plan for dialysis without heparin - appears stable from Nephrology perspective, other consultations ongoing. Thank you for the consultation. Plan discussed with: Patient PATTY STEPHENS MD Oct 12, 2024 16:00
--- NOTE | 2024-10-12 16:59 | DVHPN2 ---
Subjective still having pain Reviewed: H&P, Labs Changes from previous H/P or p: No Changes Eyes: No Pain, No Vision change, No Conjunctivae inflammation, No Eyelid inflammation, No Other, No Redness ENT: No Ear pain, No Ear discharge, No Nose pain, No Nose discharge, No Nose congestion, No Mouth pain, No Mouth swelling, No Throat pain, No Throat swelling, No Other Cardiovascular: Chest Pain; No Palpitations, No Orthopnea, No Paroxysmal Noc. Dyspnea, No Edema; Lt Headedness; No Other Respiratory: No Cough, No Dry; Shortness of breath; No SOB with excertion, No Wheezing, No Hemoptysis, No Pleuritic Pain, No Sputum, No Other Gastrointestinal: No Nausea, No Vomiting, No Abdominal Pain, No Diarrhea, No Constipation, No Melena, No Hematochezia, No Other Genitourinary: No Dysuria, No Frequency, No Incontinence, No Hematuria, No Retention; Other (Left AV fistula for hemodialysis) Musculoskeletal: No other, No neck pain, No shoulder pain, No arm pain, No back pain, No hand pain, No leg pain, No foot pain Skin: No Rash, No Lesions, No Jaundice, No Bruising, No Other Objective Vitals Vital Signs Date Time Temp Pulse Resp B/P (MAP) Pulse Ox O2 Delivery O2 Flow Rate FiO2 10/12/24 14:48 82 20 178/88 10/12/24 12:00 97.9 98 97.9 10/12/24 02:12 Room Air* 0 21 General Appearance: Alert, Oriented X3 Lungs: Clear to auscultation Cardiovascular: Regular rate, Normal S1, Normal S2 Abdomen: Normal bowel sounds Medications Current Medications Medications Dose Ordered Sig/Reinaldo Route Start Time Stop Time Status Last Admin Dose Admin Carvedilol 12.5 mg Q12HR PO 10/11/24 22:00 10/12/24 10:45 12.5 MG Aspirin 81 mg DAILY PO 10/12/24 10:00 10/12/24 10:42 81 MG Sevelamer HCl 800 mg TIDWM PO 10/12/24 08:00 10/12/24 12:28 800 MG Multivit/Ca Carb/ B Cmplx/FA/Prenat 1 tab DAILY PO 10/12/24 10:00 10/12/24 10:42 1 TAB Hydroxyurea 500 mg DAILY PO 10/12/24 10:00 10/12/24 12:28 500 MG Famotidine 20 mg Q2D IV 10/11/24 22:00 10/11/24 22:11 20 MG Hydralazine HCl 10 mg Q6HP PRN IV 10/11/24 20:15 10/12/24 14:21 10 MG Sodium Chloride 10 ml Q8HR IV 10/11/24 22:00 10/12/24 14:10 10 ML Acetaminophen/ Hydrocodone Bitart 1 tab Q4HP PRN PO 10/11/24 20:15 10/12/24 06:36 1 TAB Docusate Sodium 100 mg BIDPRN PRN PO 10/11/24 20:15 Acetaminophen 650 mg Q6HP PRN PO 10/11/24 20:15 Prochlorperazine Edisylate 5 mg Q4HPRN PRN IV 10/11/24 20:15 Nitroglycerin 0.4 mg Q5MINP PRN SL 10/11/24 22:30 Morphine Sulfate 2 mg Q30M PRN IV 10/11/24 22:30 Diphenhydramine HCl 50 mg Q6HP PRN IV 10/12/24 15:45 Hydromorphone HCl 1 mg Q4HR PRN IV 10/12/24 15:45 Laboratory Results Laboratory Tests 10/12/24 05:44 Chemistry Test 10/12/24 05:44 Albumin 3.9 g/dL (3.2-4.8) Calcium Level 8.3 mg/dL (8.7-10.4) L Total Protein 6.3 g/dL (5.7-8.2) LFT Test 10/12/24 05:44 Alanine Aminotransferase (ALT) < 9 U/L (7-40) Alkaline Phosphatase 134 U/L (46-116) H Aspartate Amino Transferase (AST) < 8 U/L (13-40) L Total Bilirubin 0.2 mg/dL (0.2-1.0) Assessment/Plan Assessment/Plan End stage renal disease Sickle cell crisis Dependence on renal dialysis Supraventricular tachycardia Generalized weakness Acute hemolytic anemia HB [id number] Increase dilaudid ordered 1 U PRBC IVF Nephrology consulted Plan discussed with: Patient My Orders Orders - FELIPE JONES MD Procedure Category Date Status Time Packedcell-Noactive BBK 10/12/24 Logged Bleeding 12:45 Type And Screen BBK 10/12/24 Logged 12:45 Diphenhdramine PHA 10/12/24 In Process Injection (Benadryl 15:45 Hydromorphone PHA 10/12/24 In Process Injection (Dilaudid 15:45 Date of Service: Oct 12, 2024 Billing Provider: FELIPE JONES MD Common Visit Codes: [id number] INP/OBS CARE(HIGH) FELIPE JONES MD Oct 12, 2024 16:59
--- NOTE | 2024-10-12 18:46 | ECG ---
[facility] Test Date: 2024-10-11 Test Time: 14:17:21 Pat Name: KEYONA KOCH Department: ED Room: [facility]7T B Gender: F State Tested Nursing Assistant: iliana : 1985 Requested By: AURELIO BARNES Order Number: [id number] Reading MD: Jaden Bhatti Measurements Intervals [place] Rate: 181 P: 0 NM: 0 QRS: -35 QRSD: 99 T: 124 QT: 293 QTc: 509 Interpretive Statements Atrial fibrillation with rapid V-rate LVH with secondary repolarization abnormality Anterior Q waves, possibly due to LVH Electronically Signed On 10-16-2024 20:33:03 PDT by Jaden Bhatti Please click the below link to view image of tracing.
[2024-10-12] MEDS: amLODIPine BESYLATE 5 MG TAB PO ONE (18:55)
[2024-10-12 19:27] LABS: Basophils # (auto) 0 10 ^3/uL (0-0.2); Basophils % (auto) 0.3 % (0.0-2.0); Eosinophils # (auto) 0.3 10 ^3/uL (0-0.8); Eosinophils % (auto) 2.5 % (0.0-7.0); Hematocrit 28.2 % (36.0-46.0); Hemoglobin 9.4 g/dL (12.2-16.2); Lymphocytes # (auto) 1.6 10 ^3/uL (0.4-5.4); Lymphocytes % (auto) 15.6 % (10.0-50.0); Mean Corpuscular Hemoglobin 29.5 pg (28.0-32.0); Mean Corpuscular Hgb Conc. 33.3 g/dL (32.0-36.0); Mean Corpuscular Volume 88.6 fL (80.0-100.0); Monocytes # (auto) 0.9 10 ^3/uL (0-1.3); Monocytes % (auto) 9.2 % (0.0-12.0); Neutrophils # (auto) 7.3 10 ^3/uL (1.6-8.6); Neutrophils % (auto) 72.4 % (37.0-80.0); Platelet Count (auto) 240 10^3/uL (140-450); Red Blood Cells 3.18 10^6/uL (4.0-5.20); Red Cell Distribution Width 15.1 % (11.8-14.3); White Blood Cell 10.1 10^3/uL (4.4-10.8)
[2024-10-12 19:40] LABS: INR 0.97 (0.9-1.15); Prothrombin Time 10.3 sec (9.3-11.8)
[2024-10-13] VITALS (8 sets, daily range): BP systolic 141–178; BP diastolic 66–100; PULSE 86–106; RESP 15–18; TEMP 97.7–98.1; O2SAT 93–99
[2024-10-13] MEDS: PROCHLORPERAZINE EDISYLATE 5 MG/ML 2ML VIAL IV PRN (03:07)
[2024-10-13] MEDS: SODIUM CHL 0.9% 1000 ML BAG XX ONE (07:00)
[2024-10-13 11:56] LABS: Basophils # (auto) 0 10 ^3/uL (0-0.2); Basophils % (auto) 0.2 % (0.0-2.0); Eosinophils # (auto) 0.2 10 ^3/uL (0-0.8); Eosinophils % (auto) 1.4 % (0.0-7.0); Hematocrit 27.1 % (36.0-46.0); Hemoglobin 9.1 g/dL (12.2-16.2); Lymphocytes # (auto) 1.1 10 ^3/uL (0.4-5.4); Lymphocytes % (auto) 8.9 % (10.0-50.0); Mean Corpuscular Hemoglobin 29.1 pg (28.0-32.0); Mean Corpuscular Hgb Conc. 33.5 g/dL (32.0-36.0); Mean Corpuscular Volume 86.8 fL (80.0-100.0); Monocytes # (auto) 1.2 10 ^3/uL (0-1.3); Monocytes % (auto) 9.7 % (0.0-12.0); Neutrophils # (auto) 9.9 10 ^3/uL (1.6-8.6); Neutrophils % (auto) 79.8 % (37.0-80.0); Platelet Count (auto) 220 10^3/uL (140-450); Red Blood Cells 3.13 10^6/uL (4.0-5.20); Red Cell Distribution Width 15.1 % (11.8-14.3); White Blood Cell 12.4 10^3/uL (4.4-10.8)
[2024-10-13 12:03] LABS: Anion Gap 12 (5-15); BUN/Creatinine Ratio 5.3 (10.0-20.0); Calcium 9.2 mg/dL (8.7-10.4); Carbon Dioxide 27 mmol/L (20-31); Chloride 102 mmol/L (98-107); Glucose 96 mg/dL (74-106); Potassium 4.1 mmol/L (3.5-5.1); Sodium 141 mmol/L (136-145); Total Protein 6.9 g/dL (5.7-8.2)
[2024-10-13 12:04] LABS: Alanine Aminotransferase < 9 U/L (7-40); Alkaline Phosphatase 137 U/L (46-116); Aspartate Aminotransferase 9 U/L (13-40); Bilirubin, Total 0.4 mg/dL (0.2-1.0); Blood Urea Nitrogen 30 mg/dL (9-23)
[2024-10-13] MEDS: EPOETIN ALFA-EPBX 10,000 UNIT/1ML VIAL IV ONE (12:42)
[2024-10-13 13:21] LABS: Albumin 4.3 g/dL (3.2-4.8)
--- NOTE | 2024-10-13 15:05 | DVHPN2 ---
Progress Note Date Seen: Oct 13, 2024 Medical Necessity Reason Pt with a Central, PICC or Fol: No Subjective Patient reports: No new complaints Objective vital signs Vital Sign Date Time Temp Pulse Resp B/P (MAP) Pulse Ox O2 Delivery O2 Flow Rate FiO2 10/13/24 12:59 98.0 99 17 163/85 (111) 98 98.0 10/13/24 08:00 Room Air* 0 21 Total Intake and Output 10/12/24 10/12/24 10/13/24 14:59 22:59 06:59 Intake Total 345 ml 950 ml Output Total 600 ml Balance 345 ml 350 ml medications Current Medications Medications Dose Ordered Sig/Reinaldo Route Start Time Stop Time Status Last Admin Dose Admin Carvedilol 12.5 mg Q12HR PO 10/11/24 22:00 10/12/24 21:29 12.5 MG Aspirin 81 mg DAILY PO 10/12/24 10:00 10/13/24 09:14 81 MG Sevelamer HCl 800 mg TIDWM PO 10/12/24 08:00 10/13/24 12:35 800 MG Multivit/Ca Carb/ B Cmplx/FA/Prenat 1 tab DAILY PO 10/12/24 10:00 10/13/24 09:09 1 TAB Hydroxyurea 500 mg DAILY PO 10/12/24 10:00 10/12/24 12:28 500 MG Famotidine 20 mg Q2D IV 10/11/24 22:00 10/11/24 22:11 20 MG Hydralazine HCl 10 mg Q6HP PRN IV 10/11/24 20:15 10/13/24 12:47 10 MG Sodium Chloride 10 ml Q8HR IV 10/11/24 22:00 10/13/24 05:29 10 ML Acetaminophen/ Hydrocodone Bitart 1 tab Q4HP PRN PO 10/11/24 20:15 10/12/24 23:36 1 TAB Docusate Sodium 100 mg BIDPRN PRN PO 10/11/24 20:15 Acetaminophen 650 mg Q6HP PRN PO 10/11/24 20:15 Prochlorperazine Edisylate 5 mg Q4HPRN PRN IV 10/11/24 20:15 10/13/24 03:07 5 MG Nitroglycerin 0.4 mg Q5MINP PRN SL 10/11/24 22:30 Morphine Sulfate 2 mg Q30M PRN IV 10/11/24 22:30 Diphenhydramine HCl 50 mg Q6HP PRN IV 10/12/24 15:45 10/13/24 12:06 50 MG Hydromorphone HCl 1 mg Q4HR PRN IV 10/12/24 15:45 10/13/24 09:09 1 MG Examination Gen: NAD, appears stated age Lungs: Bilateral air entry Heart: RRR, normal S1 and S2 Ext: No edema Neuro: A&Ox4 laboratory and microbiology Laboratory Tests 10/13/24 11:30 Test 10/13/24 11:30 Range/Units Serum Glucose 96 74-106 mg/dL Labs and/or images reviewed: Labs reviewed by me Problem List/Assessment/Plan Problem List/Assessment/Plan IMP: 1) ESRD on dialysis 2) SVT 3) hypertension 4) anemia REC: -HD today -Strict I&O's -BP control -Will continue to follow Plan discussed with: Patient MCDANIELSLENNY CAMARILLO [employer] Oct 13, 2024 15:05
--- NOTE | 2024-10-13 19:25 | DVHPN2 ---
Subjective still having pain Reviewed: H&P, Labs Changes from previous H/P or p: No Changes Eyes: No Pain, No Vision change, No Conjunctivae inflammation, No Eyelid inflammation, No Other, No Redness ENT: No Ear pain, No Ear discharge, No Nose pain, No Nose discharge, No Nose congestion, No Mouth pain, No Mouth swelling, No Throat pain, No Throat swelling, No Other Cardiovascular: Chest Pain; No Palpitations, No Orthopnea, No Paroxysmal Noc. Dyspnea, No Edema; Lt Headedness; No Other Respiratory: No Cough, No Dry; Shortness of breath; No SOB with excertion, No Wheezing, No Hemoptysis, No Pleuritic Pain, No Sputum, No Other Gastrointestinal: No Nausea, No Vomiting, No Abdominal Pain, No Diarrhea, No Constipation, No Melena, No Hematochezia, No Other Genitourinary: No Dysuria, No Frequency, No Incontinence, No Hematuria, No Retention; Other (Left AV fistula for hemodialysis) Musculoskeletal: No other, No neck pain, No shoulder pain, No arm pain, No back pain, No hand pain, No leg pain, No foot pain Skin: No Rash, No Lesions, No Jaundice, No Bruising, No Other Objective Vitals Vital Signs Date Time Temp Pulse Resp B/P (MAP) Pulse Ox O2 Delivery O2 Flow Rate FiO2 10/13/24 17:05 97.8 106 17 141/78 (99) 95 97.8 10/13/24 08:00 Room Air* 0 21 Intake/Output Intake and Output 10/13/24 07:00 Intake Total 1295 ml Output Total 600 ml Balance 695 ml Intake Oral 1295 ml Output Urine Total 600 ml # Bowel Movements 1 General Appearance: Alert, Oriented X3 Lungs: Clear to auscultation Cardiovascular: Regular rate, Normal S1, Normal S2 Abdomen: Normal bowel sounds Medications Current Medications Medications Dose Ordered Sig/Reinaldo Route Start Time Stop Time Status Last Admin Dose Admin Carvedilol 12.5 mg Q12HR PO 10/11/24 22:00 10/12/24 21:29 12.5 MG Aspirin 81 mg DAILY PO 10/12/24 10:00 10/13/24 09:14 81 MG Sevelamer HCl 800 mg TIDWM PO 10/12/24 08:00 10/13/24 18:23 800 MG Multivit/Ca Carb/ B Cmplx/FA/Prenat 1 tab DAILY PO 10/12/24 10:00 10/13/24 09:09 1 TAB Hydroxyurea 500 mg DAILY PO 10/12/24 10:00 10/12/24 12:28 500 MG Famotidine 20 mg Q2D IV 10/11/24 22:00 10/11/24 22:11 20 MG Hydralazine HCl 10 mg Q6HP PRN IV 10/11/24 20:15 10/13/24 12:47 10 MG Sodium Chloride 10 ml Q8HR IV 10/11/24 22:00 10/13/24 14:00 10 ML Acetaminophen/ Hydrocodone Bitart 1 tab Q4HP PRN PO 10/11/24 20:15 10/12/24 23:36 1 TAB Docusate Sodium 100 mg BIDPRN PRN PO 10/11/24 20:15 Acetaminophen 650 mg Q6HP PRN PO 10/11/24 20:15 Prochlorperazine Edisylate 5 mg Q4HPRN PRN IV 10/11/24 20:15 10/13/24 03:07 5 MG Nitroglycerin 0.4 mg Q5MINP PRN SL 10/11/24 22:30 Morphine Sulfate 2 mg Q30M PRN IV 10/11/24 22:30 Diphenhydramine HCl 50 mg Q6HP PRN IV 10/12/24 15:45 10/13/24 12:06 50 MG Hydromorphone HCl 1 mg Q4HR PRN IV 10/12/24 15:45 10/13/24 15:56 1 MG Laboratory Results Laboratory Tests 10/13/24 11:30 Chemistry Test 10/13/24 11:30 Albumin 4.3 g/dL (3.2-4.8) Calcium Level 9.2 mg/dL (8.7-10.4) Total Protein 6.9 g/dL (5.7-8.2) LFT Test 10/13/24 11:30 Alanine Aminotransferase (ALT) < 9 U/L (7-40) Alkaline Phosphatase 137 U/L (46-116) H Aspartate Amino Transferase (AST) 9 U/L (13-40) L Total Bilirubin 0.4 mg/dL (0.2-1.0) Assessment/Plan Assessment/Plan End stage renal disease Sickle cell crisis Dependence on renal dialysis Supraventricular tachycardia Generalized weakness Acute hemolytic anemia HB [id number] Increase dilaudid IVF Nephrology consulted Plan discussed with: Patient Date of Service: Oct 13, 2024 Billing Provider: FELIPE JONES MD Common Visit Codes: [id number] INP/OBS CARE(HIGH) FELIPE JONES MD Oct 13, 2024 19:25
[2024-10-13] MEDS: HYDROmorphone HCL 2 MG/ML VL/or syr IV PRN (20:29)
--- NOTE | 2024-10-13 20:54 | DVHSR ---
APPROVED REPORT EXAM: Two-dimensional and M-mode echocardiogram with Doppler and color Doppler. Blood Pressure: 178/66 mmHg INDICATION CHF exacerbation, unspecified RISK FACTORS Obesity: Height: 5'4", Weight: 208 DIMENSIONS LVDd4.9 (3.8-5.7cm)LA (2D)4.5 (1.9-4.0cm)Aortic Root3.1 (2.0-3.7cm) LVDs3.2 (2.5-4.0cm)LA (MM) (1.9-4.0cm)Aortic Cusp Exc1.9 (1.5-2.0cm) EF (%) 60.0 (55-70%)Rt. Atrium3.8 (1.9-4.0cm)Asc. Aorta cm IVSd1.3 (0.7-1.1cm)RV (D)3.9 (1.8-2.4cm) PWd1.3 (0.7-1.1cm) Mitral Valve MitralMitral Stenosis E wave0.76m/sMV Mean GR.mmHg A wave1.16m/sMV Peak GR.mmHg E/A ratio0.72D MVAcm2 DECEL [id number] 1/2 Timems Aortic Valve Aortic ValveAortic Stenosis V11.33m/Rina Mean GR.8mmHg V22.05m/Rina Peak GR.17mmHg LVOT Diameter2.0 (1.8-2.4cm)Doppler AVA2.04cm2 Pulmonic Valve V21.47m/s Conclusion MILD LVH AND MILD LV DIASTOLIC DYSFUNCTION APICAL AND ANTERIOR WALL MILD HYPOKINESIS MILD LVH AND MILD LV DIASTOLIC DYSFUNCTION LV EF IS 60% NORMAL VALVES NO EFFUSION
[2024-10-13] MEDS ORDERED: EPOETIN ALFA-EPBX 10,000 UNIT/1ML VIAL IV ONE (21:00)
[2024-10-14] VITALS (9 sets, daily range): BP systolic 124–161; BP diastolic 67–92; PULSE 75–93; RESP 15–18; TEMP 97.2–98.2; O2SAT 93–100
--- NOTE | 2024-10-14 00:04 | DVHINCON2 ---
Date of service: Oct 13, 2024 Referring Physician Abhishek Reason for Consultation SVT, History of LAD History of Present Illness This is a 39 year old female with a PMH of Anemia, CAD, CHF, DM, ESRD, HTN, Kidney Stones, [place] who presented to the ED with a complaint of an elevated heart rate. EMS reports that the patient was at dialysis, but prior to starting, the patient was noted to have a high heart rate in the 180-190s. EMS relays that the patient was noted to be in SVT. EMS administered 6mg of Adenosine with no relief and then 12mg of Adenosine with no improvement. Patient states that she has been experiencing associated chest pain with SOB, nausea, and lightheadedness since 10/10, but thought her medication and dialysis would resolve it. EKG upon arrival showed A Fib at 185. The patient was given diltiazem 10 mg IV push initially. The patient was then started on a diltiazem drip secondary to atrial fibrillation with rapid response. BNP is within normal limits. BUN 46, creatinine is 7.73, hemoglobin of 10.2. First troponin level was negative but the 2nd one has increased to 36. After being on the Cardizem drip, the patient has converted to NSR. Repeat EKG showed NSR at 74. Patient was admitted to the hospital. I am asked to consult on this patient. Family History: Cancer G8 MOTHER G8 FATHER Colon cancer G8 MOTHER Diabetes during G8 MOTHER, Onset:Unknown FH: sickle cell anemia G8 MOTHER G8 FATHER G8 SISTER FH: sickle cell anemia G8 MOTHER G8 FATHER G8 SISTER Family history: Cardiovascular disease G8 FATHER Family history: Diabetes mellitus G8 MOTHER Family history: Hypertension G8 MOTHER G8 FATHER Allergies: Coded Allergies: Tramadol (Verified Allergy, Severe, 08/29/22) patient reports swelling of the airway Ketorolac Tromethamine (Verified Allergy, Intermediate, 08/29/22) Ondansetron (Verified Allergy, Intermediate, 09/25/24) [place] Oil (Verified Allergy, Unknown, 08/29/22) Ceftriaxone (Verified Allergy, Unknown, 08/29/22) NEW PER VERGE REPORT 01-27-17 Cephalexin (Verified Allergy, Unknown, 08/29/22) NEW ENTERED 01-27-17 Fentanyl (Verified Allergy, Unknown, 08/29/22) Iodine (Verified Allergy, Unknown, 08/29/22) Lisinopril (Verified Allergy, Unknown, 08/29/22) Shellfish Allergy (Verified Allergy, Unknown, 08/29/22) Uncoded Allergies: ARTICHOKE (Allergy, Mild, 12/02/16) leon pepper (Allergy, Unknown, 11/19/18) pepper (Allergy, Unknown, 10/05/18) itchy, hives Home Meds Active Scripts Clopidogrel Bisulfate (Plavix) 75 Mg Tab, 1 TAB PO DAILY, #30 TAB 5 Refills Prov:MARTY SHI MD 08/30/22 Aspirin (Aspir-81) 81 Mg Tab, 1 TAB PO DAILY, #30 TAB 5 Refills Prov:MARTY SHI MD 08/30/22 Carvedilol (Coreg) 25 Mg Tab, 1 TAB PO BID, #60 TAB 5 Refills Prov:MARTY SHI MD 08/30/22 Hydralazine Hcl (Hydralazine Hcl) 50 Mg Tab, 100 MG PO BID, #120 TAB Prov:MARCELLO GÓMEZ MD 07/17/22 Nifedipine (Nifedipine Er) 90 Mg Tab, 1 TAB PO DAILY, #90 TAB 3 Refills Prov:MARCELLO GÓMEZ MD 07/17/22 Minoxidil (Minoxidil) 2.5 Mg Tab, 2.5 MG PO BID for 30 Days, #60 TAB Prov:PATRICIA SMITH MD 08/19/21 Aspirin (Aspir-Low Ec) 81 Mg Tb, 81 MG PO DAILY for 30 Days Prov:CASEY DE ANDA MD 10/06/18 Folic Acid (Folic Acid) 1 Mg Tab, 1 MG PO DAILY, #30 TAB Prov:CASEY DE ANDA MD 10/06/18 Hydroxyurea (HYDREA CAPSULE) 500 Mg Cp, 500 MG PO DAILY, #30 CP Prov:THALIA MADERA MD 09/05/16 Reported Medications Pantoprazole Sodium Sesquihydr (Pantoprazole Sodium) 40 Mg Tab, 1 TAB PO DAILYPRN 03/24/22 Promethazine Hcl (Promethazine Hcl) 25 Mg Tab, 1 TAB PO BIDPRN 03/24/22 Sucralfate (Sucralfate) 1 Gm Tab, 1 TAB PO TID 03/24/22 Furosemide (Furosemide) 80 Mg Tab, 1 TAB PO BID 08/16/21 Hydromorphone Hcl (HYDROMORPHONE HCL) 2 Mg/Ml Inj, 2 MG IJ, INJ 04/20/21 Hydroxyurea (Hydroxyurea) 500 Mg Cap, 500 MG PO DAILY, MG 04/20/21 Hydralazine Hcl (Hydralazine Hcl) 50 Mg Tab, 100 MG PO TID for 30 Days, MG 04/20/21 Oxycodone W/ Acetaminophen (Oxycodone/Acetaminophen 10-300 mg) 1 Tab Tab 04/20/21 Clonidine Hydrochloride (Clonidine Hcl) 0.3 Mg Tab, 1 TAB PO TID 04/20/21 Clopidogrel Bisulfate (CLOPIDOGREL) 75 Mg Tab, 1 TAB PO DAILYPRN 04/20/21 Patients Own Medication (PATIENTS OWN MEDICATION) . PTS OWN MED-OBTAIN FROM PT AND SEND TO RX DRUG: FREQ: RX# EXP: DATE DISP: TECH: RPH: 12/26/19 Hydralazine Hcl (Hydralazine Hcl) 100 Mg Tab, 100 MG PO BID, TAB 12/26/19 Zolpidem Tartrate (Ambien) 10 Mg Tab, 1 TAB PO QPM, #30 TAB 5 Refills 01/05/17 Nifedipine (Nifedipine Er) 90 Mg Tab, 1 TAB PO DAILY, #30 TAB 5 Refills 01/14/16 Current Medications Current Medications Medications (Trade) Dose Ordered Sig/Reinaldo Route PRN Reason Start Time Stop Time Status Last Admin Hydromorphone HCl (Dilaudid Injection) 2 mg Q2HP PRN IV PAIN SCALE 7 THRU 10 10/13/24 19:30 10/13/24 20:29 Review of Systems Constitutional: denies: chills, diaphoresis, fatigue, fever, malaise, sweats, weakness, others EENTM: denies: blurred vision, double vision, ear bleeding, ear discharge, ear drainage, ear pain, ear ringing, eye pain, eye redness, hearing loss, mouth pain, mouth swelling, nasal discharge, nose bleeding, nose congestion, nose pain, photophobia, tearing, throat pain, throat swelling, voice changes, others Respiratory: reports: shortness of breath; denies: cough, hemoptysis, orthopnea, SOB at rest, SOB with excertion, stridor, wheezing, others Cardiovascular: reports: chest pain, lightheadedness; denies: dizzy spells, diaphoresis, Dyspnea on exertion, edema, irregular heart beat, left arm pain, p alpitations, PND, syncope, others Gastrointestinal: reports: nausea; denies: abdomen distended, abdominal pain, blood streaked bowels, constipated, diarrhea, dysphagia, difficulty swallowing, hematemesis, melena, poor appetite, poor fluid intake, rectal bleeding, rectal pain, vomiting, others Genitourinary: denies: abnormal vagina bleeding, burning, dyspareunia, dysuria, flank pain, frequency, hematuria, incontinence, pain, , vagina di scharge, urgency, others Neurological: denies: dizziness, fainting, headache, left sided numbness, left sided weakness, numbness, paresthesia, pre-existing deficit, right sided numbness, right sided weakness, seizure, speech problems, tingling, tremors, weakness, others Musculoskeletal: denies: back pain, gout, joint pain, joint swelling, muscle pain, muscle stiffness, neck pain, others Integumetry: denies: bruises, change in color, change in hair/nails, dryness, laceration, lesions, lumps, rash, wounds, others Allergic/Immunocompromised: denies: Difficulty Healing, Frequent Infections, Hives, Itching, others Hematologic/Lymphatic: denies: anemia, blood clots, easy bleeding, easy bruising, swollen glands, others Endocrine: denies: excessive hunger, excessive sweating, excessive thirst, excessive urination, flushing, intolerance to cold, intolerance to heat, unexplained weight gain, unexplained weight loss, others Psychiatric: denies: anxiety, bipolar disorder, depression, hopeless, panic disorder, schizophrenia, sleepless, suicidal, others All Other Systems: Reviewed and Negative Vital Signs Vital Signs Date Time Temp Pulse Resp B/P (MAP) Pulse Ox O2 Delivery O2 Flow Rate FiO2 10/13/24 20:40 98 10/13/24 20:29 17 137/82 10/13/24 20:00 Room Air* 0 21 10/13/24 17:05 97.8 95 97.8 Physical Exam GENERAL: Alert and oriented x 3. No acute distress. EYES: PERRL, EOMI. Anicteric. HENT: Moist mucous membranes. LUNGS: Clear to auscultation bilaterally. CARDIOVASCULAR: Regular rate and rhythm. ABDOMEN: Soft, nontender and nondistended. EXTREMITIES: No edema. NEUROLOGIC: No focal neurological deficits. SKIN: Warm, dry. Labs/Diagnostic Data Labs Test 10/13/24 11:30 10/12/24 19:08 10/11/24 19:16 10/11/24 14:50 Range/Units White Blood Count 12.4 H 4.4-10.8 10^3/uL Red Blood Count 3.13 L 4.0-5.20 10^6/uL Hemoglobin 9.1 L 12.2-16.2 g/dL Hematocrit 27.1 L 36.0-46.0 % Mean Corpuscular Volume 86.8 80.0-100.0 fL Mean Corpuscular Hemoglobin 29.1 28.0-32.0 pg Mean Corpuscular Hemoglobin Concent 33.5 32.0-36.0 g/dL Red Cell Distribution Width 15.1 H 11.8-14.3 % Platelet Count 220 140-450 10^3/uL Mean Platelet Volume 7.5 6.9-10.8 fL Neutrophils (%) (Auto) 79.8 37.0-80.0 % Lymphocytes (%) (Auto) 8.9 L 10.0-50.0 % Monocytes (%) (Auto) 9.7 0.0-12.0 % Eosinophils (%) (Auto) 1.4 0.0-7.0 % Basophils (%) (Auto) 0.2 0.0-2.0 % Neutrophils # (Auto) 9.9 H 1.6-8.6 10 ^3/uL Lymphocytes # (Auto) 1.1 0.4-5.4 10 ^3/uL Monocytes # (Auto) 1.2 0-1.3 10 ^3/uL Eosinophils # (Auto) 0.2 0-0.8 10 ^3/uL Basophils # (Auto) 0 0-0.2 10 ^3/uL Nucleated Red Blood Cells 0.0 % Sodium Level 141 136-145 mmol/L Potassium Level 4.1 3.5-5.1 mmol/L Chloride Level 102 98-107 mmol/L Carbon Dioxide Level 27 20-31 mmol/L Anion Gap 12 5-15 Blood Urea Nitrogen 30 #H 9-23 mg/dL Creatinine 5.66 #H 0.550-1.02 mg/dL Glomerular Filtration Rate Calc 9 >90 mL/min BUN/Creatinine Ratio 5.3 L 10.0-20.0 Serum Glucose 96 74-106 mg/dL Calcium Level 9.2 8.7-10.4 mg/dL Total Bilirubin 0.4 0.2-1.0 mg/dL Aspartate Amino Transferase (AST) 9 L 13-40 U/L Alanine Aminotransferase (ALT) < 9 7-40 U/L Alkaline Phosphatase 137 H 46-116 U/L Total Protein 6.9 5.7-8.2 g/dL Albumin 4.3 3.2-4.8 g/dL Prothrombin Time 10.3 9.3-11.8 sec Prothrombin Time INR 0.97 0.9-1.15 Troponin I High Sensitivity 55 *H </=34 ng/L Magnesium Level 2.0 1.6-2.6 mg/dL B-Type Natriuretic Peptide 352.38 0-100 pg/mL Assessment End stage renal disease. Sickle cell crisis. Dependence on renal dialysis. Supraventricular tachycardia. Generalized weakness. Acute hemolytic anemia. Plan/Recommendation I agree with your ongoing assessment and care of plan. Telemetry reviewed. Echocardiogram. Aspirin. Coreg. Dilaudid and [place] for pain management. IV Hydralazine for SBP >160. Additional plan as per the hospital course. A total of 45 minutes was spent reviewing the patient record, examining the patient, making a diagnostic and therapeutic plan, discussing this plan with medical personnel, following up on diagnostic studies and following the patient for clinical stability excluding any and all procedures. At least 50% of this time was spent in direct, [id number] contact. Plan discussed with: Patient SUMMER FERRARO MD Oct 13, 2024 22:43
--- NOTE | 2024-10-14 08:55 | ECG ---
[facility] Test Date: 2024-10-11 Test Time: 16:23:06 Pat Name: KEYONA KOCH Department: ER Room: [facility]7T B Gender: F Diabetes Manager: KIARRA : 1985 Requested By: AURELIO BARNES Order Number: [id number] Reading MD: Jaden Bhatti Measurements Intervals [place] Rate: 79 P: 40 MS: 145 QRS: -32 QRSD: 103 T: 92 QT: 425 QTc: 488 Interpretive Statements Sinus rhythm Probable left atrial enlargement LVH with secondary repolarization abnormality Anterior infarct, old Electronically Signed On 10-16-2024 20:38:58 PDT by Jaden Bhatti Please click the below link to view image of tracing.
[2024-10-14 10:34] LABS: Hepatitis A Ab IgM Negative; Hepatitis B Core IgM Negative (Negative); Hepatitis B Surface Antigen Negative (Negative); Hepatitis C Antibody Negative (Negative)
[2024-10-14 11:41] LABS: Chloride 99 mmol/L (98-107)
[2024-10-14 11:42] LABS: Anion Gap 12 (5-15); Carbon Dioxide 27 mmol/L (20-31); Potassium 4.7 mmol/L (3.5-5.1); Sodium 138 mmol/L (136-145)
[2024-10-14 11:47] LABS: BUN/Creatinine Ratio 4.8 (10.0-20.0); Glucose 96 mg/dL (74-106)
[2024-10-14 11:51] LABS: Blood Urea Nitrogen 39 mg/dL (9-23); Calcium 8.5 mg/dL (8.7-10.4)
--- NOTE | 2024-10-14 17:40 | DVHPN2 ---
Subjective still having pain Reviewed: H&P, Labs Changes from previous H/P or p: No Changes Eyes: No Pain, No Vision change, No Conjunctivae inflammation, No Eyelid inflammation, No Other, No Redness ENT: No Ear pain, No Ear discharge, No Nose pain, No Nose discharge, No Nose congestion, No Mouth pain, No Mouth swelling, No Throat pain, No Throat swelling, No Other Cardiovascular: Chest Pain; No Palpitations, No Orthopnea, No Paroxysmal Noc. Dyspnea, No Edema; Lt Headedness; No Other Respiratory: No Cough, No Dry; Shortness of breath; No SOB with excertion, No Wheezing, No Hemoptysis, No Pleuritic Pain, No Sputum, No Other Gastrointestinal: No Nausea, No Vomiting, No Abdominal Pain, No Diarrhea, No Constipation, No Melena, No Hematochezia, No Other Genitourinary: No Dysuria, No Frequency, No Incontinence, No Hematuria, No Retention; Other (Left AV fistula for hemodialysis) Musculoskeletal: No other, No neck pain, No shoulder pain, No arm pain, No back pain, No hand pain, No leg pain, No foot pain Skin: No Rash, No Lesions, No Jaundice, No Bruising, No Other Objective Vitals Vital Signs Date Time Temp Pulse Resp B/P (MAP) Pulse Ox O2 Delivery O2 Flow Rate FiO2 10/14/24 17:24 89 138/76 (96) 10/14/24 17:08 97.2 17 100 97.2 10/14/24 08:24 Room Air* 0 21 Intake/Output Intake and Output 10/14/24 07:00 Intake Total 900 ml Output Total 0 ml Balance 900 ml Intake Oral 900 ml Output Urine Total 0 ml # Bowel Movements 2 General Appearance: Alert, Oriented X3 Lungs: Clear to auscultation Cardiovascular: Regular rate, Normal S1, Normal S2 Abdomen: Normal bowel sounds Medications Current Medications Medications Dose Ordered Sig/Reinaldo Route Start Time Stop Time Status Last Admin Dose Admin Carvedilol 12.5 mg Q12HR PO 10/11/24 22:00 10/14/24 08:48 12.5 MG Aspirin 81 mg DAILY PO 10/12/24 10:00 10/14/24 08:48 81 MG Sevelamer HCl 800 mg TIDWM PO 10/12/24 08:00 10/14/24 17:16 800 MG Multivit/Ca Carb/ B Cmplx/FA/Prenat 1 tab DAILY PO 10/12/24 10:00 10/14/24 08:48 1 TAB Hydroxyurea 500 mg DAILY PO 10/12/24 10:00 10/14/24 08:48 500 MG Famotidine 20 mg Q2D IV 10/11/24 22:00 10/13/24 20:40 20 MG Hydralazine HCl 10 mg Q6HP PRN IV 10/11/24 20:15 10/14/24 13:01 10 MG Sodium Chloride 10 ml Q8HR IV 10/11/24 22:00 10/14/24 13:06 10 ML Acetaminophen/ Hydrocodone Bitart 1 tab Q4HP PRN PO 10/11/24 20:15 10/13/24 22:22 1 TAB Docusate Sodium 100 mg BIDPRN PRN PO 10/11/24 20:15 Acetaminophen 650 mg Q6HP PRN PO 10/11/24 20:15 Prochlorperazine Edisylate 5 mg Q4HPRN PRN IV 10/11/24 20:15 10/13/24 03:07 5 MG Nitroglycerin 0.4 mg Q5MINP PRN SL 10/11/24 22:30 Morphine Sulfate 2 mg Q30M PRN IV 10/11/24 22:30 Diphenhydramine HCl 50 mg Q6HP PRN IV 10/12/24 15:45 10/14/24 14:48 50 MG Hydromorphone HCl 2 mg Q2HP PRN IV 10/13/24 19:30 10/14/24 14:49 2 MG Laboratory Results Laboratory Tests 10/13/24 11:30 10/14/24 11:11 Chemistry Test 10/14/24 11:11 Calcium Level 8.5 mg/dL (8.7-10.4) L Assessment/Plan Assessment/Plan End stage renal disease Sickle cell crisis Dependence on renal dialysis Supraventricular tachycardia Generalized weakness Acute hemolytic anemia HB [id number] Increase dilaudid If pain better tomorrow will plan for discharge home IVF Nephrology consulted Plan discussed with: Patient My Orders Orders - FELIPE JONES MD Procedure Category Date Status Time Hydromorphone PHA 10/13/24 In Process Injection (Dilaudid 19:30 Date of Service: Oct 14, 2024 Billing Provider: FELIPE JONES MD Common Visit Codes: [id number] INP/OBS CARE(HIGH) FELIPE JONES MD Oct 14, 2024 17:40
[2024-10-15] VITALS (8 sets, daily range): BP systolic 149–177; BP diastolic 80–97; PULSE 80–92; RESP 14–19; TEMP 98.1–98.8; O2SAT 96–100
--- NOTE | 2024-10-15 00:35 | DVHPN2 ---
Progress Note - Dictate Date Seen: Oct 14, 2024 Medical Necessity Reason Pt with a Central, PICC or Fol: No Subjective Patient was seen and evaluated in follow up. Patient is complaining of generalized pain. BUN 39, Database Tester 8.15. Pending Nephrology evaluation. Telemetry reviewed. vital signs Vital Sign Date Time Temp Pulse Resp B/P (MAP) Pulse Ox O2 Delivery O2 Flow Rate FiO2 10/14/24 22:03 81 129/80 10/14/24 21:35 18 10/14/24 21:00 98.2 100 98.2 10/14/24 20:00 Room Air* 0 21 Total Intake and Output 10/14/24 10/14/24 10/15/24 15:00 23:00 07:00 Intake Total 620 ml Balance 620 ml medications Current Medications Medications Dose Ordered Sig/Reinaldo Route Start Time Stop Time Status Last Admin Dose Admin Carvedilol 12.5 mg Q12HR PO 10/11/24 22:00 10/14/24 21:03 12.5 MG Aspirin 81 mg DAILY PO 10/12/24 10:00 10/14/24 08:48 81 MG Sevelamer HCl 800 mg TIDWM PO 10/12/24 08:00 10/14/24 17:16 800 MG Multivit/Ca Carb/ B Cmplx/FA/Prenat 1 tab DAILY PO 10/12/24 10:00 10/14/24 08:48 1 TAB Hydroxyurea 500 mg DAILY PO 10/12/24 10:00 10/14/24 08:48 500 MG Famotidine 20 mg Q2D IV 10/11/24 22:00 10/13/24 20:40 20 MG Hydralazine HCl 10 mg Q6HP PRN IV 10/11/24 20:15 10/14/24 13:01 10 MG Sodium Chloride 10 ml Q8HR IV 10/11/24 22:00 10/14/24 23:28 10 ML Acetaminophen/ Hydrocodone Bitart 1 tab Q4HP PRN PO 10/11/24 20:15 10/13/24 22:22 1 TAB Docusate Sodium 100 mg BIDPRN PRN PO 10/11/24 20:15 Acetaminophen 650 mg Q6HP PRN PO 10/11/24 20:15 Prochlorperazine Edisylate 5 mg Q4HPRN PRN IV 10/11/24 20:15 10/13/24 03:07 5 MG Nitroglycerin 0.4 mg Q5MINP PRN SL 10/11/24 22:30 Morphine Sulfate 2 mg Q30M PRN IV 10/11/24 22:30 Diphenhydramine HCl 50 mg Q6HP PRN IV 10/12/24 15:45 10/14/24 21:09 50 MG Hydromorphone HCl 2 mg Q2HP PRN IV 10/13/24 19:30 10/14/24 21:05 2 MG objective GENERAL: Alert and oriented x 3. No acute distress. EYES: PERRL, EOMI. Anicteric. HENT: Moist mucous membranes. LUNGS: Clear to auscultation bilaterally. CARDIOVASCULAR: Regular rate and rhythm. ABDOMEN: Soft, nontender and nondistended. EXTREMITIES: No edema. NEUROLOGIC: No focal neurological deficits. SKIN: Warm, dry. laboratory and microbiology Laboratory Tests 10/14/24 11:11 10/13/24 11:30 Test 10/14/24 11:11 Range/Units Serum Glucose 96 74-106 mg/dL Problem List End stage renal disease. Sickle cell crisis. Dependence on renal dialysis. Supraventricular tachycardia. Generalized weakness. Acute hemolytic anemia. Assessment/Plan Continued all current supportive medical care. Echocardiogram. Aspirin. Coreg. Dilaudid and [place] for pain management. IV Hydralazine for SBP >160. Additional plan as per the hospital course. Plan discussed with: Patient SUMMER FERRARO MD Oct 15, 2024 00:35
[2024-10-15] MEDS ORDERED: SODIUM CHL 0.9% 1000 ML BAG XX ONE (14:45)
--- NOTE | 2024-10-15 16:48 | DVHPN2 ---
Subjective still having pain Reviewed: H&P, Labs Changes from previous H/P or p: No Changes Eyes: No Pain, No Vision change, No Conjunctivae inflammation, No Eyelid inflammation, No Other, No Redness ENT: No Ear pain, No Ear discharge, No Nose pain, No Nose discharge, No Nose congestion, No Mouth pain, No Mouth swelling, No Throat pain, No Throat swelling, No Other Cardiovascular: Chest Pain; No Palpitations, No Orthopnea, No Paroxysmal Noc. Dyspnea, No Edema; Lt Headedness; No Other Respiratory: No Cough, No Dry; Shortness of breath; No SOB with excertion, No Wheezing, No Hemoptysis, No Pleuritic Pain, No Sputum, No Other Gastrointestinal: No Nausea, No Vomiting, No Abdominal Pain, No Diarrhea, No Constipation, No Melena, No Hematochezia, No Other Genitourinary: No Dysuria, No Frequency, No Incontinence, No Hematuria, No Retention; Other (Left AV fistula for hemodialysis) Musculoskeletal: No other, No neck pain, No shoulder pain, No arm pain, No back pain, No hand pain, No leg pain, No foot pain Skin: No Rash, No Lesions, No Jaundice, No Bruising, No Other Objective Vitals Vital Signs Date Time Temp Pulse Resp B/P (MAP) Pulse Ox O2 Delivery O2 Flow Rate FiO2 10/15/24 16:46 86 17 169/90 10/15/24 13:00 98.1 96 98.1 10/15/24 07:48 Room Air* 0 21 Intake/Output Intake and Output 10/15/24 07:00 Intake Total 820 ml Balance 820 ml Intake Oral 820 ml # Voids 3 General Appearance: Alert, Oriented X3 Lungs: Clear to auscultation Cardiovascular: Regular rate, Normal S1, Normal S2 Abdomen: Normal bowel sounds Medications Current Medications Medications Dose Ordered Sig/Reinaldo Route Start Time Stop Time Status Last Admin Dose Admin Carvedilol 12.5 mg Q12HR PO 10/11/24 22:00 10/15/24 08:24 12.5 MG Aspirin 81 mg DAILY PO 10/12/24 10:00 10/15/24 08:24 81 MG Sevelamer HCl 800 mg TIDWM PO 10/12/24 08:00 10/15/24 11:43 800 MG Multivit/Ca Carb/ B Cmplx/FA/Prenat 1 tab DAILY PO 10/12/24 10:00 10/15/24 08:24 1 TAB Hydroxyurea 500 mg DAILY PO 10/12/24 10:00 10/15/24 08:25 500 MG Famotidine 20 mg Q2D IV 10/11/24 22:00 10/13/24 20:40 20 MG Hydralazine HCl 10 mg Q6HP PRN IV 10/11/24 20:15 10/14/24 13:01 10 MG Sodium Chloride 10 ml Q8HR IV 10/11/24 22:00 10/15/24 14:00 10 ML Acetaminophen/ Hydrocodone Bitart 1 tab Q4HP PRN PO 10/11/24 20:15 10/15/24 11:46 1 TAB Docusate Sodium 100 mg BIDPRN PRN PO 10/11/24 20:15 Acetaminophen 650 mg Q6HP PRN PO 10/11/24 20:15 Prochlorperazine Edisylate 5 mg Q4HPRN PRN IV 10/11/24 20:15 10/13/24 03:07 5 MG Nitroglycerin 0.4 mg Q5MINP PRN SL 10/11/24 22:30 Morphine Sulfate 2 mg Q30M PRN IV 10/11/24 22:30 Diphenhydramine HCl 50 mg Q6HP PRN IV 10/12/24 15:45 10/15/24 15:14 50 MG Hydromorphone HCl 2 mg Q2HP PRN IV 10/13/24 19:30 10/15/24 15:15 2 MG Laboratory Results Laboratory Tests 10/13/24 11:30 10/14/24 11:11 Assessment/Plan Assessment/Plan End stage renal disease Sickle cell crisis Dependence on renal dialysis Supraventricular tachycardia Generalized weakness Acute hemolytic anemia HB [id number]>9 Increase dilaudid If pain better tomorrow will plan for discharge home IVF Nephrology consulted Plan discussed with: Patient Date of Service: Oct 15, 2024 Billing Provider: FELIPE JONES MD Common Visit Codes: [id number] INP/OBS CARE(HIGH) FELIPE JONES MD Oct 15, 2024 16:48
[2024-10-15] MEDS: EPOETIN ALFA-EPBX 10,000 UNIT/1ML VIAL SC ONE (21:32)
--- NOTE | 2024-10-15 22:41 | DVHPN2 ---
Progress Note - Dictate Date Seen: Oct 15, 2024 Medical Necessity Reason Pt with a Central, PICC or Fol: No Subjective Patient was seen and evaluated in follow up. Patient is complaining of all over body pain, Dilaudid was increased. She received HD today with 2 L removed. Echocardiogram shows an EF of 60%. Telemetry reviewed. vital signs Vital Sign Date Time Temp Pulse Resp B/P (MAP) Pulse Ox O2 Delivery O2 Flow Rate FiO2 10/15/24 21:42 92 177/94 10/15/24 20:09 18 10/15/24 17:11 98.3 96 98.3 10/15/24 07:48 Room Air* 0 21 Total Intake and Output 10/14/24 10/14/24 10/15/24 15:00 23:00 07:00 Intake Total 620 ml 200 ml Balance 620 ml 200 ml medications Current Medications Medications Dose Ordered Sig/Reinaldo Route Start Time Stop Time Status Last Admin Dose Admin Carvedilol 12.5 mg Q12HR PO 10/11/24 22:00 10/15/24 21:42 12.5 MG Aspirin 81 mg DAILY PO 10/12/24 10:00 10/15/24 08:24 81 MG Sevelamer HCl 800 mg TIDWM PO 10/12/24 08:00 10/15/24 17:31 800 MG Multivit/Ca Carb/ B Cmplx/FA/Prenat 1 tab DAILY PO 10/12/24 10:00 10/15/24 08:24 1 TAB Hydroxyurea 500 mg DAILY PO 10/12/24 10:00 10/15/24 08:25 500 MG Famotidine 20 mg Q2D IV 10/11/24 22:00 10/15/24 21:27 20 MG Hydralazine HCl 10 mg Q6HP PRN IV 10/11/24 20:15 10/14/24 13:01 10 MG Sodium Chloride 10 ml Q8HR IV 10/11/24 22:00 10/15/24 21:33 10 ML Acetaminophen/ Hydrocodone Bitart 1 tab Q4HP PRN PO 10/11/24 20:15 10/15/24 11:46 1 TAB Docusate Sodium 100 mg BIDPRN PRN PO 10/11/24 20:15 Acetaminophen 650 mg Q6HP PRN PO 10/11/24 20:15 Prochlorperazine Edisylate 5 mg Q4HPRN PRN IV 10/11/24 20:15 10/13/24 03:07 5 MG Nitroglycerin 0.4 mg Q5MINP PRN SL 10/11/24 22:30 Morphine Sulfate 2 mg Q30M PRN IV 10/11/24 22:30 Diphenhydramine HCl 50 mg Q6HP PRN IV 10/12/24 15:45 10/15/24 21:28 50 MG Hydromorphone HCl 2 mg Q2HP PRN IV 10/13/24 19:30 10/15/24 20:09 2 MG objective GENERAL: Alert and oriented x 3. No acute distress. EYES: PERRL, EOMI. Anicteric. HENT: Moist mucous membranes. LUNGS: Clear to auscultation bilaterally. CARDIOVASCULAR: Regular rate and rhythm. ABDOMEN: Soft, nontender and nondistended. EXTREMITIES: No edema. NEUROLOGIC: No focal neurological deficits. SKIN: Warm, dry. laboratory and microbiology Laboratory Tests 10/14/24 11:11 10/13/24 11:30 Test 10/14/24 11:11 Range/Units Serum Glucose 96 74-106 mg/dL Problem List End stage renal disease. Sickle cell crisis. Dependence on renal dialysis. Supraventricular tachycardia. Generalized weakness. Acute hemolytic anemia. Assessment/Plan Continued all current supportive medical care. Dilaudid and [place] for pain management. Aspirin. Coreg. IV Hydralazine for SBP >160. Additional plan as per the hospital course. Plan discussed with: Patient SUMMER FERRARO MD Oct 15, 2024 22:41
[2024-10-16 05:00] VITALS: BP 142/68; PULSE 77; RESP 18; TEMP 98.6; O2SAT 98
[2024-10-16 08:00] VITALS: PULSE 89
[2024-10-16 09:00] VITALS: BP 147/79; PULSE 90; RESP 17; TEMP 98.5; O2SAT 96
[2024-10-16 11:43] VITALS: BP 144/76; PULSE 91
--- NOTE | 2024-10-16 12:50 | DVHDS2 ---
Discharge Summary Date of Admission Oct 11, 2024 at 22:18 Date of Discharge: Oct 16, 2024 Labs/Diagnostic Data: Laboratory Results Test 10/14/24 11:11 10/13/24 11:30 10/12/24 19:08 10/11/24 19:16 Sodium Level 138 mmol/L (136-145) Potassium Level 4.7 mmol/L (3.5-5.1) Chloride Level 99 mmol/L (98-107) Carbon Dioxide Level 27 mmol/L (20-31) Anion Gap 12 (5-15) Blood Urea Nitrogen 39 mg/dL (9-23) Creatinine 8.15 mg/dL (0.550-1.02) Glomerular Filtration Rate Calc 6 mL/min (>90) BUN/Creatinine Ratio 4.8 (10.0-20.0) Serum Glucose 96 mg/dL (74-106) Calcium Level 8.5 mg/dL (8.7-10.4) White Blood Count 12.4 10^3/uL (4.4-10.8) Red Blood Count 3.13 10^6/uL (4.0-5.20) Hemoglobin 9.1 g/dL (12.2-16.2) Hematocrit 27.1 % (36.0-46.0) Mean Corpuscular Volume 86.8 fL (80.0-100.0) Mean Corpuscular Hemoglobin 29.1 pg (28.0-32.0) Mean Corpuscular Hemoglobin Concent 33.5 g/dL (32.0-36.0) Red Cell Distribution Width 15.1 % (11.8-14.3) Platelet Count 220 10^3/uL (140-450) Mean Platelet Volume 7.5 fL (6.9-10.8) Neutrophils (%) (Auto) 79.8 % (37.0-80.0) Lymphocytes (%) (Auto) 8.9 % (10.0-50.0) Monocytes (%) (Auto) 9.7 % (0.0-12.0) Eosinophils (%) (Auto) 1.4 % (0.0-7.0) Basophils (%) (Auto) 0.2 % (0.0-2.0) Neutrophils # (Auto) 9.9 10 ^3/uL (1.6-8.6) Lymphocytes # (Auto) 1.1 10 ^3/uL (0.4-5.4) Monocytes # (Auto) 1.2 10 ^3/uL (0-1.3) Eosinophils # (Auto) 0.2 10 ^3/uL (0-0.8) Basophils # (Auto) 0 10 ^3/uL (0-0.2) Nucleated Red Blood Cells 0.0 % Total Bilirubin 0.4 mg/dL (0.2-1.0) Aspartate Amino Transferase (AST) 9 U/L (13-40) Alanine Aminotransferase (ALT) < 9 U/L (7-40) Alkaline Phosphatase 137 U/L (46-116) Total Protein 6.9 g/dL (5.7-8.2) Albumin 4.3 g/dL (3.2-4.8) Hepatitis A IgM Antibody Negative Hepatitis B Surface Antigen Negative (Negative) Hepatitis B Core IgM Antibody Negative (Negative) Hepatitis C Antibody Negative (Negative) Prothrombin Time 10.3 sec (9.3-11.8) Prothrombin Time INR 0.97 (0.9-1.15) Troponin I High Sensitivity 55 ng/L (</=34) Test 10/11/24 14:50 Magnesium Level 2.0 mg/dL (1.6-2.6) B-Type Natriuretic Peptide 352.38 pg/mL (0-100) Other Laboratory Tests 10/14/24 11:11 10/13/24 11:30 Brief Hx & Hospital Course: 39-year-old female with multiple past medical history including end-stage renal disease on hemodialysis, CHF, DM, and anemia who presented to [facility] ED with complaint of palpitations associated with chest pain, shortness of breath, nausea, and lightheadedness. As reported, patient was at dialysis today when she started experiencing elevated heart rate in the 190s, so EMS were called. When EMS arrived on the scene, patient was noted to be in SVT, so they provided 6 mg of adenosine with no relief and then 12 mg of adenosine with a relief, heart rate in the 70s EN route to our facility ED. patient was seen and evaluated in the ED, laboratory data shows WBC 8.4, hemoglobin 10.2, hematocrit 30.7, platelets 246, sodium 139, potassium 4.8, BUN 46, creatinine 7.73, glucose 157, troponin 55, BNP 352.38, blood pressure 129/77, heart rate 180 trending down to 74, temperature 98.7 F, O2 saturation 99% on oxygen. Chest x-ray revealing cardiomegaly with pulmonary vascular congestion. On my assessment, patient denies chest pain, no headache, no dizziness, no syncope, no lightheadedness, currently on oxygen, no nausea, no vomiting, no fever, no chills. Patient was admitted for further evaluation and medical management. During hospital stay got 2 U PRBC and HB improved. Pain was uncontrolled required 2mg IV dilaudid multiple times a day for several days due to uncontrolled pain Condition at Discharge: Good Final Diagnosis/Problems List sickle cell crisis acute blood loss anemia Discharge Disposition: Home Discharge Instruct/Medications Diet: Regular Activity: No Restrictions, As Tolerated Follow Up/Referral: PCP in 7 days Medications: same home medications Discharge Statement: "Patient was advised to return to the ER or call 911 if any headaches, dizziness, shortness of breath, chest pain, abdominal pain, bleeding, fevers, or worsening of medical condition. Patient was counseled about treatment plan, medications, possible side effects, patientverbalized understanding. All questions were answered to the best of my ability. This discharge took greater then 30 minutes in planning, reviewing documentation, counseling the patient, and discussing with other team members." ASSESSMENT ASSESSMENT Assessment sickle cell crisis acute blood loss anemia Date of Service: Oct 16, 2024 Billing Provider: FELIPE JONES MD Common Visit Codes: [id number] DISCH DAY >30min FELIPE JONES MD Oct 16, 2024 12:50
[2024-10-16 13:00] VITALS: BP 140/70; PULSE 88; RESP 17; TEMP 98.3; O2SAT 97
[2024-10-16 14:39] VITALS: BP 146/84; PULSE 86; RESP 16
--- NOTE | 2024-10-16 15:17 | DVHPN2 ---
Progress Note - Dictate Date Seen: Oct 16, 2024 Medical Necessity Reason Pt with a Central, PICC or Fol: No Subjective Patient was seen and evaluated in follow up. No overnight events. Patient is complaining of generalized pain. Patient is being arranged for discharge. Telemetry reviewed. vital signs Vital Sign Date Time Temp Pulse Resp B/P (MAP) Pulse Ox O2 Delivery O2 Flow Rate FiO2 10/16/24 13:07 88 18 154/74 10/16/24 13:00 98.3 97 98.3 10/16/24 08:06 Room Air* 0 21 Total Intake and Output 10/15/24 10/15/24 10/16/24 15:00 23:00 07:00 Intake Total 150 ml 600 ml Output Total 300 ml Balance 150 ml 300 ml medications Current Medications Medications Dose Ordered Sig/Reinaldo Route Start Time Stop Time Status Last Admin Dose Admin Carvedilol 12.5 mg Q12HR PO 10/11/24 22:00 10/16/24 09:56 12.5 MG Aspirin 81 mg DAILY PO 10/12/24 10:00 10/16/24 09:55 81 MG Sevelamer HCl 800 mg TIDWM PO 10/12/24 08:00 10/16/24 11:33 800 MG Multivit/Ca Carb/ B Cmplx/FA/Prenat 1 tab DAILY PO 10/12/24 10:00 10/16/24 09:55 1 TAB Hydroxyurea 500 mg DAILY PO 10/12/24 10:00 10/16/24 10:00 500 MG Famotidine 20 mg Q2D IV 10/11/24 22:00 10/15/24 21:27 20 MG Hydralazine HCl 10 mg Q6HP PRN IV 10/11/24 20:15 10/16/24 10:47 10 MG Sodium Chloride 10 ml Q8HR IV 10/11/24 22:00 10/16/24 06:15 10 ML Acetaminophen/ Hydrocodone Bitart 1 tab Q4HP PRN PO 10/11/24 20:15 10/16/24 10:50 1 TAB Docusate Sodium 100 mg BIDPRN PRN PO 10/11/24 20:15 Acetaminophen 650 mg Q6HP PRN PO 10/11/24 20:15 Prochlorperazine Edisylate 5 mg Q4HPRN PRN IV 10/11/24 20:15 10/13/24 03:07 5 MG Nitroglycerin 0.4 mg Q5MINP PRN SL 10/11/24 22:30 Morphine Sulfate 2 mg Q30M PRN IV 10/11/24 22:30 Diphenhydramine HCl 50 mg Q6HP PRN IV 10/12/24 15:45 10/16/24 09:54 50 MG Hydromorphone HCl 2 mg Q2HP PRN IV 10/13/24 19:30 10/16/24 13:07 2 MG objective GENERAL: Alert and oriented x 3. No acute distress. EYES: PERRL, EOMI. Anicteric. HENT: Moist mucous membranes. LUNGS: Clear to auscultation bilaterally. CARDIOVASCULAR: Regular rate and rhythm. ABDOMEN: Soft, nontender and nondistended. EXTREMITIES: No edema. NEUROLOGIC: No focal neurological deficits. SKIN: Warm, dry. laboratory and microbiology Laboratory Tests 10/14/24 11:11 10/13/24 11:30 Test 10/14/24 11:11 Range/Units Serum Glucose 96 74-106 mg/dL Problem List End stage renal disease. Sickle cell crisis. Dependence on renal dialysis. Supraventricular tachycardia. Generalized weakness. Acute hemolytic anemia. Assessment/Plan Continued all current supportive medical care. Dilaudid and [place] for pain management. Aspirin. Coreg. IV Hydralazine for SBP >160. Additional plan as per the hospital course. Plan discussed with: Patient SUMMER FERRARO MD Oct 16, 2024 13:45
== END 2024-10-16 15:20 | disposition home or self-care (01) | DRG 811 ==
LOC: EDBD 14:13 → ER 14:13 → OVERFLOW 22:18 → TELE-WESTW 10-12 16:55
PROVIDERS: ADMIT Hospitalist; ATTEND Hospitalist
PROC: 5A1D70Z Performance of Urinary Filtration, Intermittent, Less than 6 Hours Per Day (ICD-10-PCS; principal; 2024-10-13)
PROC: 5A1D70Z Performance of Urinary Filtration, Intermittent, Less than 6 Hours Per Day (ICD-10-PCS; 2024-10-15)
DX: D57.00 Hb-SS disease with crisis, unspecified (principal); N18.6 End stage renal disease; I47.10 Supraventricular tachycardia, unspecified; I13.2 Hypertensive heart and chronic kidney disease with heart failure and with stage 5 chronic kidney disease, or end stage renal disease; I50.42 Chronic combined systolic (congestive) and diastolic (congestive) heart failure; D62 Acute posthemorrhagic anemia; D59.9 Acquired hemolytic anemia, unspecified; E11.22 Type 2 diabetes mellitus with diabetic chronic kidney disease; I48.91 Unspecified atrial fibrillation; I25.10 Atherosclerotic heart disease of native coronary artery without angina pectoris; Z99.2 Dependence on renal dialysis; Z88.1 Allergy status to other antibiotic agents; Z88.8 Allergy status to other drugs, medicaments and biological substances; Z91.041 Radiographic dye allergy status; Z91.013 Allergy to seafood; Z79.82 Long term (current) use of aspirin; Z79.899 Other long term (current) drug therapy; Z79.891 Long term (current) use of opiate analgesic; Z87.442 Personal history of urinary calculi; Z83.2 Family history of diseases of the blood and blood-forming organs and certain disorders involving the immune mechanism; Z98.891 History of uterine scar from previous surgery; Z82.49 Family history of ischemic heart disease and other diseases of the circulatory system; Z83.3 Family history of diabetes mellitus; Z80.0 Family history of malignant neoplasm of digestive organs; I25.2 Old myocardial infarction
CPT/HCPCS: 36415; 71045; 80048; 80053; 80074; 83735; 83880; 84484; 85025; 85610; 86850; 86900; 86901; 86920; 90935; 93005; 93306; 96365; 96375; 99291; G0378; J2405; J3490

== ENCOUNTER 2024-12-02 13:49 | Emergency (ER) | payer MEDICARE, MEDICAID ==
[~2024-12-02] VITALS: Ht 170.2 cm; Wt 100.0 kg
[2024-12-02] MEDS: METOCLOPRAMIDE HCL 5MG/ml INJ 2ml VIAL IV ONE (14:02)
--- NOTE | 2024-12-02 14:06 | ED.PDOC ---
HPI Comments 39 y/o F, BIBA, with PMHx of NStemi, DM II, CAD, CHF, ESRD, and HTN presents to the ED for CC of tachycardiac. EMS reports, patient is coming from dialysis center today (12/02/24) where she experienced sudden onset chest pain with associated shortness of breath and palpitations. EMS relays, upon arrival to scene patient was found to be in SVT with a HR in 170's and hypertensive with a blood pressure of 218/133mmHg. Upon arrival to the ED, patient self converted after an episode of vomiting. Patient endorses, having symptoms of nausea and vomiting for the past x4 days. Patient was unable to finish dialysis treatment d/t symptoms. Patient denies headache, numbness, tingling, sweats, or chills. At this time patient was transferred to ER bed 04 for further care. Time Seen by MD: 14:00 Primary Care Provider: UNKNOWN Allergies: Coded Allergies: Tramadol (Verified Allergy, Severe, 08/29/22) patient reports swelling of the airway Ketorolac Tromethamine (Verified Allergy, Intermediate, 08/29/22) Ondansetron (Verified Allergy, Intermediate, 09/25/24) [place] Oil (Verified Allergy, Unknown, 08/29/22) Ceftriaxone (Verified Allergy, Unknown, 08/29/22) NEW PER VERGE REPORT 01-27-17 Cephalexin (Verified Allergy, Unknown, 08/29/22) NEW ENTERED 01-27-17 Fentanyl (Verified Allergy, Unknown, 08/29/22) Iodine (Verified Allergy, Unknown, 08/29/22) Lisinopril (Verified Allergy, Unknown, 08/29/22) Shellfish Allergy (Verified Allergy, Unknown, 08/29/22) Uncoded Allergies: [place] (Allergy, Mild, 12/02/16) leon pepper (Allergy, Unknown, 11/19/18) pepper (Allergy, Unknown, 10/05/18) itchy, hives Home Meds Active Scripts Clopidogrel Bisulfate (Plavix) 75 Mg Tab, 1 TAB PO DAILY, #30 TAB 5 Refills Prov:MARTY SHI MD 08/30/22 Aspirin (Aspir-81) 81 Mg Tab, 1 TAB PO DAILY, #30 TAB 5 Refills Prov:MARTY SHI MD 4/25/23 Carvedilol (Coreg) 25 Mg Tab, 1 TAB PO BID, #60 TAB 5 Refills Prov:MARTY SHI MD 08/30/22 Hydralazine Hcl (Hydralazine Hcl) 50 Mg Tab, 100 MG PO BID, #120 TAB Prov:MARCELLO GÓMEZ MD 07/17/22 Nifedipine (Nifedipine Er) 90 Mg Tab, 1 TAB PO DAILY, #90 TAB 3 Refills Prov:MARCELLO GÓMEZ MD 07/17/22 Minoxidil (Minoxidil) 2.5 Mg Tab, 2.5 MG PO BID for 30 Days, #60 TAB Prov:PATRICIA SMITH MD 08/19/21 Aspirin (Aspir-Low Ec) 81 Mg Tb, 81 MG PO DAILY for 30 Days Prov:CASEY DE ANDA MD 10/06/18 Folic Acid (Folic Acid) 1 Mg Tab, 1 MG PO DAILY, #30 TAB Prov:CASEY DE ANDA MD 10/06/18 Hydroxyurea (HYDREA CAPSULE) 500 Mg Cp, 500 MG PO DAILY, #30 CP Prov:THALIA MADERA MD 09/05/16 Reported Medications Pantoprazole Sodium Sesquihydr (Pantoprazole Sodium) 40 Mg Tab, 1 TAB PO DAILYPRN 03/24/22 Promethazine Hcl (Promethazine Hcl) 25 Mg Tab, 1 TAB PO BIDPRN 03/24/22 Sucralfate (Sucralfate) 1 Gm Tab, 1 TAB PO TID 03/24/22 Furosemide (Furosemide) 80 Mg Tab, 1 TAB PO BID 08/16/21 Hydromorphone Hcl (HYDROMORPHONE HCL) 2 Mg/Ml Inj, 2 MG IJ, INJ 04/20/21 Hydroxyurea (Hydroxyurea) 500 Mg Cap, 500 MG PO DAILY, MG 04/20/21 Hydralazine Hcl (Hydralazine Hcl) 50 Mg Tab, 100 MG PO TID for 30 Days, MG 04/20/21 Oxycodone W/ Acetaminophen (Oxycodone/Acetaminophen 10-300 mg) 1 Tab Tab 04/20/21 Clonidine Hydrochloride (Clonidine Hcl) 0.3 Mg Tab, 1 TAB PO TID 04/20/21 Clopidogrel Bisulfate (CLOPIDOGREL) 75 Mg Tab, 1 TAB PO DAILYPRN 04/20/21 Patients Own Medication (PATIENTS OWN MEDICATION) . 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: Denies all COMPANION CAREGIVER Hx Family History Family History: Reviewed,noncontributory to illness, Family hx of heart joaquina Family History (Other): Sickle cell anemia Social History Smoker: Non-Smoker Alcohol: Denies ETOH Use Drugs: Denies Drug Use Lives In: Home Physical Exam General Appearance: Moderate Distress, Normal, Other (diaphoretic) HEENT: Normal ENT Inspection, Pharynx Normal, TMs Normal Neck: Full Range of Motion, Non-Tender, Normal, Normal Inspection Respiratory: Chest Non-Tender, Lungs Clear, No Accessory Muscle Use, No Respiratory Distress, Other (tachypneic) Cardiovascular: No Edema, No Murmur, No Gallop, Normal Peripheral Pulses, Tachycardia Breast Exam: Deferred Gastrointestinal: No Organomegaly, Non Tender, No Pulsatile Mass, Normal Bowel Sounds, Soft Genitalia: Deferred Pelvic: Deferred Rectal: Deferred Extremities: No calf tenderness, Normal capillary refill, Normal inspection, Normal range of motion, Non-tender, No pedal edema Musculoskeletal : Apperance: Normal Neurologic: Alert, keyboarding teacher II-XII nml as Tested, No Motor Deficits, Normal Affect, Normal Mood, No Sensory Deficits Cerebellar Function: Normal Reflexes: Normal Skin: Dry, Normal Color, Warm Lymphatic: No Adenopathy Was a procedure done? Was a procedure done?: No CP Differential Dx Differential Diagnosis: [place], Sinus Tachycardia Differential Diagnosis: HTN Essential, HTN Accelerated X-Ray, Labs, Meds, VS Vital Signs Date Time Temp Pulse Resp B/P (MAP) Pulse Ox O2 Delivery O2 Flow Rate FiO2 12/02/24 14:38 99 Nasal Cannula* 2 12/02/24 14:38 98.0 88 13 172/102 (125) 99 98.0 12/02/24 14:32 98 Non-Rebreather 15 N/A 12/02/24 13:52 116 12/02/24 13:50 98.8 164 24 155/100 (118) 98 98.8 [facility] [id number] [place] [id number] Ph: [phone] DIAGNOSTIC IMAGING Diagnostic Imaging Report : [id number] Signed PATIENT: KEYONA KOCH ACCT: [id number] UNIT: [id number] : 1985 LOC: ER ROOM / BED: / AGE / SEX: 39 / F ADM STATUS: REG ER SERVICE 1356 ORDERING PHYSICIAN: QUANG DAVIS MD PROCEDURE(s): CXRP - CHEST PORTABLE REASON: sob ORDER NUMBER(s): [id number], ACCESSION NUMBER(s): [id number] EXAM: XY CHEST PORTABLE CLINICAL HISTORY: sob TECHNIQUE: Single AP view of the chest WID: COMPARISON: XY CHEST PORTABLE on DOS: 10/11/24 FINDINGS: Lines and tubes: There is a defibrillator pad projecting over the right mid chest. Chest: Mild cardiomegaly with Pulmonary vascular congestion. Patchy perihilar airspace opacities greater on the right. Small bilateral pleural effusions. No pneumothorax The osseous structures are grossly intact. IMPRESSION: CHF/ volume overload with mild cardiomegaly, pulmonary edema, and small bilateral pleural effusions. ATED BY: LC PERLA MD DICTATED DATE/TIME: 12/02/241447 SIGNED BY: LC PERLA MD SIGNED DATE/TIME: 12/02/241447 CC: Time of 1ST Reevaluation: 14:30 Reevaluation 1ST: Unchanged Patient Education/Counseling: Diagnosis, Treatment Family Education/Counseling: No Family Present SEPSIS Sepsis Screen Physician Orders Chest Portable (12/02/24 13:56) Electrocardigram (12/02/24 14:24) Vital Signs Date Time Temp Pulse Resp B/P (MAP) Pulse Ox O2 Delivery O2 Flow Rate FiO2 12/02/24 14:38 99 Nasal Cannula* 2 28 12/02/24 14:38 98.0 88 13 172/102 (125) 99 98.0 12/02/24 14:32 98 Non-Rebreather 15 N/A 12/02/24 13:52 116 12/02/24 13:50 98.8 164 24 155/100 (118) 98 98.8 Departure 1 Departure Time of Disposition: 18:27 (Patient presents with acute shortness of breath and workup was started over patient decided she would want to be treated here in signed out AMA) Impression: Primary Impression: Acute and chronic respiratory failure Disposition: LEFT AGAINST MEDICAL ADVICE Condition: Serious Critical Care Note Critical Care Time?: Yes Critical care comment: Shortness of breath Authorized and Performed by: Quang Davis MD Total critical care time: Approximately 38 minutes Due to a high probability of clinically significant, life threatening deterioration, the patient required my highest level of preparedness to intervene emergently and I personally spent this critical care time directly and personally managing the patient. This critical care time included obtaining a history; examining the patient; pulse oximetry; ordering and review of studies; arranging urgent treatment with development of a management plan; evaluation of patient's response to treatment; frequent reassessment; and, discussions with other providers. This critical care time was performed to assess and manage the high probability of imminent, life-threatening deterioration that could result in multi-organ failure. It was exclusive of separately billable procedures and treating other patients and teaching time. Please see my other sections and the rest of the note for further information on patient assessment and treatment. Stability Stability form required: No Heart Score Heart Score: Heart Score Response (Comments) Value History Highly Suspicious 2 EKG N/A 0 Age <45 0 Risk Factors >3 or Hx ASHD 2 Troponin N/A 0 Total 4 I personally scribed for QUANG DAVIS MD ([email or web address]) on 12/02/24 at 14:06. Electronically submitted by Helena Davenport ([email or web address]). I personally scribed for QUANG DAVIS MD ([email or web address]) on 12/02/24 at 15:01. Electronically submitted by Helena Davenport ([email or web address]). QUANG DAVIS MD Dec 02, 2024 14:06
[2024-12-02 14:32] VITALS: O2SAT 98
[2024-12-02 14:38] VITALS: BP 172/102; PULSE 88; RESP 13; TEMP 98; O2SAT 99
--- NOTE | 2024-12-02 14:50 | DVH ---
EXAM: XY CHEST PORTABLE CLINICAL HISTORY: sob TECHNIQUE: Single AP view of the chest WID: COMPARISON: XY CHEST PORTABLE on DOS: 10/11/24 FINDINGS: Lines and tubes: There is a defibrillator pad projecting over the right mid chest. Chest: Mild cardiomegaly with Pulmonary vascular congestion. Patchy perihilar airspace opacities greater on the right. Small bilateral pleural effusions. No pneum othorax The osseous structures are grossly intact. IMPRESSION: CHF/ volume overload with mild cardiomegaly, pulmonary edema, and small bilateral pleural effusions.
== END 2024-12-02 14:50 | disposition left against medical advice (07) ==
LOC: EDBD 13:49 → ER 13:49
DX: J96.20 Acute and chronic respiratory failure, unspecified whether with hypoxia or hypercapnia (principal); I25.2 Old myocardial infarction; I13.2 Hypertensive heart and chronic kidney disease with heart failure and with stage 5 chronic kidney disease, or end stage renal disease; E11.22 Type 2 diabetes mellitus with diabetic chronic kidney disease; I50.9 Heart failure, unspecified; N18.6 End stage renal disease; Z79.899 Other long term (current) drug therapy; Z88.5 Allergy status to narcotic agent; Z88.1 Allergy status to other antibiotic agents; I25.10 Atherosclerotic heart disease of native coronary artery without angina pectoris
CPT/HCPCS: 71045; 96374; 99283; J2765; 99291